=== PATIENT | female | born 1950 | race Caucasian/White ===

== ENCOUNTER 2022-01-04 17:03 | Inpatient (IN) | payer MEDICARE ==
[2022-01-04] MEDS ORDERED: solu-MEDROL 125 MG, Sterile H2O 10 ml 2 ML IV ONE ×2 (17:09)
--- NOTE | 2022-01-04 17:33 | ERPHSYRPT ---
- History of Present Illness Time Seen by Provider: 01/04/22 17:29 Source: patient Exam Limitations: no limitations Physician History: Patient is a 71-year-old white female who presents with a complaint of shortness of breath cough sinus infection worsening COPD and back pain for 2 days. EMS initially found her O2 sat to be 91% and put her on 100% nonrebreather she was given a DuoNeb by the attendant child activity unit raising her O2 sats to 99 to 100% she was then placed on 3 L O2 nasal cannula. She is on home O2 at 2-1/2 L/min. Blood sugar by EMS was 171 she does have a history of COPD. Timing/Duration: day(s) (2), worse Cough Quality/Degree: productive cough Possible Cause: frequent episodes Modifying Factors: Improves With: albuterol nebulizer, coughing, oxygen Associated Symptoms: cough, lightheadedness, nasal congestion, nasal drainage, shortness of breath, sinus infection, wheezing Allergies/Adverse Reactions: rofecoxib [From Vioxx] Adverse Reaction (Verified 01/04/22 17:22) - Review of Systems Constitutional: No Fever, No Chills Eyes: No Symptoms Ears, Nose, & Throat: Nose Discharge, Sinus Drainage Respiratory: Cough, Dyspnea, Wheezing Cardiac: No Chest Pain, No Edema, No Syncope Abdominal/Gastrointestinal: No Abdominal Pain, No Nausea, No Vomiting, No Diarrhea Genitourinary Symptoms: No Dysuria Musculoskeletal: No Back Pain, No Neck Pain Skin: No Rash Neurological: No Dizziness, No Focal Weakness, No Sensory Changes Psychological: No Symptoms Endocrine: No Symptoms All Other Systems: Reviewed and Negative - Nursing Vital Signs Nursing Vital Signs: Initial Vital Signs Temperature 101.5 F 01/04/22 17:23 Pulse Rate 107 H 01/04/22 17:23 Respiratory Rate 24 01/04/22 17:23 Blood Pressure 123/58 01/04/22 17:23 O2 Sat by Pulse Oximetry 95 01/04/22 17:23 Pain Scale Pain Intensity 5 - Physical Exam General Appearance: moderate distress (Can speak in short sentences), alert Eye Exam: PERRL/EOMI, eyes nml inspection Ears, Nose, Throat Exam: normal ENT inspection, TMs normal, pharynx normal, moist mucous membranes Neck Exam: normal inspection, non-tender, supple, full range of motion Respiratory Exam: respiratory distress, diminished breath sounds, crackles/rales, rhonchi, wheezing Cardiovascular Exam: regular rate/rhythm, normal heart sounds Gastrointestinal/Abdomen Exam: soft, No tenderness Back Exam: normal inspection, No CVA tenderness, No vertebral tenderness Extremity Exam: normal inspection, normal range of motion Neurologic Exam: alert, oriented x 3, cooperative, normal mood/affect, sensation nml, No motor deficits Skin Exam: normal color, warm, dry, No rash Lymphatic Exam: No adenopathy - Course Nursing assessment & vital signs reviewed: Yes EKG Interpreted by Me: RATE (106), Sinus Tach, NORMAL AXIS, NORMAL INTERVALS, Non-specific ST Changes - Radiology Exams Chest X-ray Interpretation: Interpreted by me (Left lower lobe pneumonia prominent right hilar area) Ordered Tests: Active Orders 24 hr Category Date Time Status IV Insertion STAT Care 01/04/22 17:09 Active CHEST 1 VIEW (PORTABLE) Stat Exams 01/04/22 17:42 Taken CHEST WITH CONTRAST [CT] Stat Exams 01/04/22 18:52 Ordered BLOOD CULTURE Stat Lab 01/04/22 Ordered CBC W DIFF Stat Lab 01/04/22 17:50 Completed CMP Stat Lab 01/04/22 17:50 Completed D-DIMER QUANTITATIVE Stat Lab 01/04/22 17:50 Completed Lactic Acid Stat Lab 01/04/22 17:25 Completed MAGNESIUM Stat Lab 01/04/22 17:50 Completed NT PRO BNP Stat Lab 01/04/22 17:50 Completed PROCALCITONIN Stat Lab 01/04/22 17:50 Completed PROTIME WITH INR Stat Lab 01/04/22 17:50 Completed PTT Stat Lab 01/04/22 17:50 Completed TROPONIN Q4H Lab 01/04/22 17:50 Completed TROPONIN Q4H Lab 01/04/22 21:15 Ordered TROPONIN Q4H Lab 01/05/22 01:15 Ordered UA W/RFX CULTURE Stat Lab 01/04/22 19:07 Ordered BiPap/CPAP STAT RT 01/04/22 17:09 Active Medication Summary Generic Name Dose Route Start Last Admin Trade Name Freq PRN Reason Stop Dose Admin Sodium Chloride 1,000 mls @ 100 mls/hr 01/04/22 17:15 01/04/22 18:19 Sodium Chloride 0.9% 1000 Ml IV 02/03/22 17:14 100 mls/hr .Q10H EVA Administration Discontinued Medications Generic Name Dose Route Start Last Admin Trade Name Sona PRN Reason Stop Dose Admin Methylprednisolone Sodium 0 mg 01/04/22 17:09 01/04/22 18:15 Succinate 125 mg/ Sterile IV 01/04/22 17:10 125 mg Water 2 ml STAT ONE Administration Methylprednisolone Sodium Succinate Confirm 01/04/22 18:00 Methylprednis Sod Succ 125 Mg/2 Ml Vial Administered 01/04/22 18:01 Dose 125 mg .ROUTE .STK-MED ONE Sterile Water Confirm 01/04/22 18:00 Water For Injection,Sterile 10 Ml Vial Administered 01/04/22 18:01 Dose 10 ml IJ .STK-MED ONE Lab/Rad Data: Laboratory Result Diagrams 01/04/22 17:50 01/04/22 17:50 Laboratory Results 01/04/22 01/04/22 01/04/22 Range/Units Unknown 18:05 17:50 WBC (4.0-10.5) x10^3/uL RBC (4.1-5.4) x10^6/uL Hgb (12.0-16.0) g/dL Hct (35-47) % MCV (78-100) fL MCH (26-32) pg MCHC (32-36) g/dL RDW (11.5-14.0) % Plt Count (150-450) x10^3/uL MPV (7.5-11.0) fL Gran % (36.0-66.0) % Immature Gran % (Auto) (0.00-0.4) % Nucleat RBC Rel Count (0.00-0.1) % Eos # (Auto) (0-0.5) x10^3/uL Immature Gran # (Auto) (0.00-0.03) x10^3u/L Absolute Lymphs (auto) (1.0-4.6) x10^3/uL Absolute Monos (auto) (0.0-1.3) x10^3/uL Absolute Nucleated RBC (0.00-0.01) x10^3u/L Lymphocytes % (24.0-44.0) % Monocytes % (0.0-12.0) % Eosinophils % (0.00-5.0) % Basophils % (0.0-0.4) % Absolute Granulocytes (1.4-6.9) x10^3/uL Basophils # (0-0.4) x10^3/uL PT (9.4-12.5) SECONDS INR (0.8-3.0) APTT (25.1-36.5) SECONDS D-Dimer (0.0-0.50) mg/L Sodium (137-145) mmol/L Potassium (3.5-5.1) mmol/L Chloride (98-107) mmol/L Carbon Dioxide (22-30) mmol/L Anion Gap (5-15) MEQ/L BUN (7-17) mg/dL Creatinine (0.52-1.04) mg/dL Estimated GFR ML/MIN Glucose (74-106) mg/dL Lactic Acid (0.4-2.0) Calcium (8.4-10.2) mg/dL Magnesium (1.6-2.3) mg/dL Total Bilirubin (0.2-1.3) mg/dL AST (14-36) U/L ALT (0-35) U/L Alkaline Phosphatase (38-126) U/L Troponin I (0.000-0.034) ng/mL NT-Pro-B Natriuret Pep (0-900) pg/mL Serum Total Protein (6.3-8.2) g/dL Albumin (3.5-5.0) g/dL Procalcitonin 1.260 H (0.030-0.080) ng/mL Influenza Type A Ag NEGATIVE (NEGATIVE) Influenza Type B Ag NEGATIVE (NEGATIVE) RSV (PCR) NEGATIVE (Negative) SARS-CoV-2 (PCR) POSITIVE A (NEGATIVE) Group A Strep Antibody NOT DETECTED (NEGATIVE) 01/04/22 01/04/22 01/04/22 Range/Units 17:50 17:50 17:50 WBC (4.0-10.5) x10^3/uL RBC (4.1-5.4) x10^6/uL Hgb (12.0-16.0) g/dL Hct (35-47) % MCV (78-100) fL MCH (26-32) pg MCHC (32-36) g/dL RDW (11.5-14.0) % Plt Count (150-450) x10^3/uL MPV (7.5-11.0) fL Gran % (36.0-66.0) % Immature Gran % (Auto) (0.00-0.4) % Nucleat RBC Rel Count (0.00-0.1) % Eos # (Auto) (0-0.5) x10^3/uL Immature Gran # (Auto) (0.00-0.03) x10^3u/L Absolute Lymphs (auto) (1.0-4.6) x10^3/uL Absolute Monos (auto) (0.0-1.3) x10^3/uL Absolute Nucleated RBC (0.00-0.01) x10^3u/L Lymphocytes % (24.0-44.0) % Monocytes % (0.0-12.0) % Eosinophils % (0.00-5.0) % Basophils % (0.0-0.4) % Absolute Granulocytes (1.4-6.9) x10^3/uL Basophils # (0-0.4) x10^3/uL PT 11.9 (9.4-12.5) SECONDS INR 1.14 (0.8-3.0) APTT 34.3 (25.1-36.5) SECONDS D-Dimer 1.00 H* (0.0-0.50) mg/L Sodium 137 (137-145) mmol/L Potassium 4.3 (3.5-5.1) mmol/L Chloride 105 (98-107) mmol/L Carbon Dioxide 25 (22-30) mmol/L Anion Gap 11.7 (5-15) MEQ/L BUN 10 (7-17) mg/dL Creatinine 0.77 (0.52-1.04) mg/dL Estimated GFR > 60.0 ML/MIN Glucose 128 H (74-106) mg/dL Lactic Acid (0.4-2.0) Calcium 8.7 (8.4-10.2) mg/dL Magnesium 1.7 (1.6-2.3) mg/dL Total Bilirubin 0.60 (0.2-1.3) mg/dL AST 26 (14-36) U/L ALT 26 (0-35) U/L Alkaline Phosphatase 91 (38-126) U/L Troponin I < 0.012 (0.000-0.034) ng/mL NT-Pro-B Natriuret Pep 774 (0-900) pg/mL Serum Total Protein 6.5 (6.3-8.2) g/dL Albumin 3.7 (3.5-5.0) g/dL Procalcitonin (0.030-0.080) ng/mL Influenza Type A Ag (NEGATIVE) Influenza Type B Ag (NEGATIVE) RSV (PCR) (Negative) SARS-CoV-2 (PCR) (NEGATIVE) Group A Strep Antibody (NEGATIVE) 01/04/22 01/04/22 Range/Units 17:50 17:25 WBC 12.6 H (4.0-10.5) x10^3/uL RBC 2.88 L (4.1-5.4) x10^6/uL Hgb 6.4 L* (12.0-16.0) g/dL Hct 23.2 L (35-47) % MCV 80.6 (78-100) fL MCH 22.2 L (26-32) pg MCHC 27.6 L (32-36) g/dL RDW 19.5 H (11.5-14.0) % Plt Count 105 L (150-450) x10^3/uL MPV 11.5 H (7.5-11.0) fL Gran % 87.1 H (36.0-66.0) % Immature Gran % (Auto) 0.6 H (0.00-0.4) % Nucleat RBC Rel Count 0.2 H (0.00-0.1) % Eos # (Auto) 0.01 (0-0.5) x10^3/uL Immature Gran # (Auto) 0.07 H (0.00-0.03) x10^3u/L Absolute Lymphs (auto) 0.71 L (1.0-4.6) x10^3/uL Absolute Monos (auto) 0.82 (0.0-1.3) x10^3/uL Absolute Nucleated RBC 0.02 H (0.00-0.01) x10^3u/L Lymphocytes % 5.6 L (24.0-44.0) % Monocytes % 6.5 (0.0-12.0) % Eosinophils % 0.1 (0.00-5.0) % Basophils % 0.1 (0.0-0.4) % Absolute Granulocytes 10.96 H (1.4-6.9) x10^3/uL Basophils # 0.01 (0-0.4) x10^3/uL PT (9.4-12.5) SECONDS INR (0.8-3.0) APTT (25.1-36.5) SECONDS D-Dimer (0.0-0.50) mg/L Sodium (137-145) mmol/L Potassium (3.5-5.1) mmol/L Chloride (98-107) mmol/L Carbon Dioxide (22-30) mmol/L Anion Gap (5-15) MEQ/L BUN (7-17) mg/dL Creatinine (0.52-1.04) mg/dL Estimated GFR ML/MIN Glucose (74-106) mg/dL Lactic Acid 1.6 (0.4-2.0) Calcium (8.4-10.2) mg/dL Magnesium (1.6-2.3) mg/dL Total Bilirubin (0.2-1.3) mg/dL AST (14-36) U/L ALT (0-35) U/L Alkaline Phosphatase (38-126) U/L Troponin I (0.000-0.034) ng/mL NT-Pro-B Natriuret Pep (0-900) pg/mL Serum Total Protein (6.3-8.2) g/dL Albumin (3.5-5.0) g/dL Procalcitonin (0.030-0.080) ng/mL Influenza Type A Ag (NEGATIVE) Influenza Type B Ag (NEGATIVE) RSV (PCR) (Negative) SARS-CoV-2 (PCR) (NEGATIVE) Group A Strep Antibody (NEGATIVE) - Progress Progress: unchanged Air Movement: fair Blood Culture(s) Obtained: Yes Antibiotics given: Yes Discussed with : Ja Will see patient in: hospital (observation) - Departure Departure Disposition: Observation Clinical Impression: COVID, Anemia Condition: Fair Critical Care Time: No
[2022-01-04] MEDS ORDERED: Sterile H2O 10 ml IJ ONE (18:00)
[2022-01-04] MEDS ORDERED: solu-MEDROL ONE (18:00)
[2022-01-04 18:14] LABS: Absolute Neutrophil Ct (ANC) 10.96 x10^3/uL (1.4-6.9); Basophil (Absolute #) 0.01 x10^3/uL (0-0.4); Eosinophil % 0.1 % (0.00-5.0); Eosinophil (Absolute #) 0.01 x10^3/uL (0-0.5); Hematocrit 23.2 % (35-47); Lymphocyte (Absolute #) 0.71 x10^3/uL (1.0-4.6); Lymphocytes % 5.6 % (24.0-44.0); Mean Cell Volume 80.6 fL (78-100); Mean Corpuscular Hemoglobin 22.2 pg (26-32); Mean Corpuscular Hgb Concent. 27.6 g/dL (32-36); Mean Platelet Volume 11.5 fL (7.5-11.0); Monocyte (Absolute #) 0.82 x10^3/uL (0.0-1.3); Monocytes % 6.5 % (0.0-12.0); Neutrophil % 87.1 % (36.0-66.0); Platelet Count 105 x10^3/uL (150-450); Red Blood Count 2.88 x10^6/uL (4.1-5.4); Red Cell Distribution Width 19.5 % (11.5-14.0); White Blood Count 12.6 x10^3/uL (4.0-10.5)
[2022-01-04] MEDS: Sodium Chloride 0.9% 1000 ML 1,000 ML IV SCH (18:19)
[2022-01-04 18:21] LABS: Hemoglobin 6.4 g/dL (12.0-16.0)
[2022-01-04 18:37] LABS: ALBUMIN 3.7 g/dL (3.5-5.0); ALKALINE PHOSPHATASE 91 U/L (38-126); ANION GAP 11.7 MEQ/L (5-15); BLOOD UREA NITROGEN 10 mg/dL (7-17); CHLORIDE 105 mmol/L (98-107); Calcium 8.7 mg/dL (8.4-10.2); Carbon Dioxide 25 mmol/L (22-30); Creatinine 1 0.77 mg/dL (0.52-1.04); EST GLOMERULAR FILTRATION RATE > 60.0 ML/MIN; Glucose 128 mg/dL (74-106); MAGNESIUM 1.7 mg/dL (1.6-2.3); NT PRO BNP 774 pg/mL (0-900); Potassium 4.3 mmol/L (3.5-5.1); SGOT/AST 26 U/L (14-36); SGPT/ALT 26 U/L (0-35); SODIUM 137 mmol/L (137-145); Total Protein 6.5 g/dL (6.3-8.2)
[2022-01-04 18:39] LABS: INR 1.14 (0.8-3.0); PROTIME 11.9 SECONDS (9.4-12.5); PTT 34.3 SECONDS (25.1-36.5)
[2022-01-04 18:53] LABS: INFLUENZA A NEGATIVE (NEGATIVE); INFLUENZA B NEGATIVE (NEGATIVE); RESPIRATORY SYNCTIAL VIRUS NEGATIVE (Negative)
[2022-01-04 19:00] LABS: SARS-CoV-2 Xpert Express POSITIVE (NEGATIVE)
[2022-01-04 19:50] LABS: Appearance CLEAR (CLEAR)
[2022-01-04 19:52] LABS: Bilirubin NEGATIVE (NEGATIVE); Dipstick done @ ? MAIN LAB; Glucose 500 mg/dL (NEGATIVE); Ketones SMALL-15 (NEGATIVE); Nitrite NEGATIVE (NEGATIVE); Protein,Urine Dip NEGATIVE (Negative); RBC NEGATIVE Ery/ul (0-5); Specific Gravity 1.015 (1.005-1.025); Urobilinogen 0.2 mg/dL (0-1)
[2022-01-04 19:54] LABS: Urine Cultured Indicated? NO
--- NOTE | 2022-01-04 20:19 | XRAY ---
Indication: Short of breath and right upper back pain. Positive Covid 19. Elevated d-dimer. Multiple contiguous axial images obtained through the chest using 100 cc Isovue-370 contrast and PE protocol. Comparison: None Good opacification of the pulmonary arteries to include the lobar and segmental branches. No pulmonary embolus. Heart not enlarged. Aorta mildly arteriosclerotic without aneurysm/dissection. No pathologic mediastinal/hilar lymphadenopathy. Moderate size hiatal hernia with partial intrathoracic stomach. Lungs demonstrates mild right upper lobe consolidating/nonconsolidating airspace disease. Minimal patchy airspace disease seen of the remaining lungs bilaterally. Remaining lungs demonstrates mild diffuse pulmonary emphysema. No effusion. Bony thorax intact with osteopenia and moderate/advanced degenerative changes throughout the thoracolumbar spine. Limited upper abdomen unremarkable. Impression: 1. Negative pulmonary embolus. 2. Diffuse bilateral patchy airspace disease, greatest right upper lobe. 3. Chronic findings including pulmonary emphysema, arteriosclerotic disease, hiatal hernia with partial intrathoracic stomach, and chronic bony findings.
--- NOTE | 2022-01-04 20:21 | XRAY ---
Indication: Short of breath. Positive Covid 19. Comparison: None Portable chest hyperinflated with CT proven diffuse bilateral patchy airspace disease. No consolidation/large effusion. Heart not enlarged. Bony thorax intact with degenerative changes.
[2022-01-04 21:00] LABS: ABO TYPING O
[2022-01-04 21:01] LABS: Antibody Screen NEGATIVE (NEGATIVE); RH TYPING POSITIVE
[2022-01-04 21:03] LABS: CROSS MATCH (PRBC) COMPATIBLE (COMPATIBLE)
[2022-01-04 21:28] LABS: Slide Review 1 YES
[2022-01-04] MEDS ORDERED: Hydromorphone 1 mg/ml Injection IV PRN (21:55)
[2022-01-04] MEDS ORDERED: TYLENOL EXTRA STRENGTH 500 MG PO PRN (22:59)
[2022-01-04] MEDS ORDERED: REMDESIVIR 200 MG in Sodium Chloride 0.9% 250 ML 250 ML IV ONE (23:00)
[2022-01-04] MEDS ORDERED: Decadron 4 MG INJ IV SCH (23:00)
[2022-01-04] MEDS ORDERED: FEVERALL 650 MG PR PRN (23:01)
[2022-01-04] MEDS ORDERED: Zofran 4 MG/2 ML VIAL IV PRN (23:02)
[2022-01-04] MEDS ORDERED: PATIENT OWN MEDICATION IH PRN (23:49)
[2022-01-05] MEDS ORDERED: Sodium Chloride 0.9% 250 ML 250 ML IV ONE (05:30)
[2022-01-05] MEDS ORDERED: REMDESIVIR IV ONE (05:30)
[2022-01-05] MEDS ORDERED: Sodium Chloride 0.9% 1000 ML 1,000 ML ONE (05:43)
[2022-01-05] MEDS: Sodium Chloride 0.9% 1000 ML 1,000 ML IV SCH ×2 (05:44→12:15)
[2022-01-05] MEDS: HYDROCODONE-CHLORPHEN ER SUSP PO PRN ×2 (06:07→21:04)
[2022-01-05 07:28] LABS: Hematocrit 28.4 % (35-47); Hemoglobin 8.5 g/dL (12.0-16.0); Mean Cell Volume 79.8 fL (78-100); Mean Corpuscular Hemoglobin 23.9 pg (26-32); Mean Corpuscular Hgb Concent. 29.9 g/dL (32-36); Mean Platelet Volume 10.2 fL (7.5-11.0); Platelet Count 87 x10^3/uL (150-450); Red Blood Count 3.56 x10^6/uL (4.1-5.4); Red Cell Distribution Width 18.6 % (11.5-14.0)
[2022-01-05] MEDS: Advair Hfa 115/21 Common canister IH SCH ×2 (08:28→19:35)
[2022-01-05] MEDS: Spiriva 18 Mcg/Cap Inhaler IH SCH (08:28)
[2022-01-05 08:41] LABS: Slide Review YES
[2022-01-05] MEDS ORDERED: DUONEB 0.5-3 MG/3 ml Neb IH PRN (11:23)
[2022-01-05] MEDS ORDERED: TREXALL 2.5 MG PO SCH (11:30)
[2022-01-05] MEDS: Glucophage 500 MG PO SCH (12:11)
[2022-01-05] MEDS: Klor Con PO SCH (12:12)
[2022-01-05] MEDS: ENOXAPARIN SODIUM SQ SCH (12:14)
[2022-01-05] MEDS: DECADRON 10MG INJ. IV SCH (12:14)
[2022-01-05] MEDS: Neurontin PO SCH ×2 (13:04→21:04)
[2022-01-05] MEDS: ECOTRIN 81 MG PO SCH (13:04)
[2022-01-05] MEDS: Vitamin C 500 MG PO SCH (13:04)
[2022-01-05] MEDS: Cozaar 50 MG PO SCH (13:04)
[2022-01-05] MEDS: SYNTHROID 100 MCG PO SCH (13:04)
[2022-01-05] MEDS: FOLATE 1 MG PO SCH (13:04)
[2022-01-05] MEDS: Tums EX 750 MG PO SCH (13:05)
[2022-01-05] MEDS: KENALOG 0.1% CREAM 15 GM TOP SCH (13:05)
[2022-01-05] MEDS ORDERED: MEDICATION INTERVENTION MC SCH ×2 (16:00)
[2022-01-05] MEDS ORDERED: ROCEPHIN 1 Gm-D5w 50 ml Bag** 1 G/50 ML IVPB IV ONE (17:18)
[2022-01-05] MEDS ORDERED: IMODIUM 2 MG PO ONE (17:47)
[2022-01-05] MEDS: Ativan 1 MG PO PRN (21:05)
[2022-01-05] MEDS ORDERED: Flonase NASAL NS ONE (21:08)
[2022-01-05] MEDS: Flonase NASAL NS SCH (21:11)
[2022-01-05] MEDS ORDERED: REMDESIVIR 100 MG in Sodium Chloride 100ML MINI-BAG PLUS 100 ML IV SCH (22:00)
[2022-01-05] MEDS ORDERED: Mucomyst 200 MG/ML IH SCH (22:00)
[2022-01-05] MEDS ORDERED: NON-FORMULARY ITEM (Fluticasone Propionate [Flonase Allergy Relief] 9.9 ML Spray.Susp) IH SCH (22:00)
[2022-01-06 06:58] LABS: Hematocrit 26.9 % (35-47); Mean Cell Volume 79.4 fL (78-100); Mean Corpuscular Hemoglobin 23.6 pg (26-32); Mean Corpuscular Hgb Concent. 29.7 g/dL (32-36); Mean Platelet Volume 10.8 fL (7.5-11.0); Platelet Count 136 x10^3/uL (150-450); Red Blood Count 3.39 x10^6/uL (4.1-5.4); Red Cell Distribution Width 18.9 % (11.5-14.0); White Blood Count 9.6 x10^3/uL (4.0-10.5)
[2022-01-06 07:04] LABS: ANION GAP 8.9 MEQ/L (5-15); BLOOD UREA NITROGEN 24 mg/dL (7-17); CHLORIDE 105 mmol/L (98-107); Calcium 8.2 mg/dL (8.4-10.2); Carbon Dioxide 25 mmol/L (22-30); Creatinine 1 0.72 mg/dL (0.52-1.04); EST GLOMERULAR FILTRATION RATE > 60.0 ML/MIN; Glucose 112 mg/dL (74-106); Potassium 4.2 mmol/L (3.5-5.1); SODIUM 135 mmol/L (137-145)
[2022-01-06] MEDS: Glucophage 500 MG PO SCH ×2 (07:43→15:55)
[2022-01-06] MEDS ORDERED: Fosamax 70 MG PO SCH (08:00)
[2022-01-06] MEDS: Advair Hfa 115/21 Common canister IH SCH ×2 (08:03→19:21)
[2022-01-06] MEDS: Spiriva 18 Mcg/Cap Inhaler IH SCH ×2 (08:03→10:02)
[2022-01-06] MEDS: Neurontin PO SCH ×2 (09:16→21:13)
[2022-01-06] MEDS: ECOTRIN 81 MG PO SCH (09:16)
[2022-01-06] MEDS: Vitamin C 500 MG PO SCH (09:16)
[2022-01-06] MEDS: FOLATE 1 MG PO SCH (09:16)
[2022-01-06] MEDS: SYNTHROID 100 MCG PO SCH (09:16)
[2022-01-06] MEDS: Cozaar 50 MG PO SCH (09:16)
[2022-01-06] MEDS: ENOXAPARIN SODIUM SQ SCH (09:16)
[2022-01-06] MEDS: KENALOG 0.1% CREAM 15 GM TOP SCH (09:17)
[2022-01-06] MEDS: NORVASC 5 MG PO SCH (09:17)
[2022-01-06] MEDS: Flonase NASAL NS SCH ×2 (09:17→21:13)
[2022-01-06] MEDS: Protonix 40MG Tablet PO SCH (09:17)
[2022-01-06] MEDS: ROCEPHIN 1 Gm-D5w 50 ml Bag** 1 G/50 ML IVPB IV SCH (09:18)
[2022-01-06] MEDS: Klor Con PO SCH (09:18)
[2022-01-06] MEDS: Tums EX 750 MG PO SCH (09:19)
[2022-01-06] MEDS ORDERED: NON-FORMULARY ITEM (Ascorbic Acid [C-1000] 1,000 MG Tablet) PO SCH (10:00)
[2022-01-06] MEDS ORDERED: NON-FORMULARY ITEM (Calcium Carbonate [Calcium] 600 MG Tablet) PO SCH (10:00)
[2022-01-06] MEDS ORDERED: NON-FORMULARY ITEM (Omeprazole [Omeprazole] 20 MG Capsule.Dr) PO SCH (10:00)
[2022-01-06] MEDS ORDERED: LEVOTHYROXINE SODIUM 100 MCG PO SCH (10:00)
[2022-01-06] MEDS ORDERED: NON-FORMULARY ITEM (Dapagliflozin Propanediol [Farxiga] 10 MG Tablet) PO SCH (10:00)
[2022-01-06] MEDS ORDERED: NON-FORMULARY ITEM (Potassium Chloride [Potassium Chloride] 10 MEQ Tablet.Er) PO SCH (10:00)
[2022-01-06] MEDS ORDERED: NON-FORMULARY ITEM (Losartan Potassium [Losartan Potassium] 100 MG Tablet) PO SCH (10:00)
[2022-01-06] MEDS: DECADRON 10MG INJ. IV SCH (10:02)
[2022-01-06 13:39] LABS: Iron Saturation 4.04 % (20-39)
[2022-01-06 13:55] LABS: Folate (Folic Acid) 8.33 ng/mL (2.76 - >20)
[2022-01-06 13:56] LABS: Vitamin B12 > 1000 pg/mL (239-931)
[2022-01-06] MEDS ORDERED: NORCO 7.5/325 MG TAB PO PRN (14:47)
[2022-01-06] MEDS ORDERED: Zofran 4 MG/2 ML VIAL IV PRN (14:47)
[2022-01-06] MEDS ORDERED: MORPHINE SULFATE 2 MG INJ IV PRN (14:47)
[2022-01-06] MEDS ORDERED: Dextrose 5% -0.45 NaCl 1000 ML 1,000 ML IV SCH (15:00)
[2022-01-06] MEDS: FEOSOL 325 MG PO SCH ×2 (15:35→21:13)
[2022-01-06] MEDS: Ativan 1 MG PO PRN (21:13)
[2022-01-06] MEDS: HYDROCODONE-CHLORPHEN ER SUSP PO PRN (21:13)
[2022-01-07 05:03] LABS: Hematocrit 26.8 % (35-47); Hemoglobin 8.1 g/dL (12.0-16.0); Mean Cell Volume 80.2 fL (78-100); Mean Corpuscular Hemoglobin 24.3 pg (26-32); Mean Corpuscular Hgb Concent. 30.2 g/dL (32-36); Mean Platelet Volume 9.6 fL (7.5-11.0); Platelet Count 131 x10^3/uL (150-450); Red Blood Count 3.34 x10^6/uL (4.1-5.4); Red Cell Distribution Width 19.5 % (11.5-14.0); White Blood Count 8.5 x10^3/uL (4.0-10.5)
[2022-01-07 05:24] LABS: BLOOD UREA NITROGEN 21 mg/dL (7-17); CHLORIDE 104 mmol/L (98-107); Calcium 8.2 mg/dL (8.4-10.2); Carbon Dioxide 26 mmol/L (22-30); Creatinine 1 0.74 mg/dL (0.52-1.04); EST GLOMERULAR FILTRATION RATE > 60.0 ML/MIN; Glucose 107 mg/dL (74-106); Potassium 4.1 mmol/L (3.5-5.1); SODIUM 135 mmol/L (137-145)
[2022-01-07] MEDS: Advair Hfa 115/21 Common canister IH SCH ×2 (07:55→18:55)
[2022-01-07] MEDS: Spiriva 18 Mcg/Cap Inhaler IH SCH (07:55)
[2022-01-07] MEDS ORDERED: PROTONIX 40 MG IV IV SCH (10:00)
[2022-01-07] MEDS: Glucophage 500 MG PO SCH ×2 (10:24→17:03)
[2022-01-07] MEDS: Flonase NASAL NS SCH ×2 (10:25→21:33)
[2022-01-07] MEDS: Cozaar 50 MG PO SCH (10:25)
[2022-01-07] MEDS: ECOTRIN 81 MG PO SCH (10:25)
[2022-01-07] MEDS: DECADRON 10MG INJ. IV SCH (10:25)
[2022-01-07] MEDS: ENOXAPARIN SODIUM SQ SCH (10:25)
[2022-01-07] MEDS: FEOSOL 325 MG PO SCH ×2 (10:25→21:34)
[2022-01-07] MEDS: KENALOG 0.1% CREAM 15 GM TOP SCH (10:26)
[2022-01-07] MEDS: FOLATE 1 MG PO SCH (10:26)
[2022-01-07] MEDS: Neurontin PO SCH ×2 (10:27→21:34)
[2022-01-07] MEDS: NORVASC 5 MG PO SCH (10:27)
[2022-01-07] MEDS: ROCEPHIN 1 Gm-D5w 50 ml Bag** 1 G/50 ML IVPB IV SCH (10:28)
[2022-01-07] MEDS: Protonix 40MG Tablet PO SCH (10:28)
[2022-01-07] MEDS: REMDESIVIR 100 MG in Sodium Chloride 100ML MINI-BAG PLUS 100 ML IV SCH (10:28)
[2022-01-07] MEDS: Klor Con PO SCH (10:28)
[2022-01-07] MEDS: Vitamin C 500 MG PO SCH (10:28)
[2022-01-07] MEDS: SYNTHROID 100 MCG PO SCH (10:28)
[2022-01-07] MEDS: Tessalon Perles 100 MG PO PRN ×2 (10:29→15:44)
[2022-01-07] MEDS: Tums EX 750 MG PO SCH ×2 (10:29→18:45)
--- NOTE | 2022-01-07 13:38 | PCM.NOTE ---
Date and Time: 01/07/22 0900 Subjective Assessment: Patient is up in bedside chair, finished breakfast,states feeling stronger. OBJECTIVE DATA Vital Signs: Vital Signs - 24 hr Temp Pulse Resp BP Pulse Ox 01/07/22 11:28 97.9 F 79 16 130/73 98 01/07/22 10:00 18 01/07/22 08:00 18 01/07/22 07:58 97 H 18 97 01/07/22 07:48 97.8 F 77 14 131/77 96 01/07/22 06:00 22 01/07/22 04:00 22 01/07/22 03:52 97.5 F 74 18 130/71 96 01/07/22 02:00 18 01/07/22 00:00 18 01/06/22 23:51 97.9 F 66 18 125/62 98 01/06/22 22:00 16 01/06/22 20:00 22 01/06/22 19:48 97.5 F 91 H 20 125/74 95 01/06/22 19:21 95 H 18 95 01/06/22 18:00 17 01/06/22 16:00 98.0 F 90 17 127/72 96 01/06/22 15:59 18 01/06/22 13:58 16 Pain Assessment - Last Documented Pain Intensity 5 Intake and Output: Intake & Output 01/05/22 01/06/22 01/07/22 01/08/22 11:59 11:59 11:59 11:59 Intake Total 6505 277 4914 Output Total 1500 750 Balance 105 -35 1550 Weight 83.4 kg 98 kg 98.1 kg Lab Results: Lab Results-Last 24 Hours 01/06/22 01/06/22 01/06/22 Range/Units 06:45 06:45 16:01 WBC (4.0-10.5) x10^3/uL RBC (4.1-5.4) x10^6/uL Hgb (12.0-16.0) g/dL Hct (35-47) % MCV (78-100) fL MCH (26-32) pg MCHC (32-36) g/dL RDW (11.5-14.0) % Plt Count (150-450) x10^3/uL MPV (7.5-11.0) fL Reticulocyte % (Auto) 0.6 (0.6-2.6) % Retic Hgb Content 19.7 L (28-38) pg D-Dimer (0.0-0.50) mg/L Sodium (137-145) mmol/L Potassium (3.5-5.1) mmol/L Chloride (98-107) mmol/L Carbon Dioxide (22-30) mmol/L Anion Gap (5-15) MEQ/L BUN (7-17) mg/dL Creatinine (0.52-1.04) mg/dL Estimated GFR ML/MIN Glucose (74-106) mg/dL POC Glucometer 252 H (74 to 106) mg/dL Calcium (8.4-10.2) mg/dL Iron (37-170) ug/dL TIBC (265-462) ug/dL Iron Saturation (20-39) % Vitamin B12 > 1000 H (239-931) pg/mL Folic Acid 8.33 (2.76 - >20) ng/mL 01/06/22 01/06/22 01/07/22 Range/Units 20:29 Unknown 04:52 WBC 8.5 (4.0-10.5) x10^3/uL RBC 3.34 L (4.1-5.4) x10^6/uL Hgb 8.1 L (12.0-16.0) g/dL Hct 26.8 L (35-47) % MCV 80.2 (78-100) fL MCH 24.3 L (26-32) pg MCHC 30.2 L (32-36) g/dL RDW 19.5 H (11.5-14.0) % Plt Count 131 L (150-450) x10^3/uL MPV 9.6 (7.5-11.0) fL Reticulocyte % (Auto) (0.6-2.6) % Retic Hgb Content (28-38) pg D-Dimer (0.0-0.50) mg/L Sodium (137-145) mmol/L Potassium (3.5-5.1) mmol/L Chloride (98-107) mmol/L Carbon Dioxide (22-30) mmol/L Anion Gap (5-15) MEQ/L BUN (7-17) mg/dL Creatinine (0.52-1.04) mg/dL Estimated GFR ML/MIN Glucose (74-106) mg/dL POC Glucometer 217 H (74 to 106) mg/dL Calcium (8.4-10.2) mg/dL Iron 17 L (37-170) ug/dL TIBC 421 (265-462) ug/dL Iron Saturation 4.04 L (20-39) % Vitamin B12 (239-931) pg/mL Folic Acid (2.76 - >20) ng/mL 01/07/22 01/07/22 01/07/22 Range/Units 04:52 04:52 07:41 WBC (4.0-10.5) x10^3/uL RBC (4.1-5.4) x10^6/uL Hgb (12.0-16.0) g/dL Hct (35-47) % MCV (78-100) fL MCH (26-32) pg MCHC (32-36) g/dL RDW (11.5-14.0) % Plt Count (150-450) x10^3/uL MPV (7.5-11.0) fL Reticulocyte % (Auto) (0.6-2.6) % Retic Hgb Content (28-38) pg D-Dimer 0.53 H (0.0-0.50) mg/L Sodium 135 L (137-145) mmol/L Potassium 4.1 (3.5-5.1) mmol/L Chloride 104 (98-107) mmol/L Carbon Dioxide 26 (22-30) mmol/L Anion Gap 9.0 (5-15) MEQ/L BUN 21 H (7-17) mg/dL Creatinine 0.74 (0.52-1.04) mg/dL Estimated GFR > 60.0 ML/MIN Glucose 107 H (74-106) mg/dL POC Glucometer 108 H (74 to 106) mg/dL Calcium 8.2 L (8.4-10.2) mg/dL Iron (37-170) ug/dL TIBC (265-462) ug/dL Iron Saturation (20-39) % Vitamin B12 (239-931) pg/mL Folic Acid (2.76 - >20) ng/mL 01/07/22 Range/Units 11:22 WBC (4.0-10.5) x10^3/uL RBC (4.1-5.4) x10^6/uL Hgb (12.0-16.0) g/dL Hct (35-47) % MCV (78-100) fL MCH (26-32) pg MCHC (32-36) g/dL RDW (11.5-14.0) % Plt Count (150-450) x10^3/uL MPV (7.5-11.0) fL Reticulocyte % (Auto) (0.6-2.6) % Retic Hgb Content (28-38) pg D-Dimer (0.0-0.50) mg/L Sodium (137-145) mmol/L Potassium (3.5-5.1) mmol/L Chloride (98-107) mmol/L Carbon Dioxide (22-30) mmol/L Anion Gap (5-15) MEQ/L BUN (7-17) mg/dL Creatinine (0.52-1.04) mg/dL Estimated GFR ML/MIN Glucose (74-106) mg/dL POC Glucometer 163 H (74 to 106) mg/dL Calcium (8.4-10.2) mg/dL Iron (37-170) ug/dL TIBC (265-462) ug/dL Iron Saturation (20-39) % Vitamin B12 (239-931) pg/mL Folic Acid (2.76 - >20) ng/mL Multi-Disciplinary Progress Notes: Multi-Disciplinary Progress Notes 01/07/22 10:22 Case Management Note by Nisreen Weber REFERRAL WAS FAXED TO [facility]. THEY WILL NEED NOTIFIED AT TIME OF DC AT [phone]. THEY WILL NEED FAXED THE DC INSTRUCTIONS., DC MED LIST AND DC [facility] ( IF AVAILABLE) TO [phone] Initialized on 01/07/22 10:22 - END OF NOTE 01/06/22 22:44 Nutrition Note by Emily Soria Nutrition screening complete. Receiving a house regular diet. SHANTI Arenas Initialized on 01/06/22 22:44 - END OF NOTE
[2022-01-07] MEDS: HYDROCODONE-CHLORPHEN ER SUSP PO PRN (21:33)
[2022-01-07] MEDS: Ativan 1 MG PO PRN (21:34)
[2022-01-08] MEDS: Tessalon Perles 100 MG PO PRN (04:50)
[2022-01-08 04:52] LABS: Hematocrit 26.7 % (35-47); Mean Cell Volume 80.9 fL (78-100); Mean Corpuscular Hemoglobin 24.2 pg (26-32); Mean Platelet Volume 10.2 fL (7.5-11.0); Platelet Count 126 x10^3/uL (150-450); Red Cell Distribution Width 19.5 % (11.5-14.0); White Blood Count 8.2 x10^3/uL (4.0-10.5)
[2022-01-08] MEDS: Spiriva 18 Mcg/Cap Inhaler IH SCH (07:41)
[2022-01-08] MEDS: Advair Hfa 115/21 Common canister IH SCH (07:41)
[2022-01-08 07:45] VITALS: O2SAT 98
[2022-01-08] MEDS: Glucophage 500 MG PO SCH (08:05)
[2022-01-08] MEDS: Flonase NASAL NS SCH (09:36)
[2022-01-08] MEDS: KENALOG 0.1% CREAM 15 GM TOP SCH (09:36)
[2022-01-08] MEDS: FOLATE 1 MG PO SCH (09:37)
[2022-01-08] MEDS: ENOXAPARIN SODIUM SQ SCH (09:37)
[2022-01-08] MEDS: Neurontin PO SCH (09:38)
[2022-01-08] MEDS: Cozaar 50 MG PO SCH (09:39)
[2022-01-08] MEDS: Protonix 40MG Tablet PO SCH (09:39)
[2022-01-08] MEDS: ECOTRIN 81 MG PO SCH (09:39)
[2022-01-08] MEDS: Klor Con PO SCH (09:40)
[2022-01-08] MEDS: Vitamin C 500 MG PO SCH (09:40)
[2022-01-08] MEDS: FEOSOL 325 MG PO SCH (09:40)
[2022-01-08] MEDS: NORVASC 5 MG PO SCH (09:40)
[2022-01-08] MEDS: SYNTHROID 100 MCG PO SCH (09:41)
[2022-01-08] MEDS: ROCEPHIN 1 Gm-D5w 50 ml Bag** 1 G/50 ML IVPB IV SCH (09:42)
[2022-01-08] MEDS: DECADRON 10MG INJ. IV SCH (09:44)
[2022-01-08] MEDS: REMDESIVIR 100 MG in Sodium Chloride 100ML MINI-BAG PLUS 100 ML IV SCH (09:44)
[2022-01-08 11:27] VITALS: BP 152/81; PULSE 78
--- NOTE | 2022-01-20 09:32 | PCM.HP ---
History of Present Illness - Chief Complaint Chief Complaint: COVID-19, ANEMIA Date: 01/05/22 History of Present Illness: is a 71 year old female. Pt. presented to er after increasing sob with general fatigue the past 2 days, upon evaluation the patient was found to have slightly low oxygen, she is on chronic home oxygen at 2-2.5L, requiring 3L to keep a good saturation. Pt. was found to have marked anemia at 6.4, pt. noted no blood or black stools. Pt. admitted for further evaluation and treatment of covid positive pneumonia and transfusion of blood with further evaluation into the etiology of the anemia. - Review of Systems Constitutional: Fatigue, No Fever, No Chills Eyes: No Symptoms Ears, Nose, & Throat: No Symptoms Respiratory: Cough, Short Of Breath Cardiac: No Chest Pain, No Edema, No Syncope Abdominal/Gastrointestinal: No Abdominal Pain, No Nausea, No Vomiting, No Diarr hea Genitourinary Symptoms: No Dysuria Musculoskeletal: No Back Pain, No Neck Pain Skin: No Rash Neurological: No Dizziness, No Focal Weakness, No Sensory Changes Psychological: No Symptoms Endocrine: No Symptoms Hematologic/Lymphatic: No Symptoms Immunological/Allergic: No Symptoms Medications & Allergies Home Medications: Home Medication List Acetylcysteine 200 mg/ml [Mucomyst 200 MG/ML] 4 ml IH BID 01/04/22 [History Confirmed 01/04/22] Albuterol 8 gm Mdi Hfa [Ventolin Hfa MDI] 2 puffs IH Q4HPRN PRN 01/04/22 [History Confirmed 01/04/22] Alendronate Sodium 70 mg PO WEEKLY 01/04/22 [History Confirmed 01/04/22] Amlodipine Besylate 5 mg [Norvasc 5 mg] 10 mg PO DAILY 01/04/22 [History Confirmed 01/04/22] Ascorbic Acid [C-1000] 1,000 mg PO DAILY 01/04/22 [History Confirmed 01/04/22] Aspirin [Aspirin EC] 81 mg PO DAILY 01/04/22 [History Confirmed 01/04/22] Calcium Carbonate [Calcium] 600 mg PO DAILY 01/04/22 [History Confirmed ] Dapagliflozin Propanediol [Farxiga] 10 mg PO DAILY 01/04/22 [History Confirmed 01/04/22] Fluticasone Propionate [Flonase Allergy Relief] 1 spray IH BID 01/04/22 [History Confirmed 01/04/22] Fluticasone/Vilanterol [Breo Ellipta 100-25 Mcg INH] 1 puff IH DAILY 01/04/22 [History Confirmed 01/04/22] Folic Acid 1 mg PO DAILY 01/04/22 [History Confirmed 01/04/22] Gabapentin 100 mg PO DAILY 01/04/22 [History Confirmed 01/04/22] Gabapentin 200 mg PO HS 01/04/22 [History Confirmed 01/04/22] Ipratropium/Albuterol Sulfate [Iprat-Albut 0.5-3(2.5) mg/3 ml] 3 ml IH Q4HPRN PRN 01/04/22 [History Confirmed 01/04/22] Levothyroxine Sodium [Levothyroxine] 100 mcg PO DAILY 01/04/22 [History Confirmed 01/04/22] Losartan Potassium 100 mg PO DAILY 01/04/22 [History Confirmed 01/04/22] Metformin HCl 500 mg [Glucophage 500 MG] 1,000 mg PO BID 01/04/22 [History Confirmed 01/04/22] Methotrexate Sodium 2.5 mg [Trexall 2.5 mg] 5 mg PO WEEKLY 01/04/22 [History Confirmed 01/04/22] Omeprazole 20 mg PO DAILY 01/04/22 [History Confirmed 01/04/22] Potassium Chloride 20 meq PO DAILY 01/04/22 [History Confirmed 01/04/22] Roflumilast [Daliresp] 250 mg PO DAILY 01/04/22 [History Confirmed 01/04/22] Triamcinolone 0.1% Cream [Kenalog 0.1% Cream 15 gm] 1 gm TOP DAILY 01/04/22 [History Confirmed 01/04/22] Umeclidinium [place] [Incruse Ellipta] 1 puff IH DAILY 01/04/22 [History Confirmed 01/04/22] Amox Tr/Potass Clav. 875 mg [Augmentin 875-125 Tablet] 875 mg PO BID 20 Days #20 tablet 01/08/22 [Rx] Prednisone 20 mg [Deltasone 20 mg] 20 mg PO DAILY 5 Days #5 tablet 01/08/22 [Rx] Allergies/Adverse Reactions: Allergies Allergy/AdvReac Type Severity Reaction Status Date / Time rofecoxib [From Vioxx] AdvReac Verified 01/04/22 17:22 - Past Medical History Past Medical History: Yes Neurological History: Peripheral Neuropathy ENT History: Cataracts Cardiac History: High Cholesterol, Hypertension Respiratory History: COPD, Pneumonia, Sleep Apnea Endocrine Medical History: Diabetes Type II, Hypothyroidism Musculoskelatal History: Arthritis GI Medical History: GERD History: No Pertinent History Pyscho-Social History: No Pertinent History Reproductive Disorders: No Pertinent History - Female History Are you now?: No - Past Surgical History Past Surgical History: Yes Neuro Surgical History: No Pertinent History Cardiac History: Angioplasty Respiratory Surgery: No Pertinent History GI Surgical History: No Pertinent History Genitourinary Surgical Hx: No Pertinent History Musculskeletal Surgical Hx: No Pertinent History Female Surgical History: Section Other Surgical History: angioplasty 2006 - Social History Smoking Status: Former smoker Exposure to second hand smoke: No Alcohol: None Drug Use: none - Physical Exam General Appearance: no apparent distress, alert Neurologic Exam: alert, oriented x 3, cooperative, normal mood/affect, nml cerebellar function, nml station & gait, sensation nml, No motor deficits Eye Exam: PERRL/EOMI, eyes nml inspection Ears, Nose, Throat Exam: normal ENT inspection, pharynx normal, moist mucous membranes Neck Exam: normal inspection, non-tender, supple, full range of motion Respiratory Exam: normal breath sounds, rhonchi, wheezing, No respiratory distress Cardiovascular Exam: regular rate/rhythm, normal heart sounds, normal peripheral pulses Gastrointestinal/Abdomen Exam: soft, normal bowel sounds, No tenderness, No mass Back Exam: normal inspection, normal range of motion, No CVA tenderness, No vertebral tenderness Extremity Exam: normal inspection, normal range of motion, pelvis stable Skin Exam: normal color, warm, dry, No rash Lymphatic Exam: No adenopathy Results - Labs Lab/Micro Results: Microbiology 01/04/22 17:50 Blood Culture Gram Stain - Final Blood Blood Culture - Final Coagulase Negative Staph. Possible Contaminant. Clinical judgement required. No further workup performed. 01/04/22 17:55 Blood Culture Gram Stain - Final Blood Not Reportable Blood Culture - Final NO GROWTH 01/05/22 01:30 Urine Culture - Final Catherized NO GROWTH Assessment/Plan (1) Anemia Status: Acute Assessment & Plan: transfuse and evaluate for potential causes Code(s): D64.9 - ANEMIA, UNSPECIFIED (2) COVID Status: Acute Assessment & Plan: supportive treatment and treatment with antiviral Code(s): U07.1 - COVID-19
--- NOTE | 2022-01-20 09:38 | PCM.DS ---
Discharge Summary Date of Admission: 01/05/22 12:40 Date of Discharge: 01/08/2022 Admitting Physician: RAGHAV NIEVES Primary Care Provider: MILAGRO PUGH Allergies Allergies rofecoxib [From Vioxx] Adverse Reaction (Verified 01/04/22 17:22) Hospital Summary - Hospital Course Hospital Course: Pt. was transfused, hgb remained stable, labs indicated markedly diminished iron levels, pt. reported a recent clear colonoscopy, stools negative for occult blood, it was felt the anemia was a result of the low iron levels. Pt. will start iron supplementation upon discharge and while in the hospital, clinically the patients strength improved as well as breathing, feeling strong enough for discharge. - Vitals & Intake/Output Vital Signs: Vital Signs Temperature 97.8 F 01/08/22 11:26 Pulse Rate 78 01/08/22 11:26 Respiratory Rate 17 01/08/22 12:00 Blood Pressure 152/81 01/08/22 11:26 O2 Sat by Pulse Oximetry 98 01/08/22 11:26 - Lab Result Diagrams: 01/08/22 04:48 01/07/22 04:52 Micro Results-Entire Visit: Microbiology 01/04/22 17:50 Blood Culture Gram Stain - Final Blood Blood Culture - Final Coagulase Negative Staph. Possible Contaminant. Clinical judgement required. No further workup performed. 01/04/22 17:55 Blood Culture Gram Stain - Final Blood Not Reportable Blood Culture - Final NO GROWTH 01/05/22 01:30 Urine Culture - Final Catherized NO GROWTH - Procedures and Test Procedures and Tests throughout Hospitalization: Therapy Orders & Screens 01/04/22 17:09 BiPap/CPAP STAT Comment: 01/04/22 23:00 Respiratory Therapy Consult ROUTINE Comment: Reason For Exam: Diagnosis: Covid 01/04/22 23:17 RT Screen per Nursing Assess ONCE Comment: Protocol Order Physician Instructions: Greater than 3 points order RT Admission Screen Reason For Exam: Triggered on Admission Diagnosis: Covid Diagnosis: Covid Pneumonia: Yes Home O2: Yes: 3 1/2 CHF: No Home CPAP/BIPAP: Yes Home Nebs/MDI: Yes Total Points: 18 01/04/22 23:52 Oxygen Oxymask LPM 5 lpm Comment: Diagnosis: Covid 01/04/22 23:53 BiPap/CPAP ROUTINE Comment: Diagnosis: Covid Respiratory Therapy Assessment DAILY Comment: Diagnosis: Covid 01/07/22 07:58 Oxygen NASAL CANNULA 3.5 lpm Comment: Diagnosis: Covid Discharge Exam General Appearance: no apparent distress, alert Neurologic Exam: alert, oriented x 3, cooperative, normal mood/affect, nml cerebellar function, sensation nml, No motor deficits Eye Exam: PERRL, EOMI, eyes nml inspection Ears, Nose, Throat Exam: normal ENT inspection, pharynx normal, moist mucous membranes Neck Exam: normal inspection, non-tender, supple, full range of motion Respiratory Exam: normal breath sounds, lungs clear, No respiratory distress Cardiovascular Exam: regular rate/rhythm, normal heart sounds Gastrointestinal/Abdomen Exam: soft, No tenderness, No mass Pelvic Exam: deferred Rectal Exam: deferred Back Exam: normal inspection, normal range of motion, No CVA tenderness, No vertebral tenderness Extremity Exam: normal inspection, normal range of motion Skin Exam: normal color, warm, dry Final Diagnosis/Problem List - Final Discharge Diagnosis/Problem (1) Anemia Status: Acute Assessment & Plan: iron deficiency with chronic disease, pt. will supplement iron, following upon discharge with her pcp for possible further evaluation as warranted per her pcp. Code(s): D64.9 - ANEMIA, UNSPECIFIED (2) COVID Status: Acute Assessment & Plan: clinically improved, after treatment, symptomatic treatment Code(s): U07.1 - COVID-19 - Discharge Discharge Date: 01/08/22 Disposition: Home, Self-Care Condition: Fair Prescriptions: New Amox Tr/Potass Clav. 875 mg [Augmentin 875-125 Tablet] 875 mg PO BID 20 Days #20 tablet Prednisone 20 mg [Deltasone 20 mg] 20 mg PO DAILY 5 Days #5 tablet No Action Acetylcysteine 200 mg/ml [Mucomyst 200 MG/ML] 4 ml IH BID Potassium Chloride 20 meq PO DAILY Omeprazole 20 mg PO DAILY Methotrexate Sodium 2.5 mg [Trexall 2.5 mg] 5 mg PO WEEKLY Metformin HCl 500 mg [Glucophage 500 MG] 1,000 mg PO BID Losartan Potassium 100 mg PO DAILY Levothyroxine Sodium [Levothyroxine] 100 mcg PO DAILY Ipratropium/Albuterol Sulfate [Iprat-Albut 0.5-3(2.5) mg/3 ml] 3 ml IH Q4HPRN PRN PRN Reason: Shortness Of Breath Umeclidinium Joseph [Incruse Ellipta] 1 puff IH DAILY Gabapentin 200 mg PO HS Gabapentin 100 mg PO DAILY Folic Acid 1 mg PO DAILY Fluticasone/Vilanterol [Breo Ellipta 100-25 Mcg INH] 1 puff IH DAILY Fluticasone Propionate [Flonase Allergy Relief] 1 spray IH BID Dapagliflozin Propanediol [Farxiga] 10 mg PO DAILY Roflumilast [Daliresp] 250 mg PO DAILY Calcium Carbonate [Calcium] 600 mg PO DAILY Aspirin [Aspirin EC] 81 mg PO DAILY Ascorbic Acid [C-1000] 1,000 mg PO DAILY Albuterol 8 gm Mdi Hfa [Ventolin Hfa MDI] 2 puffs IH Q4HPRN PRN PRN Reason: Shortness Of Breath Amlodipine Besylate 5 mg [Norvasc 5 mg] 10 mg PO DAILY Alendronate Sodium 70 mg PO WEEKLY Triamcinolone 0.1% Cream [Kenalog 0.1% Cream 15 gm] 1 gm TOP DAILY Outpatient Orders: BMP Time Frame: 01/15/22, Facility: [facility], Location: LABORATORY CBC W DIFF Time Frame: 01/15/22, Facility: [facility], Location: LABORATORY Instructions: Anemia Caused by Low Iron, COVID-19 (DC) Follow up with: RAGHAV NIEVES MD [ACTIVE STAFF] - 01/15/22 1:30 pm Forms: Discharge Instructions
== END 2022-01-08 13:12 | disposition home or self-care (01) | DRG 811 ==
LOC: ED 17:03 → ICU 21:59 → OBSVTOIN 01-05 12:40
PROVIDERS: ADMIT Family Medicine; ATTEND Family Medicine
DX: D64.9 Anemia, unspecified (principal); U07.1 COVID-19; Z79.899 Other long term (current) drug therapy; Z20.828 Contact with and (suspected) exposure to other viral communicable diseases; Z99.81 Dependence on supplemental oxygen
CPT/HCPCS: 0241U; 36000; 36415; 36430; 51702; 71045; 71260; 80048; 80053; 81015; 82607; 82746; 82947; 83036; 83540; 83550; 83605; 83735; 83880; 84145; 84484; 85025; 85027; 85045; 85046; 85379; 85610; 85730; 86850; 86900; 86901; 86922; 87040; 87086; 87651; 93268; 94002; 94640; 94660; 94760; 94762; 96374; 99285; G0328; G0378; P9016; 82274; J0248; J0696; J1100; J1650; J2930; A9270-GY

== ENCOUNTER 2022-01-04 17:17 | Emergency (ER) | payer MEDICARE | END 2022-01-04 17:44 | LOC: ED 17:17 | DX: Z53.9 Procedure and treatment not carried out, unspecified reason (principal) | CPT/HCPCS: 99281 ==

== ENCOUNTER 2022-03-03 07:49 | Emergency (ER) | payer MEDICARE ==
--- NOTE | 2022-03-03 07:54 | ERPHSYRPT ---
- History of Present Illness Time Seen by Provider: 03/03/22 07:54 Source: patient, family Exam Limitations: no limitations Physician History: This is a 71-year-old white female patient of Dr. Nieves who presents with 1 day history of shortness of air. In the last 24 hours, the patient states her shortness of air has increased. She is also had associated cough and some pain in the central part of her back. She has no significant chest pain per her report. Patient is an oxygen dependent COPD patient who wears 3 L of oxygen via nasal cannula. She has been taking it and just forgot to bring it with her on her way to the emergency department today. Patient has a history of hypertension, hypothyroidism, gastroesophageal reflux disease, coronary artery disease, hyperlipidemia, recurrent pneumonia, sleep apnea and peripheral neuropathy. Her symptoms, per her report, are just like the several other episodes of pneumonia. Her daughter had a cough and flulike symptoms and the patient was exposed to her recently. Patient also had low-grade fever. Patient has not had any nausea vomiting or diarrhea. Timing/Duration: yesterday Activities at Onset: none Severity of Dyspnea-Max: mild Severity of Dyspnea-Current: mild Possible Cause: occasional episodes Modifying Factors: Improves With: coughing Associated Symptoms: cough, fever Allergies/Adverse Reactions: rofecoxib [From Vioxx] Adverse Reaction (Verified 03/03/22 07:52) Home Medications: Acetylcysteine 200 mg/ml [Mucomyst 200 MG/ML] 4 ml IH BID 01/04/22 [Histor y] Albuterol 8 gm Mdi Hfa [Ventolin Hfa MDI] 2 puffs IH Q4HPRN PRN 01/04/22 [History] Alendronate Sodium 70 mg PO WEEKLY 01/04/22 [History] Amlodipine Besylate 5 mg [Norvasc 5 mg] 10 mg PO DAILY 01/04/22 [History] Ascorbic Acid [C-1000] 1,000 mg PO DAILY 01/04/22 [History] Aspirin [Aspirin EC] 81 mg PO DAILY 01/04/22 [History] Calcium Carbonate [Calcium] 600 mg PO DAILY 01/04/22 [History] Dapagliflozin Propanediol [Farxiga] 10 mg PO DAILY 01/04/22 [History] Fluticasone Propionate [Flonase Allergy Relief] 1 spray IH BID 01/04/22 [History] Fluticasone/Vilanterol [Breo Ellipta 100-25 Mcg INH] 1 puff IH DAILY 01/04/22 [History] Folic Acid 1 mg PO DAILY 01/04/22 [History] Gabapentin 100 mg PO DAILY 01/04/22 [History] Gabapentin 200 mg PO HS 01/04/22 [History] Ipratropium/Albuterol Sulfate [Iprat-Albut 0.5-3(2.5) mg/3 ml] 3 ml IH Q4HPRN PRN 01/04/22 [History] Levothyroxine Sodium [Levothyroxine] 100 mcg PO DAILY 01/04/22 [History] Losartan Potassium 100 mg PO DAILY 01/04/22 [History] Metformin HCl 500 mg [Glucophage 500 MG] 1,000 mg PO BID 01/04/22 [History] Methotrexate Sodium 2.5 mg [Trexall 2.5 mg] 5 mg PO WEEKLY 01/04/22 [History] Omeprazole 20 mg PO DAILY 01/04/22 [History] Potassium Chloride 20 meq PO DAILY 01/04/22 [History] Roflumilast [Daliresp] 250 mg PO DAILY 01/04/22 [History] Triamcinolone 0.1% Cream [Kenalog 0.1% Cream 15 gm] 1 gm TOP DAILY 01/04/22 [History] Umeclidinium [place] [Incruse Ellipta] 1 puff IH DAILY 01/04/22 [History] Travel Risk - International Travel Have you traveled outside of the country in past 3 weeks: No - Coronavirus Screening Are you exhibiting any of the following symptoms?: Yes Symptoms: Fever, Cough: New Onset, Shortness of Breath, Headaches/Body Aches/Fatigue - Vaccination Dates Date of 2cond Vaccination (if applicable): 09/13/20 - Review of Systems Constitutional: Fever Eyes: No Symptoms Ears, Nose, & Throat: No Symptoms Respiratory: Cough, Dyspnea Cardiac: No Symptoms Abdominal/Gastrointestinal: No Symptoms Genitourinary Symptoms: No Symptoms Musculoskeletal: Arthralgias, Myalgias Skin: No Symptoms Neurological: No Symptoms Psychological: No Symptoms Endocrine: No Symptoms Hematologic/Lymphatic: No Symptoms Immunological/Allergic: No Symptoms All Other Systems: Reviewed and Negative - Past Medical History Neurological History: Peripheral Neuropathy ENT History: Cataracts Cardiac History: Coronary Artery Disease, High Cholesterol, Hypertension Respiratory History: COPD, Pneumonia, Sleep Apnea Musculoskeletal History: Arthritis GI Medical History: GERD - Past Surgical History Cardiac: Angioplasty, Cardiac Catheterization - Social History Drug Use: none - Nursing Vital Signs Nursing Vital Signs: Initial Vital Signs Temperature 97.7 F 03/03/22 07:54 Pulse Rate 105 H 03/03/22 07:54 Respiratory Rate 22 03/03/22 07:54 Blood Pressure 140/80 03/03/22 07:54 O2 Sat by Pulse Oximetry 96 03/03/22 07:54 Pain Scale Pain Intensity 0 - Physical Exam General Appearance: no apparent distress, alert, anxiety Eye Exam: PERRL/EOMI, eyes nml inspection Ears, Nose, Throat Exam: hearing grossly normal, normal ENT inspection, normal pharynx Neck Exam: normal inspection, non-tender, supple, full range of motion Respiratory Exam: normal breath sounds, lungs clear, airway intact, No chest tenderness, No respiratory distress Cardiovascular/Chest Exam: normal heart sounds, regular rate/rhythm, normal p eripheral pulses, No murmur Abdominal/Gastrointestinal Exam: soft, normal bowel sounds, No tenderness Rectal Exam: not done Extremity Exam: non-tender, normal range of motion, normal inspection Neurologic Exam: alert, oriented x 3, cooperative, child welfare social worker II-XII nml as tested, nml cerebellar function, nml station & gait, sensation nml Skin Exam: normal color, warm, dry Lymphatic Exam: No adenopathy SpO2 Interpretation: normal O2 Delivery: Nasal Cannula (3 L oxygen) - Course Nursing assessment & vital signs reviewed: Yes EKG Interpreted by Me: RATE ([id number]), Sinus Tach, Right [place] Deviation, NORMAL QRS, NORMAL ST-T, Other (No acute ischemic changes on today's twelve-lead EKG) Ordered Tests: Active Orders 24 hr Category Date Time Status EKG-ER Only STAT Care 03/03/22 08:09 Active IV Insertion STAT Care 03/03/22 08:09 Active Pulse Oximetry (ED) STAT Care 03/03/22 08:09 Active CHEST 1 VIEW (PORTABLE) Stat Exams 03/03/22 08:30 Completed CHEST WITH CONTRAST [CT] Stat Exams 03/03/22 09:56 Taken CBC W DIFF Stat Lab 03/03/22 08:00 Completed CMP Stat Lab 03/03/22 08:00 Completed D-DIMER QUANTITATIVE Stat Lab 03/03/22 08:00 Completed NT PRO BNP Stat Lab 03/03/22 08:00 Completed TROPONIN Q4H Lab 03/03/22 08:00 Completed TROPONIN Q4H Lab 03/03/22 12:15 Ordered TROPONIN Q4H Lab 03/03/22 16:15 Ordered Respiratory Therapy Assessment DAILY RT 03/03/22 08:25 Active Medication Summary Discontinued Medications Generic Name Dose Route Start Last Admin Trade Name Freq PRN Reason Stop Dose Admin Hydrocodone Bitart/Acetaminophen 10 ml 03/03/22 08:19 03/03/22 08:34 Hydrocodone/Acetaminophen 5 Ml Udcup PO 03/03/22 08:20 10 ml STAT STA Administration Hydrocodone Bitart/Acetaminophen Confirm 03/03/22 08:29 Hydrocodone/Acetaminophen 5 Ml Udcup Administered 03/03/22 08:30 Dose 10 ml .ROUTE .STK-MED ONE Albuterol/Ipratropium 3 ml 03/03/22 08:24 03/03/22 08:27 Ipratropium/Albuterol Sulfate 3 Ml Ampul.Neb IH 03/03/22 08:25 3 ml STAT ONE Administration Albuterol/Ipratropium Confirm 03/03/22 08:26 Ipratropium/Albuterol Sulfate 3 Ml Ampul.Neb Administered 03/03/22 08:27 Dose 3 ml IH .STK-MED ONE Methylprednisolone Sodium 0 mg 03/03/22 08:19 03/03/22 08:34 Succinate 125 mg/ Sterile IV 03/03/22 08:20 125 mg Water 2 ml STAT ONE Administration Sodium Chloride 500 mls @ 500 mls/hr 03/03/22 09:26 03/03/22 09:36 Sodium Chloride 0.9% 500 Ml IV 03/03/22 10:25 500 mls/hr .Q1H ONE Administration Ceftriaxone Sodium/Dextrose 1 g in 50 mls @ 100 mls/hr 03/03/22 09:29 03/03/22 09:36 Rocephin 1 Gm-D5w 50 Ml Bag IV 03/03/22 09:58 100 mls/hr STAT STA 100 mls/hr Administration Ceftriaxone Sodium/Dextrose Confirm 03/03/22 09:35 Rocephin 1 Gm-D5w 50 Ml Bag Administered 03/03/22 09:36 Dose 1 g in 50 mls @ ud IV .STK-MED ONE Sodium Chloride Confirm 03/03/22 09:35 Sodium Chloride 0.9% 500 Ml Administered 03/03/22 09:36 Dose 500 mls @ ud IV .STK-MED ONE Methylprednisolone Sodium Succinate Confirm 03/03/22 08:29 Methylprednis Sod Succ 125 Mg/2 Ml Vial Administered 03/03/22 08:30 Dose 125 mg .ROUTE .STK-MED ONE Sterile Water Confirm 03/03/22 08:29 Water For Injection,Sterile 10 Ml Vial Administered 03/03/22 08:30 Dose 10 ml IJ .STK-MED ONE Lab/Rad Data: Laboratory Result Diagrams 03/03/22 08:00 03/03/22 08:00 Laboratory Results 03/03/22 03/03/22 03/03/22 Range/Units 08:15 08:00 08:00 WBC (4.0-10.5) x10^3/uL RBC (4.1-5.4) x10^6/uL Hgb (12.0-16.0) g/dL Hct (35-47) % MCV (78-100) fL MCH (26-32) pg MCHC (32-36) g/dL RDW (11.5-14.0) % Plt Count (150-450) x10^3/uL MPV (7.5-11.0) fL Gran % (36.0-66.0) % Immature Gran % (Auto) (0.00-0.4) % Nucleat RBC Rel Count (0.00-0.1) % Eos # (Auto) (0-0.5) x10^3/uL Immature Gran # (Auto) (0.00-0.03) x10^3u/L Absolute Lymphs (auto) (1.0-4.6) x10^3/uL Absolute Monos (auto) (0.0-1.3) x10^3/uL Absolute Nucleated RBC (0.00-0.01) x10^3u/L Lymphocytes % (24.0-44.0) % Monocytes % (0.0-12.0) % Eosinophils % (0.00-5.0) % Basophils % (0.0-0.4) % Absolute Granulocytes (1.4-6.9) x10^3/uL Basophils # (0-0.4) x10^3/uL D-Dimer 0.59 H (0.0-0.50) mg/L Sodium (137-145) mmol/L Potassium (3.5-5.1) mmol/L Chloride (98-107) mmol/L Carbon Dioxide (22-30) mmol/L Anion Gap (5-15) MEQ/L BUN (7-17) mg/dL Creatinine (0.52-1.04) mg/dL Estimated GFR ML/MIN Glucose (74-106) mg/dL Calcium (8.4-10.2) mg/dL Total Bilirubin (0.2-1.3) mg/dL AST (14-36) U/L ALT (0-35) U/L Alkaline Phosphatase (38-126) U/L Troponin I < 0.012 (0.000-0.034) ng/mL NT-Pro-B Natriuret Pep (0-900) pg/mL Serum Total Protein (6.3-8.2) g/dL Albumin (3.5-5.0) g/dL Influenza Type A Ag NEGATIVE (NEGATIVE) Influenza Type B Ag NEGATIVE (NEGATIVE) RSV (PCR) NEGATIVE (Negative) SARS-CoV-2 (PCR) NEGATIVE (NEGATIVE) 03/03/22 03/03/22 Range/Units 08:00 08:00 WBC 8.4 (4.0-10.5) x10^3/uL RBC 3.78 L (4.1-5.4) x10^6/uL Hgb 10.1 L (12.0-16.0) g/dL Hct 33.4 L (35-47) % MCV 88.4 (78-100) fL MCH 26.7 (26-32) pg MCHC 30.2 L (32-36) g/dL RDW 20.9 H (11.5-14.0) % Plt Count 160 (150-450) x10^3/uL MPV 10.1 (7.5-11.0) fL Gran % 82.9 H (36.0-66.0) % Immature Gran % (Auto) 0.4 (0.00-0.4) % Nucleat RBC Rel Count 0.0 (0.00-0.1) % Eos # (Auto) 0.03 (0-0.5) x10^3/uL Immature Gran # (Auto) 0.03 (0.00-0.03) x10^3u/L Absolute Lymphs (auto) 0.56 L (1.0-4.6) x10^3/uL Absolute Monos (auto) 0.77 (0.0-1.3) x10^3/uL Absolute Nucleated RBC 0.00 (0.00-0.01) x10^3u/L Lymphocytes % 6.7 L (24.0-44.0) % Monocytes % 9.2 (0.0-12.0) % Eosinophils % 0.4 (0.00-5.0) % Basophils % 0.4 (0.0-0.4) % Absolute Granulocytes 6.98 H (1.4-6.9) x10^3/uL Basophils # 0.03 (0-0.4) x10^3/uL D-Dimer (0.0-0.50) mg/L Sodium 136 L (137-145) mmol/L Potassium 3.9 (3.5-5.1) mmol/L Chloride 100 (98-107) mmol/L Carbon Dioxide 29 (22-30) mmol/L Anion Gap 10.8 (5-15) MEQ/L BUN 9 (7-17) mg/dL Creatinine 0.70 (0.52-1.04) mg/dL Estimated GFR > 60.0 ML/MIN Glucose 130 H (74-106) mg/dL Calcium 9.0 (8.4-10.2) mg/dL Total Bilirubin 0.70 (0.2-1.3) mg/dL AST 33 (14-36) U/L ALT 26 (0-35) U/L Alkaline Phosphatase 97 (38-126) U/L Troponin I (0.000-0.034) ng/mL NT-Pro-B Natriuret Pep 357 (0-900) pg/mL Serum Total Protein 7.2 (6.3-8.2) g/dL Albumin 3.8 (3.5-5.0) g/dL Influenza Type A Ag (NEGATIVE) Influenza Type B Ag (NEGATIVE) RSV (PCR) (Negative) SARS-CoV-2 (PCR) (NEGATIVE) - Progress Progress: improved, re-examined Air Movement: good Progress Note: 03/03/22 10:42 Chest x-ray shows no acute cardiopulmonary process. 03/03/22 10:53 CTA of chest shows no pulmonary embolus. There is evidence of intrathoracic adenopathy. There is also evidence of left upper lobe pneumonitis. Blood Culture(s) Obtained: Yes Antibiotics given: Yes Counseled pt/family regarding: lab results, diagnosis, need for follow-up, rad results - Departure Departure Disposition: Home Clinical Impression: Upper respiratory infection, Pneumonitis Condition: Stable Critical Care Time: No Referrals: RAGHAV NIEVES MD [Primary Care Provider] - Follow up/PCP as directed Additional Instructions: Drink plenty of fluids. Take your medication as prescribed. Follow-up with your primary care provider for further evaluation management. Prescriptions: Hydrocodone/Acetaminophen [Hydrocodone-Acetamn 7.5-325/15] 10 ml PO Q8H PRN PRN #120 ml MDD 30 ml PRN Reason: Cough Prednisone 10 mg [Deltasone 10 mg] 10 mg PO TID #12 tablet Azithromycin 250 mg [Zithromax 250 MG TABLET] 250 mg PO ZPACK #6 tablet
[2022-03-03] MEDS ORDERED: HYDROCODONE-ACETAMIN 2.5-108/5 ML SOLUTION PO STA (08:19)
[2022-03-03] MEDS ORDERED: solu-MEDROL 125 MG, Sterile H2O 10 ml 2 ML IV ONE ×2 (08:19)
[2022-03-03] MEDS ORDERED: DUONEB 0.5-3 MG/3 ml Neb IH ONE ×2 (08:24→08:26)
[2022-03-03] MEDS ORDERED: Sterile H2O 10 ml IJ ONE (08:29)
[2022-03-03] MEDS ORDERED: solu-MEDROL ONE (08:29)
[2022-03-03] MEDS ORDERED: HYDROCODONE-ACETAMIN 2.5-108/5 ML SOLUTION ONE (08:29)
[2022-03-03 08:35] LABS: Absolute Neutrophil Ct (ANC) 6.98 x10^3/uL (1.4-6.9); Basophil (Absolute #) 0.03 x10^3/uL (0-0.4); Eosinophil % 0.4 % (0.00-5.0); Eosinophil (Absolute #) 0.03 x10^3/uL (0-0.5); Hematocrit 33.4 % (35-47); Hemoglobin 10.1 g/dL (12.0-16.0); Lymphocyte (Absolute #) 0.56 x10^3/uL (1.0-4.6); Lymphocytes % 6.7 % (24.0-44.0); Mean Cell Volume 88.4 fL (78-100); Mean Corpuscular Hemoglobin 26.7 pg (26-32); Mean Corpuscular Hgb Concent. 30.2 g/dL (32-36); Mean Platelet Volume 10.1 fL (7.5-11.0); Monocyte (Absolute #) 0.77 x10^3/uL (0.0-1.3); Monocytes % 9.2 % (0.0-12.0); Neutrophil % 82.9 % (36.0-66.0); Platelet Count 160 x10^3/uL (150-450); Red Blood Count 3.78 x10^6/uL (4.1-5.4); Red Cell Distribution Width 20.9 % (11.5-14.0); White Blood Count 8.4 x10^3/uL (4.0-10.5)
--- NOTE | 2022-03-03 09:07 | XRAY ---
Indication: Fever, cough, short of breath, and back pain. Comparison: January 04, 2022 Portable apical lordotic again hyperinflated and is now clear. Heart not enlarged for AP portable technique with stable small hiatal hernia. Bony thorax intact again with osteopenia and degenerative changes. Impression: Nonacute hyperinflated chest with chronic features.
[2022-03-03 09:08] LABS: ALBUMIN 3.8 g/dL (3.5-5.0); ALKALINE PHOSPHATASE 97 U/L (38-126); ANION GAP 10.8 MEQ/L (5-15); BLOOD UREA NITROGEN 9 mg/dL (7-17); CHLORIDE 100 mmol/L (98-107); Carbon Dioxide 29 mmol/L (22-30); EST GLOMERULAR FILTRATION RATE > 60.0 ML/MIN; Glucose 130 mg/dL (74-106); NT PRO BNP 357 pg/mL (0-900); Potassium 3.9 mmol/L (3.5-5.1); SGOT/AST 33 U/L (14-36); SGPT/ALT 26 U/L (0-35); SODIUM 136 mmol/L (137-145); Total Protein 7.2 g/dL (6.3-8.2)
[2022-03-03 09:09] LABS: INFLUENZA A NEGATIVE (NEGATIVE); INFLUENZA B NEGATIVE (NEGATIVE); RESPIRATORY SYNCTIAL VIRUS NEGATIVE (Negative); SARS-CoV-2 Xpert Express NEGATIVE (NEGATIVE)
[2022-03-03] MEDS ORDERED: Sodium Chloride 0.9% 500 ML 500 ML IV ONE ×2 (09:26→09:35)
[2022-03-03] MEDS ORDERED: ROCEPHIN 1 Gm-D5w 50 ml Bag** 1 G/50 ML IVPB IV STA (09:29)
[2022-03-03] MEDS ORDERED: ROCEPHIN 1 Gm-D5w 50 ml Bag** 1 G/50 ML IVPB IV ONE (09:35)
[2022-03-03 10:07] VITALS: BP 143/66; PULSE 95; O2SAT 97
[2022-03-03 15:36] LABS: Slide Review 1 YES
--- NOTE | 2022-03-03 20:31 | XRAY ---
Indication: Fever and short of breath. Elevated d-dimer. Asthma and COPD. Multiple contiguous images obtained through the chest using 80 cc Isovue 370 contrast and PE protocol. Comparison: January 04, 2022 Good opacification of the pulmonary arteries to include the lobar and segmental branches. No pulmonary embolus. Heart not enlarged. Aorta remains mildly arteriosclerotic without aneurysm/dissection. No pathologic mediastinal/hilar lymphadenopathy. Again enlarged heterogeneous substernal thyroid gland and moderate sized hiatal hernia with partial intrathoracic stomach. Lungs again demonstrates mild diffuse pulmonary emphysema and mild scattered fibrosis/scarring. No suspicious pulmonary mass, infiltrate, consolidation, or effusion. Bony thorax intact again with osteopenia and degenerative changes throughout the spine. Limited upper abdomen including adrenal glands are unremarkable. Impression: 1. Continued negative pulmonary embolus. No acute cardiopulmonary abnormalities. 2. Again pulmonary emphysema, arteriosclerotic disease, enlarged heterogeneous substernal thyroid gland, hiatal hernia with partial intrathoracic stomach, and old granulomatous disease. Comment: Preliminary interpretation made by [facility]. No critical discrepancy.
== END 2022-03-03 11:25 | disposition home or self-care (01) ==
LOC: ED 07:49
DX: J06.9 Acute upper respiratory infection, unspecified (principal); J18.9 Pneumonia, unspecified organism; R06.02 Shortness of breath; R05.1 Acute cough; M54.9 Dorsalgia, unspecified; R50.9 Fever, unspecified; J44.9 Chronic obstructive pulmonary disease, unspecified; I10 Essential (primary) hypertension; E78.5 Hyperlipidemia, unspecified; Z99.81 Dependence on supplemental oxygen; Z79.891 Long term (current) use of opiate analgesic; Z79.52 Long term (current) use of systemic steroids; Z79.899 Other long term (current) drug therapy
CPT/HCPCS: 0241U; 36000; 36415; 71045; 71260; 80053; 83880; 84484; 85025; 85379; 93005; 94640; 94760; 96365; 96374; 99284; J0696; J2930; A9270-GY

== ENCOUNTER 2022-07-19 08:16 | Emergency (ER) | payer MEDICARE ==
[2022-07-19 09:01] LABS: Absolute Neutrophil Ct (ANC) 5.16 x10^3/uL (1.4-6.9); BASOPHIL % 0.6 % (0.0-0.4); Basophil (Absolute #) 0.04 x10^3/uL (0-0.4); Eosinophil % 2.4 % (0.00-5.0); Eosinophil (Absolute #) 0.17 x10^3/uL (0-0.5); Hematocrit 38.7 % (35-47); Hemoglobin 12.2 g/dL (12.0-16.0); IMMATURE GRAN # 0.02 x10^3u/L (0.00-0.03); IMMATURE GRAN % 0.3 % (0.00-0.4); Lymphocyte (Absolute #) 1.11 x10^3/uL (1.0-4.6); Lymphocytes % 15.4 % (24.0-44.0); Mean Cell Volume 92.4 fL (78-100); Mean Corpuscular Hemoglobin 29.1 pg (26-32); Mean Corpuscular Hgb Concent. 31.5 g/dL (32-36); Mean Platelet Volume 10.1 fL (7.5-11.0); Monocyte (Absolute #) 0.71 x10^3/uL (0.0-1.3); Monocytes % 9.8 % (0.0-12.0); Neutrophil % 71.5 % (36.0-66.0); Platelet Count 133 x10^3/uL (150-450); Red Blood Count 4.19 x10^6/uL (4.1-5.4); Red Cell Distribution Width 16.2 % (11.5-14.0); White Blood Count 7.2 x10^3/uL (4.0-10.5)
[2022-07-19] MEDS ORDERED: DUONEB 0.5-3 MG/3 ml Neb IH ONE ×4 (09:02→11:52)
--- NOTE | 2022-07-19 09:03 | XRAY ---
Indication: Dyspnea. Comparison: June 17, 2022 Portable chest again hyperinflated and clear. Heart not enlarged with diminished hiatal hernia. Bony thorax intact again with osteopenia and degenerative changes. No new/acute findings.
--- NOTE | 2022-07-19 09:08 | ERPHSYRPT ---
- History of Present Illness Source: patient, family Exam Limitations: no limitations Patient Subjective Stated Complaint: SOB Triage Nursing Assessment: Patient brought into ED per w/c and transferred to bed per self. Patient A+O X 3. Patient's skin pink, warm and dry. Patient complains of increased SOB over the past few days that has gotten worse today. Patient wears home O2 at 3.5 liters per N/C. Patient complains of productive cough with thick yellow green sputum. Lungs noted to have wheezing throughout. Physician History: 71 yo WF who is 3.5L O2 dep at home presents w dyspnea since 22:00 last night. She has had a cough for 1 month which is more productive. Pt had a bronch on 06/26/[address] Lee. She also has some chest tightness which is 4/10 on scale. Pt has not smoked since 2014(1ppd). N/V/D/melena/hematochezia are all den ied. No coryza or fever reported. PMH includes COPD/DM/hyperlipidemia. CHF is denied. Timing/Duration: other (0 last night) Activities at Onset: rest Severity of Dyspnea-Max: severe Severity of Dyspnea-Current: moderate Possible Cause: frequent episodes Modifying Factors: Improves With: activity, coughing Associated Symptoms: denies symptoms, productive cough Allergies/Adverse Reactions: rofecoxib [From Vioxx] Adverse Reaction (Verified 07/19/22 08:19) Home Medications: Acetylcysteine 200 mg/ml [Mucomyst 200 MG/ML] 4 ml IH BID 01/04/22 [History] Albuterol 8 gm Mdi Hfa [Ventolin Hfa MDI] 2 puffs IH Q4HPRN PRN 01/04/22 [History] Alendronate Sodium 70 mg PO WEEKLY 01/04/22 [History] Amlodipine Besylate 5 mg [Norvasc 5 mg] 10 mg PO DAILY 01/04/22 [History] Ascorbic Acid [C-1000] 1,000 mg PO DAILY 01/04/22 [History] Aspirin [Aspirin EC] 81 mg PO DAILY 01/04/22 [History] Calcium Carbonate [Calcium] 600 mg PO DAILY 01/04/22 [History] Dapagliflozin Propanediol [Farxiga] 10 mg PO DAILY 01/04/22 [History] Fluticasone Propionate [Flonase Allergy Relief] 1 spray IH BID 01/04/22 [History] Fluticasone/Vilanterol [Breo Ellipta 100-25 Mcg INH] 1 puff IH DAILY 01/04/22 [History] Folic Acid 1 mg PO DAILY 01/04/22 [History] Gabapentin 100 mg PO DAILY 01/04/22 [History] Gabapentin 200 mg PO HS 01/04/22 [History] Ipratropium/Albuterol Sulfate [Iprat-Albut 0.5-3(2.5) mg/3 ml] 3 ml IH Q4HPRN PRN 01/04/22 [History] Levothyroxine Sodium [Levothyroxine] 100 mcg PO DAILY 01/04/22 [History] Losartan Potassium 100 mg PO DAILY 01/04/22 [History] Metformin HCl 500 mg [Glucophage 500 MG] 1,000 mg PO BID 01/04/22 [History] Methotrexate Sodium 2.5 mg [Trexall 2.5 mg] 5 mg PO WEEKLY 01/04/22 [History] Omeprazole 20 mg PO DAILY 01/04/22 [History] Potassium Chloride 20 meq PO DAILY 01/04/22 [History] Roflumilast [Daliresp] 250 mg PO DAILY 01/04/22 [History] Triamcinolone 0.1% Cream [Kenalog 0.1% Cream 15 gm] 1 gm TOP DAILY 2 [History] Umeclidinium [place] [Incruse Ellipta] 1 puff IH DAILY 01/04/22 [History] Hx Tetanus, Diphtheria Vaccination/Date Given: No Hx Influenza Vaccination/Date Given: Yes Hx Pneumococcal Vaccination/Date Given: Yes Immunizations Up to Date: Yes Travel Risk - International Travel Have you traveled outside of the country in past 3 weeks: No - Coronavirus Screening Are you exhibiting any of the following symptoms?: No Close contact with a COVID-19 positive Pt in past 14-21 Days: No - Vaccine Status Have you recieved a Covid-19 vaccination: Yes 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 - Vaccination Dates Date of 2cond Vaccination (if applicable): 09/13/20 Dates if Unknown: na - Review of Systems Constitutional: No Symptoms, Malaise Eyes: No Symptoms Ears, Nose, & Throat: No Symptoms Respiratory: No Symptoms, Cough, Dyspnea, Dyspnea on Exertion (NEUMANN) Cardiac: No Symptoms Abdominal/Gastrointestinal: No Symptoms Genitourinary Symptoms: No Symptoms Musculoskeletal: No Symptoms Skin: No Symptoms Neurological: No Symptoms Psychological: No Symptoms Endocrine: No Symptoms Hematologic/Lymphatic: No Symptoms Immunological/Allergic: No Symptoms - Past Medical History Neurological History: Peripheral Neuropathy ENT History: Cataracts Cardiac History: Coronary Artery Disease, High Cholesterol, Hypertension Respiratory History: COPD, Pneumonia, Sleep Apnea Musculoskeletal History: Arthritis GI Medical History: GERD - Past Surgical History Past Surgical History: Yes Cardiac: Angioplasty, Cardiac Catheterization Gastrointestinal: No Pertinent History Genitourinary: No Pertinent History Musculoskeletal: No Pertinent History Female Surgical History: No Pertinent History - Social History Smoking Status: Former smoker Exposure to second hand smoke: No Drug Use: none Patient Lives Alone: No - Nursing Vital Signs Nursing Vital Signs: Initial Vital Signs Temperature 98.3 F 07/19/22 08:20 Pulse Rate 84 07/19/22 08:20 Respiratory Rate 30 H 07/19/22 08:20 Blood Pressure 135/78 07/19/22 08:20 O2 Sat by Pulse Oximetry 95 07/19/22 08:20 Pain Scale Pain Intensity 0 Tachypneic - Physical Exam General Appearance: no apparent distress, anxiety Eye Exam: PERRL/EOMI, eyes nml inspection Ears, Nose, Throat Exam: hearing grossly normal, normal ENT inspection Neck Exam: normal inspection, non-tender, supple, full range of motion, No Brudzinski, No Kernig's, No meningismus Respiratory Exam: airway intact, diminished breath sounds, prolonged expirations, wheezing (Occ B), No respiratory distress Cardiovascular/Chest Exam: normal heart sounds, regular rate/rhythm, normal peripheral pulses, No murmur Abdominal/Gastrointestinal Exam: soft, normal bowel sounds Extremity Exam: non-tender, normal range of motion, normal inspection, normal capillary refill Peripheral Pulses Exam: carotid (R): 2+, carotid (L): 2+ Neurologic Exam: alert, oriented x 3, cooperative, 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 as tested, normal mood/affect, nml cerebellar function, nml station & gait, sensation nml Skin Exam: normal color, warm, dry, No rash Lymphatic Exam: No adenopathy SpO2 Interpretation: normal SpO2: 95 O2 Delivery: Room Air - Course Nursing assessment & vital signs reviewed: Yes EKG Interpreted by Me: RATE (NSR/Rate 83/Normal QT-QTc/Flat T waves/No acute ST segment changes) - Radiology Exams Chest X-ray Interpretation: Reviewed by me, Discussed w/ radiologist (CXR nothing acute) - CT Exams Chest CT Interpretation: Discussed w/radiologist (CTA of chest/No PE/Nothing acute/COPD/HH) Ordered Tests: Active Orders 24 hr Category Date Time Status EKG-ER Only STAT Care 07/19/22 08:19 Completed CHEST 1 VIEW (PORTABLE) Stat Exams 07/19/22 08:20 Completed CHEST WITH CONTRAST [CT] Stat Exams 07/19/22 10:03 Completed CBC W DIFF Stat Lab 07/19/22 08:46 Completed CMP Stat Lab 07/19/22 08:46 Completed D-DIMER QUANTITATIVE Stat Lab 07/19/22 09:00 Completed Lactic Acid Stat Lab 07/19/22 09:00 Completed MAGNESIUM Stat Lab 07/19/22 08:46 Completed NT PRO BNPII Stat Lab 07/19/22 08:46 Completed PROTIME WITH INR Stat Lab 07/19/22 08:46 Completed PTT Stat Lab 07/19/22 08:46 Completed TROPONIN Q4H Lab 07/19/22 08:46 Completed TROPONIN Q4H Lab 07/19/22 11:30 Completed TROPONIN Q4H Lab 07/19/22 16:30 Ordered Respiratory Therapy Assessment DAILY RT 07/19/22 09:18 Completed Respiratory Therapy Assessment DAILY RT 07/19/22 11:55 Completed Medication Summary Discontinued Medications Generic Name Dose Route Start Last Admin Trade Name Freq PRN Reason Stop Dose Admin Albuterol/Ipratropium 3 ml 07/19/22 09:02 07/19/22 09:16 Ipratropium/Albuterol Sulfate 3 Ml Ampul.Neb IH 07/19/22 09:03 3 ml STAT ONE Administration Albuterol/Ipratropium Confirm 07/19/22 09:13 Ipratropium/Albuterol Sulfate 3 Ml Ampul.Neb Administered 07/19/22 09:14 Dose 3 ml IH .STK-MED ONE Albuterol/Ipratropium 3 ml 07/19/22 11:48 07/19/22 11:55 Ipratropium/Albuterol Sulfate 3 Ml Ampul.Neb IH 07/19/22 11:49 3 ml STAT ONE Administration Albuterol/Ipratropium Confirm 07/19/22 11:52 Ipratropium/Albuterol Sulfate 3 Ml Ampul.Neb Administered 07/19/22 11:53 Dose 3 ml IH .STK-MED ONE Methylprednisolone Sodium 0 mg 07/19/22 12:36 07/19/22 12:42 Succinate 125 mg/ Sterile IV 07/19/22 12:37 125 mg Water 2 ml STAT ONE Administration Ceftriaxone Sodium/Dextrose 1 g in 50 mls @ 100 mls/hr 07/19/22 12:37 07/19/22 13:15 Rocephin 1 Gm-D5w 50 Ml Bag IV 07/19/22 13:06 Infused STAT STA Infusion Ceftriaxone Sodium/Dextrose Confirm 07/19/22 12:40 Rocephin 1 Gm-D5w 50 Ml Bag Administered 07/19/22 12:41 Dose 1 g in 50 mls @ ud IV .STK-MED ONE Methylprednisolone Sodium Succinate Confirm 07/19/22 12:40 Methylprednis Sod Succ 125 Mg/2 Ml Vial Administered 07/19/22 12:41 Dose 125 mg .ROUTE .STK-MED ONE Sterile Water Confirm 07/19/22 12:39 Water For Injection,Sterile 10 Ml Vial Administered 07/19/22 12:40 Dose 10 ml IJ .STK-MED ONE Lab/Rad Data: Laboratory Result Diagrams 07/19/22 08:46 07/19/22 08:46 Laboratory Results 07/19/22 07/19/22 07/19/22 Range/Units 11:30 09:00 09:00 WBC (4.0-10.5) x10^3/uL RBC (4.1-5.4) x10^6/uL Hgb (12.0-16.0) g/dL Hct (35-47) % MCV (78-100) fL MCH (26-32) pg MCHC (32-36) g/dL RDW (11.5-14.0) % Plt Count (150-450) x10^3/uL MPV (7.5-11.0) fL Gran % (36.0-66.0) % Immature Gran % (Auto) (0.00-0.4) % Nucleat RBC Rel Count (0.00-0.1) % Eos # (Auto) (0-0.5) x10^3/uL Immature Gran # (Auto) (0.00-0.03) x10^3u/L Absolute Lymphs (auto) (1.0-4.6) x10^3/uL Absolute Monos (auto) (0.0-1.3) x10^3/uL Absolute Nucleated RBC (0.00-0.01) x10^3u/L Lymphocytes % (24.0-44.0) % Monocytes % (0.0-12.0) % Eosinophils % (0.00-5.0) % Basophils % (0.0-0.4) % Absolute Granulocytes (1.4-6.9) x10^3/uL Basophils # (0-0.4) x10^3/uL PT (9.4-12.5) SECONDS INR (0.8-3.0) APTT (25.1-36.5) SECONDS D-Dimer 0.66 H* (0.0-0.50) mg/L Sodium (137-145) mmol/L Potassium (3.5-5.1) mmol/L Chloride (98-107) mmol/L Carbon Dioxide (22-30) mmol/L Anion Gap (5-15) MEQ/L BUN (7-17) mg/dL Creatinine (0.52-1.04) mg/dL Estimated GFR ML/MIN Glucose (74-106) mg/dL Lactic Acid 1.6 (0.4-2.0) Calcium (8.4-10.2) mg/dL Magnesium (1.6-2.3) mg/dL Total Bilirubin (0.2-1.3) mg/dL AST (14-36) U/L ALT (0-35) U/L Alkaline Phosphatase (38-126) U/L Troponin I < 0.012 (0.000-0.034) ng/mL NT-Pro-B Natriuret Pep (<300) pg/mL Serum Total Protein (6.3-8.2) g/dL Albumin (3.5-5.0) g/dL Influenza Type A Ag (NEGATIVE) Influenza Type B Ag (NEGATIVE) RSV (PCR) (NEGATIVE) SARS-CoV-2 (PCR) (NEGATIVE) 07/19/22 07/19/22 07/19/22 Range/Units 08:50 08:46 08:46 WBC (4.0-10.5) x10^3/uL RBC (4.1-5.4) x10^6/uL Hgb (12.0-16.0) g/dL Hct (35-47) % MCV (78-100) fL MCH (26-32) pg MCHC (32-36) g/dL RDW (11.5-14.0) % Plt Count (150-450) x10^3/uL MPV (7.5-11.0) fL Gran % (36.0-66.0) % Immature Gran % (Auto) (0.00-0.4) % Nucleat RBC Rel Count (0.00-0.1) % Eos # (Auto) (0-0.5) x10^3/uL Immature Gran # (Auto) (0.00-0.03) x10^3u/L Absolute Lymphs (auto) (1.0-4.6) x10^3/uL Absolute Monos (auto) (0.0-1.3) x10^3/uL Absolute Nucleated RBC (0.00-0.01) x10^3u/L Lymphocytes % (24.0-44.0) % Monocytes % (0.0-12.0) % Eosinophils % (0.00-5.0) % Basophils % (0.0-0.4) % Absolute Granulocytes (1.4-6.9) x10^3/uL Basophils # (0-0.4) x10^3/uL PT 11.1 (9.4-12.5) SECONDS INR 1.02 (0.8-3.0) APTT 26.7 (25.1-36.5) SECONDS D-Dimer (0.0-0.50) mg/L Sodium (137-145) mmol/L Potassium (3.5-5.1) mmol/L Chloride (98-107) mmol/L Carbon Dioxide (22-30) mmol/L Anion Gap (5-15) MEQ/L BUN (7-17) mg/dL Creatinine (0.52-1.04) mg/dL Estimated GFR ML/MIN Glucose (74-106) mg/dL Lactic Acid (0.4-2.0) Calcium (8.4-10.2) mg/dL Magnesium (1.6-2.3) mg/dL Total Bilirubin (0.2-1.3) mg/dL AST (14-36) U/L ALT (0-35) U/L Alkaline Phosphatase (38-126) U/L Troponin I < 0.012 (0.000-0.034) ng/mL NT-Pro-B Natriuret Pep 167 (<300) pg/mL Serum Total Protein (6.3-8.2) g/dL Albumin (3.5-5.0) g/dL Influenza Type A Ag NEGATIVE (NEGATIVE) Influenza Type B Ag NEGATIVE (NEGATIVE) RSV (PCR) NEGATIVE (NEGATIVE) SARS-CoV-2 (PCR) NEGATIVE (NEGATIVE) 07/19/22 07/19/22 Range/Units 08:46 08:46 WBC 7.2 (4.0-10.5) x10^3/uL RBC 4.19 (4.1-5.4) x10^6/uL Hgb 12.2 (12.0-16.0) g/dL Hct 38.7 (35-47) % MCV 92.4 (78-100) fL MCH 29.1 (26-32) pg MCHC 31.5 L (32-36) g/dL RDW 16.2 H (11.5-14.0) % Plt Count 133 L (150-450) x10^3/uL MPV 10.1 (7.5-11.0) fL Gran % 71.5 H (36.0-66.0) % Immature Gran % (Auto) 0.3 (0.00-0.4) % Nucleat RBC Rel Count 0.0 (0.00-0.1) % Eos # (Auto) 0.17 (0-0.5) x10^3/uL Immature Gran # (Auto) 0.02 (0.00-0.03) x10^3u/L Absolute Lymphs (auto) 1.11 (1.0-4.6) x10^3/uL Absolute Monos (auto) 0.71 (0.0-1.3) x10^3/uL Absolute Nucleated RBC 0.00 (0.00-0.01) x10^3u/L Lymphocytes % 15.4 L (24.0-44.0) % Monocytes % 9.8 (0.0-12.0) % Eosinophils % 2.4 (0.00-5.0) % Basophils % 0.6 (0.0-0.4) % Absolute Granulocytes 5.16 (1.4-6.9) x10^3/uL Basophils # 0.04 (0-0.4) x10^3/uL PT (9.4-12.5) SECONDS INR (0.8-3.0) APTT (25.1-36.5) SECONDS D-Dimer (0.0-0.50) mg/L Sodium 141 (137-145) mmol/L Potassium 4.0 (3.5-5.1) mmol/L Chloride 100 (98-107) mmol/L Carbon Dioxide 35 H (22-30) mmol/L Anion Gap 9.3 (5-15) MEQ/L BUN 14 (7-17) mg/dL Creatinine 0.63 (0.52-1.04) mg/dL Estimated GFR > 60.0 ML/MIN Glucose 116 H (74-106) mg/dL Lactic Acid (0.4-2.0) Calcium 8.8 (8.4-10.2) mg/dL Magnesium 1.6 (1.6-2.3) mg/dL Total Bilirubin 0.50 (0.2-1.3) mg/dL AST 71 H (14-36) U/L ALT 91 H (0-35) U/L Alkaline Phosphatase 100 (38-126) U/L Troponin I (0.000-0.034) ng/mL NT-Pro-B Natriuret Pep (<300) pg/mL Serum Total Protein 6.3 (6.3-8.2) g/dL Albumin 3.7 (3.5-5.0) g/dL Influenza Type A Ag (NEGATIVE) Influenza Type B Ag (NEGATIVE) RSV (PCR) (NEGATIVE) SARS-CoV-2 (PCR) (NEGATIVE) - Progress Air Movement: good Progress Note: 07/19/22 12:49 Nursing note and vital signs reviewed No food or housing insecurities noted Additional history per daughter Dugautam x2 w improvement All lab results/CXR result/CTA chest result reviewed and shared w Pt EKG wo acute changes and Troponin neg x2 Pt w sats on 3.5L O2 in mid 90's during entire stay wo any respiratory distress 1gm IV Rocephin/125mg Iv Solumedrol Lungs overall clear on serial exams and pt in NAD Discussed observational admit w pt, and since she was at her baseline, she elected to be discharged. Added Levaquin 500mg BID for 5 days and Prednisone 10mg BID for 5 days Pt to finish Amoxicillin Pt will return to ER if condition worsens 07/19/22 13:46 Counseled pt/family regarding: lab results, diagnosis, rad results Medical Desision Making - Independent Historian Additional History obtained from: Child - Diagnostic Testing Diagnostic test were ordered, analyzed, and reviewed by me: Yes Radiological Interpretation: Reviewed by me, Discussed w/ radiologist - Risk of complications The pt has a mod risk of morbidity or mortality based on: Need for prescription drug management - Departure Departure Disposition: Home Clinical Impression: COPD exacerbation Condition: Stable Critical Care Time: No Referrals: RAGHAV NIEVES MD [Primary Care Provider] - Follow up/PCP as directed Instructions: Chronic Obstructive Pulmonary Disease, Shortness of Breath (Dyspnea) (DC), Exacerbation of COPD (DC) Additional Instructions: Finish Amoxil Start Levaquin twice a day for 5 days Prednisone twice a day for 5 days Follow up with Dr. Lee or Dr. Nieves Return to ER for worsening shortness of breath, chest pain, or temperarture greater than 100.5 Prescriptions: Prednisone 10 mg [Deltasone 10 mg] 10 mg PO BID #10 tablet Levofloxacin [Levofloxacin 500 MG Tablet] 500 mg PO BID 5 Days #10 tablet
[2022-07-19 09:13] LABS: INR 1.02 (0.8-3.0); PROTIME 11.1 SECONDS (9.4-12.5); PTT 26.7 SECONDS (25.1-36.5)
[2022-07-19 09:14] LABS: ALBUMIN 3.7 g/dL (3.5-5.0); ALKALINE PHOSPHATASE 100 U/L (38-126); ANION GAP 9.3 MEQ/L (5-15); BLOOD UREA NITROGEN 14 mg/dL (7-17); CHLORIDE 100 mmol/L (98-107); Calcium 8.8 mg/dL (8.4-10.2); Carbon Dioxide 35 mmol/L (22-30); Creatinine 1 0.63 mg/dL (0.52-1.04); EST GLOMERULAR FILTRATION RATE > 60.0 ML/MIN; Glucose 116 mg/dL (74-106); MAGNESIUM 1.6 mg/dL (1.6-2.3); SGOT/AST 71 U/L (14-36); SGPT/ALT 91 U/L (0-35); SODIUM 141 mmol/L (137-145); Total Protein 6.3 g/dL (6.3-8.2)
[2022-07-19 09:25] LABS: NT PRO BNPII 167 pg/mL (<300); TROPONIN < 0.012 ng/mL (0.000-0.034)
[2022-07-19 09:35] LABS: INFLUENZA A NEGATIVE (NEGATIVE); INFLUENZA B NEGATIVE (NEGATIVE); RESPIRATORY SYNCTIAL VIRUS NEGATIVE (NEGATIVE); SARS-CoV-2 Xpert Express NEGATIVE (NEGATIVE)
--- NOTE | 2022-07-19 11:03 | XRAY ---
Indication: Short of breath. COPD. Multiple contiguous axial images obtained through the chest using 80 cc Isovue 370 contrast and PE protocol. Comparison: March 03, 2022 Good opacification of the pulmonary arteries to include the lobar and segmental branches. No pulmonary embolus. Heart is not enlarged. Aorta again mildly atherosclerotic without aneurysm/dissection. No pathologic mediastinal/hilar lymphadenopathy. Again heterogeneous substernal thyroid gland and moderate sized hiatal hernia with partial intrathoracic stomach. Lungs again demonstrates diffuse pulmonary emphysema with mild scattered fibrosis/scarring. No new pulmonary mass/nodule, infiltrate, effusion, or pneumothorax. Bony thorax intact again with osteopenia and degenerative changes throughout the spine. Limited upper abdomen unremarkable. Impression: 1. Continued negative pulmonary embolus. No new/acute cardiopulmonary abnormalities. 2. Again chronic findings including pulmonary emphysema, arteriosclerotic disease, enlarged heterogeneous substernal thyroid gland, hiatal hernia with partial intrathoracic stomach, and chronic bony findings
[2022-07-19] MEDS ORDERED: solu-MEDROL 125 MG, Sterile H2O 10 ml 2 ML IV ONE ×2 (12:36)
[2022-07-19] MEDS ORDERED: ROCEPHIN 1 Gm-D5w 50 ml Bag** 1 G/50 ML IVPB IV STA (12:37)
[2022-07-19] MEDS ORDERED: Sterile H2O 10 ml IJ ONE (12:39)
[2022-07-19] MEDS ORDERED: ROCEPHIN 1 Gm-D5w 50 ml Bag** 1 G/50 ML IVPB IV ONE (12:40)
[2022-07-19] MEDS ORDERED: solu-MEDROL ONE (12:40)
[2022-07-19 13:13] VITALS: BP 137/78; PULSE 77
[2022-07-19 13:47] VITALS: O2SAT 95
== END 2022-07-19 13:30 | disposition home or self-care (01) ==
LOC: ED 08:16
DX: J44.1 Chronic obstructive pulmonary disease with (acute) exacerbation (principal); R06.00 Dyspnea, unspecified; R05.9 Cough, unspecified; E11.42 Type 2 diabetes mellitus with diabetic polyneuropathy; I25.10 Atherosclerotic heart disease of native coronary artery without angina pectoris; E78.5 Hyperlipidemia, unspecified; I10 Essential (primary) hypertension; Z99.81 Dependence on supplemental oxygen; Z79.84 Long term (current) use of oral hypoglycemic drugs; Z79.899 Other long term (current) drug therapy; Z20.828 Contact with and (suspected) exposure to other viral communicable diseases
CPT/HCPCS: 0241U; 36000; 36415; 71045; 71260; 80053; 83605; 83735; 83880; 84484; 85025; 85379; 85610; 85730; 93005; 94640; 96374; 99284; 96365; J0696; J2930; A9270-GY

== ENCOUNTER 2023-01-03 06:05 | Day surgery (SDC) | payer MEDICARE ==
[2023-01-03] MEDS ORDERED: Lactated Ringers 1,000 ML IV SCH (06:30)
[2023-01-03] MEDS ORDERED: DIPRIVAN 200 MG/20 ML IV ONE ×3 (08:02→08:43)
[2023-01-03] MEDS ORDERED: Xylocaine-Mpf 2% 5 Ml Vial ONE (08:02)
--- NOTE | 2023-01-03 09:19 | OP ---
SURGERY DATE/TIME: 01/03/2023 0810 PREOPERATIVE DIAGNOSIS: Anemia. POSTOPERATIVE DIAGNOSES: 1) Esophageal varies. 2) Large hiatal hernia. 3) Moderate gastritis. 4) Colon polyps in the transverse and ascending colon. 5) Diverticulosis. PROCEDURES: 1) Esophagogastroduodenoscopy. 2) Colonoscopy with polypectomy using hot snare technique. SURGEON: Dr. Dc. ANESTHESIA: Medications were given by the anesthesia department. HISTORY: The patient is a 72-year-old white female presenting now for endoscopic evaluation. The patient reports she was anemic and had received 2 units of blood. She reports that she is on iron currently three times as day. The patient was felt the need to have endoscopic evaluation. She was appraised of the risks of the procedure including the risk of perforation, phlebitis, untoward reaction to medication, bleeding and missed lesions. The patient verbalized her understanding and desired to have the procedure performed. DESCRIPTION OF PROCEDURE: The patient was given the medications by the anesthesia department. She had continuous pulse oximetry, ECG monitoring and intermittent blood pressure monitoring during the examination. She was placed in the left lateral decubitus position. A bite block was placed and the flexible Olympus gastroscope was used to intubate the oropharynx. A view of the larynx was normal. The scope was easily introduced in the esophagus where the distal third had appearance of esophageal varices. There was also noted to be a large hiatal hernia. The scope was passed in the stomach where normal gastric rugal folds were seen and these distended nicely with insufflation of air. There was noted to be moderate erythema but no erosions or ulcerations were encountered. The pylorus encountered and intubated. The duodenum inspected and found to be normal. The scope is withdrawn towards the stomach. A retroflex view was obtained of the lesser curvature, fundus and cardia regions of the stomach and there again appeared to be the appearance of hiatal hernia. No mucosal lesions otherwise being noted the scope was removed from the patient. Next, a digital rectal examination was performed and revealed normal anal sphincter tone and no masses. The flexible Olympus pediatric colonoscope was used to intubate the rectum. A view of the colon was developed sequentially to the cecum. There was noted to be polyps in the ascending colon this is removed using hot polypectomy snare technique and retrieved for pathologic evaluation. There was also noted to be a second one in the transverse colon this was likewise removed using hot polypectomy snare. No other mucosal lesions being noted other than sigmoid diverticula, the scope was removed from the patient who tolerated the procedure well and was sent to OP recovery in good condition. The prep was noted to be fair.
[2023-01-03 09:23] VITALS: RESP 16
[2023-01-03 09:40] VITALS: BP 116/67; PULSE 58; TEMP 97.3; O2SAT 96
== END 2023-01-03 10:00 | disposition home or self-care (01) ==
LOC: SDC 06:05
PROVIDERS: ATTEND Family Medicine
DX: D12.2 Benign neoplasm of ascending colon (principal); D12.3 Benign neoplasm of transverse colon; D64.9 Anemia, unspecified; I85.00 Esophageal varices without bleeding; K44.9 Diaphragmatic hernia without obstruction or gangrene; K29.70 Gastritis, unspecified, without bleeding; K57.30 Diverticulosis of large intestine without perforation or abscess without bleeding; E11.9 Type 2 diabetes mellitus without complications
CPT/HCPCS: 82947; 93005; J2704

== ENCOUNTER 2023-03-02 07:49 | Observation (INO) | payer MEDICARE ==
[2023-03-02] MEDS ORDERED: MORPHINE SULFATE 2 MG INJ IV PRN (08:15)
--- NOTE | 2023-03-02 08:17 | ERPHSYRPT ---
- History of Present Illness Time Seen by Provider: 03/02/23 08:02 Source: patient, EMS Physician History: 72 years old female with past medical history of coronary disease, hypertension, type 2 diabetes, COPD who is on oxygen 3 L nasal cannula and CPAP at night. The patient is brought by EMS to the emergency room because her daughter found her on the floor. The patient is currently complaining of back pain mostly on the left side. She states that she tried to get out of bed at around 4 AM but she slid, she could not get up because of the pain and weakness. Her back pain does not radiate she has not taken any pain medications. She has history of shortness of breath, degenerative joint disease, chronic back pain. At present she is denying any headache, no head trauma, no neck pain, no pain to her upper or lower extremities. She denies any chest pain, her breathing is at her baseline. While interviewing the patient she has this deep productive coughing, she does have chronic cough but it is worse. She has history of pneumonias in the past. Allergies/Adverse Reactions: rofecoxib [From Vioxx] Adverse Reaction (Verified 03/02/23 08:14) Stomach Cramps Home Medications: Albuterol 8 gm Mdi Hfa [Ventolin Hfa MDI] 2 puffs IH Q4HPRN PRN 01/04/22 [History] Alendronate Sodium 70 mg PO WEEKLY 01/04/22 [History] Amlodipine Besylate 5 mg [Norvasc 5 mg] 10 mg PO DAILY 01/04/22 [History] Ascorbic Acid [C-1000] 1,000 mg PO DAILY 01/04/22 [History] Calcium Carbonate [Calcium] 600 mg PO DAILY 01/04/22 [History] Folic Acid 1 mg PO DAILY 01/04/22 [History] Gabapentin 100 mg PO TID 01/04/22 [History] Ipratropium/Albuterol Sulfate [Iprat-Albut 0.5-3(2.5) mg/3 ml] 3 ml IH Q4HPRN PRN 01/04/22 [History] Levothyroxine Sodium 88 mcg PO DAILY 01/04/22 [History] Losartan Potassium 100 mg PO DAILY 01/04/22 [History] Metformin HCl 500 mg [Glucophage 500 MG] 1,000 mg PO BID 01/04/22 [History] Methotrexate Sodium 2.5 mg [Trexall 2.5 mg] 5 mg PO WEEKLY 01/04/22 [History] Omeprazole 20 mg PO DAILY 01/04/22 [History] Roflumilast [Daliresp] 250 mg PO DAILY 01/04/22 [History] Umeclidinium [place] [Incruse Ellipta] 1 puff IH DAILY 01/04/22 [History] Atorvastatin Calcium [Lipitor 20MG Tablet] 20 mg PO DAILY 12/31/22 [History] Cholecalciferol (Vitamin D3) [Vitamin D3] 1 cap PO UD 12/31/22 [History] Dapagliflozin Propanediol [Farxiga] 10 mg PO DAILY 12/31/22 [History] Ferrous Sulfate 325 mg [Feosol 325 mg] 325 mg PO BID 12/31/22 [History] Fluticasone/Vilanterol [Breo Ellipta 100-25 Mcg Inhalr] 1 puff IH DAILY 12/31/22 [History] Furosemide 20 mg [Lasix 20 mg] 20 mg PO DAILY 12/31/22 [History] Metoprolol Succinate 50 mg [Toprol Xl 50 MG] 50 mg PO HS 12/31/22 [History] [place]-3 Fatty Acids/Fish Oil [Fish Oil 1,000 mg Capsule] 1,000 mg PO DAILY 12/31/22 [History] Potassium Chloride 20 meq PO DAILY 12/31/22 [History] Sildenafil Citrate 20 mg PO UD 12/31/22 [History] Triamcinolone 0.1% Cream [Kenalog 0.1% Cream 15 gm] 1 applic TOP BID 12/31/22 [History] Hx Tetanus, Diphtheria Vaccination/Date Given: No Hx Influenza Vaccination/Date Given: Yes Hx Pneumococcal Vaccination/Date Given: Yes Travel Risk - Vaccine Status Have you recieved a Covid-19 vaccination: Yes Arc Cutter Plasma Arc: Unknown - Vaccination Dates Date of 2cond Vaccination (if applicable): 09/13/20 Dates if Unknown: na - Review of Systems Constitutional: Weakness Eyes: No Symptoms Ears, Nose, & Throat: No Symptoms Respiratory: Cough, No Dyspnea Cardiac: Chest Pain (Left lower posterior chest pain that is pleuritic), No Edema, No Syncope Abdominal/Gastrointestinal: No Abdominal Pain, No Nausea, No Vomiting, No Diarrhea Genitourinary Symptoms: No Dysuria Musculoskeletal: Back Pain, No Neck Pain Skin: No Rash Neurological: Focal Weakness, No Dizziness, No Sensory Changes Psychological: No Symptoms Endocrine: No Symptoms Hematologic/Lymphatic: No Symptoms All Other Systems: Reviewed and Negative - Past Medical History Pertinent Past Medical History: Yes Neurological History: Peripheral Neuropathy, Other ENT History: Cataracts Cardiac History: Coronary Artery Disease, High Cholesterol, Hypertension Respiratory History: Asthma, COPD, Emphysema, Pneumonia, Sleep Apnea Endocrine Medical History: Diabetes Type II Musculoskeletal History: Arthritis GI Medical History: GERD, Hernia History: No Pertinent History Psycho-Social History: No Pertinent History Female Reproductive Disorders: No Pertinent History Other Medical History: bells palsy in 2008, - Past Surgical History Past Surgical History: Yes Neuro Surgical History: No Pertinent History Cardiac: Angioplasty, Cardiac Catheterization Respiratory: No Pertinent History Gastrointestinal: No Pertinent History Genitourinary: No Pertinent History Musculoskeletal: No Pertinent History Female Surgical History: Section Other Surgical History: large toenail removed florian. bronchoscopy 2022, - Social History Smoking Status: Former smoker Exposure to second hand smoke: No Drug Use: none Patient Lives Alone: No - Nursing Vital Signs Nursing Vital Signs: Initial Vital Signs Temperature 98.7 F 03/02/23 07:56 Pulse Rate 99 H 03/02/23 07:56 Respiratory Rate 21 03/02/23 07:56 Blood Pressure 103/59 03/02/23 07:56 O2 Sat by Pulse Oximetry 96 03/02/23 07:56 Pain Scale Pain Intensity 4 - Physical Exam General Appearance: no apparent distress, alert, other (Left lower paralumbar tenderness, leg raising test is negative.) Eye Exam: PERRL/EOMI Neck Exam: normal inspection, supple Respiratory Exam: other (Decreased breath sound the bases. Left lower lateral posterior chest wall tenderness) Cardiovascular/Chest Exam: normal heart sounds, regular rate/rhythm Abdominal/Gastrointestinal Exam: soft, No tenderness, No distention, No mass Extremity Exam: non-tender, normal range of motion, normal inspection, normal capillary refill, no calf tenderness, no pedal edema, pelvis stable Neurologic Exam: alert, oriented x 3, cooperative, exercise rider II-XII nml as tested, sensation nml, No motor deficits Skin Exam: normal color, warm, No dry - Course Nursing assessment & vital signs reviewed: Yes EKG Interpreted by Me: RATE (100/min), Sinus Rhythm, Other (Poor R wave progression V1 through V4) - Radiology Exams Chest X-ray Interpretation: Interpreted by me, No Pneumothorax, Pneumonia L-Spine X-ray Interpretation: Interpreted by me, Reviewed by me, Other (Degenerative joint disease of the spine, scoliosis of the lumbar spine, old compression fractures of L2-L3) Ordered Tests: Active Orders 24 hr Category Date Time Status Oxygen-ED Only Nasal Cannula 3 lpm Care 03/02/23 08:05 Active LUMBAR LIMITED (2 OR 3 VIEWS) Stat Exams 03/02/23 08:56 Taken Portable Chest [CHEST 1 VIEW (PORTABLE)] Stat Exams 03/02/23 08:56 Taken BLOOD CULTURE Stat Lab 03/02/23 09:20 Received CBC W DIFF Stat Lab 03/02/23 08:20 Results CMP Stat Lab 03/02/23 08:20 Completed CULTURE,URINE Stat Lab 03/02/23 09:07 Received Lactic Acid Stat Lab 03/02/23 08:20 Completed Lactic Acid Stat Lab 03/02/23 10:28 Received MAGNESIUM Stat Lab 03/02/23 08:20 Completed Manual Differential NC Stat Lab 03/02/23 08:20 Results NT PRO BNPII Stat Lab 03/02/23 08:20 Completed Pathologist Review Stat Lab 03/02/23 08:20 Results TROPONIN Q4H Lab 03/02/23 08:20 Completed TROPONIN Q4H Lab 03/02/23 12:15 Ordered TROPONIN Q4H Lab 03/02/23 16:15 Ordered UA W/RFX UR CULTURE Stat Lab 03/02/23 09:07 Completed Medication Summary Generic Name Dose Route Start Last Admin Trade Name Freq PRN Reason Stop Dose Admin Sodium Chloride 1,000 mls @ 500 mls/hr 03/02/23 09:03 03/02/23 09:25 Sodium Chloride 0.9% 1000 Ml IV 03/02/23 11:02 500 mls/hr .Q2H STA Administration Morphine Sulfate 2 mg 03/02/23 08:15 03/02/23 09:59 Morphine Sulfate 2 Mg/Ml Inj IV 03/07/23 08:14 2 mg Q2H PRN PRN Administration PAIN Discontinued Medications Generic Name Dose Route Start Last Admin Trade Name Sona PRN Reason Stop Dose Admin Piperacillin Sod/Tazobactam 100 mls @ 200 mls/hr 03/02/23 09:00 03/02/23 09:24 Sod 3.375 gm/ Sodium Chloride IV 03/02/23 09:29 200 mls/hr STAT ONE Administration Sodium Chloride Confirm 03/02/23 09:11 Sodium Chloride 0.9% 500 Ml Administered 03/02/23 09:12 Dose 500 mls @ ud IV .STK-MED ONE Sodium Chloride Confirm 03/02/23 09:32 Sodium Chloride 0.9% 1000 Ml Administered 03/02/23 09:33 Dose 1,000 mls @ ud .ROUTE .STK-MED ONE Piperacillin Sod/Tazobactam Sod Confirm 03/02/23 09:11 Piperacillin/Tazobactam Sodium 3.375 Gm Vial Administered 03/02/23 09:12 Dose 3.375 gm IV .STK-MED ONE Lab/Rad Data: Laboratory Result Diagrams 03/02/23 08:20 03/02/23 08:20 Laboratory Results 03/02/23 03/02/23 03/02/23 Range/Units 09:07 08:20 08:20 WBC (4.0-10.5) x10^3/uL RBC (4.1-5.4) x10^6/uL Hgb (12.0-16.0) g/dL Hct (35-47) % MCV (78-100) fL MCH (26-32) pg MCHC (32-36) g/dL RDW (11.5-14.0) % Plt Count (150-450) x10^3/uL MPV (7.5-11.0) fL Segmented Neutrophils (36.0-66.0) % Band Neutrophils (0.0-2.0) % Lymphocytes (Manual) (24-44) % Monocytes (Manual) (0.0-12.0) % Platelet Estimate (NORMAL) RBC Morphology Smear Path Review Sodium 134 L (137-145) mmol/L Potassium 3.2 L (3.5-5.1) mmol/L Chloride 98 (98-107) mmol/L Carbon Dioxide 28 (22-30) mmol/L Anion Gap 10.6 (5-15) MEQ/L BUN 13 (7-17) mg/dL Creatinine 0.62 (0.52-1.04) mg/dL Estimated GFR 95.7 ML/MIN Glucose 155 H (74-106) mg/dL Lactic Acid (0.4-2.0) Calcium 9.3 (8.4-10.2) mg/dL Magnesium 1.2 L (1.6-2.3) mg/dL Total Bilirubin 1.00 (0.2-1.3) mg/dL AST 30 (14-36) U/L ALT 26 (0-35) U/L Alkaline Phosphatase 105 (38-126) U/L Troponin I < 0.012 (0.000-0.034) ng/mL NT-Pro-B Natriuret Pep 865 (<300) pg/mL Serum Total Protein 6.2 L (6.3-8.2) g/dL Albumin 3.6 (3.5-5.0) g/dL Urine Color Yellow (Yellow) Urine Appearance Clear (Clear) Urine pH 5.5 (4.6-8.0) Ur Specific [place] >=1.030 A (1.005-1.030) Urine Protein Negative (Negative) Urine Glucose (UA) >=1000 A (Negative) mg/dL Urine Ketones Trace A (Negative) Urine Blood Negative (Negative) Urine Nitrite Negative (Negative) Urine Bilirubin Negative (Negative) Urine Urobilinogen 0.2 (0.2) mg/dL Ur Leukocyte Esterase Negative (Negative) U Hyaline Cast (Auto) NONE SEEN (0-2) /LPF Urine Microscopic RBC 0-2 (0-5) /HPF Urine Microscopic WBC 0-2 (0-5) /HPF Ur Epithelial Cells None Seen (None Seen) /HPF Urine Bacteria None Seen (None Seen) /HPF Urine Culture Reflexed YES (NO) 03/02/23 03/02/23 Range/Units 08:20 08:20 WBC 32.3 H* (4.0-10.5) x10^3/uL RBC 4.10 (4.1-5.4) x10^6/uL Hgb 12.1 (12.0-16.0) g/dL Hct 36.9 (35-47) % MCV 90.0 (78-100) fL MCH 29.5 (26-32) pg MCHC 32.8 (32-36) g/dL RDW 16.3 H (11.5-14.0) % Plt Count 119 L (150-450) x10^3/uL MPV 10.5 (7.5-11.0) fL Segmented Neutrophils 93 H (36.0-66.0) % Band Neutrophils 3 H (0.0-2.0) % Lymphocytes (Manual) 2 L (24-44) % Monocytes (Manual) 2 (0.0-12.0) % Platelet Estimate DECREASED (NORMAL) RBC Morphology NORMAL Smear Path Review Pending Sodium (137-145) mmol/L Potassium (3.5-5.1) mmol/L Chloride (98-107) mmol/L Carbon Dioxide (22-30) mmol/L Anion Gap (5-15) MEQ/L BUN (7-17) mg/dL Creatinine (0.52-1.04) mg/dL Estimated GFR ML/MIN Glucose (74-106) mg/dL Lactic Acid 2.2 H (0.4-2.0) Calcium (8.4-10.2) mg/dL Magnesium (1.6-2.3) mg/dL Total Bilirubin (0.2-1.3) mg/dL AST (14-36) U/L ALT (0-35) U/L Alkaline Phosphatase (38-126) U/L Troponin I (0.000-0.034) ng/mL NT-Pro-B Natriuret Pep (<300) pg/mL Serum Total Protein (6.3-8.2) g/dL Albumin (3.5-5.0) g/dL Urine Color (Yellow) Urine Appearance (Clear) Urine pH (4.6-8.0) Ur Specific [place] (1.005-1.030) Urine Protein (Negative) Urine Glucose (UA) (Negative) mg/dL Urine Ketones (Negative) Urine Blood (Negative) Urine Nitrite (Negative) Urine Bilirubin (Negative) Urine Urobilinogen (0.2) mg/dL Ur Leukocyte Esterase (Negative) U Hyaline Cast (Auto) (0-2) /LPF Urine Microscopic RBC (0-5) /HPF Urine Microscopic WBC (0-5) /HPF Ur Epithelial Cells (None Seen) /HPF Urine Bacteria (None Seen) /HPF Urine Culture Reflexed (NO) - Progress Progress: unchanged Air Movement: good Progress Note: 03/02/23 08:21 72 years old female with past medical history of COPD on home oxygen, chronic back pain, degenerative joint disease. The patient brought by EMS to the emergency room because her daughter found her on the floor. The patient states that she tried to get out of bed at around 4 AM and she slid out of bed she could not get up because, she felt weak all over. Differential diagnosis; Lumbar fracture UTI COPD exacerbation Pneumonia Sepsis Coronary artery disease Emergency room course and medical decision making. On arrival the patient had an EKG done which revealed sinus rhythm 100 bpm poor R wave progression V1 through V4. For the back pain she will be given morphine sulfate 2 mg IV. Check CBC, CMP, troponin, BMP, UA, lactic acid, portable chest x-ray and x-ray of the lumbar spine. 03/02/23 09:04 The patient white blood cell count is elevated at 32,000, differential still pending. Lactic acid mildly elevated 2.2. I checked portable chest x-ray with questionable left lower lobe infiltrate. Will order blood cultures x 2, start Zosyn 3.375 g IV empirically. 03/02/23 10:01 Patient's magnesium is low at 1.2, potassium low 3.2. The patient will be given magnesium sulfate 2 g IV rider. She is still having that pain in her left lower chest which is pleuritic worse with movements and or breathing. She will be given morphine sulfate 2 mg IV. Plan to admit the patient to the hospital as a case of Left lower lobe pneumonia Sepsis Generalized weakness Hypomagnesemia 03/02/23 10:33 Blood Culture(s) Obtained: Yes Antibiotics given: Yes Counseled pt/family regarding: lab results, diagnosis - Departure Departure Disposition: In-patient Admission Clinical Impression: Sepsis, Left lower lobe pneumonia, Generalized weakness, Hypomagnesemia Condition: Stable Referrals: RAGHAV NIEVES MD [Primary Care Provider] - Follow up/PCP as directed
[2023-03-02 08:44] LABS: Hematocrit 36.9 % (35-47); Hemoglobin 12.1 g/dL (12.0-16.0); Mean Corpuscular Hemoglobin 29.5 pg (26-32); Mean Corpuscular Hgb Concent. 32.8 g/dL (32-36); Mean Platelet Volume 10.5 fL (7.5-11.0); Platelet Count 119 x10^3/uL (150-450); Red Cell Distribution Width 16.3 % (11.5-14.0)
[2023-03-02 08:47] LABS: White Blood Count 32.3 x10^3/uL (4.0-10.5)
[2023-03-02 08:48] LABS: ALBUMIN 3.6 g/dL (3.5-5.0); ANION GAP 10.6 MEQ/L (5-15); Calcium 9.3 mg/dL (8.4-10.2); Creatinine 1 0.62 mg/dL (0.52-1.04); EST GLOMERULAR FILTRATION RATE 95.7 ML/MIN; MAGNESIUM 1.2 mg/dL (1.6-2.3); Potassium 3.2 mmol/L (3.5-5.1); Total Protein 6.2 g/dL (6.3-8.2)
[2023-03-02] MEDS ORDERED: PIPERACILLIN/TAZOBACTAM 3.375 GM in Sodium Chloride 100ML MINI-BAG PLUS 100 ML IV ONE (09:00)
[2023-03-02] MEDS ORDERED: Sodium Chloride 0.9% 1000 ML 1,000 ML IV STA (09:03)
[2023-03-02 09:06] LABS: BAND 3 % (0.0-2.0); Lymphocytes 2 % (24-44); Monocyte 2 % (0.0-12.0); Neutrophils 93 % (36.0-66.0); Total Cells Counted 100
[2023-03-02 09:07] LABS: Platelet Estimate DECREASED (NORMAL)
[2023-03-02] MEDS ORDERED: Sodium Chloride 0.9% 500 ML 0 ML IV ONE (09:11)
[2023-03-02] MEDS ORDERED: PIPERACILLIN/TAZOBACTAM IV ONE (09:11)
[2023-03-02] MEDS ORDERED: Sodium Chloride 0.9% 1000 ML 1,000 ML ONE (09:32)
[2023-03-02 09:35] LABS: Appearance Clear (Clear); Bacteria None Seen /HPF (None Seen); Bilirubin Negative (Negative); Blood Negative (Negative); Epithelial Cells None Seen /HPF (None Seen); Glucose, Urine >=1000 mg/dL (Negative); Hyaline Casts NONE SEEN /LPF (0-2); Ketones Trace (Negative); Leukocyte Esterase Negative (Negative); Nitrite Negative (Negative); Ph 5.5 (4.6-8.0); Protein,Urine Dip Negative (Negative); RBC 0-2 /HPF (0-5); Specific Gravity >=1.030 (1.005-1.030); Urobilinogen 0.2 mg/dL (0.2); WBC 0-2 /HPF (0-5)
[2023-03-02 09:36] LABS: ADD URINE CULTURE? YES (NO)
[2023-03-02] MEDS ORDERED: Klor Con PO ONE (13:30)
--- NOTE | 2023-03-02 13:38 | PCM.HP ---
History of Present Illness - Chief Complaint Chief Complaint: Left Lower Lobe Pneumonia Date: 03/02/23 (1300) History of Present Illness: is a 72 year old female who is admitted with complaints of back pain. Pain starts in left posterior thoracic area and left CVA area. She describes dull, aching pain without radiation. Pain is worse with moving and breathing. Pain relieved with morphine. She says she slid out of bed in the night and could not get up but did not have any injuries. She has a chronic cough. She denies fever or chills. No dyspnea. No chest pain. No abdominal pain. No nausea or vomiting. No diarrhea or constipation. No urinary complaints. PMH includes DM type 2, HTN, HLD, COPD, Hypothyroid, neuropathy and obstructive sleep apnea. She denies history of CAD although it is listed in her PMH. She has history of PVD and had angioplasty in left leg. - Review of Systems Constitutional: No Symptoms, No Fever, No Chills, No Fatigue Eyes: No Symptoms Ears, Nose, & Throat: No Symptoms Respiratory: Cough, No Short Of Breath, No Wheezing Cardiac: No Symptoms, No Chest Pain, No Edema, No Palpitations, No Syncope Abdominal/Gastrointestinal: No Symptoms, No Abdominal Pain, No Nausea, No Vomiting, No Diarrhea Genitourinary Symptoms: No Symptoms, No Dysuria, No Frequency Musculoskeletal: Back Pain Skin: No Symptoms Neurological: No Symptoms Psychological: No Symptoms Endocrine: No Symptoms Hematologic/Lymphatic: No Symptoms Immunological/Allergic: No Symptoms All Other Systems: Reviewed and Negative Medications & Allergies Home Medications: Home Medication List Albuterol 8 gm Mdi Hfa [Ventolin Hfa MDI] 2 puffs IH Q4HPRN PRN 01/04/22 [History Confirmed 03/02/23] Alendronate Sodium 70 mg PO WEEKLY 01/04/22 [History Confirmed 03/02/23] Amlodipine Besylate 5 mg [Norvasc 5 mg] 10 mg PO DAILY 01/04/22 [History Confirmed 03/02/23] Ascorbic Acid [C-1000] 1,000 mg PO DAILY 01/04/22 [History Confirmed 03/02/23] Calcium Carbonate [Calcium] 600 mg PO DAILY 01/04/22 [History Confirmed 03/02/23] Folic Acid 1 mg PO DAILY 01/04/22 [History Confirmed 03/02/23] Gabapentin 100 mg PO TID 01/04/22 [History Confirmed 03/02/23] Ipratropium/Albuterol Sulfate [Iprat-Albut 0.5-3(2.5) mg/3 ml] 3 ml IH Q4HPRN PRN 01/04/22 [History Confirmed 03/02/23] Levothyroxine Sodium 88 mcg PO DAILY 01/04/22 [History Confirmed 03/02/23] Losartan Potassium 100 mg PO DAILY 01/04/22 [History Confirmed 03/02/23] Metformin HCl 500 mg [Glucophage 500 MG] 1,000 mg PO BID 01/04/22 [History Confirmed 03/02/23] Methotrexate Sodium 2.5 mg [Trexall 2.5 mg] 5 mg PO WEEKLY 01/04/22 [History Confirmed 03/02/23] Omeprazole 20 mg PO DAILY 01/04/22 [History Confirmed 03/02/23] Roflumilast [Daliresp] 250 mg PO DAILY 01/04/22 [History Confirmed 03/02/23] Umeclidinium Wheeler [Incruse Ellipta] 1 puff IH DAILY 01/04/22 [History Confirmed 03/02/23] Atorvastatin Calcium [Lipitor 20MG Tablet] 20 mg PO DAILY 12/31/22 [History Confirmed 03/02/23] Cholecalciferol (Vitamin D3) [Vitamin D3] 1 cap PO UD 12/31/22 [History Confirmed 03/02/23] Dapagliflozin Propanediol [Farxiga] 10 mg PO DAILY 12/31/22 [History Confirmed 03/02/23] Ferrous Sulfate 325 mg [Feosol 325 mg] 325 mg PO BID 12/31/22 [History Confirmed 03/02/23] Fluticasone/Vilanterol [Breo Ellipta 100-25 Mcg Inhalr] 1 puff IH DAILY 12/31/22 [History Confirmed 03/02/23] Furosemide 20 mg [Lasix 20 mg] 20 mg PO DAILY 12/31/22 [History Confirmed 03/02/23] Metoprolol Succinate 50 mg [Toprol Xl 50 MG] 50 mg PO HS 12/31/22 [History Confirmed 03/02/23] [place]-3 Fatty Acids/Fish Oil [Fish Oil 1,000 mg Capsule] 1,000 mg PO DAILY 12/31/22 [History Confirmed 03/02/23] Potassium Chloride 20 meq PO DAILY 12/31/22 [History Confirmed 03/02/23] Sildenafil Citrate 20 mg PO UD 12/31/22 [History Confirmed 03/02/23] Triamcinolone 0.1% Cream [Kenalog 0.1% Cream 15 gm] 1 applic TOP BID 12/31/22 [History Confirmed 03/02/23] Allergies/Adverse Reactions: Allergies Allergy/AdvReac Type Severity Reaction Status Date / Time rofecoxib [From Vioxx] AdvReac Stomach Verified 03/02/23 08:14 Cramps - Past Medical History Past Medical History: Yes Neurological History: No Pertinent History ENT History: Cataracts Cardiac History: High Cholesterol, Hypertension, Peripheral Vascular Disease Respiratory History: Asthma, COPD, Emphysema, Pneumonia Endocrine Medical History: Diabetes Type II, Hypothyroidism Musculoskelatal History: Arthritis, Osteoarthritis GI Medical History: GERD, Hernia History: No Pertinent History Pyscho-Social History: No Pertinent History Reproductive Disorders: No Pertinent History Comment: bells palsy in 2008, - Female History Are you now?: No - Past Surgical History Past Surgical History: Yes Neuro Surgical History: No Pertinent History Cardiac History: Angioplasty, Other (Angioplasty left leg) Respiratory Surgery: No Pertinent History GI Surgical History: No Pertinent History Genitourinary Surgical Hx: No Pertinent History Musculskeletal Surgical Hx: Orthopedic Surgery Female Surgical History: Section Other Surgical History: large toenail removed florian. bronchoscopy 2022, - Social History Smoking Status: Former smoker Exposure to second hand smoke: No Alcohol: None Drug Use: none - Physical Exam Vital Signs: Vital Signs - 24 hr Temp Pulse Resp BP BP Pulse Ox 03/02/23 12:17 97.1 F 99 H 20 111/59 92 L 03/02/23 11:45 86 18 104/58 95 03/02/23 11:31 86 27 H 109/65 94 L 03/02/23 11:30 90 16 90/62 96 03/02/23 11:00 88 20 100/66 95 03/02/23 10:30 86 24 108/66 95 03/02/23 10:29 90 22 94 L 03/02/23 10:20 88 22 94 L 03/02/23 10:10 89 20 95 03/02/23 10:00 90 18 95 03/02/23 09:50 88 25 H 96 03/02/23 09:40 87 23 97 03/02/23 09:32 90 20 96 03/02/23 09:01 90 18 114/69 95 03/02/23 07:56 98.7 F 99 H 19 103/59 96 General Appearance: no apparent distress Neurologic Exam: alert, oriented x 3, cooperative, biometrics head II-XII nml as tested Eye Exam: PERRL/EOMI, eyes nml inspection Ears, Nose, Throat Exam: normal ENT inspection Neck Exam: normal inspection, non-tender, supple, full range of motion Respiratory Exam: chest tenderness, crackles/rales, rhonchi Cardiovascular Exam: regular rate/rhythm, normal heart sounds, normal peripheral pulses Gastrointestinal/Abdomen Exam: soft, normal bowel sounds, No tenderness, No mass Pelvic Exam: not done Rectal Exam: deferred Back Exam: normal inspection Extremity Exam: normal inspection Skin Exam: normal color, warm, dry Lymphatic Exam: No adenopathy Results - Labs Lab/Micro Results: Lab Results-Last 24 Hours 03/02/23 03/02/23 03/02/23 Range/Units 08:20 08:20 08:20 WBC 32.3 H* (4.0-10.5) x10^3/uL RBC 4.10 (4.1-5.4) x10^6/uL Hgb 12.1 (12.0-16.0) g/dL Hct 36.9 (35-47) % MCV 90.0 (78-100) fL MCH 29.5 (26-32) pg MCHC 32.8 (32-36) g/dL RDW 16.3 H (11.5-14.0) % Plt Count 119 L (150-450) x10^3/uL MPV 10.5 (7.5-11.0) fL Segmented Neutrophils 93 H (36.0-66.0) % Band Neutrophils 3 H (0.0-2.0) % Lymphocytes (Manual) 2 L (24-44) % Monocytes (Manual) 2 (0.0-12.0) % Platelet Estimate DECREASED (NORMAL) RBC Morphology NORMAL Smear Path Review Pending Sodium (137-145) mmol/L Potassium (3.5-5.1) mmol/L Chloride (98-107) mmol/L Carbon Dioxide (22-30) mmol/L Anion Gap (5-15) MEQ/L BUN (7-17) mg/dL Creatinine (0.52-1.04) mg/dL Estimated GFR ML/MIN Glucose (74-106) mg/dL Lactic Acid 2.2 H (0.4-2.0) Calcium (8.4-10.2) mg/dL Magnesium (1.6-2.3) mg/dL Total Bilirubin (0.2-1.3) mg/dL AST (14-36) U/L ALT (0-35) U/L Alkaline Phosphatase (38-126) U/L Troponin I < 0.012 (0.000-0.034) ng/mL NT-Pro-B Natriuret Pep (<300) pg/mL Serum Total Protein (6.3-8.2) g/dL Albumin (3.5-5.0) g/dL Urine Color (Yellow) Urine Appearance (Clear) Urine pH (4.6-8.0) Ur Specific [place] (1.005-1.030) Urine Protein (Negative) Urine Glucose (UA) (Negative) mg/dL Urine Ketones (Negative) Urine Blood (Negative) Urine Nitrite (Negative) Urine Bilirubin (Negative) Urine Urobilinogen (0.2) mg/dL Ur Leukocyte Esterase (Negative) U Hyaline Cast (Auto) (0-2) /LPF Urine Microscopic RBC (0-5) /HPF Urine Microscopic WBC (0-5) /HPF Ur Epithelial Cells (None Seen) /HPF Urine Bacteria (None Seen) /HPF Urine Culture Reflexed (NO) 03/02/23 03/02/23 03/02/23 Range/Units 08:20 09:07 10:28 WBC (4.0-10.5) x10^3/uL RBC (4.1-5.4) x10^6/uL Hgb (12.0-16.0) g/dL Hct (35-47) % MCV (78-100) fL MCH (26-32) pg MCHC (32-36) g/dL RDW (11.5-14.0) % Plt Count (150-450) x10^3/uL MPV (7.5-11.0) fL Segmented Neutrophils (36.0-66.0) % Band Neutrophils (0.0-2.0) % Lymphocytes (Manual) (24-44) % Monocytes (Manual) (0.0-12.0) % Platelet Estimate (NORMAL) RBC Morphology Smear Path Review Sodium 134 L (137-145) mmol/L Potassium 3.2 L (3.5-5.1) mmol/L Chloride 98 (98-107) mmol/L Carbon Dioxide 28 (22-30) mmol/L Anion Gap 10.6 (5-15) MEQ/L BUN 13 (7-17) mg/dL Creatinine 0.62 (0.52-1.04) mg/dL Estimated GFR 95.7 ML/MIN Glucose 155 H (74-106) mg/dL Lactic Acid 1.8 (0.4-2.0) Calcium 9.3 (8.4-10.2) mg/dL Magnesium 1.2 L (1.6-2.3) mg/dL Total Bilirubin 1.00 (0.2-1.3) mg/dL AST 30 (14-36) U/L ALT 26 (0-35) U/L Alkaline Phosphatase 105 (38-126) U/L Troponin I (0.000-0.034) ng/mL NT-Pro-B Natriuret Pep 865 (<300) pg/mL Serum Total Protein 6.2 L (6.3-8.2) g/dL Albumin 3.6 (3.5-5.0) g/dL Urine Color Yellow (Yellow) Urine Appearance Clear (Clear) Urine pH 5.5 (4.6-8.0) Ur Specific [place] >=1.030 A (1.005-1.030) Urine Protein Negative (Negative) Urine Glucose (UA) >=1000 A (Negative) mg/dL Urine Ketones Trace A (Negative) Urine Blood Negative (Negative) Urine Nitrite Negative (Negative) Urine Bilirubin Negative (Negative) Urine Urobilinogen 0.2 (0.2) mg/dL Ur Leukocyte Esterase Negative (Negative) U Hyaline Cast (Auto) NONE SEEN (0-2) /LPF Urine Microscopic RBC 0-2 (0-5) /HPF Urine Microscopic WBC 0-2 (0-5) /HPF Ur Epithelial Cells None Seen (None Seen) /HPF Urine Bacteria None Seen (None Seen) /HPF Urine Culture Reflexed YES (NO) 03/02/23 Range/Units 12:15 WBC (4.0-10.5) x10^3/uL RBC (4.1-5.4) x10^6/uL Hgb (12.0-16.0) g/dL Hct (35-47) % MCV (78-100) fL MCH (26-32) pg MCHC (32-36) g/dL RDW (11.5-14.0) % Plt Count (150-450) x10^3/uL MPV (7.5-11.0) fL Segmented Neutrophils (36.0-66.0) % Band Neutrophils (0.0-2.0) % Lymphocytes (Manual) (24-44) % Monocytes (Manual) (0.0-12.0) % Platelet Estimate (NORMAL) RBC Morphology Smear Path Review Sodium (137-145) mmol/L Potassium (3.5-5.1) mmol/L Chloride (98-107) mmol/L Carbon Dioxide (22-30) mmol/L Anion Gap (5-15) MEQ/L BUN (7-17) mg/dL Creatinine (0.52-1.04) mg/dL Estimated GFR ML/MIN Glucose (74-106) mg/dL Lactic Acid (0.4-2.0) Calcium (8.4-10.2) mg/dL Magnesium (1.6-2.3) mg/dL Total Bilirubin (0.2-1.3) mg/dL AST (14-36) U/L ALT (0-35) U/L Alkaline Phosphatase (38-126) U/L Troponin I < 0.012 (0.000-0.034) ng/mL NT-Pro-B Natriuret Pep (<300) pg/mL Serum Total Protein (6.3-8.2) g/dL Albumin (3.5-5.0) g/dL Urine Color (Yellow) Urine Appearance (Clear) Urine pH (4.6-8.0) Ur Specific [place] (1.005-1.030) Urine Protein (Negative) Urine Glucose (UA) (Negative) mg/dL Urine Ketones (Negative) Urine Blood (Negative) Urine Nitrite (Negative) Urine Bilirubin (Negative) Urine Urobilinogen (0.2) mg/dL Ur Leukocyte Esterase (Negative) U Hyaline Cast (Auto) (0-2) /LPF Urine Microscopic RBC (0-5) /HPF Urine Microscopic WBC (0-5) /HPF Ur Epithelial Cells (None Seen) /HPF Urine Bacteria (None Seen) /HPF Urine Culture Reflexed (NO) - Radiology Impressions Radiology Exams & Impressions: Radiology Procedures Category Date Time Status LUMBAR LIMITED (2 OR 3 VIEWS) Stat Exams 03/02/23 08:56 Taken Portable Chest [CHEST 1 VIEW (PORTABLE)] Stat Exams 03/02/23 08:56 Taken Assessment/Plan (1) Left lower lobe pneumonia Current Visit: Yes Status: Acute Assessment & Plan: Patient presents with pleuritic chest wall pain. No increased cough or dyspnea. No fever. Cxray shows LLL infiltrate WBC=32,300. LA=2.2 Check Procal. Zosyn given in ER but this is community acquired pneumonia. Will change to Rocephin and Zithromax She has COPD. Continue bronchodilators Does not need steroids. Code(s): J18.9 - PNEUMONIA, UNSPECIFIED ORGANISM (2) Diabetes type 2, controlled Current Visit: Yes Status: Chronic Assessment & Plan: Monitor BS. SS insulin Hold oral meds for now Code(s): E11.9 - TYPE 2 DIABETES MELLITUS WITHOUT COMPLICATIONS (3) HTN (hypertension) Current Visit: Yes Status: Chronic Assessment & Plan: Continue home meds Code(s): I10 - ESSENTIAL (PRIMARY) HYPERTENSION (4) HLD (hyperlipidemia) Current Visit: Yes Status: Chronic Assessment & Plan: Continue home meds Code(s): E78.5 - HYPERLIPIDEMIA, UNSPECIFIED (5) Hypothyroid Current Visit: Yes Status: Chronic Assessment & Plan: Continue home meds Code(s): E03.9 - HYPOTHYROIDISM, UNSPECIFIED (6) Neuropathy Current Visit: Yes Status: Chronic Assessment & Plan: Continue home meds Code(s): G62.9 - POLYNEUROPATHY, UNSPECIFIED (7) Obstructive sleep apnea Current Visit: Yes Status: Chronic Assessment & Plan: CPAP Code(s): G47.33 - OBSTRUCTIVE SLEEP APNEA (ADULT) (PEDIATRIC) (8) Generalized weakness Current Visit: Yes Status: Acute Assessment & Plan: Will have PT assess Check CPK since she was on the floor a while Code(s): R53.1 - WEAKNESS (9) Hypomagnesemia Current Visit: Yes Status: Acute Assessment & Plan: Magnesium and potassium are low and will be replaced. Code(s): E83.42 - HYPOMAGNESEMIA (10) COPD exacerbation Current Visit: No Status: Chronic Assessment & Plan: Bronchodilators prn Oxygen as needed Code(s): J44.1 - CHRONIC OBSTRUCTIVE PULMONARY DISEASE W (ACUTE) EXACERBATION (11) Leukemoid reaction Current Visit: Yes Status: Acute Assessment & Plan: WBC=32,300. Antibiotics started Recheck in am Code(s): D72.823 - LEUKEMOID REACTION Telemedicine Encounter - Telemedicine Encounter Telemedicine Encounter: The entirety of this encounter was performed via Telemedicine after consent obtained. Labs and xrays reviewed Discussed with ER provider 70 minutes spent on care of this patient Jose Eduardo Huddleston MD [facility]
[2023-03-02] MEDS ORDERED: FEVERALL 650 MG PR PRN (13:50)
[2023-03-02] MEDS ORDERED: Docusate Sodium 100 MG PO PRN (13:50)
[2023-03-02] MEDS ORDERED: Ventolin Hfa MDI IH PRN (13:55)
[2023-03-02] MEDS ORDERED: DUONEB 0.5-3 MG/3 ml Neb IH PRN (13:55)
[2023-03-02] MEDS ORDERED: NON-FORMULARY ITEM (Cholecalciferol (Vitamin D3) [Vitamin D3] 1,250 MCG Capsule) PO SCH (14:00)
[2023-03-02] MEDS ORDERED: NON-FORMULARY ITEM (Sildenafil Citrate [Sildenafil Citrate] 20 MG Tablet) PO SCH (14:00)
[2023-03-02] MEDS ORDERED: VENTOLIN COMMON CANISTER IH PRN (14:38)
[2023-03-02] MEDS ORDERED: MEDICATION INTERVENTION MC SCH ×2 (15:00)
[2023-03-02] MEDS ORDERED: SYNTHROID 88 MCG PO SCH (15:00)
[2023-03-02] MEDS: Protonix 40MG Tablet PO SCH (15:01)
[2023-03-02] MEDS: VITAMIN D PO SCH (15:01)
[2023-03-02] MEDS: NORVASC 5 MG PO SCH (15:01)
[2023-03-02] MEDS: FOLATE 1 MG PO SCH (15:01)
[2023-03-02] MEDS: ECOTRIN 81 MG PO SCH (15:01)
[2023-03-02] MEDS: Neurontin PO SCH ×2 (15:02→21:19)
[2023-03-02] MEDS: LASIX 20 MG PO SCH (15:03)
[2023-03-02] MEDS: Cozaar 50 MG PO SCH (15:03)
[2023-03-02] MEDS: DALIRESP PO SCH (15:04)
--- NOTE | 2023-03-02 15:22 | XRAY ---
CLINICAL HISTORY:Dyspnea COMPARISON:None. TECHNIQUE:X-ray of the chest showing 1 view: AP view. FINDINGS: The left lung base and middle zone show a consolidation opacity with air bronchogram within obscuring the left cardiac border. The left costophrenic angle is obscured likely representing pleural effusion/reaction. Bilateral enlarged lyssa suggestive of bilateral hilar lymph nodes. Faint linear opacities along the right basal lung region. Blurred right costophrenic angle. Rounded retrocardiac opacity noted in the midline just above the diaphragm likely hiatus hernia. Normal configuration of the mediastinum. Bony thorax is unremarkable. Mild degenerative changes in the left acromioclavicular joint. IMPRESSION: 1. Left Lung base and middle zone consolidative opacity with air bronchogram obscuring the left cardiac border consistent with an inflammtory process likely pneumonic consolidative changes. Suggested CT for further evaluation. 2. Left costophrenic angle is obscured likely representing left pleural effusion/reaction. 3. Prominent lyssa suggestive of bilateral hilar lymph nodes. 4. Faint retriculonodular pattern along the right basal lung region likely bronchovascular congestion. 5. Blurred right costophrenic angle. 6. Rounded retrocardiac opacity noted in the midline just above the diaphragm likely hiatus hernia. Electronically Signed by: Dariel Luque MD. (03/02/2023 15:17:41 EST)
[2023-03-02 16:47] LABS: INFLUENZA A NEGATIVE (NEGATIVE); INFLUENZA B NEGATIVE (NEGATIVE); RESPIRATORY SYNCTIAL VIRUS NEGATIVE (NEGATIVE); SARS-CoV-2 Xpert Express NEGATIVE (NEGATIVE)
[2023-03-02] MEDS: HUMALOG SQ PRN ×2 (17:04→21:19)
[2023-03-02] MEDS: DUONEB 0.5-3 MG/3 ml Neb IH SCH (19:07)
--- NOTE | 2023-03-02 21:07 | XRAY ---
Indication: Low back pain. Arthritis. Comparison: None 3 view lumbar spine demonstrates 5 lumbar segments with osteopenia, mild dextroscoliosis centered at L1, L1 gibbous deformity, moderate/advanced multilevel thoracolumbar degenerative spondylosis greatest at L1-L3 levels, mild degenerative changes both hips, and moderate scattered vascular calcifications. No other bony, articular, or soft tissue abnormalities. Impression: Nonacute lumbar spine with chronic features.
[2023-03-02] MEDS: FEOSOL 325 MG PO SCH (21:19)
[2023-03-02] MEDS: Pepcid 20 MG PO SCH (21:19)
[2023-03-02] MEDS: Toprol Xl 50 MG PO SCH (21:19)
[2023-03-02] MEDS: Calcium 500MG W/Vit D Tablet PO SCH (21:19)
[2023-03-02] MEDS: MAG-OX 400 PO SCH (21:19)
[2023-03-02] MEDS: FISH OIL 1,000 MG CAPSULE PO SCH (21:19)
[2023-03-02] MEDS ORDERED: KENALOG 0.1% CREAM 15 GM TOP SCH (22:00)
[2023-03-02] MEDS ORDERED: NON-FORMULARY ITEM (Calcium Carbonate [Calcium] 600 MG Tablet) PO SCH (22:00)
[2023-03-03] MEDS: DUONEB 0.5-3 MG/3 ml Neb IH SCH ×4 (00:09→21:32)
[2023-03-03 04:42] LABS: Absolute Neutrophil Ct (ANC) 23.07 x10^3/uL (1.4-6.9); BASOPHIL % 0.1 % (0.0-0.4); Basophil (Absolute #) 0.03 x10^3/uL (0-0.4); Eosinophil (Absolute #) 0 x10^3/uL (0-0.5); Hematocrit 34.5 % (35-47); Hemoglobin 11.1 g/dL (12.0-16.0); IMMATURE GRAN # 0.28 x10^3u/L (0.00-0.03); IMMATURE GRAN % 1.1 % (0.00-0.4); Lymphocytes % 4.7 % (24.0-44.0); Mean Cell Volume 91.3 fL (78-100); Mean Corpuscular Hemoglobin 29.4 pg (26-32); Mean Corpuscular Hgb Concent. 32.2 g/dL (32-36); Mean Platelet Volume 10.6 fL (7.5-11.0); Monocyte (Absolute #) 0.79 x10^3/uL (0.0-1.3); Monocytes % 3.1 % (0.0-12.0); Platelet Count 111 x10^3/uL (150-450); Red Blood Count 3.78 x10^6/uL (4.1-5.4); Red Cell Distribution Width 16.1 % (11.5-14.0)
[2023-03-03 04:48] LABS: White Blood Count 25.4 x10^3/uL (4.0-10.5)
[2023-03-03 05:06] LABS: ALBUMIN 3.2 g/dL (3.5-5.0); ANION GAP 8.5 MEQ/L (5-15); BILIRUBIN,TOTAL 0.6 mg/dL (0.2-1.3); Calcium 8.6 mg/dL (8.4-10.2); Creatinine 1 0.58 mg/dL (0.52-1.04); EST GLOMERULAR FILTRATION RATE 97.3 ML/MIN; Potassium 3.3 mmol/L (3.5-5.1); Total Protein 5.9 g/dL (6.3-8.2)
--- NOTE | 2023-03-03 05:18 | PCM.NOTE ---
Date and Time: 03/03/23 0517 Subjective Assessment: 72 year old female with pmhx of neuropathy,DEVYN,PVD (angioplasty to left leg) DJD, Chronic back pain, HTN, DMII, COPD (3L baseline with CPAP at night) who presented to ED 03/02/23 after a fall at home for which her daughter found her on the floor approximately 3-4 hours later. Patient reports that she tried to get out of bed that morning around 4 am and slid down, unable to get up due to the pain. Endorses left-sided back pain. Patient also with deep productive cough noted by ER physician. EKG done which revealed sinus rhythm 100 bpm poor R wave progression V1 through V4.Lab findings significant for WBC at 32, potassium at 3.2,Lactic acid mildly elevated 2.2 initially but trended down to normal limits 1.8, procal elevated at 6.470 MG at 1.2 (2g giving). CXR questionable for LLL infiltrate. Patient started on Zosyn empirically initially but changed to rocephin/zithromax for CAP coverage. Morphine given for back pain. Blood and urine cultures pending. 03/03/23: Met with patient and family at bedside. States she is feeling much better today. Cough is more productive with rust-colored sputum. On 4L oxygen which is her baseline. Does have some wheezing noted on auscultation. Discussed lab findings, TSH level is low, patient currently on 88mcg, will decrease dose to 75mcg, advised patient follow up for recheck with her PCP. Potassium level is also mildly low, will replenish. Denies fever, cp, abdominal pain, FLOWERS, dizziness, N/V/D. - Review of Systems Constitutional: No Symptoms Eyes: No Symptoms Ears, Nose, & Throat: No Symptoms Respiratory: Cough, Short Of Breath, Wheezing Cardiac: No Symptoms Abdominal/Gastrointestinal: No Symptoms Genitourinary Symptoms: No Symptoms Musculoskeletal: No Symptoms Skin: No Symptoms Neurological: No Symptoms Psychological: No Symptoms Endocrine: No Symptoms Hematologic/Lymphatic: No Symptoms Immunological/Allergic: No Symptoms Objective Exam General Appearance: no apparent distress Neurologic Exam: alert, oriented x 3, cooperative Skin Exam: pale Eye Exam: PERRL Ears, Nose, Throat Exam: moist mucous membranes Neck Exam: normal inspection Respiratory Exam: wheezing Cardiovascular Exam: regular rate/rhythm, normal heart sounds Gastrointestinal/Abdomen Exam: soft, normal bowel sounds Extremity Exam: normal inspection Back Exam: normal inspection Pelvic Exam: deferred Rectal Exam: deferred OBJECTIVE DATA Vital Signs: Vital Signs - 24 hr Temp Pulse Resp BP BP Pulse Ox 03/03/23 04:00 97.8 F 73 17 94/54 95 03/03/23 00:11 80 18 96 03/03/23 00:00 96.9 F 77 17 108/58 94 L 03/02/23 20:00 96.8 F 82 22 91/54 95 03/02/23 19:05 87 20 94 L 03/02/23 15:36 97.6 F 93 H 15 134/68 92 L 03/02/23 14:45 80 18 94 L 03/02/23 12:17 97.1 F 99 H 20 111/59 92 L 03/02/23 11:45 86 18 104/58 95 03/02/23 11:31 86 27 H 109/65 94 L 03/02/23 11:30 90 16 90/62 96 03/02/23 11:00 88 20 100/66 95 03/02/23 10:30 86 24 108/66 95 03/02/23 10:29 90 22 94 L 03/02/23 10:20 88 22 94 L 03/02/23 10:10 89 20 95 03/02/23 10:00 90 18 95 03/02/23 09:50 88 25 H 96 03/02/23 09:40 87 23 97 03/02/23 09:32 90 20 96 03/02/23 09:01 90 18 114/69 95 03/02/23 07:56 98.7 F 99 H 19 103/59 96 Pain Assessment - Last Documented Pain Intensity 0 Pain Scale Used 0-10 Pain Scale Intake and Output: Intake & Output 02/28/23 03/01/23 03/02/23 03/03/23 11:59 11:59 11:59 11:59 Intake Total 1180 Output Total 550 Balance 630 Weight 78.018 kg 80.5 kg Lab Results: Lab Results-Last 24 Hours 03/02/23 03/02/23 03/02/23 Range/Units 08:20 08:20 08:20 WBC 32.3 H* (4.0-10.5) x10^3/uL RBC 4.10 (4.1-5.4) x10^6/uL Hgb 12.1 (12.0-16.0) g/dL Hct 36.9 (35-47) % MCV 90.0 (78-100) fL MCH 29.5 (26-32) pg MCHC 32.8 (32-36) g/dL RDW 16.3 H (11.5-14.0) % Plt Count 119 L (150-450) x10^3/uL MPV 10.5 (7.5-11.0) fL Gran % (36.0-66.0) % Immature Gran % (Auto) (0.00-0.4) % Nucleat RBC Rel Count (0.00-0.1) % Eos # (Auto) (0-0.5) x10^3/uL Immature Gran # (Auto) (0.00-0.03) x10^3u/L Absolute Lymphs (auto) (1.0-4.6) x10^3/uL Absolute Monos (auto) (0.0-1.3) x10^3/uL Absolute Nucleated RBC (0.00-0.01) x10^3u/L Lymphocytes % (24.0-44.0) % Monocytes % (0.0-12.0) % Eosinophils % (0.00-5.0) % Basophils % (0.0-0.4) % Absolute Granulocytes (1.4-6.9) x10^3/uL Segmented Neutrophils 93 H (36.0-66.0) % Band Neutrophils 3 H (0.0-2.0) % Lymphocytes (Manual) 2 L (24-44) % Monocytes (Manual) 2 (0.0-12.0) % Basophils # (0-0.4) x10^3/uL Platelet Estimate DECREASED (NORMAL) RBC Morphology NORMAL Smear Path Review Pending Sodium (137-145) mmol/L Potassium (3.5-5.1) mmol/L Chloride (98-107) mmol/L Carbon Dioxide (22-30) mmol/L Anion Gap (5-15) MEQ/L BUN (7-17) mg/dL Creatinine (0.52-1.04) mg/dL Estimated GFR ML/MIN Glucose (74-106) mg/dL POC Glucometer Lactic Acid 2.2 H (0.4-2.0) Calcium (8.4-10.2) mg/dL Magnesium (1.6-2.3) mg/dL Total Bilirubin (0.2-1.3) mg/dL AST (14-36) U/L ALT (0-35) U/L Alkaline Phosphatase (38-126) U/L Creatine Kinase (30-135) U/L Troponin I < 0.012 (0.000-0.034) ng/mL NT-Pro-B Natriuret Pep (<300) pg/mL Serum Total Protein (6.3-8.2) g/dL Albumin (3.5-5.0) g/dL Procalcitonin (0.030-0.080) ng/mL Urine Color (Yellow) Urine Appearance (Clear) Urine pH (4.6-8.0) Ur Specific [place] (1.005-1.030) Urine Protein (Negative) Urine Glucose (UA) (Negative) mg/dL Urine Ketones (Negative) Urine Blood (Negative) Urine Nitrite (Negative) Urine Bilirubin (Negative) Urine Urobilinogen (0.2) mg/dL Ur Leukocyte Esterase (Negative) U Hyaline Cast (Auto) (0-2) /LPF Urine Microscopic RBC (0-5) /HPF Urine Microscopic WBC (0-5) /HPF Ur Epithelial Cells (None Seen) /HPF Urine Bacteria (None Seen) /HPF Urine Culture Reflexed (NO) Influenza Type A Ag (NEGATIVE) Influenza Type B Ag (NEGATIVE) RSV (PCR) (NEGATIVE) SARS-CoV-2 (PCR) (NEGATIVE) 03/02/23 03/02/23 03/02/23 Range/Units 08:20 09:07 10:28 WBC (4.0-10.5) x10^3/uL RBC (4.1-5.4) x10^6/uL Hgb (12.0-16.0) g/dL Hct (35-47) % MCV (78-100) fL MCH (26-32) pg MCHC (32-36) g/dL RDW (11.5-14.0) % Plt Count (150-450) x10^3/uL MPV (7.5-11.0) fL Gran % (36.0-66.0) % Immature Gran % (Auto) (0.00-0.4) % Nucleat RBC Rel Count (0.00-0.1) % Eos # (Auto) (0-0.5) x10^3/uL Immature Gran # (Auto) (0.00-0.03) x10^3u/L Absolute Lymphs (auto) (1.0-4.6) x10^3/uL Absolute Monos (auto) (0.0-1.3) x10^3/uL Absolute Nucleated RBC (0.00-0.01) x10^3u/L Lymphocytes % (24.0-44.0) % Monocytes % (0.0-12.0) % Eosinophils % (0.00-5.0) % Basophils % (0.0-0.4) % Absolute Granulocytes (1.4-6.9) x10^3/uL Segmented Neutrophils (36.0-66.0) % Band Neutrophils (0.0-2.0) % Lymphocytes (Manual) (24-44) % Monocytes (Manual) (0.0-12.0) % Basophils # (0-0.4) x10^3/uL Platelet Estimate (NORMAL) RBC Morphology Smear Path Review Sodium 134 L (137-145) mmol/L Potassium 3.2 L (3.5-5.1) mmol/L Chloride 98 (98-107) mmol/L Carbon Dioxide 28 (22-30) mmol/L Anion Gap 10.6 (5-15) MEQ/L BUN 13 (7-17) mg/dL Creatinine 0.62 (0.52-1.04) mg/dL Estimated GFR 95.7 ML/MIN Glucose 155 H (74-106) mg/dL POC Glucometer Lactic Acid 1.8 (0.4-2.0) Calcium 9.3 (8.4-10.2) mg/dL Magnesium 1.2 L (1.6-2.3) mg/dL Total Bilirubin 1.00 (0.2-1.3) mg/dL AST 30 (14-36) U/L ALT 26 (0-35) U/L Alkaline Phosphatase 105 (38-126) U/L Creatine Kinase (30-135) U/L Troponin I (0.000-0.034) ng/mL NT-Pro-B Natriuret Pep 865 (<300) pg/mL Serum Total Protein 6.2 L (6.3-8.2) g/dL Albumin 3.6 (3.5-5.0) g/dL Procalcitonin (0.030-0.080) ng/mL Urine Color Yellow (Yellow) Urine Appearance Clear (Clear) Urine pH 5.5 (4.6-8.0) Ur Specific [place] >=1.030 A (1.005-1.030) Urine Protein Negative (Negative) Urine Glucose (UA) >=1000 A (Negative) mg/dL Urine Ketones Trace A (Negative) Urine Blood Negative (Negative) Urine Nitrite Negative (Negative) Urine Bilirubin Negative (Negative) Urine Urobilinogen 0.2 (0.2) mg/dL Ur Leukocyte Esterase Negative (Negative) U Hyaline Cast (Auto) NONE SEEN (0-2) /LPF Urine Microscopic RBC 0-2 (0-5) /HPF Urine Microscopic WBC 0-2 (0-5) /HPF Ur Epithelial Cells None Seen (None Seen) /HPF Urine Bacteria None Seen (None Seen) /HPF Urine Culture Reflexed YES (NO) Influenza Type A Ag (NEGATIVE) Influenza Type B Ag (NEGATIVE) RSV (PCR) (NEGATIVE) SARS-CoV-2 (PCR) (NEGATIVE) 03/02/23 03/02/23 03/02/23 Range/Units 12:15 13:00 16:00 WBC (4.0-10.5) x10^3/uL RBC (4.1-5.4) x10^6/uL Hgb (12.0-16.0) g/dL Hct (35-47) % MCV (78-100) fL MCH (26-32) pg MCHC (32-36) g/dL RDW (11.5-14.0) % Plt Count (150-450) x10^3/uL MPV (7.5-11.0) fL Gran % (36.0-66.0) % Immature Gran % (Auto) (0.00-0.4) % Nucleat RBC Rel Count (0.00-0.1) % Eos # (Auto) (0-0.5) x10^3/uL Immature Gran # (Auto) (0.00-0.03) x10^3u/L Absolute Lymphs (auto) (1.0-4.6) x10^3/uL Absolute Monos (auto) (0.0-1.3) x10^3/uL Absolute Nucleated RBC (0.00-0.01) x10^3u/L Lymphocytes % (24.0-44.0) % Monocytes % (0.0-12.0) % Eosinophils % (0.00-5.0) % Basophils % (0.0-0.4) % Absolute Granulocytes (1.4-6.9) x10^3/uL Segmented Neutrophils (36.0-66.0) % Band Neutrophils (0.0-2.0) % Lymphocytes (Manual) (24-44) % Monocytes (Manual) (0.0-12.0) % Basophils # (0-0.4) x10^3/uL Platelet Estimate (NORMAL) RBC Morphology Smear Path Review Sodium (137-145) mmol/L Potassium (3.5-5.1) mmol/L Chloride (98-107) mmol/L Carbon Dioxide (22-30) mmol/L Anion Gap (5-15) MEQ/L BUN (7-17) mg/dL Creatinine (0.52-1.04) mg/dL Estimated GFR ML/MIN Glucose (74-106) mg/dL POC Glucometer Lactic Acid (0.4-2.0) Calcium (8.4-10.2) mg/dL Magnesium (1.6-2.3) mg/dL Total Bilirubin (0.2-1.3) mg/dL AST (14-36) U/L ALT (0-35) U/L Alkaline Phosphatase (38-126) U/L Creatine Kinase 37 (30-135) U/L Troponin I < 0.012 < 0.012 (0.000-0.034) ng/mL NT-Pro-B Natriuret Pep (<300) pg/mL Serum Total Protein (6.3-8.2) g/dL Albumin (3.5-5.0) g/dL Procalcitonin (0.030-0.080) ng/mL Urine Color (Yellow) Urine Appearance (Clear) Urine pH (4.6-8.0) Ur Specific [place] (1.005-1.030) Urine Protein (Negative) Urine Glucose (UA) (Negative) mg/dL Urine Ketones (Negative) Urine Blood (Negative) Urine Nitrite (Negative) Urine Bilirubin (Negative) Urine Urobilinogen (0.2) mg/dL Ur Leukocyte Esterase (Negative) U Hyaline Cast (Auto) (0-2) /LPF Urine Microscopic RBC (0-5) /HPF Urine Microscopic WBC (0-5) /HPF Ur Epithelial Cells (None Seen) /HPF Urine Bacteria (None Seen) /HPF Urine Culture Reflexed (NO) Influenza Type A Ag (NEGATIVE) Influenza Type B Ag (NEGATIVE) RSV (PCR) (NEGATIVE) SARS-CoV-2 (PCR) (NEGATIVE) 03/02/23 03/02/23 03/02/23 Range/Units 16:00 16:16 20:47 WBC (4.0-10.5) x10^3/uL RBC (4.1-5.4) x10^6/uL Hgb (12.0-16.0) g/dL Hct (35-47) % MCV (78-100) fL MCH (26-32) pg MCHC (32-36) g/dL RDW (11.5-14.0) % Plt Count (150-450) x10^3/uL MPV (7.5-11.0) fL Gran % (36.0-66.0) % Immature Gran % (Auto) (0.00-0.4) % Nucleat RBC Rel Count (0.00-0.1) % Eos # (Auto) (0-0.5) x10^3/uL Immature Gran # (Auto) (0.00-0.03) x10^3u/L Absolute Lymphs (auto) (1.0-4.6) x10^3/uL Absolute Monos (auto) (0.0-1.3) x10^3/uL Absolute Nucleated RBC (0.00-0.01) x10^3u/L Lymphocytes % (24.0-44.0) % Monocytes % (0.0-12.0) % Eosinophils % (0.00-5.0) % Basophils % (0.0-0.4) % Absolute Granulocytes (1.4-6.9) x10^3/uL Segmented Neutrophils (36.0-66.0) % Band Neutrophils (0.0-2.0) % Lymphocytes (Manual) (24-44) % Monocytes (Manual) (0.0-12.0) % Basophils # (0-0.4) x10^3/uL Platelet Estimate (NORMAL) RBC Morphology Smear Path Review Sodium (137-145) mmol/L Potassium (3.5-5.1) mmol/L Chloride (98-107) mmol/L Carbon Dioxide (22-30) mmol/L Anion Gap (5-15) MEQ/L BUN (7-17) mg/dL Creatinine (0.52-1.04) mg/dL Estimated GFR ML/MIN Glucose (74-106) mg/dL POC Glucometer TNP 309 H Lactic Acid (0.4-2.0) Calcium (8.4-10.2) mg/dL Magnesium (1.6-2.3) mg/dL Total Bilirubin (0.2-1.3) mg/dL AST (14-36) U/L ALT (0-35) U/L Alkaline Phosphatase (38-126) U/L Creatine Kinase (30-135) U/L Troponin I (0.000-0.034) ng/mL NT-Pro-B Natriuret Pep (<300) pg/mL Serum Total Protein (6.3-8.2) g/dL Albumin (3.5-5.0) g/dL Procalcitonin (0.030-0.080) ng/mL Urine Color (Yellow) Urine Appearance (Clear) Urine pH (4.6-8.0) Ur Specific [place] (1.005-1.030) Urine Protein (Negative) Urine Glucose (UA) (Negative) mg/dL Urine Ketones (Negative) Urine Blood (Negative) Urine Nitrite (Negative) Urine Bilirubin (Negative) Urine Urobilinogen (0.2) mg/dL Ur Leukocyte Esterase (Negative) U Hyaline Cast (Auto) (0-2) /LPF Urine Microscopic RBC (0-5) /HPF Urine Microscopic WBC (0-5) /HPF Ur Epithelial Cells (None Seen) /HPF Urine Bacteria (None Seen) /HPF Urine Culture Reflexed (NO) Influenza Type A Ag NEGATIVE (NEGATIVE) Influenza Type B Ag NEGATIVE (NEGATIVE) RSV (PCR) NEGATIVE (NEGATIVE) SARS-CoV-2 (PCR) NEGATIVE (NEGATIVE) 03/02/23 03/03/23 Range/Units Unknown 04:16 WBC 25.4 H* (4.0-10.5) x10^3/uL RBC 3.78 L (4.1-5.4) x10^6/uL Hgb 11.1 L (12.0-16.0) g/dL Hct 34.5 L (35-47) % MCV 91.3 (78-100) fL MCH 29.4 (26-32) pg MCHC 32.2 (32-36) g/dL RDW 16.1 H (11.5-14.0) % Plt Count 111 L (150-450) x10^3/uL MPV 10.6 (7.5-11.0) fL Gran % 91.0 H (36.0-66.0) % Immature Gran % (Auto) 1.1 H (0.00-0.4) % Nucleat RBC Rel Count 0.0 (0.00-0.1) % Eos # (Auto) 0 (0-0.5) x10^3/uL Immature Gran # (Auto) 0.28 H (0.00-0.03) x10^3u/L Absolute Lymphs (auto) 1.20 (1.0-4.6) x10^3/uL Absolute Monos (auto) 0.79 (0.0-1.3) x10^3/uL Absolute Nucleated RBC 0.00 (0.00-0.01) x10^3u/L Lymphocytes % 4.7 L (24.0-44.0) % Monocytes % 3.1 (0.0-12.0) % Eosinophils % 0.0 (0.00-5.0) % Basophils % 0.1 (0.0-0.4) % Absolute Granulocytes 23.07 H (1.4-6.9) x10^3/uL Segmented Neutrophils (36.0-66.0) % Band Neutrophils (0.0-2.0) % Lymphocytes (Manual) (24-44) % Monocytes (Manual) (0.0-12.0) % Basophils # 0.03 (0-0.4) x10^3/uL Platelet Estimate (NORMAL) RBC Morphology Smear Path Review Sodium (137-145) mmol/L Potassium (3.5-5.1) mmol/L Chloride (98-107) mmol/L Carbon Dioxide (22-30) mmol/L Anion Gap (5-15) MEQ/L BUN (7-17) mg/dL Creatinine (0.52-1.04) mg/dL Estimated GFR ML/MIN Glucose (74-106) mg/dL POC Glucometer Lactic Acid (0.4-2.0) Calcium (8.4-10.2) mg/dL Magnesium (1.6-2.3) mg/dL Total Bilirubin (0.2-1.3) mg/dL AST (14-36) U/L ALT (0-35) U/L Alkaline Phosphatase (38-126) U/L Creatine Kinase (30-135) U/L Troponin I (0.000-0.034) ng/mL NT-Pro-B Natriuret Pep (<300) pg/mL Serum Total Protein (6.3-8.2) g/dL Albumin (3.5-5.0) g/dL Procalcitonin 6.470 H* (0.030-0.080) ng/mL Urine Color (Yellow) Urine Appearance (Clear) Urine pH (4.6-8.0) Ur Specific [place] (1.005-1.030) Urine Protein (Negative) Urine Glucose (UA) (Negative) mg/dL Urine Ketones (Negative) Urine Blood (Negative) Urine Nitrite (Negative) Urine Bilirubin (Negative) Urine Urobilinogen (0.2) mg/dL Ur Leukocyte Esterase (Negative) U Hyaline Cast (Auto) (0-2) /LPF Urine Microscopic RBC (0-5) /HPF Urine Microscopic WBC (0-5) /HPF Ur Epithelial Cells (None Seen) /HPF Urine Bacteria (None Seen) /HPF Urine Culture Reflexed (NO) Influenza Type A Ag (NEGATIVE) Influenza Type B Ag (NEGATIVE) RSV (PCR) (NEGATIVE) SARS-CoV-2 (PCR) (NEGATIVE) Radiology Exams: Radiology Procedures Category Date Time Status LUMBAR LIMITED (2 OR 3 VIEWS) Stat Exams 03/02/23 08:56 Completed Portable Chest [CHEST 1 VIEW (PORTABLE)] Stat Exams 03/02/23 08:56 Completed Assessment/Plan (1) Left lower lobe pneumonia Current Visit: Yes Status: Acute Assessment & Plan: Patient presents with pleuritic chest wall pain. No increased cough or dyspnea. No fever. Cxray shows LLL infiltrate WBC=32,300. LA=2.2 Check Procal. Zosyn given in ER but this is community acquired pneumonia. Will change to Rocephin and Zithromax She has COPD. Continue bronchodilators Does not need steroids. 03/03: -Procal elevated -Continue Rocephin/zithromax/nebs -Supplemental oxygen titrated for goal of >92%, on 3L now which is her baseline -LA now WNL -Bcult pending -Resp viral panel negative -WBC downtrending 25.4<32.3 Code(s): J18.9 - PNEUMONIA, UNSPECIFIED ORGANISM (2) Diabetes type 2, controlled Current Visit: Yes Status: Chronic Assessment & Plan: Monitor BS. SS insulin Hold oral meds for now Code(s): E11.9 - TYPE 2 DIABETES MELLITUS WITHOUT COMPLICATIONS (3) HTN (hypertension) Current Visit: Yes Status: Chronic Assessment & Plan: Continue home meds Code(s): I10 - ESSENTIAL (PRIMARY) HYPERTENSION (4) HLD (hyperlipidemia) Current Visit: Yes Status: Chronic Assessment & Plan: Continue home meds Code(s): E78.5 - HYPERLIPIDEMIA, UNSPECIFIED (5) Hypothyroid Current Visit: Yes Status: Chronic Assessment & Plan: Continue home meds 03/03: -TSH level low, will decrease synthroid from 88mcg to 75 mcg, patient advised follow up with PCP for recheck Code(s): E03.9 - HYPOTHYROIDISM, UNSPECIFIED (6) Neuropathy Current Visit: Yes Status: Chronic Assessment & Plan: Continue home meds Code(s): G62.9 - POLYNEUROPATHY, UNSPECIFIED (7) Obstructive sleep apnea Current Visit: Yes Status: Chronic Assessment & Plan: CPAP Code(s): G47.33 - OBSTRUCTIVE SLEEP APNEA (ADULT) (PEDIATRIC) (8) Generalized weakness Current Visit: Yes Status: Acute Assessment & Plan: Will have PT assess Check CPK since she was on the floor a while 03/03: -CK normal Code(s): R53.1 - WEAKNESS (9) Hypomagnesemia Current Visit: Yes Status: Acute Assessment & Plan: Magnesium and potassium are low and will be replaced. 03/03: -MG now wnl Code(s): E83.42 - HYPOMAGNESEMIA (10) COPD exacerbation Current Visit: No Status: Chronic Assessment & Plan: Bronchodilators prn Oxygen as needed Code(s): J44.1 - CHRONIC OBSTRUCTIVE PULMONARY DISEASE W (ACUTE) EXACERBATION (11) Leukemoid reaction Current Visit: Yes Status: Acute Assessment & Plan: WBC=32,300. Antibiotics started Recheck in am 03/03: -Improved 25.4<32.3 Code(s): D72.823 - LEUKEMOID REACTION #Hypokalemia -Potassium level low at 3.3, will replenish, continue to monitor daily Code(s): J18.9 - PNEUMONIA, UNSPECIFIED ORGANISM (2) Generalized weakness Current Visit: Yes Status: Acute Code(s): R53.1 - WEAKNESS (3) Hypomagnesemia Current Visit: Yes Status: Acute Code(s): E83.42 - HYPOMAGNESEMIA (4) Leukemoid reaction Current Visit: Yes Status: Acute Code(s): D72.823 - LEUKEMOID REACTION (5) Diabetes type 2, controlled Current Visit: Yes Status: Chronic Code(s): E11.9 - TYPE 2 DIABETES MELLITUS WITHOUT COMPLICATIONS (6) HLD (hyperlipidemia) Current Visit: Yes Status: Chronic Code(s): E78.5 - HYPERLIPIDEMIA, UNSPECIFIED (7) HTN (hypertension) Current Visit: Yes Status: Chronic Code(s): I10 - ESSENTIAL (PRIMARY) HYPERTENSION (8) Hypothyroid Current Visit: Yes Status: Chronic Code(s): E03.9 - HYPOTHYROIDISM, UNSPECIFIED (9) Neuropathy Current Visit: Yes Status: Chronic Code(s): G62.9 - POLYNEUROPATHY, UNSPECIFIED (10) Obstructive sleep apnea Current Visit: Yes Status: Chronic Code(s): G47.33 - OBSTRUCTIVE SLEEP APNEA (ADULT) (PEDIATRIC) (11) COPD exacerbation Current Visit: No Status: Chronic Code(s): J44.1 - CHRONIC OBSTRUCTIVE PULMONARY DISEASE W (ACUTE) EXACERBATION (12) Hypokalemia Current Visit: Yes Status: Acute Code(s): E87.6 - HYPOKALEMIA
[2023-03-03 05:36] LABS: Cholesterol 91 mg/dL (50-200); HDL CHOLESTEROL 63 mg/dL (40-60); LDL, DIRECT < 36 mg/dL (30-100); Risk Ratio 1.4; TRIGLYCERIDE 46 mg/dL (30-150); TSH, 3RD Generation 0.274 mIU/L (0.47-4.68)
[2023-03-03 07:08] LABS: Slide Review 1 YES
[2023-03-03] MEDS ORDERED: Klor Con PO ONE ×2 (08:00→13:28)
[2023-03-03] MEDS: LASIX 20 MG PO SCH (09:59)
[2023-03-03] MEDS ORDERED: NON-FORMULARY ITEM (Fluticasone/Vilanterol [Breo Ellipta 100-25 Mcg Inhalr] 1 EACH Blst.W. IH SCH (10:00)
[2023-03-03] MEDS ORDERED: ROFLUMILAST 250 MCG PO SCH (10:00)
[2023-03-03] MEDS ORDERED: NON-FORMULARY ITEM (Atorvastatin Calcium 20 MG Tab) PO SCH (10:00)
[2023-03-03] MEDS: ZOCOR 20MG PO SCH (10:00)
[2023-03-03] MEDS ORDERED: LEVOTHYROXINE SODIUM 100 MCG PO SCH (10:00)
[2023-03-03] MEDS ORDERED: NON-FORMULARY ITEM (Losartan Potassium [Losartan Potassium] 100 MG Tablet) PO SCH (10:00)
[2023-03-03] MEDS: FISH OIL 1,000 MG CAPSULE PO SCH ×2 (10:00→21:16)
[2023-03-03] MEDS: VITAMIN D PO SCH (10:00)
[2023-03-03] MEDS ORDERED: NON-FORMULARY ITEM (Dapagliflozin Propanediol [Farxiga] 10 MG Tablet) PO SCH (10:00)
[2023-03-03] MEDS ORDERED: NON-FORMULARY ITEM (Omeprazole [Omeprazole] 20 MG Capsule.Dr) PO SCH (10:00)
[2023-03-03] MEDS: FOLATE 1 MG PO SCH (10:01)
[2023-03-03] MEDS: ENOXAPARIN SODIUM SQ SCH (10:38)
[2023-03-03] MEDS: Cozaar 50 MG PO SCH (10:38)
[2023-03-03] MEDS: Protonix 40MG Tablet PO SCH (10:39)
[2023-03-03] MEDS: Calcium 500MG W/Vit D Tablet PO SCH ×2 (10:39→21:15)
[2023-03-03] MEDS: MAG-OX 400 PO SCH ×2 (10:39→21:16)
[2023-03-03] MEDS: SYNTHROID 75 MCG PO SCH (10:39)
[2023-03-03] MEDS: Pepcid 20 MG PO SCH ×2 (10:40→21:15)
[2023-03-03] MEDS: NORVASC 5 MG PO SCH (10:40)
[2023-03-03] MEDS: FEOSOL 325 MG PO SCH ×2 (10:40→21:15)
[2023-03-03] MEDS: Neurontin PO SCH ×3 (10:40→21:15)
[2023-03-03] MEDS: DALIRESP PO SCH (10:41)
[2023-03-03] MEDS: ECOTRIN 81 MG PO SCH (10:48)
[2023-03-03] MEDS: PATIENT OWN MEDICATION PO SCH ×4 (10:50→21:15)
[2023-03-03] MEDS: ROCEPHIN 1 Gm-D5w 50 ml Bag** 1 G/50 ML IVPB IV SCH (14:04)
[2023-03-03] MEDS ORDERED: Zithromax 500 MG/ 250 ML NaCl Premix 500 MG/250 ML IVPB IV SCH (18:00)
[2023-03-03] MEDS: HUMALOG SQ PRN (18:18)
[2023-03-03] MEDS ORDERED: PATIENT OWN MEDICATION IH SCH (19:00)
[2023-03-03] MEDS: Toprol Xl 50 MG PO SCH (21:15)
[2023-03-04] MEDS: DUONEB 0.5-3 MG/3 ml Neb IH SCH ×2 (01:50→07:02)
[2023-03-04 04:59] LABS: Absolute Neutrophil Ct (ANC) 8.33 x10^3/uL (1.4-6.9); BASOPHIL % 0.3 % (0.0-0.4); Basophil (Absolute #) 0.03 x10^3/uL (0-0.4); Eosinophil % 0.8 % (0.00-5.0); Eosinophil (Absolute #) 0.08 x10^3/uL (0-0.5); Hematocrit 33.4 % (35-47); Hemoglobin 10.5 g/dL (12.0-16.0); IMMATURE GRAN # 0.04 x10^3u/L (0.00-0.03); IMMATURE GRAN % 0.4 % (0.00-0.4); Lymphocytes % 10.4 % (24.0-44.0); Mean Cell Volume 91.8 fL (78-100); Mean Corpuscular Hemoglobin 28.8 pg (26-32); Mean Corpuscular Hgb Concent. 31.4 g/dL (32-36); Mean Platelet Volume 10.8 fL (7.5-11.0); Monocyte (Absolute #) 0.18 x10^3/uL (0.0-1.3); Monocytes % 1.9 % (0.0-12.0); Neutrophil % 86.2 % (36.0-66.0); Platelet Count 113 x10^3/uL (150-450); Red Blood Count 3.64 x10^6/uL (4.1-5.4); White Blood Count 9.7 x10^3/uL (4.0-10.5)
--- NOTE | 2023-03-04 05:19 | PCM.NOTE ---
Date and Time: 03/04/23517 Subjective Assessment: 72 year old female with pmhx of neuropathy,DEVYN,PVD (angioplasty to left leg) DJD, Chronic back pain, HTN, DMII, COPD (3L baseline with CPAP at night) who presented to ED 03/02/23 after a fall at home for which her daughter found her on the floor approximately 3-4 hours later. Patient reports that she tried to get out of bed that morning around 4 am and slid down, unable to get up due to the pain. Endorses left-sided back pain. Patient also with deep productive cough noted by ER physician. EKG done which revealed sinus rhythm 100 bpm poor R wave progression V1 through V4.Lab findings significant for WBC at 32, potassium at 3.2,Lactic acid mildly elevated 2.2 initially but trended down to normal limits 1.8, procal elevated at 6.470 MG at 1.2 (2g giving). CXR questionable for LLL infiltrate. Patient started on Zosyn empirically initially but changed to rocephin/zithromax for CAP coverage. Morphine given for back pain. Blood and urine cultures pending. 03/03/23: Met with patient and family at bedside. States she is feeling much better today. Cough is more productive with rust-colored sputum. On 4L oxygen which is her baseline. Does have some wheezing noted on auscultation. Discussed lab findings, TSH level is low, patient currently on 88mcg, will decrease dose to 75mcg, advised patient follow up for recheck with her PCP. Potassium level is also mildly low, will replenish. Denies fever, cp, abdominal pain, FLOWERS, dizziness, N/V/D. 03/04: OBJECTIVE DATA Vital Signs: Vital Signs - 24 hr Temp Pulse Resp BP Pulse Ox 03/04/23 04:00 98.0 F 71 17 90/50 94 L 03/04/23 00:00 97.7 F 72 13 97/50 96 03/03/23 21:33 90 18 95 03/03/23 20:00 97.9 F 88 22 101/55 93 L 03/03/23 16:26 81 16 95 03/03/23 16:00 97.6 F 88 18 102/72 95 03/03/23 11: 97.0 F 78 18 110/58 95 03/03/23 10:46 79 16 98 03/03/23 08:00 97.3 F 68 18 115/61 97 03/03/23 07:24 77 16 95 Pain Assessment - Last Documented Pain Intensity 0 Pain Scale Used 0-10 Pain Scale Intake and Output: Intake & Output 03/01/23 03/02/23 03/03/23 03/04/23 11:59 11:59 11:59 11:59 Intake Total 1540 1200 Output Total 550 Balance 990 1200 Weight 78.018 kg 80.5 kg Lab Results: Lab Results-Last 24 Hours 03/03/23 03/03/23 03/03/23 Range/Units 04:16 04:16 04:16 Sodium 132 L (137-145) mmol/L Potassium 3.3 L (3.5-5.1) mmol/L Chloride 98 (98-107) mmol/L Carbon Dioxide 29 (22-30) mmol/L Anion Gap 8.5 (5-15) MEQ/L BUN 19 H (7-17) mg/dL Creatinine 0.58 (0.52-1.04) mg/dL Estimated GFR 97.3 ML/MIN Glucose 141 H (74-106) mg/dL POC Glucometer (74 to 106) mg/dL Calcium 8.6 (8.4-10.2) mg/dL Magnesium (1.6-2.3) mg/dL Total Bilirubin 0.60 (0.2-1.3) mg/dL AST 28 (14-36) U/L ALT 25 (0-35) U/L Alkaline Phosphatase 78 (38-126) U/L Serum Total Protein 5.9 L (6.3-8.2) g/dL Albumin 3.2 L (3.5-5.0) g/dL Triglycerides 46 (30-150) mg/dL Cholesterol 91 (50-200) mg/dL LDL Cholesterol < 36 (30-100) mg/dL HDL Cholesterol 63 H (40-60) mg/dL Heart Disease Risk Ratio 1.4 TSH 3rd Generation 0.274 L (0.47-4.68) mIU/L Slides for Path Review YES 03/03/23 03/03/23 03/03/23 Range/Units 05:30 07:49 11:15 Sodium (137-145) mmol/L Potassium (3.5-5.1) mmol/L Chloride (98-107) mmol/L Carbon Dioxide (22-30) mmol/L Anion Gap (5-15) MEQ/L BUN (7-17) mg/dL Creatinine (0.52-1.04) mg/dL Estimated GFR ML/MIN Glucose (74-106) mg/dL POC Glucometer 110 H 184 H (74 to 106) mg/dL Calcium (8.4-10.2) mg/dL Magnesium 1.8 (1.6-2.3) mg/dL Total Bilirubin (0.2-1.3) mg/dL AST (14-36) U/L ALT (0-35) U/L Alkaline Phosphatase (38-126) U/L Serum Total Protein (6.3-8.2) g/dL Albumin (3.5-5.0) g/dL Triglycerides (30-150) mg/dL Cholesterol (50-200) mg/dL LDL Cholesterol (30-100) mg/dL HDL Cholesterol (40-60) mg/dL Heart Disease Risk Ratio TSH 3rd Generation (0.47-4.68) mIU/L Slides for Path Review 03/03/23 03/03/23 03/03/23 Range/Units 12:42 16:33 17:50 Sodium (137-145) mmol/L Potassium 3.4 L 3.6 (3.5-5.1) mmol/L Chloride (98-107) mmol/L Carbon Dioxide (22-30) mmol/L Anion Gap (5-15) MEQ/L BUN (7-17) mg/dL Creatinine (0.52-1.04) mg/dL Estimated GFR ML/MIN Glucose (74-106) mg/dL POC Glucometer 164 H (74 to 106) mg/dL Calcium (8.4-10.2) mg/dL Magnesium (1.6-2.3) mg/dL Total Bilirubin (0.2-1.3) mg/dL AST (14-36) U/L ALT (0-35) U/L Alkaline Phosphatase (38-126) U/L Serum Total Protein (6.3-8.2) g/dL Albumin (3.5-5.0) g/dL Triglycerides (30-150) mg/dL Cholesterol (50-200) mg/dL LDL Cholesterol (30-100) mg/dL HDL Cholesterol (40-60) mg/dL Heart Disease Risk Ratio TSH 3rd Generation (0.47-4.68) mIU/L Slides for Path Review 03/03/23 Range/Units 21:07 Sodium (137-145) mmol/L Potassium (3.5-5.1) mmol/L Chloride (98-107) mmol/L Carbon Dioxide (22-30) mmol/L Anion Gap (5-15) MEQ/L BUN (7-17) mg/dL Creatinine (0.52-1.04) mg/dL Estimated GFR ML/MIN Glucose (74-106) mg/dL POC Glucometer 112 H (74 to 106) mg/dL Calcium (8.4-10.2) mg/dL Magnesium (1.6-2.3) mg/dL Total Bilirubin (0.2-1.3) mg/dL AST (14-36) U/L ALT (0-35) U/L Alkaline Phosphatase (38-126) U/L Serum Total Protein (6.3-8.2) g/dL Albumin (3.5-5.0) g/dL Triglycerides (30-150) mg/dL Cholesterol (50-200) mg/dL LDL Cholesterol (30-100) mg/dL HDL Cholesterol (40-60) mg/dL Heart Disease Risk Ratio TSH 3rd Generation (0.47-4.68) mIU/L Slides for Path Review Radiology Exams: Radiology Procedures Category Date Time Status LUMBAR LIMITED (2 OR 3 VIEWS) Stat Exams 03/02/23 08:56 Completed Portable Chest [CHEST 1 VIEW (PORTABLE)] Stat Exams 03/02/23 08:56 Completed Multi-Disciplinary Progress Notes: Multi-Disciplinary Progress Notes 03/03/23 21:35 Respiratory Note by Calista Jama Pt was given Duoneb and Incruse off schedule at 2130 at patient request. She is also requesting to not be woken up during the night for scheduled 0100 neb tx. Advised pt to call RT if she becomes SOB or would like her neb tx. Initialized on 03/03/23 21:35 - END OF NOTE 03/03/23 08:05 Respiratory Note by Cinthia Abarca 02/2723 RT note was placed on the wrong chart therapist Diya Lester called me this morning and stated she typed it on wrong person will put the not on the correct chart. Ignore this note. Addendum entered by Cinthia Abarca 03/03/23 08:09: this patient did not have a critical value. Initialized on 03/03/23 08:05 - END OF NOTE 03/03/23 05:32 Respiratory Note by Diya Lester DR CALLED FOR CRITICAL VALUE ON AM ABG, PCO2 85. ORDER TO TITRATE BIPAP SETTINGS TO REACH VT BETWEEN 400-500. SWITCHED TO BIPAP S/T MODE IPAP-18, EPAP-7, RR 16, FIO2 REMAINED AT 40%. TOLERATING WELL AT THIS TIME. PHYSICIAN ORDER FOR REPEAT ABG @0620. Addendum entered by Cinthia Abarca 03/03/23 08:06: Note on wrong person Initialized on 03/03/23 05:32 - END OF NOTE Assessment/Plan (1) Left lower lobe pneumonia Current Visit: Yes Status: Acute Assessment & Plan: Patient presents with pleuritic chest wall pain. No increased cough or dyspnea. No fever. Cxray shows LLL infiltrate WBC=32,300. LA=2.2 Check Procal. Zosyn given in ER but this is community acquired pneumonia. Will change to Rocephin and Zithromax She has COPD. Continue bronchodilators Does not need steroids. 03/03: -Procal elevated -Continue Rocephin/zithromax/nebs -Supplemental oxygen titrated for goal of >92%, on 3L now which is her baseline -LA now WNL -Bcult pending -Resp viral panel negative -WBC downtrending 25.4<32.3 Code(s): J18.9 - PNEUMONIA, UNSPECIFIED ORGANISM (2) Diabetes type 2, controlled Current Visit: Yes Status: Chronic Assessment & Plan: Monitor BS. SS insulin Hold oral meds for now Code(s): E11.9 - TYPE 2 DIABETES MELLITUS WITHOUT COMPLICATIONS (3) HTN (hypertension) Current Visit: Yes Status: Chronic Assessment & Plan: Continue home meds Code(s): I10 - ESSENTIAL (PRIMARY) HYPERTENSION (4) HLD (hyperlipidemia) Current Visit: Yes Status: Chronic Assessment & Plan: Continue home meds Code(s): E78.5 - HYPERLIPIDEMIA, UNSPECIFIED (5) Hypothyroid Current Visit: Yes Status: Chronic Assessment & Plan: Continue home meds 03/03: -TSH level low, will decrease synthroid from 88mcg to 75 mcg, patient advised follow up with PCP for recheck Code(s): E03.9 - HYPOTHYROIDISM, UNSPECIFIED (6) Neuropathy Current Visit: Yes Status: Chronic Assessment & Plan: Continue home meds Code(s): G62.9 - POLYNEUROPATHY, UNSPECIFIED (7) Obstructive sleep apnea Current Visit: Yes Status: Chronic Assessment & Plan: CPAP Code(s): G47.33 - OBSTRUCTIVE SLEEP APNEA (ADULT) (PEDIATRIC) (8) Generalized weakness Current Visit: Yes Status: Acute Assessment & Plan: Will have PT assess Check CPK since she was on the floor a while 03/03: -CK normal Code(s): R53.1 - WEAKNESS (9) Hypomagnesemia Current Visit: Yes Status: Acute Assessment & Plan: Magnesium and potassium are low and will be replaced. 03/03: -MG now wnl Code(s): E83.42 - HYPOMAGNESEMIA (10) COPD exacerbation Current Visit: No Status: Chronic Assessment & Plan: Bronchodilators prn Oxygen as needed Code(s): J44.1 - CHRONIC OBSTRUCTIVE PULMONARY DISEASE W (ACUTE) EXACERBATION (11) Leukemoid reaction Current Visit: Yes Status: Acute Assessment & Plan: WBC=32,300. Antibiotics started Recheck in am 03/03: -Improved 25.4<32.3 Code(s): D72.823 - LEUKEMOID REACTION #Hypokalemia -Potassium level low at 3.3, will replenish, continue to monitor daily Code(s): J18.9 - PNEUMONIA, UNSPECIFIED ORGANISM (2) Generalized weakness Current Visit: Yes Status: Acute Code(s): R53.1 - WEAKNESS (3) Hypomagnesemia Current Visit: Yes Status: Acute Code(s): E83.42 - HYPOMAGNESEMIA (4) Leukemoid reaction Current Visit: Yes Status: Acute Code(s): D72.823 - LEUKEMOID REACTION (5) Diabetes type 2, controlled Current Visit: Yes Status: Chronic Code(s): E11.9 - TYPE 2 DIABETES MELLITUS WITHOUT COMPLICATIONS (6) HLD (hyperlipidemia) Current Visit: Yes Status: Chronic Code(s): E78.5 - HYPERLIPIDEMIA, UNSPECIFIED (7) HTN (hypertension) Current Visit: Yes Status: Chronic Code(s): I10 - ESSENTIAL (PRIMARY) HYPERTENSION (8) Hypothyroid Current Visit: Yes Status: Chronic Code(s): E03.9 - HYPOTHYROIDISM, UNSPECIFIED (9) Neuropathy Current Visit: Yes Status: Chronic Code(s): G62.9 - POLYNEUROPATHY, UNSPECIFIED (10) Obstructive sleep apnea Current Visit: Yes Status: Chronic Code(s): G47.33 - OBSTRUCTIVE SLEEP APNEA (ADULT) (PEDIATRIC) (11) COPD exacerbation Current Visit: No Status: Chronic Code(s): J44.1 - CHRONIC OBSTRUCTIVE PULMONARY DISEASE W (ACUTE) EXACERBATION (12) Hypokalemia Current Visit: Yes Status: Acute Code(s): E87.6 - HYPOKALEMIA
[2023-03-04 05:28] LABS: ANION GAP 7.2 MEQ/L (5-15); BILIRUBIN,TOTAL 0.4 mg/dL (0.2-1.3); Calcium 8.5 mg/dL (8.4-10.2); Creatinine 1 0.68 mg/dL (0.52-1.04); EST GLOMERULAR FILTRATION RATE 93.6 ML/MIN; MAGNESIUM 1.9 mg/dL (1.6-2.3); Potassium 3.9 mmol/L (3.5-5.1); Total Protein 5.7 g/dL (6.3-8.2)
[2023-03-04] MEDS ORDERED: PATIENT OWN MEDICATION IH SCH (07:00)
[2023-03-04] MEDS: Cozaar 50 MG PO SCH (09:08)
[2023-03-04] MEDS: Calcium 500MG W/Vit D Tablet PO SCH (09:08)
[2023-03-04] MEDS: DALIRESP PO SCH (09:09)
[2023-03-04] MEDS: MAG-OX 400 PO SCH (09:10)
[2023-03-04] MEDS: FISH OIL 1,000 MG CAPSULE PO SCH (09:10)
[2023-03-04] MEDS: ZOCOR 20MG PO SCH (09:10)
[2023-03-04] MEDS: Neurontin PO SCH (09:10)
[2023-03-04] MEDS: SYNTHROID 75 MCG PO SCH (09:10)
[2023-03-04] MEDS: NORVASC 5 MG PO SCH (09:10)
[2023-03-04] MEDS: FEOSOL 325 MG PO SCH (09:11)
[2023-03-04] MEDS: FOLATE 1 MG PO SCH (09:11)
[2023-03-04] MEDS: Pepcid 20 MG PO SCH (09:11)
[2023-03-04] MEDS: VITAMIN D PO SCH (09:11)
[2023-03-04] MEDS: ENOXAPARIN SODIUM SQ SCH (09:11)
[2023-03-04] MEDS: LASIX 20 MG PO SCH (09:11)
[2023-03-04] MEDS: Protonix 40MG Tablet PO SCH (09:11)
[2023-03-04] MEDS: PATIENT OWN MEDICATION PO SCH ×2 (09:11)
[2023-03-04] MEDS: ECOTRIN 81 MG PO SCH (09:12)
[2023-03-04] MEDS: ROCEPHIN 1 Gm-D5w 50 ml Bag** 1 G/50 ML IVPB IV SCH (09:26)
--- NOTE | 2023-03-04 10:57 | PCM.DS ---
Discharge Summary Date of Admission: 03/02/23 12:11 Date of Discharge: 03/04/23 Admitting Physician: RUY CABALLERO MD Primary Care Provider: RAGHAV NIEVES Allergies Allergies rofecoxib [From Vioxx] Adverse Reaction (Verified 03/02/23 08:14) Stomach Cramps Hospital Summary - Hospital Course Hospital Course: 72 year old female with pmhx of neuropathy,DEVYN,PVD (angioplasty to left leg) DJD, Chronic back pain, HTN, DMII, COPD (3L baseline with CPAP at night) who presented to ED 03/02/23 after a fall at home for which her daughter found her on the floor approximately 3-4 hours later. Patient reports that she tried to get out of bed that morning around 4 am and slid down, unable to get up due to the pain. Endorses left-sided back pain. Patient also with deep productive cough noted by ER physician. EKG done which revealed sinus rhythm 100 bpm poor R wave progression V1 through V4.Lab findings significant for WBC at 32, potassium at 3.2,Lactic acid mildly elevated 2.2 initially but trended down to normal limits 1.8, procal elevated at 6.470 MG at 1.2 (2g giving). CXR questionable for LLL infiltrate. Patient started on Zosyn empirically initially but changed to rocephin/zithromax for CAP coverage. WBC/electrolytes now wnl, blood and urine cultures NGTD, patient at baseline oxygen of 4L. Patient did have low TSH level during stay for which Synthroid was reduced to 75mcg, patient advised follow up with pcp for recheck. She is stable and ready for discharge. She states she has a nebulizer and inhalers at home. Will discharge on Vantin orally, advised close follow up with PCP. New Diagnosis: pneumonia New Medications: Vantin - Synthroid changed to 75mcg (advised OP follow up) Follow Up: PCP Latest Assessment & Plan 1) Left lower lobe pneumonia Current Visit: Yes Status: Acute Assessment & Plan: Patient presents with pleuritic chest wall pain. No increased cough or dyspnea. No fever. Cxray shows LLL infiltrate WBC=32,300. LA=2.2 Check Procal. Zosyn given in ER but this is community acquired pneumonia. Will change to Rocephin and Zithromax She has COPD. Continue bronchodilators Does not need steroids. 03/03: -Procal elevated -Continue Rocephin/zithromax/nebs -Supplemental oxygen titrated for goal of >92%, on 3L now which is her baseline -LA now WNL -Bcult pending -Resp viral panel negative -WBC downtrending 25.4<32.3 Code(s): J18.9 - PNEUMONIA, UNSPECIFIED ORGANISM (2) Diabetes type 2, controlled Current Visit: Yes Status: Chronic Assessment & Plan: Monitor BS. SS insulin Hold oral meds for now Code(s): E11.9 - TYPE 2 DIABETES MELLITUS WITHOUT COMPLICATIONS (3) HTN (hypertension) Current Visit: Yes Status: Chronic Assessment & Plan: Continue home meds Code(s): I10 - ESSENTIAL (PRIMARY) HYPERTENSION (4) HLD (hyperlipidemia) Current Visit: Yes Status: Chronic Assessment & Plan: Continue home meds Code(s): E78.5 - HYPERLIPIDEMIA, UNSPECIFIED (5) Hypothyroid Current Visit: Yes Status: Chronic Assessment & Plan: Continue home meds 03/03: -TSH level low, will decrease synthroid from 88mcg to 75 mcg, patient advised follow up with PCP for recheck Code(s): E03.9 - HYPOTHYROIDISM, UNSPECIFIED (6) Neuropathy Current Visit: Yes Status: Chronic Assessment & Plan: Continue home meds Code(s): G62.9 - POLYNEUROPATHY, UNSPECIFIED (7) Obstructive sleep apnea Current Visit: Yes Status: Chronic Assessment & Plan: CPAP Code(s): G47.33 - OBSTRUCTIVE SLEEP APNEA (ADULT) (PEDIATRIC) (8) Generalized weakness Current Visit: Yes Status: Acute Assessment & Plan: Will have PT assess Check CPK since she was on the floor a while 03/03: -CK normal Code(s): R53.1 - WEAKNESS (9) Hypomagnesemia Current Visit: Yes Status: Acute Assessment & Plan: Magnesium and potassium are low and will be replaced. 03/03: -MG now wnl Code(s): E83.42 - HYPOMAGNESEMIA (10) COPD exacerbation Current Visit: No Status: Chronic Assessment & Plan: Bronchodilators prn Oxygen as needed Code(s): J44.1 - CHRONIC OBSTRUCTIVE PULMONARY DISEASE W (ACUTE) EXACERBATION (11) Leukemoid reaction Current Visit: Yes Status: Acute Assessment & Plan: WBC=32,300. Antibiotics started Recheck in am 03/03: -Improved 25.4<32.3 Code(s): D72.823 - LEUKEMOID REACTION #Hypokalemia -Potassium level low at 3.3, will replenish, continue to monitor daily Code(s): J18.9 - PNEUMONIA, UNSPECIFIED ORGANISM I spent 35 minutes [id number] with the patient on the day of discharge performing discharge exam, discussing hospital stay and discharge instructions with patient and caregivers, preparation of discharge records, prescriptions & referral forms and addressing any questions/concerns the patient had as documented above. - Vitals & Intake/Output Vital Signs: Vital Signs Temperature 97.5 F 03/04/23 07:28 Pulse Rate 86 03/04/23 09:06 Respiratory Rate 16 03/04/23 07:28 Blood Pressure 114/63 03/04/23 09:06 O2 Sat by Pulse Oximetry 96 03/04/23 07:28 Intake & Output: Intake & Output 03/01/23 03/02/23 03/03/23 03/04/23 11:59 11:59 11:59 11:59 Intake Total 1540 1780 Output Total 550 Balance 990 1780 Weight 78.018 kg 80.5 kg - Lab Result Diagrams: 03/04/23 04:55 03/04/23 04:55 Lab Results-Last 24 Hrs: Lab Results-Last 24 Hours 03/03/23 03/03/23 03/03/23 Range/Units 11:15 12:42 16:33 WBC (4.0-10.5) x10^3/uL RBC (4.1-5.4) x10^6/uL Hgb (12.0-16.0) g/dL Hct (35-47) % MCV (78-100) fL MCH (26-32) pg MCHC (32-36) g/dL RDW (11.5-14.0) % Plt Count (150-450) x10^3/uL MPV (7.5-11.0) fL Gran % (36.0-66.0) % Immature Gran % (Auto) (0.00-0.4) % Nucleat RBC Rel Count (0.00-0.1) % Eos # (Auto) (0-0.5) x10^3/uL Immature Gran # (Auto) (0.00-0.03) x10^3u/L Absolute Lymphs (auto) (1.0-4.6) x10^3/uL Absolute Monos (auto) (0.0-1.3) x10^3/uL Absolute Nucleated RBC (0.00-0.01) x10^3u/L Lymphocytes % (24.0-44.0) % Monocytes % (0.0-12.0) % Eosinophils % (0.00-5.0) % Basophils % (0.0-0.4) % Absolute Granulocytes (1.4-6.9) x10^3/uL Basophils # (0-0.4) x10^3/uL Sodium (137-145) mmol/L Potassium 3.4 L (3.5-5.1) mmol/L Chloride (98-107) mmol/L Carbon Dioxide (22-30) mmol/L Anion Gap (5-15) MEQ/L BUN (7-17) mg/dL Creatinine (0.52-1.04) mg/dL Estimated GFR ML/MIN Glucose (74-106) mg/dL POC Glucometer 184 H 164 H (74 to 106) mg/dL Calcium (8.4-10.2) mg/dL Magnesium (1.6-2.3) mg/dL Total Bilirubin (0.2-1.3) mg/dL AST (14-36) U/L ALT (0-35) U/L Alkaline Phosphatase (38-126) U/L Serum Total Protein (6.3-8.2) g/dL Albumin (3.5-5.0) g/dL 03/03/23 03/03/23 03/04/23 Range/Units 17:50 21:07 04:55 WBC 9.7 (4.0-10.5) x10^3/uL RBC 3.64 L (4.1-5.4) x10^6/uL Hgb 10.5 L (12.0-16.0) g/dL Hct 33.4 L (35-47) % MCV 91.8 (78-100) fL MCH 28.8 (26-32) pg MCHC 31.4 L (32-36) g/dL RDW 16.0 H (11.5-14.0) % Plt Count 113 L (150-450) x10^3/uL MPV 10.8 (7.5-11.0) fL Gran % 86.2 H (36.0-66.0) % Immature Gran % (Auto) 0.4 (0.00-0.4) % Nucleat RBC Rel Count 0.0 (0.00-0.1) % Eos # (Auto) 0.08 (0-0.5) x10^3/uL Immature Gran # (Auto) 0.04 H (0.00-0.03) x10^3u/L Absolute Lymphs (auto) 1.00 (1.0-4.6) x10^3/uL Absolute Monos (auto) 0.18 (0.0-1.3) x10^3/uL Absolute Nucleated RBC 0.00 (0.00-0.01) x10^3u/L Lymphocytes % 10.4 L (24.0-44.0) % Monocytes % 1.9 (0.0-12.0) % Eosinophils % 0.8 (0.00-5.0) % Basophils % 0.3 (0.0-0.4) % Absolute Granulocytes 8.33 H (1.4-6.9) x10^3/uL Basophils # 0.03 (0-0.4) x10^3/uL Sodium (137-145) mmol/L Potassium 3.6 (3.5-5.1) mmol/L Chloride (98-107) mmol/L Carbon Dioxide (22-30) mmol/L Anion Gap (5-15) MEQ/L BUN (7-17) mg/dL Creatinine (0.52-1.04) mg/dL Estimated GFR ML/MIN Glucose (74-106) mg/dL POC Glucometer 112 H (74 to 106) mg/dL Calcium (8.4-10.2) mg/dL Magnesium (1.6-2.3) mg/dL Total Bilirubin (0.2-1.3) mg/dL AST (14-36) U/L ALT (0-35) U/L Alkaline Phosphatase (38-126) U/L Serum Total Protein (6.3-8.2) g/dL Albumin (3.5-5.0) g/dL 03/04/23 03/04/23 Range/Units 04:55 07:13 WBC (4.0-10.5) x10^3/uL RBC (4.1-5.4) x10^6/uL Hgb (12.0-16.0) g/dL Hct (35-47) % MCV (78-100) fL MCH (26-32) pg MCHC (32-36) g/dL RDW (11.5-14.0) % Plt Count (150-450) x10^3/uL MPV (7.5-11.0) fL Gran % (36.0-66.0) % Immature Gran % (Auto) (0.00-0.4) % Nucleat RBC Rel Count (0.00-0.1) % Eos # (Auto) (0-0.5) x10^3/uL Immature Gran # (Auto) (0.00-0.03) x10^3u/L Absolute Lymphs (auto) (1.0-4.6) x10^3/uL Absolute Monos (auto) (0.0-1.3) x10^3/uL Absolute Nucleated RBC (0.00-0.01) x10^3u/L Lymphocytes % (24.0-44.0) % Monocytes % (0.0-12.0) % Eosinophils % (0.00-5.0) % Basophils % (0.0-0.4) % Absolute Granulocytes (1.4-6.9) x10^3/uL Basophils # (0-0.4) x10^3/uL Sodium 134 L (137-145) mmol/L Potassium 3.9 (3.5-5.1) mmol/L Chloride 102 (98-107) mmol/L Carbon Dioxide 30 (22-30) mmol/L Anion Gap 7.2 (5-15) MEQ/L BUN 20 H (7-17) mg/dL Creatinine 0.68 (0.52-1.04) mg/dL Estimated GFR 93.6 ML/MIN Glucose 116 H (74-106) mg/dL POC Glucometer 113 H (74 to 106) mg/dL Calcium 8.5 (8.4-10.2) mg/dL Magnesium 1.9 (1.6-2.3) mg/dL Total Bilirubin 0.40 (0.2-1.3) mg/dL AST 32 (14-36) U/L ALT 26 (0-35) U/L Alkaline Phosphatase 82 (38-126) U/L Serum Total Protein 5.7 L (6.3-8.2) g/dL Albumin 3.0 L (3.5-5.0) g/dL Micro Results-Entire Visit: Microbiology 03/02/23 09:07 Urine Culture - Final Catherized NO GROWTH 03/02/23 09:20 Blood Culture - Preliminary Blood 03/02/23 09:15 Blood Culture - Preliminary Blood Accuchecks Date 03/04/23 Date 03/03/23 Date 03/03/23 Time 07:30 Time 16:44 Time 11:27 - Procedures and Test Procedures and Tests throughout Hospitalization: Therapy Orders & Screens 03/02/23 13:50 PT Eval & Treat ( Order) 0700 Reason for Eval:: Weakness Diagnosis: Left Lower Lobe Pneumonia Oxygen Nasal Cannula 2 lpm Comment: Diagnosis: Left Lower Lobe Pneumonia 03/02/23 14:45 Respiratory Therapy Assessment DAILY Comment: Diagnosis: Left Lower Lobe Pneumonia 03/02/23 17:19 BiPap/CPAP ROUTINE Comment: Diagnosis: Left Lower Lobe Pneumonia Discharge Exam General Appearance: no apparent distress Neurologic Exam: alert, oriented x 3, cooperative Eye Exam: PERRL Ears, Nose, Throat Exam: moist mucous membranes Neck Exam: normal inspection Respiratory Exam: crackles/rales Cardiovascular Exam: regular rate/rhythm, normal heart sounds Gastrointestinal/Abdomen Exam: soft, normal bowel sounds Pelvic Exam: deferred Rectal Exam: deferred Back Exam: normal inspection Extremity Exam: normal inspection Skin Exam: normal color Final Diagnosis/Problem List - Final Discharge Diagnosis/Problem (1) Left lower lobe pneumonia Current Visit: Yes Status: Acute Code(s): J18.9 - PNEUMONIA, UNSPECIFIED ORGANISM (2) Generalized weakness Current Visit: Yes Status: Acute Code(s): R53.1 - WEAKNESS (3) Hypomagnesemia Current Visit: Yes Status: Acute Code(s): E83.42 - HYPOMAGNESEMIA (4) Leukemoid reaction Current Visit: Yes Status: Acute Code(s): D72.823 - LEUKEMOID REACTION (5) Diabetes type 2, controlled Current Visit: Yes Status: Chronic Code(s): E11.9 - TYPE 2 DIABETES MELLITUS WITHOUT COMPLICATIONS (6) HLD (hyperlipidemia) Current Visit: Yes Status: Chronic Code(s): E78.5 - HYPERLIPIDEMIA, UNSPE CIFIED (7) HTN (hypertension) Current Visit: Yes Status: Chronic Code(s): I10 - ESSENTIAL (PRIMARY) HYPE RTENSION (8) Hypothyroid Current Visit: Yes Status: Chronic Code(s): E03.9 - HYPOTHYROIDISM, UNSPECIFIED (9) Neuropathy Current Visit: Yes Status: Chronic Code(s): G62.9 - POLYNEUROPATHY, UNSPECIFIED (10) Obstructive sleep apnea Current Visit: Yes Status: Chronic Code(s): G47.33 - OBSTRUCTIVE SLEEP APNEA (ADULT) (PEDIATRIC) (11) COPD exacerbation Current Visit: No Status: Chronic Code(s): J44.1 - CHRONIC OBSTRUCTIVE PULMONARY DISEASE W (ACUTE) EXACERBATION (12) Hypokalemia Current Visit: Yes Status: Acute Code(s): E87.6 - HYPOKALEMIA - Discharge Disposition: Home, Self-Care Condition: Stable Prescriptions: New Magnesium Oxide 400 mg [Mag-Ox 400] 400 mg PO BID 14 Days #28 tablet Levothyroxine Sodium 75 Mcg [Synthroid 75 Mcg] 75 mcg PO DAILY 30 Days #30 tablet Cefpodoxime Proxetil 200 mg [Vantin 200 mg] 200 mg PO BID 5 Days #10 tablet Continue Omeprazole 20 mg PO DAILY Methotrexate Sodium 2.5 mg [Trexall 2.5 mg] 10 mg PO WEEKLY Metformin HCl 500 mg [Glucophage 500 MG] 1,000 mg PO BID Losartan Potassium 100 mg PO DAILY Ipratropium/Albuterol Sulfate [Iprat-Albut 0.5-3(2.5) mg/3 ml] 3 ml IH Q6H PRN PRN PRN Reason: Shortness Of Breath Umeclidinium [place] [Incruse Ellipta] 1 puff IH DAILY Gabapentin 100 mg PO TID Folic Acid 1 mg PO DAILY Roflumilast [Daliresp] 250 mcg PO DAILY Calcium Carbonate [Calcium] 600 mg PO BID Ascorbic Acid [C-1000] 1,000 mg PO DAILY Albuterol 8 gm Mdi Hfa [Ventolin Hfa MDI] 2 puffs IH Q4HPRN PRN PRN Reason: Shortness Of Breath Amlodipine Besylate 5 mg [Norvasc 5 mg] 10 mg PO DAILY Alendronate Sodium 70 mg PO WEEKLY Belt-3 Fatty Acids/Fish Oil [Fish Oil 1,000 mg Capsule] 1,000 mg PO BID Ferrous Sulfate 325 mg [Feosol 325 mg] 325 mg PO BID Dapagliflozin Propanediol [Farxiga] 10 mg PO DAILY Cholecalciferol (Vitamin D3) [Vitamin D3] 1 cap PO UD Fluticasone/Vilanterol [Breo Ellipta 100-25 Mcg Inhalr] 1 puff IH DAILY Atorvastatin Calcium [Lipitor 20MG Tablet] 20 mg PO DAILY Triamcinolone 0.1% Cream [Kenalog 0.1% Cream 15 gm] 1 applic TOP BID Sildenafil Citrate 20 mg PO TID Potassium Chloride 20 meq PO DAILY Furosemide 20 mg [Lasix 20 mg] 20 mg PO DAILY Metoprolol Succinate 50 mg PO HS Aspirin EC 81 mg [Ecotrin 81 mg] 81 mg PO DAILY Discontinued Levothyroxine Sodium 88 mcg PO DAILY Follow up with: RAGHAV NIEVES MD [Primary Care Provider] -
[2023-03-04 11:42] VITALS: BP 97/53; PULSE 80; RESP 18; TEMP 97.8; O2SAT 94
== END 2023-03-04 12:00 | disposition home or self-care (01) ==
LOC: ED 07:49 → MED SURG 12:11
PROVIDERS: ADMIT Internal Medicine; ATTEND Internal Medicine
DX: J18.9 Pneumonia, unspecified organism (principal); E11.9 Type 2 diabetes mellitus without complications; I10 Essential (primary) hypertension; E78.5 Hyperlipidemia, unspecified; E03.9 Hypothyroidism, unspecified; G62.9 Polyneuropathy, unspecified; G47.33 Obstructive sleep apnea (adult) (pediatric); R53.1 Weakness; E83.42 Hypomagnesemia; J44.1 Chronic obstructive pulmonary disease with (acute) exacerbation; D72.823 Leukemoid reaction; E87.6 Hypokalemia; M54.9 Dorsalgia, unspecified; W19.XXXA Unspecified fall, initial encounter; Z79.899 Other long term (current) drug therapy; Z20.828 Contact with and (suspected) exposure to other viral communicable diseases; Z86.79 Personal history of other diseases of the circulatory system; Z99.81 Dependence on supplemental oxygen
CPT/HCPCS: 0241U; 36415; 71045; 72100; 80053; 80061; 81001; 82550; 82947; 83605; 83721; 83735; 83880; 84132; 84145; 84443; 84484; 85025; 87040; 87086; 94640; 94660; 94762; 96360; 96365; 96374; 97161; 99284; P9612; 93268; J0456; J0696; J1650; J1817; J2270; Q3014; A9270-GY; G0378

== ENCOUNTER 2023-07-16 21:32 | Observation (INO) | payer MEDICARE ==
--- NOTE | 2023-07-16 21:41 | ERPHSYRPT ---
- History of Present Illness Time Seen by Provider: 07/16/23 21:45 Source: patient Exam Limitations: no limitations Physician History: Patient is a 72-year-old female history of COPD uses 4 L nasal oxygen 24 hours/day presents to our ED for evaluation of shortness of breath refractory to treatment with steroids and doxycycline. Patient was treated by her decal cutter for bronchitis. Patient transiently improved and now states her shortness of breath has reoccurred. Patient symptoms are mild to moderate in intensity. No specific worsening or improving factors. No associated chest pain. No nausea vomiting or diaphoresis. No history of PE DVT. No calf pain. Daughter at bedside. They voiced no other complaints or concerns at this time. Portions of this note were created with voice recognition technology. There may be grammatical, spelling, punctuation or sound alike errors Timing/Duration: today Activities at Onset: none Severity of Dyspnea-Max: moderate Severity of Dyspnea-Current: mild Modifying Factors: Improves With: activity Associated Symptoms: denies symptoms Allergies/Adverse Reactions: enoxaparin [From Lovenox] Allergy (Verified 07/16/23 21:35) Rash magnesium Allergy (Verified 07/16/23 21:35) Rash rofecoxib [From Vioxx] Adverse Reaction (Verified 03/02/23 08:14) Stomach Cramps Home Medications: Albuterol 8 gm Mdi Hfa [Ventolin Hfa MDI] 2 puffs IH Q4HPRN PRN 01/04/22 [History] Alendronate Sodium 70 mg PO WEEKLY 01/04/22 [History] Amlodipine Besylate 5 mg [Norvasc 5 mg] 10 mg PO DAILY 01/04/22 [History] Ascorbic Acid [C-1000] 1,000 mg PO DAILY 01/04/22 [History] Calcium Carbonate [Calcium] 600 mg PO BID 01/04/22 [History] Folic Acid 1 mg PO DAILY 01/04/22 [History] Gabapentin 100 mg PO TID 01/04/22 [History] Ipratropium/Albuterol Sulfate [Iprat-Albut 0.5-3(2.5) mg/3 ml] 3 ml IH Q6H PRN PRN 01/04/22 [History] Losartan Potassium 100 mg PO DAILY 01/04/22 [History] Metformin HCl 500 mg [Glucophage 500 MG] 1,000 mg PO BID 01/04/22 [History] Methotrexate Sodium 2.5 mg [Trexall 2.5 mg] 10 mg PO WEEKLY 01/04/22 [History] Omeprazole 20 mg PO DAILY 01/04/22 [History] Roflumilast [Daliresp] 250 mcg PO DAILY 01/04/22 [History] Umeclidinium [place] [Incruse Ellipta] 1 puff IH DAILY 01/04/22 [History] Atorvastatin Calcium [Lipitor 20MG Tablet] 20 mg PO DAILY 12/31/22 [History] Cholecalciferol (Vitamin D3) [Vitamin D3] 1 cap PO UD 12/31/22 [History] Dapagliflozin Propanediol [Farxiga] 10 mg PO DAILY 12/31/22 [History] Ferrous Sulfate 325 mg [Feosol 325 mg] 325 mg PO BID 12/31/22 [History] Fluticasone/Vilanterol [Breo Ellipta 100-25 Mcg Inhalr] 1 puff IH DAILY 12/31/22 [History] Furosemide 20 mg [Lasix 20 mg] 20 mg PO DAILY 12/31/22 [History] [place]-3 Fatty Acids/Fish Oil [Fish Oil 1,000 mg Capsule] 1,000 mg PO BID 12/31/22 [History] Potassium Chloride 20 meq PO DAILY 12/31/22 [History] Sildenafil Citrate 20 mg PO TID 12/31/22 [History] Triamcinolone 0.1% Cream [Kenalog 0.1% Cream 15 gm] 1 applic TOP BID 12/31/22 [History] Aspirin EC 81 mg [Ecotrin 81 mg] 81 mg PO DAILY 03/02/23 [History] Metoprolol Succinate 50 mg PO HS 03/02/23 [History] Hx Tetanus, Diphtheria Vaccination/Date Given: No Hx Influenza Vaccination/Date Given: Yes Hx Pneumococcal Vaccination/Date Given: Yes - Review of Systems Constitutional: No Symptoms, No Fever, No Chills Eyes: No Symptoms Ears, Nose, & Throat: No Symptoms Respiratory: No Symptoms, No Cough, No Dyspnea Cardiac: No Symptoms, No Chest Pain, No Edema, No Syncope Abdominal/Gastrointestinal: No Symptoms, No Abdominal Pain, No Nausea, No Vomiting, No Diarrhea Genitourinary Symptoms: No Symptoms, No Dysuria Musculoskeletal: No Symptoms, No Back Pain, No Neck Pain Skin: No Symptoms, No Rash Neurological: No Symptoms, No Dizziness, No Focal Weakness, No Sensory Changes Psychological: No Symptoms Endocrine: No Symptoms Hematologic/Lymphatic: No Symptoms Immunological/Allergic: No Symptoms All Other Systems: Reviewed and Negative - Past Medical History Pertinent Past Medical History: Yes Neurological History: No Pertinent History ENT History: Cataracts Cardiac History: High Cholesterol, Hypertension, Peripheral Vascular Disease Respiratory History: Asthma, COPD, Emphysema, Pneumonia Endocrine Medical History: Diabetes Type II, Hypothyroidism Musculoskeletal History: Arthritis, Osteoarthritis GI Medical History: GERD, Hernia History: No Pertinent History Psycho-Social History: No Pertinent History Female Reproductive Disorders: No Pertinent History Other Medical History: bells palsy in 2008, - Past Surgical History Past Surgical History: Yes Neuro Surgical History: No Pertinent History Cardiac: Angioplasty, Other Respiratory: No Pertinent History Gastrointestinal: No Pertinent History Genitourinary: No Pertinent History Musculoskeletal: Orthopedic Surgery Female Surgical History: Section Other Surgical History: large toenail removed florian. bronchoscopy 2022, - Social History Smoking Status: Former smoker Exposure to second hand smoke: No Drug Use: none Patient Lives Alone: No - Nursing Vital Signs Nursing Vital Signs: Initial Vital Signs O2 Sat by Pulse Oximetry 97 07/16/23 21:41 Pain Scale Pain Intensity 7 - Physical Exam General Appearance: no apparent distress, alert Eye Exam: PERRL/EOMI Ears, Nose, Throat Exam: hearing grossly normal, normal ENT inspection, normal pharynx Neck Exam: normal inspection, supple, full range of motion Respiratory Exam: lungs clear, diminished breath sounds Cardiovascular/Chest Exam: normal heart sounds, regular rate/rhythm Abdominal/Gastrointestinal Exam: soft, No tenderness, No distention, No mass Extremity Exam: non-tender, normal range of motion, normal inspection, no calf tenderness, no pedal edema Neurologic Exam: alert, oriented x 3, cooperative, correspondence transcriber II-XII nml as tested, sensation nml, No motor deficits Skin Exam: normal color, warm, No dry Lymphatic Exam: No adenopathy SpO2 Interpretation: normal SpO2: 97 O2 Delivery: Nasal Cannula (4 L nasal cannula) - Course Nursing assessment & vital signs reviewed: Yes EKG Interpreted by Me: RATE (93), Sinus Rhythm, NORMAL AXIS, NORMAL INTERVALS - Radiology Exams Chest X-ray Interpretation: Teleradiologist Report (Nonacute chest with chronic fe atures) Ordered Tests: Active Orders 24 hr Category Date Time Status Graphic Design Professor STAT Care 07/16/23 21:42 Active IV Insertion STAT Care 07/16/23 21:41 Active Pulse Oximetry (ED) STAT Care 07/16/23 21:41 Active CHEST 1 VIEW (PORTABLE) Stat Exams 07/16/23 21:44 Taken BLOOD CULTURE Stat Lab 07/16/23 22:03 Received CBC W DIFF Stat Lab 07/16/23 21:54 Completed CMP Stat Lab 07/16/23 21:54 Completed NT PRO BNPII Stat Lab 07/16/23 21:54 Completed TROPONIN Q4H Lab 07/16/23 21:54 Completed TROPONIN Q4H Lab 07/17/23 01:45 Ordered TROPONIN Q4H Lab 07/17/23 05:45 Ordered Respiratory Therapy Assessment ONCE RT 07/16/23 22:08 Active Transfer Order Routine Transfer 07/16/23 Ordered Medication Summary Discontinued Medications Generic Name Dose Route Start Last Admin Trade Name Freq PRN Reason Stop Dose Admin Albuterol Sulfate 2.5 mg 07/16/23 21:41 07/16/23 21:56 Albuterol Sulfate 2.5 Mg/3 Ml Neb IH 07/16/23 21:42 2.5 mg STAT ONE Administration Albuterol Sulfate Confirm 07/16/23 21:52 Albuterol Sulfate 2.5 Mg/3 Ml Neb Administered 07/16/23 21:53 Dose 2.5 mg IH .STK-MED ONE Albuterol/Ipratropium Confirm 07/16/23 21:50 Ipratropium/Albuterol Sulfate 3 Ml Ampul.Neb Administered 07/16/23 21:51 Dose 3 ml IH .STK-MED ONE Methylprednisolone Sodium 0 mg 07/16/23 21:41 07/16/23 22:50 Succinate 125 mg/ Sterile IV 07/16/23 21:42 125 mg Water 2 ml STAT ONE Administration Ceftriaxone Sodium 2 gm in 100 mls @ 200 mls/hr 07/16/23 21:41 07/16/23 23:20 Rocephin 2 Gm/100 Ml Nacl IV 07/16/23 22:10 Infused STAT ONE Infusion Azithromycin 500 mg in 250 mls @ 250 mls/hr 07/16/23 21:41 07/16/23 23:13 Zithromax 500 Mg/ 250 Ml Nacl Premix IV 07/16/23 22:40 250 mls/hr STAT STA 250 mls/hr Administration Ceftriaxone Sodium Confirm 07/16/23 22:49 Rocephin 2 Gm/100 Ml Nacl Administered 07/16/23 22:50 Dose 2 gm in 100 mls @ ud IV .STK-MED ONE Azithromycin Confirm 07/16/23 23:13 Zithromax 500 Mg/ 250 Ml Nacl Premix Administered 07/16/23 23:14 Dose 500 mg in 250 mls @ ud IV .STK-MED ONE Methylprednisolone Sodium Succinate Confirm 07/16/23 22:49 Methylprednis Sod Succ 125 Mg/2 Ml Vial Administered 07/16/23 22:50 Dose 125 mg .ROUTE .STK-MED ONE Potassium Chloride 40 meq 07/16/23 22:57 07/16/23 23:14 Potassium Chloride Tab 10 Meq Tab PO 07/16/23 22:58 40 meq STAT ONE Administration Potassium Chloride Confirm 07/16/23 23:14 Potassium Chloride Tab 10 Meq Tab Administered 07/16/23 23:15 Dose 40 meq .ROUTE .STK-MED ONE Sterile Water Confirm 07/16/23 22:49 Water For Injection,Sterile 10 Ml Vial Administered 07/16/23 22:50 Dose 10 ml IJ .STK-MED ONE Lab/Rad Data: Laboratory Result Diagrams 07/16/23 21:54 07/16/23 21:54 Laboratory Results 07/16/23 07/16/23 07/16/23 Range/Units 21:54 21:54 21:54 WBC 13.1 H (4.0-10.5) x10^3/uL RBC 3.89 L (4.1-5.4) x10^6/uL Hgb 11.5 L (12.0-16.0) g/dL Hct 35.6 (35-47) % MCV 91.5 (78-100) fL MCH 29.6 (26-32) pg MCHC 32.3 (32-36) g/dL RDW 18.8 H (11.5-14.0) % Plt Count 101 L (150-450) x10^3/uL MPV 11.1 H (7.5-11.0) fL Gran % 86.3 H (36.0-66.0) % Immature Gran % (Auto) 0.5 H (0.00-0.4) % Nucleat RBC Rel Count 0.0 (0.00-0.1) % Eos # (Auto) 0.10 (0-0.5) x10^3/uL Immature Gran # (Auto) 0.06 H (0.00-0.03) x10^3u/L Absolute Lymphs (auto) 0.93 L (1.0-4.6) x10^3/uL Absolute Monos (auto) 0.67 (0.0-1.3) x10^3/uL Absolute Nucleated RBC 0.00 (0.00-0.01) x10^3u/L Lymphocytes % 7.1 L (24.0-44.0) % Monocytes % 5.1 (0.0-12.0) % Eosinophils % 0.8 (0.00-5.0) % Basophils % 0.2 (0.0-0.4) % Absolute Granulocytes 11.27 H (1.4-6.9) x10^3/uL Basophils # 0.02 (0-0.4) x10^3/uL Sodium 137 (135-145) mmol/L Potassium 3.3 L (3.5-5.1) mmol/L Chloride 101 (98-107) mmol/L Carbon Dioxide 31 H (22-30) mmol/L Anion Gap 8.9 (5-15) MEQ/L BUN 15 (7-17) mg/dL Creatinine 0.69 (0.52-1.04) mg/dL Estimated GFR 93.3 ML/MIN Glucose 111 H (74-106) mg/dL Calcium 8.8 (8.4-10.2) mg/dL Total Bilirubin 0.50 (0.2-1.3) mg/dL AST 33 (14-36) U/L ALT 45 H (0-35) U/L Alkaline Phosphatase 91 (38-126) U/L Troponin I < 0.012 (0.000-0.033) ng/mL NT-Pro-B Natriuret Pep 342 (<300) pg/mL Serum Total Protein 6.2 L (6.3-8.2) g/dL Albumin 3.7 (3.5-5.0) g/dL - Progress Progress: improved Air Movement: good Progress Note: Dr. Gilmore accepts admission at 11:21 PM. 07/16/23 23:22 72-year-old female history of COPD on 4 L 24 hours/day. Presents to our ED for evaluation of shortness of breath. Patient recently diagnosed with bronchitis. Patient treated with prednisone and doxycycline. Symptoms improved. However symptoms recurred after completion of her medications. Physical exam reveals diminished breath sounds. Patient received Solu-Medrol albuterol and breathing treatment. Symptoms significantly improved. Diminished lung sounds improved as well. Patient resting comfortably. EKG reveals a sinus rhythm at 93. No tachycardia. No ischemic changes. No right heart strain. Patient received azithromycin and Rocephin. Patient will require hospitalization for further evaluation and treatment. Patient agrees to admission to [facility] for further evaluation and treatment. Portions of this note were created with voice recognition technology. There may be grammatical, spelling, punctuation or sound alike errors Complexity problem addressed is moderate acute complicated No critical care time Complex of data reviewed and analyzed is extensive. Test ordered test reviewed results analyzed and correlated clinically with history and physical exam. Risk of complication and or risk of morbidity/mortality patient management is high. Patient requires hospitalization/higher level care for further evaluation and treatment. Vital stable. Time spent admit patient is approximately 20 minutes. Plan of care established for shared decision making. No social determinants of health present impede follow-up. Portions of this note were created with voice recognition technology. There may be grammatical, spelling, punctuation or sound alike errors 07/16/23 23:38 Blood Culture(s) Obtained: Yes Antibiotics given: Yes Counseled pt/family regarding: lab results, diagnosis, rad results - Departure Departure Disposition: Observation Clinical Impression: COPD exacerbation, Leukocytosis, Hypokalemia Condition: Stable Critical Care Time: No Referrals: RAGHAV NIEVES MD [Primary Care Provider] - Follow up/PCP as directed Instructions: Chronic Obstructive Pulmonary Disease
[2023-07-16] MEDS ORDERED: DUONEB 0.5-3 MG/3 ml Neb IH ONE (21:50)
[2023-07-16] MEDS ORDERED: PROVENTIL 2.5 MG/3 ML NEB IH ONE (21:52)
[2023-07-16] MEDS: PROVENTIL 2.5 MG/3 ML NEB IH ONE (21:56)
[2023-07-16 22:17] LABS: Absolute Neutrophil Ct (ANC) 11.27 x10^3/uL (1.4-6.9); BASOPHIL % 0.2 % (0.0-0.4); Basophil (Absolute #) 0.02 x10^3/uL (0-0.4); Eosinophil % 0.8 % (0.00-5.0); Hematocrit 35.6 % (35-47); Hemoglobin 11.5 g/dL (12.0-16.0); IMMATURE GRAN # 0.06 x10^3u/L (0.00-0.03); IMMATURE GRAN % 0.5 % (0.00-0.4); Lymphocyte (Absolute #) 0.93 x10^3/uL (1.0-4.6); Lymphocytes % 7.1 % (24.0-44.0); Mean Cell Volume 91.5 fL (78-100); Mean Corpuscular Hemoglobin 29.6 pg (26-32); Mean Corpuscular Hgb Concent. 32.3 g/dL (32-36); Mean Platelet Volume 11.1 fL (7.5-11.0); Monocyte (Absolute #) 0.67 x10^3/uL (0.0-1.3); Monocytes % 5.1 % (0.0-12.0); Neutrophil % 86.3 % (36.0-66.0); Platelet Count 101 x10^3/uL (150-450); Red Blood Count 3.89 x10^6/uL (4.1-5.4); Red Cell Distribution Width 18.8 % (11.5-14.0); White Blood Count 13.1 x10^3/uL (4.0-10.5)
[2023-07-16 22:39] LABS: ALBUMIN 3.7 g/dL (3.5-5.0); ANION GAP 8.9 MEQ/L (5-15); BILIRUBIN,TOTAL 0.5 mg/dL (0.2-1.3); Calcium 8.8 mg/dL (8.4-10.2); Creatinine 1 0.69 mg/dL (0.52-1.04); EST GLOMERULAR FILTRATION RATE 93.3 ML/MIN; Potassium 3.3 mmol/L (3.5-5.1); Total Protein 6.2 g/dL (6.3-8.2)
[2023-07-16] MEDS ORDERED: solu-MEDROL ONE (22:49)
[2023-07-16] MEDS ORDERED: Sterile H2O 10 ml IJ ONE (22:49)
[2023-07-16] MEDS ORDERED: ROCEPHIN 2 GM/100 ML NACL 2 GM/100 ML IVPB IV ONE (22:49)
[2023-07-16] MEDS: solu-MEDROL 125 MG, Sterile H2O 10 ml 2 ML IV ONE (22:50)
[2023-07-16] MEDS: ROCEPHIN 2 GM/100 ML NACL 2 GM/100 ML IVPB IV ONE (22:50)
[2023-07-16] MEDS ORDERED: Zithromax 500 MG/ 250 ML NaCl Premix 500 MG/250 ML IVPB IV ONE (23:13)
[2023-07-16] MEDS: Zithromax 500 MG/ 250 ML NaCl Premix 500 MG/250 ML IVPB IV STA (23:13)
[2023-07-16] MEDS ORDERED: Klor Con ONE (23:14)
[2023-07-16] MEDS: Klor Con PO ONE (23:14)
[2023-07-17] MEDS ORDERED: TYLENOL 325 MG ONE (00:20)
[2023-07-17] MEDS: TYLENOL 325 MG PO STA (00:21)
[2023-07-17] MEDS ORDERED: DUONEB 0.5-3 MG/3 ml Neb IH PRN (02:07)
[2023-07-17] MEDS ORDERED: Docusate Sodium 100 MG PO PRN (02:11)
[2023-07-17] MEDS ORDERED: Zofran 4 MG/2 ML VIAL IV PRN (02:11)
[2023-07-17] MEDS ORDERED: Fosamax 70 MG PO PRN (02:15)
--- NOTE | 2023-07-17 02:23 | PCM.HP ---
History of Present Illness - Chief Complaint Chief Complaint: COPD exacerbation Date: 07/16/23 History of Present Illness: is a 72 year old female with a history of COPD (uses 4 L nasal oxygen 24 hours/day and follows with Dr. Red) who presented to the ED for evaluation of shortness of breath refractory to bronchitis treatment with steroids and doxycycline by her strategic insights lead. The patient transiently improved and now states her shortness of breath has become worse. She denies fever. No chest pain is reported. Since initiation of treatment in the ED, he symptoms have only mildly improved. - Review of Systems Constitutional: No Symptoms Eyes: No Symptoms Ears, Nose, & Throat: No Symptoms Respiratory: Short Of Breath, Wheezing Cardiac: No Symptoms Abdominal/Gastrointestinal: No Symptoms Genitourinary Symptoms: No Symptoms Musculoskeletal: No Symptoms Skin: No Symptoms Neurological: No Symptoms Psychological: No Symptoms Endocrine: No Symptoms Hematologic/Lymphatic: No Symptoms Immunological/Allergic: No Symptoms All Other Systems: Reviewed and Negative Medications & Allergies Home Medications: Home Medication List Alendronate Sodium 70 mg PO WEEKLY 01/04/22 [History Confirmed 07/16/23] Amlodipine Besylate 5 mg [Norvasc 5 mg] 10 mg PO DAILY 01/04/22 [History Confirmed 07/16/23] Ascorbic Acid [C-1000] 1,000 mg PO DAILY 01/04/22 [History Confirmed 07/16/23] Calcium Carbonate [Calcium] 600 mg PO BID 01/04/22 [History Confirmed 07/16/23] Folic Acid 1 mg PO DAILY 01/04/22 [History Confirmed 07/16/23] Gabapentin 100 mg PO TID 01/04/22 [History Confirmed 07/16/23] Ipratropium/Albuterol Sulfate [Iprat-Albut 0.5-3(2.5) mg/3 ml] 3 ml IH Q6H PRN PRN 01/04/22 [History Confirmed 07/16/23] Losartan Potassium 100 mg PO DAILY 01/04/22 [History Confirmed 07/16/23] Metformin HCl 500 mg [Glucophage 500 MG] 1,000 mg PO BID 01/04/22 [History Confirmed 07/16/23] Methotrexate Sodium 2.5 mg [Trexall 2.5 mg] 10 mg PO WEEKLY 01/04/22 [History Confirmed 07/16/23] Omeprazole 20 mg PO DAILY 01/04/22 [History Confirmed 07/16/23] Roflumilast [Daliresp] 250 mcg PO DAILY 01/04/22 [History Confirmed 07/16/23] Umeclidinium [place] [Incruse Ellipta] 1 puff IH DAILY 01/04/22 [History Confirmed 07/16/23] Atorvastatin [place] [Lipitor 20MG Tablet] 20 mg PO DAILY 12/31/22 [History Confirmed 07/16/23] Dapagliflozin Propanediol [Farxiga] 10 mg PO DAILY 12/31/22 [History Confirmed 07/16/23] Ferrous Sulfate 325 mg [Feosol 325 mg] 325 mg PO BID 12/31/22 [History Confirmed 07/16/23] Fluticasone/Vilanterol [Breo Ellipta 100-25 Mcg Inhalr] 1 puff IH DAILY 12/31/22 [History Confirmed 07/16/23] Furosemide 20 mg [Lasix 20 mg] 20 mg PO DAILY 12/31/22 [History Confirmed 07/16/23] [place]-3 Fatty Acids/Fish Oil [Fish Oil 1,000 mg Capsule] 1,000 mg PO BID 12/31/22 [History Confirmed 07/16/23] Sildenafil Citrate 20 mg PO Q7H 12/31/22 [History Confirmed 07/16/23] Triamcinolone 0.1% Cream [Kenalog 0.1% Cream 15 gm] 1 applic TOP BID 12/31/22 [History Confirmed 07/16/23] Aspirin EC 81 mg [Ecotrin 81 mg] 81 mg PO DAILY 03/02/23 [History Confirmed 07/16/23] Metoprolol Succinate 50 mg PO HS 03/02/23 [History Confirmed 07/16/23] Albuterol 2.5 mg/3 ml Neb [Proventil 2.5 mg/3 ml Neb] 2.5 mg IH Q6H PRN PRN 07/16/23 [History Confirmed 07/16/23] Albuterol Sulfate Mdi [ALBUTEROL/Proair Hfa MDI] 2 puff IH Q6H PRN PRN 07/16/23 [History Confirmed 07/16/23] Cholecalciferol (Vitamin D3) [Vitamin D] 1,000 mg PO DAILY 07/16/23 [History Confirmed 07/16/23] Levothyroxine Sodium 88 Mcg [Synthroid 88 Mcg] 88 mcg PO DAILY 07/16/23 [History Confirmed 07/16/23] Potassium Chloride [Klor-Con 10] 20 meq PO DAILY 07/16/23 [History Confirmed 07/16/23] hydroCHLOROthiazide [Hydrochlorothiazide] 12.5 mg PO DAILY 07/16/23 [History Confirmed 07/16/23] Allergies/Adverse Reactions: Allergies Allergy/AdvReac Type Severity Reaction Status Date / Time enoxaparin [From Lovenox] Allergy Rash Verified 07/16/23 21:35 magnesium Allergy Rash Verified 07/16/23 21:35 rofecoxib [From Vioxx] AdvReac Stomach Verified 03/02/23 08:14 Cramps - Past Medical History Past Medical History: Yes Neurological History: No Pertinent History ENT History: Cataracts Cardiac History: High Cholesterol, Hypertension, Peripheral Vascular Disease Respiratory History: Asthma, Bronchitis, COPD, Emphysema, Pneumonia, Sleep Apnea Endocrine Medical History: Diabetes Type II, Hypothyroidism Musculoskelatal History: Arthritis, Osteoarthritis GI Medical History: GERD, Hernia History: No Pertinent History Pyscho-Social History: No Pertinent History Reproductive Disorders: No Pertinent History Comment: bells palsy in 2008, - Female History Are you now?: No - Past Surgical History Past Surgical History: Yes Neuro Surgical History: No Pertinent History Cardiac History: Angioplasty, Other Respiratory Surgery: No Pertinent History GI Surgical History: No Pertinent History Genitourinary Surgical Hx: No Pertinent History Musculskeletal Surgical Hx: Orthopedic Surgery Female Surgical History: Section Other Surgical History: large toenail removed florian. bronchoscopy 2022, - Social History Smoking Status: Former smoker How long have you smoked: 47 years Exposure to second hand smoke: No Alcohol: None Drug Use: none - Social Determinants of Health Will the patient participate in the screening: Yes Do you worry about a steady place to live?: No Do you have any problems with any of the following?: No known problems In the past 12 months,have you had to go without utilities?: No Have you or anyone in your house had to go without enough: No Transportation Issues: No Has anyone in your support network made you feel unsafe?: No Does the patient want assistance with any of the above?: No - Physical Exam Vital Signs: Vital Signs - 24 hr Temp Pulse Resp BP BP Pulse Ox 07/17/23 00:46 97.7 F 87 24 127/61 96 07/17/23 00:00 87 19 114/62 95 07/16/23 23:40 97 07/16/23 23:30 89 15 131/73 94 L 07/16/23 23:00 91 H 14 114/67 97 07/16/23 22:30 95 H 21 123/62 95 07/16/23 22:09 101 H 18 97 07/16/23 22:00 97 H 20 133/82 96 07/16/23 21:51 98.6 F 102 H 22 134/75 97 07/16/23 21:41 97 General Appearance: no apparent distress, alert Neurologic Exam: alert, oriented x 3, cooperative, security attendant II-XII nml as tested, normal mood/affect, nml cerebellar function Eye Exam: PERRL/EOMI, eyes nml inspection Ears, Nose, Throat Exam: normal ENT inspection Neck Exam: normal inspection, non-tender, supple, full range of motion Respiratory Exam: diminished breath sounds, wheezing Cardiovascular Exam: regular rate/rhythm, normal heart sounds Gastrointestinal/Abdomen Exam: soft, normal bowel sounds Back Exam: normal range of motion Extremity Exam: normal inspection, normal range of motion Skin Exam: normal color Results - Labs Lab/Micro Results: Lab Results-Last 24 Hours 07/16/23 07/16/23 07/16/23 Range/Units 21:54 21:54 21:54 WBC 13.1 H (4.0-10.5) x10^3/uL RBC 3.89 L (4.1-5.4) x10^6/uL Hgb 11.5 L (12.0-16.0) g/dL Hct 35.6 (35-47) % MCV 91.5 (78-100) fL MCH 29.6 (26-32) pg MCHC 32.3 (32-36) g/dL RDW 18.8 H (11.5-14.0) % Plt Count 101 L (150-450) x10^3/uL MPV 11.1 H (7.5-11.0) fL Gran % 86.3 H (36.0-66.0) % Immature Gran % (Auto) 0.5 H (0.00-0.4) % Nucleat RBC Rel Count 0.0 (0.00-0.1) % Eos # (Auto) 0.10 (0-0.5) x10^3/uL Immature Gran # (Auto) 0.06 H (0.00-0.03) x10^3u/L Absolute Lymphs (auto) 0.93 L (1.0-4.6) x10^3/uL Absolute Monos (auto) 0.67 (0.0-1.3) x10^3/uL Absolute Nucleated RBC 0.00 (0.00-0.01) x10^3u/L Lymphocytes % 7.1 L (24.0-44.0) % Monocytes % 5.1 (0.0-12.0) % Eosinophils % 0.8 (0.00-5.0) % Basophils % 0.2 (0.0-0.4) % Absolute Granulocytes 11.27 H (1.4-6.9) x10^3/uL Basophils # 0.02 (0-0.4) x10^3/uL Sodium 137 (135-145) mmol/L Potassium 3.3 L (3.5-5.1) mmol/L Chloride 101 (98-107) mmol/L Carbon Dioxide 31 H (22-30) mmol/L Anion Gap 8.9 (5-15) MEQ/L BUN 15 (7-17) mg/dL Creatinine 0.69 (0.52-1.04) mg/dL Estimated GFR 93.3 ML/MIN Glucose 111 H (74-106) mg/dL Calcium 8.8 (8.4-10.2) mg/dL Total Bilirubin 0.50 (0.2-1.3) mg/dL AST 33 (14-36) U/L ALT 45 H (0-35) U/L Alkaline Phosphatase 91 (38-126) U/L Troponin I < 0.012 (0.000-0.033) ng/mL NT-Pro-B Natriuret Pep 342 (<300) pg/mL Serum Total Protein 6.2 L (6.3-8.2) g/dL Albumin 3.7 (3.5-5.0) g/dL - Radiology Impressions Radiology Exams & Impressions: Radiology Procedures Category Date Time Status CHEST 1 VIEW (PORTABLE) Stat Exams 07/16/23 21:44 Taken - Other Procedures and Tests Respiratory Therapy 07/17/23 01:04 RT Screen per Nursing Assess ONCE Assessment/Plan (1) COPD exacerbation Current Visit: Yes Status: Chronic Assessment & Plan: Nebs, steroids, antibiotics. On 4LPM at baseline which is unchanged. Mobilize with PT. Code(s): J44.1 - CHRONIC OBSTRUCTIVE PULMONARY DISEASE W (ACUTE) EXACERBATION (2) Acute bronchitis Current Visit: Yes Status: Acute Assessment & Plan: Failed outpatient doxycycline. CXR negative for infiltrate. Will modify regimen to treat with Rocephin + Azithromycin. Code(s): J20.9 - ACUTE BRONCHITIS, UNSPECIFIED (3) Leukocytosis Current Visit: Yes Status: Acute Assessment & Plan: Probable component of steroid induced leukocytosis. On antibiotics. Code(s): D72.829 - ELEVATED WHITE BLOOD CELL COUNT, UNSPECIFIED (4) Hypokalemia Current Visit: Yes Status: Acute Assessment & Plan: Repleted in ED. Will check Mag. Monitor on telemetry. Code(s): E87.6 - HYPOKALEMIA Telemedicine Encounter - Telemedicine Encounter Telemedicine Encounter: The entirety of this encounter was performed via Telemedicine"
[2023-07-17] MEDS: NON-FORMULARY ITEM (Sildenafil Citrate [Sildenafil Citrate] 20 MG Tablet) PO SCH (03:10)
[2023-07-17] MEDS: ROCEPHIN 1 GM / 100 ML NaCl 1 GM/100 ML IVPB IV SCH ×2 (03:13→21:11)
[2023-07-17 05:05] LABS: Hematocrit 34.6 % (35-47); Hemoglobin 10.8 g/dL (12.0-16.0); Mean Corpuscular Hgb Concent. 31.2 g/dL (32-36); Mean Platelet Volume 11.5 fL (7.5-11.0); Platelet Count 78 x10^3/uL (150-450); Red Blood Count 3.72 x10^6/uL (4.1-5.4); Red Cell Distribution Width 18.8 % (11.5-14.0); White Blood Count 10.8 x10^3/uL (4.0-10.5)
[2023-07-17 05:18] LABS: ANION GAP 9.5 MEQ/L (5-15); Calcium 8.4 mg/dL (8.4-10.2); Creatinine 1 0.67 mg/dL (0.52-1.04); Potassium 3.9 mmol/L (3.5-5.1)
[2023-07-17] MEDS ORDERED: Sterile H2O 10 ml IJ ONE (05:55)
[2023-07-17] MEDS ORDERED: solu-MEDROL ONE (05:55)
[2023-07-17] MEDS: solu-MEDROL 40 MG, Sterile H2O 10 ml 1 ML IV SCH (05:57)
[2023-07-17 05:58] LABS: Slide Review YES
[2023-07-17 06:38] LABS: TROPONIN < 0.012 ng/mL (0.000-0.033)
[2023-07-17 06:39] LABS: MAGNESIUM 1.1 mg/dL (1.6-2.3)
[2023-07-17] MEDS ORDERED: BENADRYL 50 MG/ML IV PRN (06:45)
[2023-07-17] MEDS ORDERED: DUONEB 0.5-3 MG/3 ml Neb IH ONE (06:54)
[2023-07-17] MEDS: MAGNESIUM SULF 2 G/50 ML BAG 2 GM/50 ML PIGGYBACK IV ONE (06:58)
[2023-07-17] MEDS: DUONEB 0.5-3 MG/3 ml Neb IH SCH (06:59)
[2023-07-17] MEDS ORDERED: MEDICATION INTERVENTION MC SCH ×3 (08:00)
[2023-07-17] MEDS: Glucophage 500 MG PO SCH (08:12)
[2023-07-17] MEDS: SILDENAFIL CITRATE PO SCH (08:12)
[2023-07-17] MEDS: MAG-OX 400 PO ONE (08:37)
--- NOTE | 2023-07-17 08:49 | XRAY ---
Indication: Short of breath. Comparison: March 15, 2023 Portable apical lordotic chest again hyperinflated and clear. Heart not enlarged. Smaller hiatal hernia. Bony thorax intact again with osteopenia and mild degenerative changes. Impression: Continued nonacute chest with chronic features.
[2023-07-17] MEDS ORDERED: NON-FORMULARY ITEM (Dapagliflozin Propanediol [Farxiga] 10 MG Tablet) PO SCH (10:00)
[2023-07-17] MEDS ORDERED: ENOXAPARIN SODIUM SQ SCH (10:00)
[2023-07-17] MEDS ORDERED: NON-FORMULARY ITEM (Umeclidinium Bromide [Incruse Ellipta] 62.5 MCG Blst.W.Dev) IH SCH (10:00)
[2023-07-17] MEDS ORDERED: HEPARIN 5000 UNITS/0.5 ML (HIGH RISK MED) SQ SCH (10:00)
[2023-07-17] MEDS ORDERED: NON-FORMULARY ITEM (Fluticasone/Vilanterol [Breo Ellipta 100-25 Mcg Inhalr] 1 EACH Blst.W. IH SCH (10:00)
[2023-07-17] MEDS: Klor Con PO SCH (10:24)
[2023-07-17] MEDS: FEOSOL 325 MG PO SCH (10:26)
[2023-07-17] MEDS: FISH OIL 1,000 MG CAPSULE PO SCH (10:26)
[2023-07-17] MEDS: ZOCOR 20MG PO SCH (10:27)
[2023-07-17] MEDS: ECOTRIN 81 MG PO SCH (10:28)
[2023-07-17] MEDS: VITAMIN D PO SCH (10:28)
[2023-07-17] MEDS: LASIX 20 MG PO SCH (10:29)
[2023-07-17] MEDS: Cozaar 50 MG PO SCH (10:29)
[2023-07-17] MEDS: Protonix 40MG Tablet PO SCH (10:30)
[2023-07-17] MEDS: Vitamin C 500 MG PO SCH (10:30)
[2023-07-17] MEDS: Calcium 500MG W/Vit D Tablet PO SCH (10:32)
[2023-07-17] MEDS: TYLENOL 325 MG PO PRN (10:32)
[2023-07-17] MEDS: NORVASC 5 MG PO SCH (10:33)
[2023-07-17] MEDS: hydroDIURIL 25 MG PO SCH (10:33)
[2023-07-17] MEDS: Neurontin PO SCH (10:34)
[2023-07-17] MEDS: Acidophilus TABLET PO SCH (10:34)
[2023-07-17] MEDS: FOLATE 1 MG PO SCH (10:34)
[2023-07-17] MEDS: DALIRESP PO SCH (10:35)
[2023-07-17] MEDS: KENALOG 0.1% CREAM 15 GM TOP SCH (10:36)
[2023-07-17] MEDS: SYNTHROID 88 MCG PO SCH (10:37)
[2023-07-17] MEDS: PATIENT OWN MEDICATION PO SCH (10:44)
[2023-07-17] MEDS: HUMALOG SQ PRN ×2 (11:52→17:25)
[2023-07-17] MEDS: PATIENT OWN MEDICATION IH SCH ×2 (11:57→18:49)
--- NOTE | 2023-07-17 12:14 | PCM.NOTE ---
Date and Time: 07/17/23 1208 Subjective Assessment: 07/16 is a 72 year old female with a history of COPD (uses 4 L nasal oxygen 24 hours/day and follows with Dr. Red), hyperlipidemia, HTN, PVD, asthma, bronchitis, emphysema, sleep apnea, type II DM, hypothyroidism, OA, GERD, hernia, and angioplasty. She presented to the ED on 07/15 for evaluation of shortness of breath refractory to bronchitis treatment with steroids and doxycycline by her avionics mechanic. The patient transiently worsened and explained her shortness of breath had become worse. She denies fever. After treatment in ER sxs middy improved. Today she feels her sxs have improved but she has chest tightness and she is coughing up green sputum. She is on her baseline O2 of 4LNC. CXR did not show any acute concerns. She would benefit from another day of IV antibiotics and most likely d/c tomorrow. She is awaiting her daughter to bring in her home inhalers fro COPD as we do not carry the meds. She denies CP, Abd. pain, N/V/D. - Review of Systems Constitutional: No Fever, No Chills Eyes: No Symptoms Ears, Nose, & Throat: No Symptoms Respiratory: Cough, Short Of Breath Cardiac: No Chest Pain, No Edema, No Syncope Abdominal/Gastrointestinal: No Abdominal Pain, No Nausea, No Vomiting, No Diarrhea Genitourinary Symptoms: No Dysuria Musculoskeletal: No Back Pain, No Neck Pain Skin: No Rash Neurological: No Dizziness, No Focal Weakness, No Sensory Changes Psychological: No Symptoms Endocrine: No Symptoms Hematologic/Lymphatic: No Symptoms Immunological/Allergic: No Symptoms Objective Exam General Appearance: no apparent distress, alert Neurologic Exam: alert, oriented x 3, cooperative, normal mood/affect, nml cerebellar function, sensation nml, No motor deficits Skin Exam: normal color, warm, dry Eye Exam: PERRL, EOMI, eyes nml inspection Ears, Nose, Throat Exam: normal ENT inspection, pharynx normal, moist mucous membranes Neck Exam: normal inspection, non-tender, supple, full range of motion Respiratory Exam: normal breath sounds, lungs clear, No respiratory distress Cardiovascular Exam: regular rate/rhythm, normal heart sounds Gastrointestinal/Abdomen Exam: soft, No tenderness, No mass Extremity Exam: normal inspection, normal range of motion Back Exam: normal inspection, normal range of motion, No CVA tenderness, No vertebral tenderness Pelvic Exam: deferred Rectal Exam: deferred Objective Data Vital Signs: Vital Signs - 24 hr Temp Pulse Resp BP BP BP Pulse Ox 07/17/23 11:35 97.4 F 89 19 112/59 103/52 98 07/17/23 07:31 97.2 F 70 18 103/52 97 07/17/23 07:02 97 07/17/23 07:01 77 18 97 07/17/23 04:00 97.9 F 67 18 94/50 99 07/17/23 01:00 96 07/17/23 00:46 97.7 F 87 24 127/61 96 07/17/23 00:00 87 19 114/62 95 07/16/23 23:40 97 07/16/23 23:30 89 15 131/73 94 L 07/16/23 23:00 91 H 14 114/67 97 07/16/23 22:30 95 H 21 123/62 95 07/16/23 22:09 101 H 18 97 07/16/23 22:00 97 H 20 133/82 96 07/16/23 21:51 98.6 F 102 H 22 134/75 97 07/16/23 21:41 97 Pain Assessment - Last Documented Pain Intensity 6 Pain Scale Used 0-10 Pain Scale Intake and Output: Intake & Output 07/15/23 07/16/23 07/17/23 07/18/23 11:59 11:59 11:59 11:59 Intake Total 960 Output Total 450 Balance 510 Weight 79.6 kg Lab Results: Lab Results-Last 24 Hours 07/16/23 07/16/23 07/16/23 Range/Units 21:54 21:54 21:54 WBC 13.1 H (4.0-10.5) x10^3/uL RBC 3.89 L (4.1-5.4) x10^6/uL Hgb 11.5 L (12.0-16.0) g/dL Hct 35.6 (35-47) % MCV 91.5 (78-100) fL MCH 29.6 (26-32) pg MCHC 32.3 (32-36) g/dL RDW 18.8 H (11.5-14.0) % Plt Count 101 L (150-450) x10^3/uL MPV 11.1 H (7.5-11.0) fL Gran % 86.3 H (36.0-66.0) % Immature Gran % (Auto) 0.5 H (0.00-0.4) % Nucleat RBC Rel Count 0.0 (0.00-0.1) % Eos # (Auto) 0.10 (0-0.5) x10^3/uL Immature Gran # (Auto) 0.06 H (0.00-0.03) x10^3u/L Absolute Lymphs (auto) 0.93 L (1.0-4.6) x10^3/uL Absolute Monos (auto) 0.67 (0.0-1.3) x10^3/uL Absolute Nucleated RBC 0.00 (0.00-0.01) x10^3u/L Lymphocytes % 7.1 L (24.0-44.0) % Monocytes % 5.1 (0.0-12.0) % Eosinophils % 0.8 (0.00-5.0) % Basophils % 0.2 (0.0-0.4) % Absolute Granulocytes 11.27 H (1.4-6.9) x10^3/uL Basophils # 0.02 (0-0.4) x10^3/uL APTT (25.1-36.5) SECONDS Sodium 137 (135-145) mmol/L Potassium 3.3 L (3.5-5.1) mmol/L Chloride 101 (98-107) mmol/L Carbon Dioxide 31 H (22-30) mmol/L Anion Gap 8.9 (5-15) MEQ/L BUN 15 (7-17) mg/dL Creatinine 0.69 (0.52-1.04) mg/dL Estimated GFR 93.3 ML/MIN Glucose 111 H (74-106) mg/dL POC Glucometer (74 to 106) mg/dL Hemoglobin A1c (4.5-6.0) % Calcium 8.8 (8.4-10.2) mg/dL Magnesium (1.6-2.3) mg/dL Total Bilirubin 0.50 (0.2-1.3) mg/dL AST 33 (14-36) U/L ALT 45 H (0-35) U/L Alkaline Phosphatase 91 (38-126) U/L Troponin I < 0.012 (0.000-0.033) ng/mL NT-Pro-B Natriuret Pep 342 (<300) pg/mL Serum Total Protein 6.2 L (6.3-8.2) g/dL Albumin 3.7 (3.5-5.0) g/dL Slides for Path Review 07/17/23 07/17/23 07/17/23 Range/Units 02:20 04:43 04:50 WBC (4.0-10.5) x10^3/uL RBC (4.1-5.4) x10^6/uL Hgb (12.0-16.0) g/dL Hct (35-47) % MCV (78-100) fL MCH (26-32) pg MCHC (32-36) g/dL RDW (11.5-14.0) % Plt Count (150-450) x10^3/uL MPV (7.5-11.0) fL Gran % (36.0-66.0) % Immature Gran % (Auto) (0.00-0.4) % Nucleat RBC Rel Count (0.00-0.1) % Eos # (Auto) (0-0.5) x10^3/uL Immature Gran # (Auto) (0.00-0.03) x10^3u/L Absolute Lymphs (auto) (1.0-4.6) x10^3/uL Absolute Monos (auto) (0.0-1.3) x10^3/uL Absolute Nucleated RBC (0.00-0.01) x10^3u/L Lymphocytes % (24.0-44.0) % Monocytes % (0.0-12.0) % Eosinophils % (0.00-5.0) % Basophils % (0.0-0.4) % Absolute Granulocytes (1.4-6.9) x10^3/uL Basophils # (0-0.4) x10^3/uL APTT 30.4 (25.1-36.5) SECONDS Sodium (135-145) mmol/L Potassium (3.5-5.1) mmol/L Chloride (98-107) mmol/L Carbon Dioxide (22-30) mmol/L Anion Gap (5-15) MEQ/L BUN (7-17) mg/dL Creatinine (0.52-1.04) mg/dL Estimated GFR ML/MIN Glucose (74-106) mg/dL POC Glucometer (74 to 106) mg/dL Hemoglobin A1c 5.40 (4.5-6.0) % Calcium (8.4-10.2) mg/dL Magnesium (1.6-2.3) mg/dL Total Bilirubin (0.2-1.3) mg/dL AST (14-36) U/L ALT (0-35) U/L Alkaline Phosphatase (38-126) U/L Troponin I < 0.012 (0.000-0.033) ng/mL NT-Pro-B Natriuret Pep (<300) pg/mL Serum Total Protein (6.3-8.2) g/dL Albumin (3.5-5.0) g/dL Slides for Path Review 07/17/23 07/17/23 07/17/23 Range/Units 05:00 05:00 05:00 WBC 10.8 H (4.0-10.5) x10^3/uL RBC 3.72 L (4.1-5.4) x10^6/uL Hgb 10.8 L (12.0-16.0) g/dL Hct 34.6 L (35-47) % MCV 93.0 (78-100) fL MCH 29.0 (26-32) pg MCHC 31.2 L (32-36) g/dL RDW 18.8 H (11.5-14.0) % Plt Count 78 L (150-450) x10^3/uL MPV 11.5 H (7.5-11.0) fL Gran % (36.0-66.0) % Immature Gran % (Auto) (0.00-0.4) % Nucleat RBC Rel Count (0.00-0.1) % Eos # (Auto) (0-0.5) x10^3/uL Immature Gran # (Auto) (0.00-0.03) x10^3u/L Absolute Lymphs (auto) (1.0-4.6) x10^3/uL Absolute Monos (auto) (0.0-1.3) x10^3/uL Absolute Nucleated RBC (0.00-0.01) x10^3u/L Lymphocytes % (24.0-44.0) % Monocytes % (0.0-12.0) % Eosinophils % (0.00-5.0) % Basophils % (0.0-0.4) % Absolute Granulocytes (1.4-6.9) x10^3/uL Basophils # (0-0.4) x10^3/uL APTT (25.1-36.5) SECONDS Sodium 136 (135-145) mmol/L Potassium 3.9 (3.5-5.1) mmol/L Chloride 101 (98-107) mmol/L Carbon Dioxide 29 (22-30) mmol/L Anion Gap 9.5 (5-15) MEQ/L BUN 15 (7-17) mg/dL Creatinine 0.67 (0.52-1.04) mg/dL Estimated GFR 94.0 ML/MIN Glucose 183 H (74-106) mg/dL POC Glucometer (74 to 106) mg/dL Hemoglobin A1c (4.5-6.0) % Calcium 8.4 (8.4-10.2) mg/dL Magnesium 1.1 L (1.6-2.3) mg/dL Total Bilirubin (0.2-1.3) mg/dL AST (14-36) U/L ALT (0-35) U/L Alkaline Phosphatase (38-126) U/L Troponin I < 0.012 (0.000-0.033) ng/mL NT-Pro-B Natriuret Pep (<300) pg/mL Serum Total Protein (6.3-8.2) g/dL Albumin (3.5-5.0) g/dL Slides for Path Review YES 07/17/23 07/17/23 07/17/23 Range/Units 07:05 10:05 11:11 WBC (4.0-10.5) x10^3/uL RBC (4.1-5.4) x10^6/uL Hgb (12.0-16.0) g/dL Hct (35-47) % MCV (78-100) fL MCH (26-32) pg MCHC (32-36) g/dL RDW (11.5-14.0) % Plt Count (150-450) x10^3/uL MPV (7.5-11.0) fL Gran % (36.0-66.0) % Immature Gran % (Auto) (0.00-0.4) % Nucleat RBC Rel Count (0.00-0.1) % Eos # (Auto) (0-0.5) x10^3/uL Immature Gran # (Auto) (0.00-0.03) x10^3u/L Absolute Lymphs (auto) (1.0-4.6) x10^3/uL Absolute Monos (auto) (0.0-1.3) x10^3/uL Absolute Nucleated RBC (0.00-0.01) x10^3u/L Lymphocytes % (24.0-44.0) % Monocytes % (0.0-12.0) % Eosinophils % (0.00-5.0) % Basophils % (0.0-0.4) % Absolute Granulocytes (1.4-6.9) x10^3/uL Basophils # (0-0.4) x10^3/uL APTT (25.1-36.5) SECONDS Sodium (135-145) mmol/L Potassium (3.5-5.1) mmol/L Chloride (98-107) mmol/L Carbon Dioxide (22-30) mmol/L Anion Gap (5-15) MEQ/L BUN (7-17) mg/dL Creatinine (0.52-1.04) mg/dL Estimated GFR ML/MIN Glucose (74-106) mg/dL POC Glucometer 183 H 252 H (74 to 106) mg/dL Hemoglobin A1c (4.5-6.0) % Calcium (8.4-10.2) mg/dL Magnesium 1.7 (1.6-2.3) mg/dL Total Bilirubin (0.2-1.3) mg/dL AST (14-36) U/L ALT (0-35) U/L Alkaline Phosphatase (38-126) U/L Troponin I (0.000-0.033) ng/mL NT-Pro-B Natriuret Pep (<300) pg/mL Serum Total Protein (6.3-8.2) g/dL Albumin (3.5-5.0) g/dL Slides for Path Review Radiology Exams: Radiology Procedures Category Date Time Status CHEST 1 VIEW (PORTABLE) Stat Exams 07/16/23 21:44 Completed Assessment/Plan (1) COPD exacerbation Current Visit: Yes Status: Acute Assessment & Plan: - IV antibiotics, steroids, breathing txs, resume home inhalers for COPD - failed OP treatment - on baseline home o2 of 4lNC- 97% - coughing up green sputum - IS - refer to pulm rehab OP - Flu/ COVID/ RSV pending Code(s): J44.1 - CHRONIC OBSTRUCTIVE PULMONARY DISEASE W (ACUTE) EXACERBATION (2) Hypomagnesemia Current Visit: Yes Status: Acute Assessment & Plan: - Mg+ 1.1- replaced- repeat lab 1.7 Code(s): E83.42 - HYPOMAGNESEMIA (3) Acute bronchitis Current Visit: Yes Status: Acute Assessment & Plan: - Failed outpatient doxycycline. - CXR negative for infiltrate. - Will modify regimen to treat with Rocephin + Azithromycin. Code(s): J20.9 - ACUTE BRONCHITIS, UNSPECIFIED (4) Hypokalemia Current Visit: Yes Status: Resolved Assessment & Plan: - K+ 3.9 resolved Code(s): E87.6 - HYPOKALEMIA (5) Leukocytosis Current Visit: Yes Status: Acute Assessment & Plan: - 2:2 COPD exacerbation - WBC 10.8 improved - CXR negative for acute concern - BC x2 Code(s): D72.829 - ELEVATED WHITE BLOOD CELL COUNT, UNSPECIFIED (6) Diabetes type 2, controlled Current Visit: No Status: Chronic Assessment & Plan: - A1C 5.40 - controlled with oral meds OP - accuchecks ac/hs - low dose s/s - Hyperglycemia 2:2 steroids. - Carb consistent diet Code(s): E11.9 - TYPE 2 DIABETES MELLITUS WITHOUT COMPLICATIONS (7) HLD (hyperlipidemia) Current Visit: No Status: Chronic Assessment & Plan: - continue statin - Lipid panel reviewed from 03/03/23 Code(s): E78.5 - HYPERLIPIDEMIA, UNSPECIFIED (8) HTN (hypertension) Current Visit: No Status: Chronic Assessment & Plan: - BP controlled - Continue home meds Code(s): I10 - ESSENTIAL (PRIMARY) HYPERTENSION (9) Thrombocytopenia Current Visit: Yes Status: Chronic Assessment & Plan: - Platelets 78 - Will need OP f/u - Chronic after reviewing old labs - does take lasix daily (10) Hypothyroid Current Visit: No Status: Chronic Assessment & Plan: - continue synthroid - TSH in AM- last lab was over 4 months ago VTE: SCD's PPI: pantoprazole Next of Kin: thierry, Bailey Eid- [phone] D/c plan: tomorrow Code status: Full Code(s): E03.9 - HYPOTHYROIDISM, UNSPECIFIED
[2023-07-17 13:29] LABS: INFLUENZA A NEGATIVE (NEGATIVE); INFLUENZA B NEGATIVE (NEGATIVE); RESPIRATORY SYNCTIAL VIRUS NEGATIVE (NEGATIVE); SARS-CoV-2 Xpert Express NEGATIVE (NEGATIVE)
[2023-07-17] MEDS: Toprol Xl 50 MG PO SCH (21:11)
[2023-07-17] MEDS: Zithromax 500 MG/ 250 ML NaCl Premix 500 MG/250 ML IVPB IV SCH (21:56)
[2023-07-18 04:58] LABS: Hematocrit 33.2 % (35-47); Hemoglobin 10.8 g/dL (12.0-16.0); Mean Cell Volume 91.2 fL (78-100); Mean Corpuscular Hemoglobin 29.7 pg (26-32); Mean Corpuscular Hgb Concent. 32.5 g/dL (32-36); Mean Platelet Volume 11.7 fL (7.5-11.0); Platelet Count 117 x10^3/uL (150-450); Red Blood Count 3.64 x10^6/uL (4.1-5.4); White Blood Count 14.7 x10^3/uL (4.0-10.5)
[2023-07-18 05:46] LABS: ALBUMIN 3.4 g/dL (3.5-5.0); ALKALINE PHOSPHATASE 115 U/L (38-126); ANION GAP 8.8 MEQ/L (5-15); BLOOD UREA NITROGEN 21 mg/dL (7-17); CHLORIDE 102 mmol/L (98-107); Calcium 9.5 mg/dL (8.4-10.2); Carbon Dioxide 30 mmol/L (22-30); Creatinine 1 0.74 mg/dL (0.52-1.04); Glucose 164 mg/dL (74-106); MAGNESIUM 1.8 mg/dL (1.6-2.3); Potassium 4.3 mmol/L (3.5-5.1); SGOT/AST 26 U/L (14-36); SGPT/ALT 37 U/L (0-35); SODIUM 136 mmol/L (135-145); TSH, 3RD Generation < 0.015 mIU/L (0.470-4.680); Total Protein 5.8 g/dL (6.3-8.2)
--- NOTE | 2023-07-18 13:15 | PCM.NOTE ---
Date and Time: 07/18/23 2766 Subjective Assessment: 07/16 is a 72 year old female with a history of COPD (uses 4 L nasal oxygen 24 hours/day and follows with Dr. Red), hyperlipidemia, HTN, PVD, asthma, bronchitis, emphysema, sleep apnea, type II DM, hypothyroidism, OA, GERD, hernia, and angioplasty. She presented to the ED on 07/15 for evaluation of shortness of breath refractory to bronchitis treatment with steroids and doxycycline by her interior design faculty member. The patient transiently worsened and explained her shortness of breath had become worse. She denies fever. After treatment in ER sxs middy improved. Today she feels her sxs have improved but she has chest tightness and she is coughing up green sputum. She is on her baseline O2 of 4LNC. CXR did not show any acute concerns. She would benefit from another day of IV antibiotics and most likely d/c tomorrow. She is awaiting her daughter to bring in her home inhalers fro COPD as we do not carry the meds. She denies CP, Abd. pain, N/V/D. 07/17 Pt sitting up in bed. She explains she is feeling better but would like to stay 1 more day. She continues to have some thick yellow sputum production. She leaving too early at last admission and then had to be seen again. She is on baseline O2 of 4lNC. She denies CP, Abd.pain, N/V/D. - Review of Systems Constitutional: No Fever, No Chills Eyes: No Symptoms Ears, Nose, & Throat: No Symptoms Respiratory: Cough, Short Of Breath Cardiac: No Chest Pain, No Edema, No Syncope Abdominal/Gastrointestinal: No Abdominal Pain, No Nausea, No Vomiting, No Diarrhea Genitourinary Symptoms: No Dysuria Musculoskeletal: No Back Pain, No Neck Pain Skin: No Rash Neurological: No Dizziness, No Focal Weakness, No Sensory Changes Psychological: No Symptoms Endocrine: No Symptoms Hematologic/Lymphatic: No Symptoms Immunological/Allergic: No Symptoms Objective Exam General Appearance: no apparent distress, alert Neurologic Exam: alert, oriented x 3, cooperative, normal mood/affect, nml cerebellar function, sensation nml, No motor deficits Skin Exam: normal color, warm, dry Eye Exam: PERRL, EOMI, eyes nml inspection Ears, Nose, Throat Exam: normal ENT inspection, pharynx normal, moist mucous membranes Neck Exam: normal inspection, non-tender, supple, full range of motion Respiratory Exam: normal breath sounds, lungs clear, diminished breath sounds (left lower lobe), No respiratory distress Cardiovascular Exam: regular rate/rhythm, normal heart sounds Gastrointestinal/Abdomen Exam: soft, No tenderness, No mass Extremity Exam: normal inspection, normal range of motion Back Exam: normal inspection, normal range of motion, No CVA tenderness, No vertebral tenderness Pelvic Exam: deferred Rectal Exam: deferred Objective Data Vital Signs: Vital Signs - 24 hr Temp Pulse Resp BP Pulse Ox 07/18/23 12:00 97.8 F 82 20 137/62 95 07/18/23 08:00 97.5 F 62 20 137/62 98 07/18/23 04:00 97.6 F 67 17 100/57 99 07/17/23 23:18 97.8 F 87 16 90/52 97 07/17/23 20:00 97.9 F 98 H 19 104/52 100 07/17/23 19:51 98 H 16 97 07/17/23 16:00 97.7 F 75 18 100/57 96 07/17/23 13:45 85 18 96 Pain Assessment - Last Documented Pain Intensity 3 Pain Scale Used 0-10 Pain Scale Intake and Output: Intake & Output 07/16/23 07/17/23 07/18/23 07/19/23 11:59 11:59 11:59 11:59 Intake Total 960 760 Output Total 450 Balance 510 760 Weight 79.6 kg Lab Results: Lab Results-Last 24 Hours 07/17/23 07/17/23 07/17/23 Range/Units 12:50 16:17 21:06 WBC (4.0-10.5) x10^3/uL RBC (4.1-5.4) x10^6/uL Hgb (12.0-16.0) g/dL Hct (35-47) % MCV (78-100) fL MCH (26-32) pg MCHC (32-36) g/dL RDW (11.5-14.0) % Plt Count (150-450) x10^3/uL MPV (7.5-11.0) fL Sodium (135-145) mmol/L Potassium (3.5-5.1) mmol/L Chloride (98-107) mmol/L Carbon Dioxide (22-30) mmol/L Anion Gap (5-15) MEQ/L BUN (7-17) mg/dL Creatinine (0.52-1.04) mg/dL Estimated GFR ML/MIN Glucose (74-106) mg/dL POC Glucometer 254 H 269 H (74 to 106) mg/dL Calcium (8.4-10.2) mg/dL Magnesium (1.6-2.3) mg/dL Total Bilirubin (0.2-1.3) mg/dL AST (14-36) U/L ALT (0-35) U/L Alkaline Phosphatase (38-126) U/L Serum Total Protein (6.3-8.2) g/dL Albumin (3.5-5.0) g/dL TSH 3rd Generation (0.470-4.680) mIU/L Influenza Type A Ag NEGATIVE (NEGATIVE) Influenza Type B Ag NEGATIVE (NEGATIVE) RSV (PCR) NEGATIVE (NEGATIVE) SARS-CoV-2 (PCR) NEGATIVE (NEGATIVE) 07/18/23 07/18/23 07/18/23 Range/Units 04:40 04:40 07:52 WBC 14.7 H (4.0-10.5) x10^3/uL RBC 3.64 L (4.1-5.4) x10^6/uL Hgb 10.8 L (12.0-16.0) g/dL Hct 33.2 L (35-47) % MCV 91.2 (78-100) fL MCH 29.7 (26-32) pg MCHC 32.5 (32-36) g/dL RDW 19.0 H (11.5-14.0) % Plt Count 117 L D (150-450) x10^3/uL MPV 11.7 H (7.5-11.0) fL Sodium 136 (135-145) mmol/L Potassium 4.3 (3.5-5.1) mmol/L Chloride 102 (98-107) mmol/L Carbon Dioxide 30 (22-30) mmol/L Anion Gap 8.8 (5-15) MEQ/L BUN 21 H (7-17) mg/dL Creatinine 0.74 (0.52-1.04) mg/dL Estimated GFR 87.0 ML/MIN Glucose 164 H (74-106) mg/dL POC Glucometer 188 H (74 to 106) mg/dL Calcium 9.5 (8.4-10.2) mg/dL Magnesium 1.8 (1.6-2.3) mg/dL Total Bilirubin 0.20 (0.2-1.3) mg/dL AST 26 (14-36) U/L ALT 37 H (0-35) U/L Alkaline Phosphatase 115 (38-126) U/L Serum Total Protein 5.8 L (6.3-8.2) g/dL Albumin 3.4 L (3.5-5.0) g/dL TSH 3rd Generation < 0.015 L (0.470-4.680) mIU/L Influenza Type A Ag (NEGATIVE) Influenza Type B Ag (NEGATIVE) RSV (PCR) (NEGATIVE) SARS-CoV-2 (PCR) (NEGATIVE) 07/18/23 Range/Units 11:44 WBC (4.0-10.5) x10^3/uL RBC (4.1-5.4) x10^6/uL Hgb (12.0-16.0) g/dL Hct (35-47) % MCV (78-100) fL MCH (26-32) pg MCHC (32-36) g/dL RDW (11.5-14.0) % Plt Count (150-450) x10^3/uL MPV (7.5-11.0) fL Sodium (135-145) mmol/L Potassium (3.5-5.1) mmol/L Chloride (98-107) mmol/L Carbon Dioxide (22-30) mmol/L Anion Gap (5-15) MEQ/L BUN (7-17) mg/dL Creatinine (0.52-1.04) mg/dL Estimated GFR ML/MIN Glucose (74-106) mg/dL POC Glucometer 186 H (74 to 106) mg/dL Calcium (8.4-10.2) mg/dL Magnesium (1.6-2.3) mg/dL Total Bilirubin (0.2-1.3) mg/dL AST (14-36) U/L ALT (0-35) U/L Alkaline Phosphatase (38-126) U/L Serum Total Protein (6.3-8.2) g/dL Albumin (3.5-5.0) g/dL TSH 3rd Generation (0.470-4.680) mIU/L Influenza Type A Ag (NEGATIVE) Influenza Type B Ag (NEGATIVE) RSV (PCR) (NEGATIVE) SARS-CoV-2 (PCR) (NEGATIVE) Radiology Exams: Radiology Procedures Category Date Time Status CHEST 1 VIEW (PORTABLE) Stat Exams 07/16/23 21:44 Completed Multi-Disciplinary Progress Notes: Multi-Disciplinary Progress Notes 07/18/23 10:03 Case Management Note by Nisreen Weber S/W PATIENT- SHE CONTINUES TO DENY ANY NEW NEEDS AT TIME OF DC. SHE AMBULATED WELL WITH PHYSICAL THERAPY. SHE DECLINES HHC. SHE ALREADY HAS HOME OXYGEN AND ALL THE EQUIPMENT SHE NEEDS AT HOME. SHE PLANS TO RETURN HOME TO HER PLF AT TIME OF DC Initialized on 07/18/23 10:03 - END OF NOTE 07/18/23 08:04 Case Management Note by Nisreen Weber REFERRAL FOR PULMONARY REHAB TAKEN TO [facility] Initialized on 07/18/23 08:04 - END OF NOTE Assessment/Plan (1) COPD exacerbation Current Visit: Yes Status: Acute Code(s): J44.1 - CHRONIC OBSTRUCTIVE PULMONARY DISEASE W (ACUTE) EXACERBATION (2) Hypomagnesemia Current Visit: Yes Status: Acute Code(s): E83.42 - HYPOMAGNESEMIA (3) Acute bronchitis Current Visit: Yes Status: Acute Code(s): J20.9 - ACUTE BRONCHITIS, UNSPECIFIED (4) Hypokalemia Current Visit: Yes Status: Resolved Code(s): E87.6 - HYPOKALEMIA (5) Leukocytosis Current Visit: Yes Status: Acute Code(s): D72.829 - ELEVATED WHITE BLOOD CELL COUNT, UNSPECIFIED (6) Diabetes type 2, controlled Current Visit: No Status: Chronic Code(s): E11.9 - TYPE 2 DIABETES MELLITUS WITHOUT COMPLICATIONS (7) HLD (hyperlipidemia) Current Visit: No Status: Chronic Code(s): E78.5 - HYPERLIPIDEMIA, UNSPECIFIED (8) HTN (hypertension) Current Visit: No Status: Chronic Code(s): I10 - ESSENTIAL (PRIMARY) HYPERTENSION (9) Thrombocytopenia Current Visit: Yes Status: Chronic (10) Hypothyroid Current Visit: No Status: Chronic Assessment & Plan: (1) COPD exacerbation Current Visit: Yes Status: Acute Assessment & Plan: - IV antibiotics, steroids, breathing txs, resume home inhalers for COPD - failed OP treatment - on baseline home o2 of 4lNC- 97% - coughing up green sputum - IS - refer to pulm rehab OP - Flu/ COVID/ RSV pending 07/17 - sxs improving - on BL O2 - cough with thick yellow sputum production Code(s): J44.1 - CHRONIC OBSTRUCTIVE PULMONARY DISEASE W (ACUTE) EXACERBATION (2) Hypomagnesemia Current Visit: Yes Status: Acute Assessment & Plan: - Mg+ 1.1- replaced- repeat lab 1.7 07/17 - resolved Code(s): E83.42 - HYPOMAGNESEMIA (3) Acute bronchitis Current Visit: Yes Status: Acute Assessment & Plan: - Failed outpatient doxycycline. - CXR negative for infiltrate. - Will modify regimen to treat with Rocephin + Azithromycin. Code(s): J20.9 - ACUTE BRONCHITIS, UNSPECIFIED (4) Hypokalemia Current Visit: Yes Status: Resolved Assessment & Plan: - K+ 3.9 resolved Code(s): E87.6 - HYPOKALEMIA (5) Leukocytosis Current Visit: Yes Status: Acute Assessment & Plan: - 2:2 COPD exacerbation - WBC 10.8 improved - CXR negative for acute concern - BC x2 07/17 - WBC 14.7 likely 2:2 steroids Code(s): D72.829 - ELEVATED WHITE BLOOD CELL COUNT, UNSPECIFIED (6) Diabetes type 2, controlled Current Visit: No Status: Chronic Assessment & Plan: - A1C 5.40 - controlled with oral meds OP - accuchecks ac/hs - low dose s/s - Hyperglycemia 2:2 steroids. - Carb consistent diet Code(s): E11.9 - TYPE 2 DIABETES MELLITUS WITHOUT COMPLICATIONS (7) HLD (hyperlipidemia) Current Visit: No Status: Chronic Assessment & Plan: - continue statin - Lipid panel reviewed from 03/03/23 Code(s): E78.5 - HYPERLIPIDEMIA, UNSPECIFIED (8) HTN (hypertension) Current Visit: No Status: Chronic Assessment & Plan: - BP controlled - Continue home meds Code(s): I10 - ESSENTIAL (PRIMARY) HYPERTENSION (9) Thrombocytopenia Current Visit: Yes Status: Chronic Assessment & Plan: - Platelets 78 - Will need OP f/u - Chronic after reviewing old labs - does take lasix daily 07/17 - platelets 117 - does follow oncology OP- Dr. Donohue (10) Hypothyroid Current Visit: No Status: Chronic Assessment & Plan: - continue synthroid - TSH in AM- last lab was over 4 months ago 07/17 - TSH 0.015 - hold Synthroid for now - Will need to f/u Op with PCP VTE: SCD's PPI: pantoprazole Next of Kin: Ragini Avalos [phone] D/C plan: tomorrow Code status: Full Code(s): E03.9 - HYPOTHYROIDISM, UNSPECIFIED
[2023-07-18] MEDS: PATIENT OWN MEDICATION IH SCH (19:17)
[2023-07-19 04:25] VITALS: TEMP 97.6
[2023-07-19 06:24] LABS: Hematocrit 35.8 % (35-47); Hemoglobin 11.4 g/dL (12.0-16.0); Mean Cell Volume 93.5 fL (78-100); Mean Corpuscular Hemoglobin 29.8 pg (26-32); Mean Corpuscular Hgb Concent. 31.8 g/dL (32-36); Mean Platelet Volume 11.8 fL (7.5-11.0); Platelet Count 116 x10^3/uL (150-450); Red Blood Count 3.83 x10^6/uL (4.1-5.4); Red Cell Distribution Width 19.3 % (11.5-14.0); White Blood Count 17.3 x10^3/uL (4.0-10.5)
[2023-07-19 06:39] LABS: ALBUMIN 3.5 g/dL (3.5-5.0); ANION GAP 11.5 MEQ/L (5-15); BILIRUBIN,TOTAL 0.3 mg/dL (0.2-1.3); Calcium 9.7 mg/dL (8.4-10.2); Creatinine 1 0.75 mg/dL (0.52-1.04); EST GLOMERULAR FILTRATION RATE 85.6 ML/MIN; Potassium 3.9 mmol/L (3.5-5.1); Total Protein 5.9 g/dL (6.3-8.2)
[2023-07-19 08:09] VITALS: BP 117/72; PULSE 79; RESP 16; O2SAT 95
--- NOTE | 2023-07-19 09:29 | PCM.DS ---
Discharge Summary Date of Admission: 07/17/23 00:35 Date of Discharge: 07/19/23 Admitting Physician: JOSE WILLIAMSON MD Primary Care Provider: RAGHAV NIEVES Allergies Allergies enoxaparin [From Lovenox] Allergy (Verified 07/16/23 21:35) Rash magnesium Allergy (Verified 07/16/23 21:35) Rash rofecoxib [From Vioxx] Adverse Reaction (Verified 03/02/23 08:14) Stomach Cramps Hospital Summary - Hospital Course Hospital Course: 07/17/23 is a 72 year old female with a history of COPD (uses 4 L nasal oxygen 24 hours/day and follows with Dr. Red), hyperlipidemia, HTN, PVD, asthma, bronchitis, emphysema, sleep apnea, type II DM, hypothyroidism, OA, GERD, hernia, and angioplasty. She presented to the ED on 07/15 for evaluation of shortness of breath refractory to bronchitis treatment with steroids and doxycycline by her student life advisor. The patient transiently worsened and explained her shortness of breath had become worse. She denies fever. After treatment in ER sxs middy improved. Today she feels her sxs have improved but she has chest tightness and she is coughing up green sputum. She is on her baseline O2 of 4LNC. CXR did not show any acute concerns. She would benefit from another day of IV antibiotics and most likely d/c tomorrow. She is awaiting her daughter to bring in her home inhalers fro COPD as we do not carry the meds. She denies CP, Abd. pain, N/V/D. 07/18/23 Pt sitting up in bed. She explains she is feeling better but would like to stay 1 more day. She continues to have some thick yellow sputum production. She leaving too early at last admission and then had to be seen again. She is on baseline O2 of 4lNC. She denies CP, Abd.pain, N/V/D. 07/19/23 Pt siting up in bed eating breakfast. She is feeling better. She reports she is not coughing as much and when she does she has some light yellow thin secretions. Her IV went bad last night and she is refusing any further IV antibiotics or meds. She continues to be on her baseline oxygen of 4lNC. Lung sounds are clear. She is appears to be clinically improving. However her WBC is elevated at 17.3. Will continue Levaquin OP. She has an appointment made with Dr. Vasquez and will call Friday for an Op appointment with Dr. Red- student life advisor. Other than some left forearm pain from IV infiltration she denies any other complaints. - Vitals & Intake/Output Vital Signs: Vital Signs Temperature 97.6 F 07/19/23 08:00 Pulse Rate 79 07/19/23 08:00 Respiratory Rate 16 07/19/23 08:00 Blood Pressure 117/72 07/19/23 08:00 O2 Sat by Pulse Oximetry 95 07/19/23 08:00 Intake & Output: Intake & Output 07/16/23 07/17/23 07/18/23 07/19/23 11:59 11:59 11:59 11:59 Intake Total 479 986 1412 Output Total 450 Balance 708 125 8197 Weight 79.6 kg - Lab Result Diagrams: 07/19/23 04:00 07/19/23 06:00 Lab Results-Last 24 Hrs: Lab Results-Last 24 Hours 07/18/23 07/18/23 07/18/23 Range/Units 11:44 16:27 21:49 WBC (4.0-10.5) x10^3/uL RBC (4.1-5.4) x10^6/uL Hgb (12.0-16.0) g/dL Hct (35-47) % MCV (78-100) fL MCH (26-32) pg MCHC (32-36) g/dL RDW (11.5-14.0) % Plt Count (150-450) x10^3/uL MPV (7.5-11.0) fL Sodium (135-145) mmol/L Potassium (3.5-5.1) mmol/L Chloride (98-107) mmol/L Carbon Dioxide (22-30) mmol/L Anion Gap (5-15) MEQ/L BUN (7-17) mg/dL Creatinine (0.52-1.04) mg/dL Estimated GFR ML/MIN Glucose (74-106) mg/dL POC Glucometer 186 H 184 H 219 H (74 to 106) mg/dL Calcium (8.4-10.2) mg/dL Total Bilirubin (0.2-1.3) mg/dL AST (14-36) U/L ALT (0-35) U/L Alkaline Phosphatase (38-126) U/L Serum Total Protein (6.3-8.2) g/dL Albumin (3.5-5.0) g/dL 07/19/23 07/19/23 07/19/23 Range/Units 04:00 06:00 07:51 WBC 17.3 H (4.0-10.5) x10^3/uL RBC 3.83 L (4.1-5.4) x10^6/uL Hgb 11.4 L (12.0-16.0) g/dL Hct 35.8 (35-47) % MCV 93.5 (78-100) fL MCH 29.8 (26-32) pg MCHC 31.8 L (32-36) g/dL RDW 19.3 H (11.5-14.0) % Plt Count 116 L (150-450) x10^3/uL MPV 11.8 H (7.5-11.0) fL Sodium 133 L (135-145) mmol/L Potassium 3.9 (3.5-5.1) mmol/L Chloride 101 (98-107) mmol/L Carbon Dioxide 24 (22-30) mmol/L Anion Gap 11.5 (5-15) MEQ/L BUN 25 H (7-17) mg/dL Creatinine 0.75 (0.52-1.04) mg/dL Estimated GFR 85.6 ML/MIN Glucose 153 H (74-106) mg/dL POC Glucometer 129 H (74 to 106) mg/dL Calcium 9.7 (8.4-10.2) mg/dL Total Bilirubin 0.30 (0.2-1.3) mg/dL AST 25 (14-36) U/L ALT 35 (0-35) U/L Alkaline Phosphatase 106 (38-126) U/L Serum Total Protein 5.9 L (6.3-8.2) g/dL Albumin 3.5 (3.5-5.0) g/dL Micro Results-Entire Visit: Microbiology 07/16/23 22:03 Blood Culture - Preliminary Blood 07/16/23 21:56 Blood Culture - Preliminary Blood Accuchecks Date 07/19/23 Date 07/18/23 Date 07/18/23 Time 08:18 Time 17:34 Time 12:30 - Procedures and Test Procedures and Tests throughout Hospitalization: Therapy Orders & Screens 07/16/23 22:08 Respiratory Therapy Assessment ONCE Comment: 07/17/23 01:04 RT Screen per Nursing Assess ONCE Comment: Protocol Order Physician Instructions: Greater than 3 points order RT Admission Screen Reason For Exam: Triggered on Admission Diagnosis: COPD exacerbation Diagnosis: COPD exacerbation Pneumonia: No Home O2: Yes Asthma: Yes CHF: No Home CPAP/BIPAP: Yes Home Nebs/MDI: Yes Total Points: 19 07/17/23 02:11 PT Eval & Treat (MD Order) ONCE Reason for Eval:: COPD exacerbation Diagnosis: COPD exacerbation 07/17/23 02:31 BiPap/CPAP ROUTINE Comment: Diagnosis: COPD exacerbation 07/17/23 07:01 Oxygen Nasal Cannula 4 lpm Comment: Diagnosis: COPD exacerbation 07/17/23 11:55 Respiratory MDI UD Comment: Diagnosis: COPD exacerbation 07/17/23 12:21 Incentive Spirometry Q1H Comment: Diagnosis: COPD exacerbation 07/17/23 14:04 Incentive Spirometry TID Comment: Diagnosis: COPD exacerbation 07/17/23 19:00 Respiratory MDI UD Comment: Diagnosis: COPD exacerbation Discharge Exam General Appearance: no apparent distress, alert Neurologic Exam: alert, oriented x 3, cooperative, normal mood/affect, nml cerebellar function, sensation nml, No motor deficits Eye Exam: PERRL, EOMI, eyes nml inspection Ears, Nose, Throat Exam: normal ENT inspection, pharynx normal, moist mucous membranes Neck Exam: normal inspection, non-tender, supple, full range of motion Respiratory Exam: normal breath sounds, lungs clear, No respiratory distress Cardiovascular Exam: regular rate/rhythm, normal heart sounds Gastrointestinal/Abdomen Exam: soft, No tenderness, No mass Pelvic Exam: deferred Rectal Exam: deferred Back Exam: normal inspection, normal range of motion, No CVA tenderness, No vertebral tenderness Extremity Exam: normal inspection, normal range of motion Skin Exam: normal color, warm, dry Final Diagnosis/Problem List - Final Discharge Diagnosis/Problem (1) COPD exacerbation Current Visit: Yes Status: Acute Code(s): J44.1 - CHRONIC OBSTRUCTIVE PULMONARY DISEASE W (ACUTE) EXACERBATION (2) Hypomagnesemia Current Visit: Yes Status: Acute Code(s): E83.42 - HYPOMAGNESEMIA (3) Acute bronchitis Current Visit: Yes Status: Acute Code(s): J20.9 - ACUTE BRONCHITIS, UNSPECIFIED (4) Hypokalemia Current Visit: Yes Status: Resolved Code(s): E87.6 - HYPOKALEMIA (5) Leukocytosis Current Visit: Yes Status: Acute Code(s): D72.829 - ELEVATED WHITE BLOOD CELL COUNT, UNSPECIFIED (6) Diabetes type 2, controlled Current Visit: No Status: Chronic Code(s): E11.9 - TYPE 2 DIABETES MELLITUS WITHOUT COMPLICATIONS (7) HLD (hyperlipidemia) Current Visit: No Status: Chronic Code(s): E78.5 - HYPERLIPIDEMIA, UNSPECIFIED (8) HTN (hypertension) Current Visit: No Status: Chronic Code(s): I10 - ESSENTIAL (PRIMARY) HYPERTENSION (9) Thrombocytopenia Current Visit: Yes Status: Chronic (10) Hypothyroid Current Visit: No Status: Chronic Assessment & Plan: (1) COPD exacerbation Current Visit: Yes Status: Acute Assessment & Plan: - IV antibiotics, steroids, breathing txs, resume home inhalers for COPD - failed OP treatment - on baseline home o2 of 4lNC- 97% - coughing up green sputum - IS - refer to pulm rehab OP - Flu/ COVID/ RSV pending 07/17 - sxs improving - on BL O2 - cough with thick yellow sputum production 07/16 - Cough improved with thin yellow secretions - On baseline 4LNC O2 - Continue OP antibiotics - refusing IV antibiotics as IV last night infiltrated Code(s): J44.1 - CHRONIC OBSTRUCTIVE PULMONARY DISEASE W (ACUTE) EXACERBATION (2) Hypomagnesemia Current Visit: Yes Status: Acute Assessment & Plan: - Mg+ 1.1- replaced- repeat lab 1.7 07/17 - resolved Code(s): E83.42 - HYPOMAGNESEMIA (3) Acute bronchitis Current Visit: Yes Status: Acute Assessment & Plan: - Failed outpatient doxycycline. - CXR negative for infiltrate. - Will modify regimen to treat with Rocephin + Azithromycin. Code(s): J20.9 - ACUTE BRONCHITIS, UNSPECIFIED (4) Hypokalemia Current Visit: Yes Status: Resolved Assessment & Plan: - K+ 3.9 resolved Code(s): E87.6 - HYPOKALEMIA (5) Leukocytosis Current Visit: Yes Status: Acute Assessment & Plan: - 2:2 COPD exacerbation - WBC 10.8 improved - CXR negative for acute concern - BC x2 07/17 - WBC 14.7 likely 2:2 steroids on admission 07/18 - WBC 17.3- clinically sxs have improved Code(s): D72.829 - ELEVATED WHITE BLOOD CELL COUNT, UNSPECIFIED (6) Diabetes type 2, controlled Current Visit: No Status: Chronic Assessment & Plan: - A1C 5.40 - controlled with oral meds OP - accuchecks ac/hs - low dose s/s - Hyperglycemia 2:2 steroids. - Carb consistent diet Code(s): E11.9 - TYPE 2 DIABETES MELLITUS WITHOUT COMPLICATIONS (7) HLD (hyperlipidemia) Current Visit: No Status: Chronic Assessment & Plan: - continue statin - Lipid panel reviewed from 03/03/23 Code(s): E78.5 - HYPERLIPIDEMIA, UNSPECIFIED (8) HTN (hypertension) Current Visit: No Status: Chronic Assessment & Plan: - BP controlled - Continue home meds Code(s): I10 - ESSENTIAL (PRIMARY) HYPERTENSION (9) Thrombocytopenia Current Visit: Yes Status: Chronic Assessment & Plan: - Platelets 78 - Will need OP f/u - Chronic after reviewing old labs - does take lasix daily 07/17 - platelets 117 - does follow oncology OP- Dr. Donohue 07/18 - Platelets 116 - F/U op with oncology as scheduled (10) Hypothyroid Current Visit: No Status: Chronic Assessment & Plan: - continue synthroid - TSH in AM- last lab was over 4 months ago 07/17 - TSH 0.015 - hold Synthroid for now - Will need to f/u Op with PCP Code(s): E03.9 - HYPOTHYROIDISM, UNSPECIFIED - Discharge Discharge Date: 07/19/23 Disposition: Home, Self-Care Condition: Stable Prescriptions: Continue Omeprazole 20 mg PO DAILY Methotrexate Sodium 2.5 mg [Trexall 2.5 mg] 10 mg PO WEEKLY Metformin HCl 500 mg [Glucophage 500 MG] 1,000 mg PO BID Losartan Potassium 100 mg PO DAILY Ipratropium/Albuterol Sulfate [Iprat-Albut 0.5-3(2.5) mg/3 ml] 3 ml IH Q6H PRN PRN PRN Reason: Shortness Of Breath Umeclidinium [place] [Incruse Ellipta] 1 puff IH DAILY Gabapentin 100 mg PO TID Folic Acid 1 mg PO DAILY Roflumilast [Daliresp] 250 mcg PO DAILY Calcium Carbonate [Calcium] 600 mg PO BID Ascorbic Acid [C-1000] 1,000 mg PO DAILY Amlodipine Besylate 5 mg [Norvasc 5 mg] 10 mg PO DAILY Alendronate Sodium 70 mg PO WEEKLY [place]-3 Fatty Acids/Fish Oil [Fish Oil 1,000 mg Capsule] 1,000 mg PO BID Dapagliflozin Propanediol [Farxiga] 10 mg PO DAILY Fluticasone/Vilanterol [Breo Ellipta 100-25 Mcg Inhalr] 1 puff IH DAILY Atorvastatin Calcium [Lipitor 20MG Tablet] 20 mg PO DAILY Triamcinolone 0.1% Cream [Kenalog 0.1% Cream 15 gm] 1 applic TOP BID Sildenafil Citrate 20 mg PO Q7H Furosemide 20 mg [Lasix 20 mg] 20 mg PO DAILY Metoprolol Succinate 50 mg PO HS Aspirin EC 81 mg [Ecotrin 81 mg] 81 mg PO DAILY hydroCHLOROthiazide [Hydrochlorothiazide] 12.5 mg PO DAILY Cholecalciferol (Vitamin D3) [Vitamin D] 1,000 mg PO DAILY Albuterol Sulfate Mdi [ALBUTEROL/Proair Hfa MDI] 2 puff IH Q6H PRN PRN PRN Reason: Shortness Of Breath Albuterol 2.5 mg/3 ml Neb [Proventil 2.5 mg/3 ml Neb] 2.5 mg IH Q6H PRN PRN PRN Reason: Shortness Of Breath Potassium Chloride [Klor-Con 10] 20 meq PO DAILY Discontinued Levothyroxine Sodium 88 Mcg [Synthroid 88 Mcg] 88 mcg PO DAILY Additional Instructions: Please make an appointment with Dr. Cervantes to follow up. Follow up with: RAGHAV NIEVES MD [Primary Care Provider] - 07/24/23 11:00 am
[2023-07-19] MEDS: Zithromax 500 MG/ 250 ML NaCl Premix 500 MG/250 ML IVPB IV SCH (09:49)
[2023-07-19] MEDS: TREXALL 2.5 MG PO SCH (09:52)
[2023-07-20] MEDS ORDERED: Fosamax 70 MG PO SCH (06:00)
== END 2023-07-19 10:50 | disposition home or self-care (01) ==
LOC: ED 21:32 → MED SURG 07-17 00:35
PROVIDERS: ADMIT Internal Medicine; ATTEND Internal Medicine
DX: J44.1 Chronic obstructive pulmonary disease with (acute) exacerbation (principal); E83.42 Hypomagnesemia; J20.9 Acute bronchitis, unspecified; E87.6 Hypokalemia; D72.829 Elevated white blood cell count, unspecified; E11.9 Type 2 diabetes mellitus without complications; E78.5 Hyperlipidemia, unspecified; I10 Essential (primary) hypertension; D69.6 Thrombocytopenia, unspecified; E03.9 Hypothyroidism, unspecified; Z99.81 Dependence on supplemental oxygen; Z79.899 Other long term (current) drug therapy; Z87.891 Personal history of nicotine dependence; Z20.828 Contact with and (suspected) exposure to other viral communicable diseases
CPT/HCPCS: 0241U; 36000; 36415; 71045; 80048; 80053; 82947; 83036; 83735; 83880; 84443; 84484; 85025; 85027; 85730; 87040; 93005; 93041; 93268; 94640; 94660; 94760; 94762; 96374; 97161; 99285; G0378; Q3014; J0456; J0696; J1817; J2920; J2930; J7609; J8610; A9270-GY; J3475

== ENCOUNTER 2024-06-10 06:48 | Emergency (ER) | payer MEDICARE ==
[2024-06-10 07:06] VITALS: TEMP 98.5
--- NOTE | 2024-06-10 07:48 | ERPHSYRPT ---
- History of Present Illness Time Seen by Provider: 06/10/24 07:42 Source: patient, family Exam Limitations: no limitations Patient Subjective Stated Complaint: c/o of shortness of breath and weakness Triage Nursing Assessment: patient brought to ED by daughter with c/o shortness of breath and weakness. patient states that she started to feel short of breath yesterday after her name. lung sounds clear but diminished, patient vomitted once this morning, bowel sounds heart in all 4 quads, daughter states that she slid out of bed twice since yesterday, skin w/n/d, afebrile, patient states 4 liters of oxygen as needed at home. patient has a O2 sat of 91% on RA upon arrival, placed patient on 4L nasal cannula and is now at 98%. brought in by w heelchair, patient doesn't appear to be in any distress at this time. Physician History: 73-year-old female with history of chronic respiratory failure secondary to COPD on 4 L oxygen presented in the ER with complaints of increased generalized weakness, sinus/nasal congestion, minimal productive cough with some difficulty breathing where she has to use oxygen all the time since yesterday. Patient reports she is weak fatigued tired and slid out of bed twice since yesterday. Did not hit her head. 1 time she did hurt her right hip but this was yesterday morning and she was able to ambulate afterwards. She has minimal discomfort now. Denies any chest pain or palpitations. Reports having nausea without abdominal pain or vomiting. Subjective feeling of fever and chills. No known sick contact. Allergies/Adverse Reactions: enoxaparin [From Lovenox] Allergy (Verified 06/10/24 06:51) Rash magnesium Allergy (Verified 06/10/24 06:51) Rash rofecoxib [From Vioxx] Adverse Reaction (Verified 06/10/24 06:51) Stomach Cramps Home Medications: Alendronate Sodium 70 mg PO WEEKLY 01/04/22 [History] Amlodipine Besylate 5 mg [Norvasc 5 mg] 10 mg PO DAILY 01/04/22 [History] Ascorbic Acid [C-1000] 1,000 mg PO DAILY 01/04/22 [History] Calcium Carbonate [Calcium] 600 mg PO BID 01/04/22 [History] Folic Acid 1 mg PO DAILY 01/04/22 [History] Gabapentin 100 mg PO TID 01/04/22 [History] Ipratropium/Albuterol Sulfate [Iprat-Albut 0.5-3(2.5) mg/3 ml] 3 ml IH Q6H PRN PRN 01/04/22 [History] Losartan Potassium 100 mg PO DAILY 01/04/22 [History] Metformin HCl 500 mg [Glucophage 500 MG] 1,000 mg PO BID 01/04/22 [History] Methotrexate Sodium 2.5 mg [Trexall 2.5 mg] 10 mg PO WEEKLY 01/04/22 [History] Omeprazole 20 mg PO DAILY 01/04/22 [History] Roflumilast [Daliresp] 250 mcg PO DAILY 01/04/22 [History] Umeclidinium [place] [Incruse Ellipta] 1 puff IH DAILY 01/04/22 [History] Atorvastatin Calcium [Lipitor 20MG Tablet] 20 mg PO DAILY 12/31/22 [History] Dapagliflozin Propanediol [Farxiga] 10 mg PO DAILY 12/31/22 [History] Fluticasone/Vilanterol [Breo Ellipta 100-25 Mcg Inhalr] 1 puff IH DAILY 12/31/22 [History] Furosemide 20 mg [Lasix 20 mg] 20 mg PO DAILY 12/31/22 [History] [place]-3 Fatty Acids/Fish Oil [Fish Oil 1,000 mg Capsule] 1,000 mg PO BID 12/31/22 [History] Sildenafil Citrate 20 mg PO Q7H 12/31/22 [History] Triamcinolone 0.1% Cream [Kenalog 0.1% Cream 15 gm] 1 applic TOP BID 12/31/22 [History] Aspirin EC 81 mg [Ecotrin 81 mg] 81 mg PO DAILY 03/02/23 [History] Metoprolol Succinate 50 mg PO HS 03/02/23 [History] Albuterol 2.5 mg/3 ml Neb [Proventil 2.5 mg/3 ml Neb] 2.5 mg IH Q6H PRN PRN 07/16/23 [History] Albuterol Sulfate Mdi [ALBUTEROL/Proair Hfa MDI] 2 puff IH Q6H PRN PRN 07/16/23 [History] Cholecalciferol (Vitamin D3) [Vitamin D] 1,000 mg PO DAILY 07/16/23 [History] Potassium Chloride [Klor-Con 10] 20 meq PO DAILY 07/16/23 [History] hydroCHLOROthiazide [Hydrochlorothiazide] 12.5 mg PO DAILY 07/16/23 [History] Hx Tetanus, Diphtheria Vaccination/Date Given: No Hx Influenza Vaccination/Date Given: Yes Hx Pneumococcal Vaccination/Date Given: Yes Travel Risk - International Travel Have you traveled outside of the country in past 3 weeks: No - Emerging Infectious Disease Are you exhibiting symptoms associated with any current EIDs: Yes Symptoms: Shortness of Breath - Review of Systems Constitutional: Fever, Chills, Fatigue, Weakness Eyes: No Symptoms Ears, Nose, & Throat: Nose Congestion, Nose Discharge, Sinus Drainage Respiratory: Cough, Dyspnea, Dyspnea on Exertion (NEUMANN) Cardiac: No Symptoms Abdominal/Gastrointestinal: Nausea Genitourinary Symptoms: No Symptoms Musculoskeletal: Myalgias Neurological: No Symptoms Endocrine: No Symptoms Hematologic/Lymphatic: No Symptoms - Past Medical History Pertinent Past Medical History: Yes Neurological History: No Pertinent History ENT History: Cataracts Cardiac History: High Cholesterol, Hypertension, Peripheral Vascular Disease Respiratory History: Asthma, Bronchitis, COPD, Emphysema, Pneumonia, Sleep Apnea Endocrine Medical History: Diabetes Type II, Hypothyroidism Musculoskeletal History: Arthritis, Osteoarthritis GI Medical History: GERD, Hernia History: No Pertinent History Psycho-Social History: No Pertinent History Female Reproductive Disorders: No Pertinent History Other Medical History: bells palsy in 2008, - Past Surgical History Past Surgical History: Yes Neuro Surgical History: No Pertinent History Cardiac: Angioplasty, Other Respiratory: No Pertinent History Gastrointestinal: No Pertinent History Genitourinary: No Pertinent History Musculoskeletal: Orthopedic Surgery Female Surgical History: Section Other Surgical History: large toenail removed florian. bronchoscopy 2022, - Social History Smoking Status: Former smoker How long have you smoked: 47 years Exposure to second hand smoke: No Drug Use: none - Social Determinants of Health Will the patient participate in the screening: Yes Do you worry about a steady place to live?: No Do you have any problems with any of the following?: No known problems In the past 12 months,have you had to go without utilities?: No Transportation Issues: No Has anyone in your support network made you feel unsafe?: No Have you or anyone in your house had to go w/o enough food: No - Nursing Vital Signs Nursing Vital Signs: Initial Vital Signs Temperature 98.5 F 06/10/24 06:52 Pulse Rate 95 H 06/10/24 06:52 Respiratory Rate 10 L 06/10/24 06:52 Blood Pressure 118/76 06/10/24 06:52 O2 Sat by Pulse Oximetry 93 L 06/10/24 06:52 Pain Scale Pain Intensity 0 - Physical Exam General Appearance: no apparent distress, alert Eye Exam: PERRL/EOMI Ears, Nose, Throat Exam: moist mucous membranes, pharyngeal erythema Neck Exam: normal inspection, non-tender, supple, full range of motion Respiratory Exam: rhonchi, No respiratory distress Cardiovascular Exam: regular rate/rhythm, normal heart sounds Gastrointestinal/Abdomen Exam: soft, normal bowel sounds, No tenderness Back Exam: normal inspection, normal range of motion Extremity Exam: normal inspection, normal range of motion Neurologic Exam: alert, oriented x 3, cooperative, 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 Skin Exam: normal color SpO2 Interpretation: O2 applied SpO2: 97 O2 Delivery: Nasal Cannula (4 L) - Course EKG Interpreted by Me: RATE (91), Sinus Rhythm, NORMAL AXIS, prolonged QT interval (Borderline), Non-specific ST Changes Ordered Tests: Active Orders 24 hr Category Date Time Status EKG-ER Only STAT Care 06/10/24 07:06 Active IV Insertion STAT Care 06/10/24 07:06 Active Oxygen-ED Only Nasal Cannula 4 lpm Care 06/10/24 07:43 Active CHEST 1 VIEW (PORTABLE) Stat Exams 06/10/24 07:43 Completed CBC W DIFF Stat Lab 06/10/24 07:11 Completed CMP Stat Lab 06/10/24 07:11 Completed LIPASE Stat Lab 06/10/24 07:11 Completed Lactic Acid Stat Lab 06/10/24 07:43 Completed MAGNESIUM Stat Lab 06/10/24 07:11 Completed NT PRO BNPII Stat Lab 06/10/24 07:11 Completed TROPONIN Q4H Lab 06/10/24 07:11 Completed TROPONIN Q4H Lab 06/10/24 11:45 Ordered TROPONIN Q4H Lab 06/10/24 15:45 Ordered Respiratory Therapy Assessment DAILY RT 06/10/24 07:56 Active Medication Summary Discontinued Medications Generic Name Dose Route Start Last Admin Trade Name Sona PRN Reason Stop Dose Admin Albuterol/Ipratropium 3 ml 06/10/24 07:43 06/10/24 07:54 Ipratropium/Albuterol Sulfate 3 Ml Ampul.Neb IH 06/10/24 07:44 3 ml STAT ONE Administration Albuterol/Ipratropium Confirm 06/10/24 07:49 Ipratropium/Albuterol Sulfate 3 Ml Ampul.Neb Administered 06/10/24 07:50 Dose 3 ml IH .STK-MED ONE Magnesium Sulfate/Dextrose Confirm 06/10/24 09:08 Magnesium 1 Gm / 100 Ml D5w Administered 06/10/24 09:09 Dose 100 mls @ ud IV .STK-MED ONE Ondansetron HCl 4 mg 06/10/24 07:44 06/10/24 07:56 Ondansetron Hcl 4 Mg/2 Ml Vial IV 06/10/24 07:45 4 mg STAT ONE Administration Ondansetron HCl Confirm 06/10/24 07:53 Ondansetron Hcl 4 Mg/2 Ml Vial Administered 06/10/24 07:54 Dose 4 mg .ROUTE .STK-MED ONE Lab/Rad Data: Laboratory Result Diagrams 06/10/24 07:11 06/10/24 07:11 Laboratory Results 06/10/24 06/10/24 06/10/24 Range/Units 07:43 07:35 07:11 WBC (3.98-10.04) x10^3/uL RBC (3.93-5.22) x10^6/uL Hgb (11.2-15.7) g/dL Hct (34.1-44.9) % MCV (79.4-94.8) fL MCH (25.6-32.2) pg MCHC (32.2-35.5) g/dL RDW (11.7-14.4) % Plt Count (182-369) x10^3/uL MPV (9.4-12.3) fL Gran % (34.0-71.1) % Immature Gran % (Auto) (0.001-0.429) % Nucleat RBC Rel Count (0.00-0.2) % Eos # (Auto) (0.04-0.36) x10^3/uL Immature Gran # (Auto) (0.001-0.031) x10^3u/L Absolute Lymphs (auto) (1.18-3.74) x10^3/uL Absolute Monos (auto) (0.24-0.86) x10^3/uL Absolute Nucleated RBC (0.00-0.012) x10^3u/L Lymphocytes % (19.3-51.7) % Monocytes % (4.7-12.5) % Eosinophils % (0.7-5.8) % Basophils % (0.1-1.2) % Absolute Granulocytes (1.56-6.13) x10^3/uL Basophils # (0.01-0.08) x10^3/uL Sodium 136 (135-145) mmol/L Potassium 3.9 (3.5-5.1) mmol/L Chloride 100 (98-107) mmol/L Carbon Dioxide 27 (22-30) mmol/L Anion Gap 13.5 (5-15) MEQ/L BUN 18 H (7-17) mg/dL Creatinine 0.70 (0.52-1.04) mg/dL Estimated GFR 92.4 ML/MIN Glucose 145 H (74-106) mg/dL Lactic Acid 1.2 (0.4-2.0) Calcium 8.5 (8.4-10.2) mg/dL Magnesium 1.5 L (1.6-2.3) mg/dL Total Bilirubin 1.00 (0.2-1.3) mg/dL AST 58 H (14-36) U/L ALT 48 H (0-35) U/L Alkaline Phosphatase 74 (38-126) U/L Troponin I (0.000-0.033) ng/mL NT-Pro-B Natriuret Pep 944 (<300) pg/mL Serum Total Protein 5.7 L (6.3-8.2) g/dL Albumin 3.6 (3.5-5.0) g/dL Lipase 288 (23-300) U/L Influenza Type A Ag NEGATIVE (NEGATIVE) Influenza Type B Ag NEGATIVE (NEGATIVE) RSV (PCR) NEGATIVE (NEGATIVE) SARS-CoV-2 (PCR) NEGATIVE (NEGATIVE) 06/10/24 06/10/24 Range/Units 07:11 07:11 WBC 6.8 (3.98-10.04) x10^3/uL RBC 3.93 (3.93-5.22) x10^6/uL Hgb 11.4 (11.2-15.7) g/dL Hct 35.4 (34.1-44.9) % MCV 90.1 (79.4-94.8) fL MCH 29.0 (25.6-32.2) pg MCHC 32.2 (32.2-35.5) g/dL RDW 17.1 H (11.7-14.4) % Plt Count 91 L (182-369) x10^3/uL MPV 11.1 (9.4-12.3) fL Gran % 88.6 H (34.0-71.1) % Immature Gran % (Auto) 0.4 (0.001-0.429) % Nucleat RBC Rel Count 0.0 (0.00-0.2) % Eos # (Auto) 0.07 (0.04-0.36) x10^3/uL Immature Gran # (Auto) 0.03 (0.001-0.031) x10^3u/L Absolute Lymphs (auto) 0.28 L (1.18-3.74) x10^3/uL Absolute Monos (auto) 0.38 (0.24-0.86) x10^3/uL Absolute Nucleated RBC 0.00 (0.00-0.012) x10^3u/L Lymphocytes % 4.1 L (19.3-51.7) % Monocytes % 5.6 (4.7-12.5) % Eosinophils % 1.0 (0.7-5.8) % Basophils % 0.3 (0.1-1.2) % Absolute Granulocytes 6.06 (1.56-6.13) x10^3/uL Basophils # 0.02 (0.01-0.08) x10^3/uL Sodium (135-145) mmol/L Potassium (3.5-5.1) mmol/L Chloride (98-107) mmol/L Carbon Dioxide (22-30) mmol/L Anion Gap (5-15) MEQ/L BUN (7-17) mg/dL Creatinine (0.52-1.04) mg/dL Estimated GFR ML/MIN Glucose (74-106) mg/dL Lactic Acid (0.4-2.0) Calcium (8.4-10.2) mg/dL Magnesium (1.6-2.3) mg/dL Total Bilirubin (0.2-1.3) mg/dL AST (14-36) U/L ALT (0-35) U/L Alkaline Phosphatase (38-126) U/L Troponin I < 0.012 (0.000-0.033) ng/mL NT-Pro-B Natriuret Pep (<300) pg/mL Serum Total Protein (6.3-8.2) g/dL Albumin (3.5-5.0) g/dL Lipase (23-300) U/L Influenza Type A Ag (NEGATIVE) Influenza Type B Ag (NEGATIVE) RSV (PCR) (NEGATIVE) SARS-CoV-2 (PCR) (NEGATIVE) - Progress Progress: re-examined Air Movement: good Progress Note: 06/10/24 09:09 73-year-old is evaluated in the ER for generalized weakness fatigue tiredness with some increased shortness of breath. EKG is sinus rhythm with no ST elevations, borderline QT prolongation. Chest x-ray is negative for any acute cardiopulmonary findings reviewed by me followed by official read. Workup showed normal white count, chemistries fairly unremarkable and negative troponins. She has negative COVID flu and RSV. Patient has minimally low magnesium of 1.5 which is close to normal but she is allergic to magnesium replace it. Counseled on dietary sources. Patient is not in any distress, her symptoms seems to be viral etiology with some element of acute worsening of COPD although patient is maintaining oxygen saturation in upper 90s at 4 L with minimal to no wheezing on reevaluation after breathing treatment. Recommended continue with breathing treatments and take Tylenol as needed, also to increase hydration. Discussed signs symptoms of worsening needing return to ER which she seems understanding. Stable for discharge. Complexity of problems addressed: Acute moderate Complexity of data reviewed/analyzed: Moderate Risk of complications/morbidity/mortality: Low risk Blood Culture(s) Obtained: No Antibiotics given: No Counseled pt/family regarding: lab results, diagnosis, need for follow-up, rad results Medical Desision Making - Diagnostic Testing Diagnostic test were ordered, analyzed, and reviewed by me: Yes Radiological Interpretation: Interpreted by me, Reviewed by me - Risk of complications The pt has a mod risk of morbidity or mortality based on: Need for prescription drug management - Departure Departure Disposition: Home Clinical Impression: General weakness, URI with cough and congestion, Nausea Condition: Stable Critical Care Time: No Referrals: RAGHAV NIEVES MD [Primary Care Provider] - Follow up/PCP as directed Instructions: Weakness - ED discharge instructions Additional Instructions: Drink plenty of fluids. Take Tylenol/Zofran as needed. Follow-up with primary care for reevaluation. Continue with your neb treatments and keep using oxygen all the time. Return for worsening of symptoms like increased difficulty inez athing, chest pain palpitations, intractable vomiting etc. Prescriptions: Ondansetron ODT 4 MG [Zofran Odt 4 mg] 1 ea PO QIDPRN PRN #7 tablet PRN Reason: n/v
[2024-06-10] MEDS ORDERED: DUONEB 0.5-3 MG/3 ml Neb IH ONE (07:49)
[2024-06-10] MEDS ORDERED: Zofran 4 MG/2 ML VIAL ONE (07:53)
[2024-06-10] MEDS: DUONEB 0.5-3 MG/3 ml Neb IH ONE (07:54)
[2024-06-10] MEDS: Zofran 4 MG/2 ML VIAL IV ONE (07:56)
[2024-06-10 07:57] LABS: Absolute Neutrophil Ct (ANC) 6.06 x10^3/uL (1.56-6.13); BASOPHIL % 0.3 % (0.1-1.2); Basophil (Absolute #) 0.02 x10^3/uL (0.01-0.08); Eosinophil (Absolute #) 0.07 x10^3/uL (0.04-0.36); Hematocrit 35.4 % (34.1-44.9); Hemoglobin 11.4 g/dL (11.2-15.7); IMMATURE GRAN # 0.03 x10^3u/L (0.001-0.031); IMMATURE GRAN % 0.4 % (0.001-0.429); Lymphocyte (Absolute #) 0.28 x10^3/uL (1.18-3.74); Lymphocytes % 4.1 % (19.3-51.7); Mean Cell Volume 90.1 fL (79.4-94.8); Mean Corpuscular Hgb Concent. 32.2 g/dL (32.2-35.5); Mean Platelet Volume 11.1 fL (9.4-12.3); Monocyte (Absolute #) 0.38 x10^3/uL (0.24-0.86); Monocytes % 5.6 % (4.7-12.5); Neutrophil % 88.6 % (34.0-71.1); Platelet Count 91 x10^3/uL (182-369); Red Blood Count 3.93 x10^6/uL (3.93-5.22); Red Cell Distribution Width 17.1 % (11.7-14.4); White Blood Count 6.8 x10^3/uL (3.98-10.04)
[2024-06-10 08:09] LABS: ALBUMIN 3.6 g/dL (3.5-5.0); ANION GAP 13.5 MEQ/L (5-15); Calcium 8.5 mg/dL (8.4-10.2); Creatinine 1 0.7 mg/dL (0.52-1.04); EST GLOMERULAR FILTRATION RATE 92.4 ML/MIN; MAGNESIUM 1.5 mg/dL (1.6-2.3); Potassium 3.9 mmol/L (3.5-5.1); Total Protein 5.7 g/dL (6.3-8.2)
[2024-06-10 08:28] LABS: INFLUENZA A NEGATIVE (NEGATIVE); INFLUENZA B NEGATIVE (NEGATIVE); RESPIRATORY SYNCTIAL VIRUS NEGATIVE (NEGATIVE); SARS-CoV-2 Xpert Express NEGATIVE (NEGATIVE)
--- NOTE | 2024-06-10 08:45 | XRAY ---
Indication: Short of breath. Cough. Comparison: July 16, 2023 Portable apical lordotic chest remains hyperinflated and clear. Heart not enlarged with enlarging moderate size hiatal hernia. Bony thorax intact again with osteopenia and degenerative changes. No new/acute findings.
[2024-06-10] MEDS ORDERED: Magnesium 1 Gm / 100 Ml D5W*** 0 ML IV ONE (09:08)
[2024-06-10 09:11] VITALS: BP 105/69
[2024-06-10 09:13] VITALS: PULSE 90; RESP 18
[2024-06-10 10:02] VITALS: O2SAT 97
[2024-06-10 14:20] LABS: Slide Review 1 YES
== END 2024-06-10 09:15 | disposition home or self-care (01) ==
LOC: ED 06:48
DX: J06.9 Acute upper respiratory infection, unspecified (principal); R05.9 Cough, unspecified; R53.1 Weakness; R11.0 Nausea; E78.5 Hyperlipidemia, unspecified; I10 Essential (primary) hypertension; E11.9 Type 2 diabetes mellitus without complications; Z79.84 Long term (current) use of oral hypoglycemic drugs; Z79.899 Other long term (current) drug therapy; Z99.81 Dependence on supplemental oxygen
CPT/HCPCS: 0241U; 36415; 71045; 80053; 83605; 83690; 83735; 83880; 84484; 85025; 93005; 94640; 96374; 99285; 99284; J2405; J3475; A9270-GY

== ENCOUNTER 2025-01-24 09:54 | Observation (INO) | payer MEDICARE, SELFPAY ==
--- NOTE | 2025-01-24 10:20 | ERPHSYRPT ---
- History of Present Illness Patient Subjective Stated Complaint: Pt. states, "I wear oxygen all the time at home at 4L per [place]. I saw Dr. Lauren Red on the and he put me on steroids and antibiotics. I finished those. Then Friday I got very short of breath. I walked to the kitchen without oxygen and my sat dropped to 78% and I couldn't get it back up past 92% with my o2 on. I'm coughing up thick green sputum. My back hurts in the upper part it feels tight." Triage Nursing Assessment: Pt. arrives via w/c, wearing home O2 at 3L per [place], removed oxygen sats immediatly dropped to 90%. Sats recovered to 99% with O2 back on at 4L. Skin P/W/D, resp labored, short of breath at rest. Using accessory muscles. A&Ox3, no edema noted. Deep cough noted. Lungs DM in bases, with ext. wheeze on rt. anteriorlyl. 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 and was treated with antibiotics and prednisone, she had 1 day where she had improvement, since then she has had a downhill decline, she states that her oxygen has not been above 92%, she continues using her regular 4 L nasal cannula, she states she was walking around without her oxygen on and her oxygen saturation was around 72%, Since Friday she has had a productive cough of green-yellow phlegm Timing/Duration: day(s) (3) Severity of Dyspnea-Max: moderate Severity of Dyspnea-Current: moderate Associated Symptoms: cough Allergies/Adverse Reactions: metronidazole [From Flagyl] Allergy (Unknown, Verified 10/07/24 07:11) Rash enoxaparin [From Lovenox] Allergy (Verified 09/29/24 13:04) Rash rofecoxib [From Vioxx] Adverse Reaction (Verified 09/29/24 13:04) Stomach Cramps Home Medications: Alendronate Sodium 70 mg PO WEEKLY 01/04/22 [History] Calcium Carbonate [Calcium] 600 mg PO BID 01/04/22 [History] Folic Acid 1 mg PO DAILY 01/04/22 [History] Gabapentin 400 mg PO TID 01/04/22 [History] Methotrexate Sodium 2.5 mg [Trexall 2.5 mg] 10 mg PO WEEKLY 01/04/22 [History] Umeclidinium [place] [Incruse Ellipta] 1 puff IH DAILY 01/04/22 [History] Atorvastatin Calcium [Lipitor 20MG Tablet] 20 mg PO DAILY 12/31/22 [History] Sildenafil Citrate 20 mg PO TID 12/31/22 [History] Aspirin EC 81 mg [Ecotrin 81 mg] 81 mg PO DAILY 03/02/23 [History] Metoprolol Succinate 50 mg PO HS 03/02/23 [History] Albuterol 2.5 mg/3 ml Neb [Proventil 2.5 mg/3 ml Neb] 2.5 mg IH Q6H PRN PRN 07/16/23 [History] Albuterol Sulfate Mdi [ALBUTEROL/Proair Hfa MDI] 2 puff IH Q6H PRN PRN 07/16/23 [History] Cholecalciferol (Vitamin D3) [Vitamin D] 1,000 mg PO DAILY 07/16/23 [History] Potassium Chloride [Klor-Con 10] 10 meq PO QID 07/16/23 [History] Ascorbic Acid [Vitamin C] 1,000 mg PO DAILY 09/12/24 [History] Clobetasol Propionate/Emoll [Clobetasol Emollient 0.05% Crm] 60 gm TP DAILY 09/12/24 [History] Cyanocobalamin 500 Mcg [Vitamin B-12 500 MCG] 500 mcg PO DAILY 09/12/24 [History] Ferrous Sulfate 325 mg PO BID 09/12/24 [History] Magnesium Oxide 400 mg [Mag-Ox 400] 400 mg PO DAILY 09/12/24 [History] [place]-3/Dha/Epa/Fish Oil [Fish Oil 1,000 mg Softgel] 1 ea PO BID 09/12/24 [History] Pantoprazole 20 mg [Protonix 20MG Tablet] 20 mg PO BID 09/12/24 [History] Ropinirole HCl 0.25 mg PO DAILY 09/12/24 [History] Levothyroxine Sodium 50 Mcg [Synthroid 50 Mcg] 50 mcg PO DAILY 09/28/24 [History] Dapagliflozin Propanediol [Farxiga] 10 mg PO DAILY 09/29/24 [History] Fluticasone/[place]ter[place] [Breo Ellipta 100-25 Mcg Inhalr] 1 inh PO DAILY 09/29/24 [History] Furosemide 20 mg [Lasix 20 mg] 40 mg PO DAILY 09/29/24 [History] Metformin HCl [Metformin HCl ER] 1,000 mg PO BID 09/29/24 [History] Roflumilast [Daliresp] 250 mcg PO DAILY 09/29/24 [History] Losartan/Hydrochlorothiazide [Losartan-Hctz 50-12.5 mg Tab] 1 each PO DAILY 01/24/25 [History] Hx Tetanus, Diphtheria Vaccination/Date Given: No Hx Influenza Vaccination/Date Given: Yes Hx Pneumococcal Vaccination/Date Given: Yes Travel Risk - International Travel Have you traveled outside of the country in past 3 weeks: No - Emerging Infectious Disease Are you exhibiting symptoms associated with any current EIDs: No Symptoms: Abdominal Pain - Past Medical History Pertinent Past Medical History: Yes Neurological History: No Pertinent History ENT History: Cataracts Cardiac History: High Cholesterol, Hypertension, Peripheral Vascular Disease Respiratory History: Asthma, Bronchitis, COPD, Emphysema, Pneumonia, Sleep Apnea Endocrine Medical History: Diabetes Type II, Hypothyroidism Musculoskeletal History: Arthritis, Osteoarthritis GI Medical History: GERD, Hernia History: No Pertinent History Psycho-Social History: No Pertinent History Female Reproductive Disorders: No Pertinent History Other Medical History: bells palsy in 2009,. anemia - Past Surgical History Past Surgical History: Yes Neuro Surgical History: No Pertinent History Cardiac: Angioplasty, Other Respiratory: No Pertinent History Gastrointestinal: No Pertinent History Genitourinary: No Pertinent History Musculoskeletal: Orthopedic Surgery Female Surgical History: Section Other Surgical History: large toenail removed florian. bronchoscopy 2022, - Social History Smoking Status: Former smoker How long have you smoked: 47 years Exposure to second hand smoke: No Drug Use: none - Social Determinants of Health Will the patient participate in the screening: Declined to provide - Nursing Vital Signs Nursing Vital Signs: Initial Vital Signs Pulse Rate 77 01/24/25 09:50 Respiratory Rate 20 01/24/25 09:50 Blood Pressure 149/71 01/24/25 09:50 O2 Sat by Pulse Oximetry 99 01/24/25 09:50 Pain Scale Pain Intensity 9 - Physical Exam General Appearance: no apparent distress, alert, obese Eye Exam: PERRL/EOMI, eyes nml inspection Ears, Nose, Throat Exam: hearing grossly normal, normal ENT inspection Neck Exam: normal inspection, supple Respiratory Exam: diminished breath sounds, wheezing Cardiovascular/Chest Exam: normal heart sounds, regular rate/rhythm Abdominal/Gastrointestinal Exam: soft, No tenderness, No distention, No mass Extremity Exam: non-tender, normal range of motion, normal inspection, no calf tenderness, no pedal edema Neurologic Exam: alert, oriented x 3, 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, 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, sensation nml, No motor deficits Skin Exam: normal color, warm, No dry SpO2 Interpretation: hypoxic SpO2: 90 O2 Delivery: Nasal Cannula (4 L/nc) - Course EKG Interpreted by Me: RATE (80), Sinus Rhythm, NORMAL AXIS, NORMAL INTERVALS, NORMAL QRS Ordered Tests: Active Orders 24 hr Category Date Time Status Ambulate Patient ROUTINE Care 01/24/25 11:23 Active EKG-ER Only STAT Care 01/24/25 10:14 Active IV Insertion STAT Care 01/24/25 10:14 Active CHEST 1 VIEW (PORTABLE) Stat Exams 01/24/25 10:14 Completed CBC W DIFF Stat Lab 01/24/25 10:20 Completed Lactic Acid Stat Lab 01/24/25 10:33 Completed MAGNESIUM Stat Lab 01/24/25 10:20 Completed Respiratory Therapy Assessment DAILY RT 01/24/25 10:26 Active Medication Summary Discontinued Medications Generic Name Dose Route Start Last Admin Trade Name Wliburq PRN Reason Stop Dose Admin Albuterol Sulfate 5 mg 01/24/25 10:14 01/24/25 10:24 Albuterol Sulfate 2.5 Mg/3 Ml Neb IH 01/24/25 10:15 5 mg STAT ONE Administration Albuterol Sulfate Confirm 01/24/25 10:21 Albuterol Sulfate 2.5 Mg/3 Ml Neb Administered 01/24/25 10:22 Dose 2.5 mg IH .STK-MED ONE Albuterol Sulfate Confirm 01/24/25 10:25 Albuterol Sulfate 2.5 Mg/3 Ml Neb Administered 01/24/25 10:26 Dose 2.5 mg IH .STK-MED ONE Methylprednisolone Sodium 0 mg 01/24/25 11:29 Succinate 125 mg/ Sterile IV 01/24/25 11:30 Water 2 ml STAT ONE Lab/Rad Data: Laboratory Result Diagrams 01/24/25 10:20 01/24/25 10:20 Laboratory Results 01/24/25 01/24/25 01/24/25 Range/Units 10:33 10:20 10:20 WBC 8.7 (3.98-10.04) x10^3/uL RBC 3.95 (3.93-5.22) x10^6/uL Hgb 11.1 L (11.2-15.7) g/dL Hct 36.3 (34.1-44.9) % MCV 91.9 (79.4-94.8) fL MCH 28.1 (25.6-32.2) pg MCHC 30.6 L (32.2-35.5) g/dL RDW 18.3 H (11.7-14.4) % Plt Count 111 L (182-369) x10^3/uL MPV 10.6 (9.4-12.3) fL Gran % 84.0 H (34.0-71.1) % Immature Gran % (Auto) 0.3 (0.001-0.429) % Nucleat RBC Rel Count 0.0 (0.00-0.2) % Eos # (Auto) 0.11 (0.04-0.36) x10^3/uL Immature Gran # (Auto) 0.03 (0.001-0.031) x10^3u/L Absolute Lymphs (auto) 0.74 L (1.18-3.74) x10^3/uL Absolute Monos (auto) 0.50 (0.24-0.86) x10^3/uL Absolute Nucleated RBC 0.00 (0.00-0.012) x10^3u/L Lymphocytes % 8.5 L (19.3-51.7) % Monocytes % 5.7 (4.7-12.5) % Eosinophils % 1.3 (0.7-5.8) % Basophils % 0.2 (0.1-1.2) % Absolute Granulocytes 7.32 H (1.56-6.13) x10^3/uL Basophils # 0.02 (0.01-0.08) x10^3/uL Sodium Direct 136 L (138-146) mmol/L Potassium 4.0 (3.5-4.9) mmol/L Chloride 100 (98-109) mmol/L Carbon Dioxide 27 (24-29) mmol/L Venous BUN 15 (8-26) mg/dL Creatinine 0.8 (0.6-1.3) mg/dL Glucose 110 H (70-105) mg/dL Lactic Acid 2.4 H (0.4-2.0) Ionized Calcium 1.17 (1.12-1.32) mmol/L Magnesium 1.7 (1.6-2.3) mg/dL - Progress Progress: re-examined Air Movement: fair Progress Note: 01/24/25 11:33 Oxygen saturation at rest 97%, patient was ambulated and her oxygenation dropped to 88%, she will be given Solu-Medrol 125 mg IV push, consultation with hospitalist - Departure Departure Disposition: Observation Clinical Impression: COPD exacerbation Condition: Fair Critical Care Time: No Referrals: RAGHAV NIEVES MD [Primary Care Provider, [facility]] - Follow up/PCP as directed
[2025-01-24] MEDS ORDERED: PROVENTIL 2.5 MG/3 ML NEB IH ONE ×2 (10:21→10:25)
[2025-01-24] MEDS: PROVENTIL 2.5 MG/3 ML NEB IH ONE (10:24)
[2025-01-24 10:26] LABS: BASOPHIL % 0.2 % (0.1-1.2); Basophil (Absolute #) 0.02 x10^3/uL (0.01-0.08); Eosinophil (Absolute #) 0.11 x10^3/uL (0.04-0.36); Hematocrit 36.3 % (34.1-44.9); Hemoglobin 11.1 g/dL (11.2-15.7); IMMATURE GRAN # 0.03 x10^3u/L (0.001-0.031); IMMATURE GRAN % 0.3 % (0.001-0.429); Lymphocyte (Absolute #) 0.74 x10^3/uL (1.18-3.74); Mean Corpuscular Hemoglobin 28.1 pg (25.6-32.2); Mean Corpuscular Hgb Concent. 30.6 g/dL (32.2-35.5); Monocyte (Absolute #) 0.50 x10^3/uL (0.24-0.86); NUCLEATED RBC # 0.00 x10^3u/L (0.00-0.012); NUCLEATED RBC % 0.0 % (0.00-0.2); Platelet Count 111 x10^3/uL (182-369); Red Blood Count 3.95 x10^6/uL (3.93-5.22); White Blood Count 8.7 x10^3/uL (3.98-10.04)
[2025-01-24 10:40] LABS: ISTAT BUN 15 mg/dL (8-26); ISTAT CL 100 mmol/L (98-109); ISTAT CO2 27 mmol/L (24-29); ISTAT CREA 0.8 mg/dL (0.6-1.3); ISTAT GLUC 110 mg/dL (70-105); ISTAT K 4.0 mmol/L (3.5-4.9); ISTAT NA 136 mmol/L (138-146); ISTAT iCA 1.17 mmol/L (1.12-1.32)
--- NOTE | 2025-01-24 10:41 | XRAY ---
Indication: Short of breath. Comparison: June 10, 2024 Portable chest remains hyperinflated and clear. Heart not enlarged for AP portable technique. Again hiatal hernia with partial intrathoracic stomach. Bony thorax intact again with osteopenia and mild degenerative changes. Impression: Continued nonacute hyperinflated chest with chronic features.
[2025-01-24] MEDS ORDERED: Sterile H2O 10 ml IJ ONE (11:36)
[2025-01-24] MEDS: solu-MEDROL 125 MG, Sterile H2O 10 ml 2 ML IV ONE (11:36)
--- NOTE | 2025-01-24 12:33 | PCM.HP ---
History of Present Illness - Chief Complaint Chief Complaint: EXAC COPD Date: 01/24/25 History of Present Illness: is a 74-year-old female with a significant past medical history including hypertension, hyperlipidemia, peripheral vascular disease, asthma, CO PD (on 4L home oxygen), emphysema, obstructive sleep apnea, type II diabetes mellitus, hypothyroidism, osteoarthritis, GERD, hernia, anemia, [place] palsy, and liver cirrhosis, presented to the emergency department with worsening shortness of breath and was subsequently admitted. The patient reports that her symptoms began on January 06, when she experienced increased difficulty breathing and was evaluated by her writer producer. At that time, she was prescribed antibiotics and prednisone, which led to only one day of symptomatic improvement. Since then, she reports progressive respiratory decl ine. She notes that her oxygen saturation has not risen above 92% despite using her usual 4L nasal cannula. She also states that while ambulating without oxygen, her saturation dropped to approximately 72%. Beginning on Friday, she developed a productive cough with green-yellow sputum. She denies chest pain, abdominal pain, nausea, vomiting, or diarrhea. In the ED, she was started on IV antibiotics, intravenous fluids, steroids, and Duonebs. Her home Breo inhaler was continued. She was found to be septic, with an initial lactic acid level of 2.4, which will be rechecked later today. - Review of Systems Constitutional: No Fever, No Chills Eyes: No Symptoms Ears, Nose, & Throat: No Symptoms Respiratory: Cough (with green sputum), Short Of Breath Cardiac: No Chest Pain, No Edema, No Syncope Abdominal/Gastrointestinal: No Abdominal Pain, No Nausea, No Vomiting, No Diarrhea Genitourinary Symptoms: No Dysuria Musculoskeletal: No Back Pain, No Neck Pain Skin: No Rash Neurological: No Dizziness, No Focal Weakness, No Sensory Changes Psychological: No Symptoms Endocrine: No Symptoms Hematologic/Lymphatic: No Symptoms Immunological/Allergic: No Symptoms Medications & Allergies Home Medications: Home Medication List Alendronate Sodium 70 mg PO WEEKLY 01/04/22 [History Confirmed 01/24/25] Calcium Carbonate [Calcium] 600 mg PO BID 01/04/22 [History Confirmed 01/24/25] Folic Acid 1 mg PO DAILY 01/04/22 [History Confirmed 01/24/25] Gabapentin 400 mg PO TID 01/04/22 [History Confirmed 01/24/25] Methotrexate Sodium 2.5 mg [Trexall 2.5 mg] 5 mg PO WEEKLY 01/04/22 [History Confirmed 01/24/25] Umeclidinium [place] [Incruse Ellipta] 1 puff IH DAILY 01/04/22 [History Confirmed 01/24/25] Atorvastatin Calcium [Lipitor 20MG Tablet] 20 mg PO DAILY 12/31/22 [History Confirmed 01/24/25] Sildenafil Citrate 20 mg PO TID 12/31/22 [History Confirmed 01/24/25] Aspirin EC 81 mg [Ecotrin 81 mg] 81 mg PO DAILY 03/02/23 [History Confirmed 01/24/25] Metoprolol Succinate 50 mg PO HS 03/02/23 [History Confirmed 01/24/25] Albuterol 2.5 mg/3 ml Neb [Proventil 2.5 mg/3 ml Neb] 2.5 mg IH Q6H PRN PRN 07/16/23 [History Confirmed 01/24/25] Albuterol Sulfate Mdi [ALBUTEROL/Proair Hfa MDI] 2 puff IH Q6H PRN PRN 07/16/23 [History Confirmed 01/24/25] Cholecalciferol (Vitamin D3) [Vitamin D] 1,000 mg PO DAILY 07/16/23 [History Confirmed 01/24/25] Potassium Chloride [Klor-Con 10] 10 meq PO QID 07/16/23 [History Confirmed 01/24/25] Levothyroxine Sodium 75 Mcg [Synthroid 75 Mcg] 75 mcg PO DAILY 30 Days #30 tablet 07/19/23 [Rx Confirmed 01/24/25] Ascorbic Acid [Vitamin C] 1,000 mg PO BID 09/12/24 [History Confirmed 01/24/25] Clobetasol Propionate/Emoll [Clobetasol Emollient 0.05% Crm] 60 gm TP DAILY 09/12/24 [History Confirmed 01/24/25] Cyanocobalamin 500 Mcg [Vitamin B-12 500 MCG] 500 mcg PO DAILY 09/12/24 [History Confirmed 01/24/25] Ferrous Sulfate 325 mg PO DAILY 09/12/24 [History Confirmed 01/24/25] Magnesium Oxide 400 mg [Mag-Ox 400] 400 mg PO DAILY 09/12/24 [History Confirmed 01/24/25] [place]-3/Dha/Epa/Fish Oil [Fish Oil 1,000 mg Softgel] 1,000 mg PO BID 09/12/24 [History Confirmed 01/24/25] Pantoprazole 20 mg [Protonix 20MG Tablet] 20 mg PO BID 09/12/24 [History Confirmed 01/24/25] Ropinirole HCl 0.25 mg PO HS 09/12/24 [History Confirmed 01/24/25] Levothyroxine Sodium 50 Mcg [Synthroid 50 Mcg] 50 mcg PO DAILY 09/28/24 [H istory Confirmed 01/24/25] Dapagliflozin Propanediol [Farxiga] 10 mg PO DAILY 09/29/24 [History Confirmed 01/24/25] Fluticasone/Vilanterol [Breo Ellipta 100-25 Mcg Inhalr] 1 inh PO DAILY 09/29/24 [History Confirmed 01/24/25] Furosemide 20 mg [Lasix 20 mg] 40 mg PO DAILY 09/29/24 [History Confirmed 01/24/25] Metformin HCl [Metformin HCl ER] 1,000 mg PO BID 09/29/24 [History Confirmed 01/24/25] Roflumilast [Daliresp] 250 mcg PO DAILY 09/29/24 [History Confirmed 01/24/25] Losartan/Hydrochlorothiazide [Losartan-Hctz 50-12.5 mg Tab] 1 each PO DAILY 01/24/25 [History Confirmed 01/24/25] Allergies/Adverse Reactions: Allergies Allergy/AdvReac Type Severity Reaction Status Date / Time metronidazole [From Flagyl] Allergy Unknown Rash Verified 01/24/25 11:59 enoxaparin [From Lovenox] Allergy Rash Verified 01/24/25 11:59 rofecoxib [From Vioxx] AdvReac Stomach Verified 01/24/25 11:59 Cramps - Past Medical History Past Medical History: Yes Neurological History: No Pertinent History ENT History: Cataracts Cardiac History: High Cholesterol, Hypertension, Peripheral Vascular Disease Respiratory History: Asthma, Bronchitis, COPD, Emphysema, Pneumonia, Sleep Apnea Endocrine Medical History: Diabetes Type II, Hypothyroidism Musculoskelatal History: Arthritis, Osteoarthritis GI Medical History: GERD, Hernia, Other History: No Pertinent History Pyscho-Social History: No Pertinent History Reproductive Disorders: No Pertinent History Comment: bells palsy in 2009,. anemia. Liver cirhosis. 4L [place] Oxygen dependent - Past Surgical History Past Surgical History: Yes Neuro Surgical History: No Pertinent History Cardiac History: Angioplasty, Other Respiratory Surgery: Other GI Surgical History: Other Genitourinary Surgical Hx: No Pertinent History Musculskeletal Surgical Hx: Orthopedic Surgery Female Surgical History: Section Other Surgical History: large toenail removed florian. bronchoscopy 2022,. colonoscopy Significant Family History: no pertinent family hx - Social History Smoking Status: Former smoker How long have you smoked: 47 years Exposure to second hand smoke: No Alcohol: None Drug Use: none - Social Determinants of Health Will the patient participate in the screening: Declined to provide Do you worry about a steady place to live?: No In the past 12 months,have you had to go without utilities?: No Have you or anyone in your house had to go without enough: No Transportation Issues: No Has anyone in your support network made you feel unsafe?: No Does the patient want assistance with any of the above?: No - Physical Exam Vital Signs: Vital Signs - 24 hr Temp Pulse Resp BP BP Pulse Ox 01/24/25 12:00 97.3 F 85 18 161/67 90 L 01/24/25 11:35 90 L 01/24/25 11:14 22 98 01/24/25 11:00 82 20 113/59 96 01/24/25 10:30 86 22 125/79 97 01/24/25 10:26 73 20 98 01/24/25 10:00 77 15 121/75 100 01/24/25 09:54 97.7 F 75 18 149/71 90 L 01/24/25 09:50 77 20 149/71 99 General Appearance: no apparent distress, alert Neurologic Exam: alert, oriented x 3, cooperative, normal mood/affect, nml cerebellar function, nml station & gait, sensation nml, No motor deficits Eye Exam: PERRL/EOMI, eyes nml inspection Ears, Nose, Throat Exam: normal ENT inspection, TMs normal, pharynx normal, mois t mucous membranes Neck Exam: normal inspection, non-tender, supple, full range of motion Respiratory Exam: lungs clear, diminished breath sounds (BLLL), No respiratory distress Cardiovascular Exam: regular rate/rhythm, normal heart sounds, normal peripheral pulses Gastrointestinal/Abdomen Exam: soft, normal bowel sounds, No tenderness, No mass Back Exam: normal inspection, normal range of motion, No CVA tenderness, No vertebral tenderness Extremity Exam: normal inspection, normal range of motion, pelvis stable Skin Exam: normal color, warm, dry, No rash Lymphatic Exam: No adenopathy Results - Labs Lab/Micro Results: Lab Results-Last 24 Hours 01/24/25 01/24/25 01/24/25 Range/Units 10:20 10: 10:33 WBC 8.7 (3.98-10.04) x10^3/uL RBC 3.95 (3.93-5.22) x10^6/uL Hgb 11.1 L (11.2-15.7) g/dL Hct 36.3 (34.1-44.9) % MCV 91.9 (79.4-94.8) fL MCH 28.1 (25.6-32.2) pg MCHC 30.6 L (32.2-35.5) g/dL RDW 18.3 H (11.7-14.4) % Plt Count 111 L (182-369) x10^3/uL MPV 10.6 (9.4-12.3) fL Gran % 84.0 H (34.0-71.1) % Immature Gran % (Auto) 0.3 (0.001-0.429) % Nucleat RBC Rel Count 0.0 (0.00-0.2) % Eos # (Auto) 0.11 (0.04-0.36) x10^3/uL Immature Gran # (Auto) 0.03 (0.001-0.031) x10^3u/L Absolute Lymphs (auto) 0.74 L (1.18-3.74) x10^3/uL Absolute Monos (auto) 0.50 (0.24-0.86) x10^3/uL Absolute Nucleated RBC 0.00 (0.00-0.012) x10^3u/L Lymphocytes % 8.5 L (19.3-51.7) % Monocytes % 5.7 (4.7-12.5) % Eosinophils % 1.3 (0.7-5.8) % Basophils % 0.2 (0.1-1.2) % Absolute Granulocytes 7.32 H (1.56-6.13) x10^3/uL Basophils # 0.02 (0.01-0.08) x10^3/uL Sodium Direct 136 L (138-146) mmol/L Potassium 4.0 (3.5-4.9) mmol/L Chloride 100 (98-109) mmol/L Carbon Dioxide 27 (24-29) mmol/L Venous BUN 15 (8-26) mg/dL Creatinine 0.8 (0.6-1.3) mg/dL Glucose 110 H (70-105) mg/dL Lactic Acid 2.4 H (0.4-2.0) Ionized Calcium 1.17 (1.12-1.32) mmol/L Magnesium 1.7 (1.6-2.3) mg/dL - Radiology Impressions Radiology Exams & Impressions: Radiology Procedures Category Date Time Status CHEST 1 VIEW (PORTABLE) Stat Exams 01/24/25 10:14 Completed - Other Procedures and Tests Respiratory Therapy 01/24/25 10:26 Respiratory Therapy Assessment DAILY Assessment/Plan (1) COPD exacerbation Current Visit: Yes Status: Acute Assessment & Plan: - Zosyn IV, duonebs, steroids, Breo- inhaler - Sputum culture- pending - CBC, CMP reviewed - IVF - CXR: Impression: Continued nonacute hyperinflated chest with chronic features. - On baseline O2 at 4lNC 90% - Failed OP antibiotics - Follows Dr. Lauren Red for Pulm - tele Code(s): J44.1 - CHRONIC OBSTRUCTIVE PULMONARY DISEASE W (ACUTE) EXACERBATION (2) Lactic acidosis Current Visit: Yes Status: Acute Assessment & Plan: - Lactic acid 2.4 - Does not meet sepsis or SIRS criteria - Pt takes sildenafil TID- so will hold fluid bolus for now - IVF - NS @ 50 and recheck LA later today in 8 hours - CBC, CMP reviewed - 2:2 COPD exacerbation - Resp > 20 - On baseline O2 at 4lNC Code(s): E87.20 - ACIDOSIS, UNSPECIFIED (3) Diabetes type 2, controlled Current Visit: No Status: Chronic Assessment & Plan: - A1C pending - Acckaylyn AC/HS - S/S insulin Code(s): E11.9 - TYPE 2 DIABETES MELLITUS WITHOUT COMPLICATIONS (4) HLD (hyperlipidemia) Current Visit: No Status: Chronic Assessment & Plan: - Continue Statin Code(s): E78.5 - HYPERLIPIDEMIA, UNSPECIFIED (5) HTN (hypertension) Current Visit: No Status: Chronic Assessment & Plan: - BP elevated - Continue home meds Code(s): I10 - ESSENTIAL (PRIMARY) HYPERTENSION (6) Hypothyroid Current Visit: No Status: Chronic Code(s): E03.9 - HYPOTHYROIDISM, UNSPECIFIED (7) Neuropathy Current Visit: No Status: Chronic Assessment & Plan: - Continue gabapentin Code(s): G62.9 - POLYNEUROPATHY, UNSPECIFIED (8) Obstructive sleep apnea Current Visit: No Status: Chronic Assessment & Plan: - Cpap at night VTE: SCD's PPI: Pantoprazole Next of KIN: Child- Ragini Avalos [phone] D/C plan: 1-2 days Code status: Full Plan of care time > 45 minutes Code(s): G47.33 - OBSTRUCTIVE SLEEP APNEA (ADULT) (PEDIATRIC)
[2025-01-24] MEDS ORDERED: DUONEB 0.5-3 MG/3 ml Neb IH SCH (13:00)
[2025-01-24] MEDS: Klor Con PO SCH (13:12)
[2025-01-24] MEDS ORDERED: MEDICATION INTERVENTION MC SCH ×3 (13:30)
[2025-01-24 13:48] LABS: NT PRO BNPII 385.0 pg/mL (<300)
[2025-01-24] MEDS: SILDENAFIL CITRATE PO SCH (15:00)
[2025-01-24] MEDS: DUONEB 0.5-3 MG/3 ml Neb IH SCH (15:29)
[2025-01-24] MEDS: HUMALOG SQ PRN (16:49)
[2025-01-24] MEDS: PATIENT OWN MEDICATION IH SCH (19:00)
[2025-01-24] MEDS: Calcium 500MG W/Vit D Tablet PO SCH (22:07)
[2025-01-24] MEDS: Protonix 20MG Tablet PO SCH (22:07)
[2025-01-24] MEDS: Vitamin C 500 MG PO SCH (22:07)
[2025-01-24] MEDS: FISH OIL 1,000 MG CAPSULE PO SCH (22:07)
[2025-01-24] MEDS: Requip 0.5 MG PO SCH (22:07)
[2025-01-24] MEDS: solu-MEDROL 40 MG, Sterile H2O 10 ml 1 ML IV SCH (22:08)
[2025-01-24] MEDS: Toprol Xl 50 MG PO SCH (22:08)
[2025-01-25 04:37] LABS: Hematocrit 33.9 % (34.1-44.9); Hemoglobin 10.7 g/dL (11.2-15.7); Mean Corpuscular Hemoglobin 28.5 pg (25.6-32.2); Mean Corpuscular Hgb Concent. 31.6 g/dL (32.2-35.5); Platelet Count 119 x10^3/uL (182-369); Red Blood Count 3.75 x10^6/uL (3.93-5.22); White Blood Count 7.4 x10^3/uL (3.98-10.04)
[2025-01-25 05:21] LABS: Calcium 8.8 mg/dL (8.4-10.2); Carbon Dioxide 28.0 mmol/L (22-30); Creatinine 1 0.6 mg/dL (0.52-1.04); EST GLOMERULAR FILTRATION RATE 95.3 ML/MIN; Glucose 131.0 mg/dL (74-106); Potassium 4.4 mmol/L (3.5-5.1); SGOT/AST 27.0 U/L (14-36); SGPT/ALT 29.0 U/L (0-35); Total Protein 6.0 g/dL (6.3-8.2)
[2025-01-25] MEDS: PATIENT OWN MEDICATION IH SCH (07:14)
[2025-01-25] MEDS: Vitamin B-12 500 MCG PO SCH (09:20)
[2025-01-25] MEDS: hydroDIURIL 25 MG PO SCH (09:21)
[2025-01-25] MEDS: FOLATE 1 MG PO SCH (09:21)
[2025-01-25] MEDS: Cozaar 50 MG PO SCH (09:21)
[2025-01-25] MEDS: MAG-OX 400 PO SCH (09:21)
[2025-01-25] MEDS: FEOSOL 325 MG PO SCH (09:21)
[2025-01-25] MEDS: ECOTRIN 81 MG PO SCH (09:22)
[2025-01-25] MEDS: ZOCOR 20MG PO SCH (09:22)
[2025-01-25] MEDS: VITAMIN D PO SCH (09:22)
[2025-01-25] MEDS: PATIENT OWN MEDICATION PO SCH (09:27)
[2025-01-25] MEDS: DALIRESP PO SCH (09:29)
--- NOTE | 2025-01-25 09:46 | PCM.NOTE ---
Date and Time: 01/25/25 0936 Subjective Assessment: 01/24/25 is a 74-year-old female with a significant past medical history including hypertension, hyperlipidemia, peripheral vascular disease, asthma, COPD (on 4L home oxygen), emphysema, obstructive sleep apnea, type II diabetes mellitus, hypothyroidism, osteoarthritis, GERD, hernia, anemia, [place] palsy, and liver cirrhosis, presented to the emergency department with worsening shortness of breath and was subsequently admitted. The patient reports that her symptoms began on January 06, when she experienced increased difficulty breathing and was evaluated by her dish washer. At that time, she was prescribed antibiotics and prednisone, which led to only one day of symptomatic improvement. Since then, she reports progressive respiratory decline. She notes that her oxygen saturation has not risen above 92% despite using her usual 4L nasal cannula. She also states that while ambulating without oxygen, her saturation dropped to approximately 72%. Beginning on Friday, she developed a productive cough with green-yellow sputum. She denies chest pain, abdominal pain, nausea, vomiting, or diarrhea. In the ED, she was started on IV antibiotics, intravenous fluids, steroids, and Duonebs. Her home Breo inhaler was continued. She was found to be septic, with an initial lactic acid level of 2.4, which will be rechecked later today. 01/25/25 The patient is resting in bed and reports ongoing shortness of breath, wheezing, and a sensation of tightness with breathing. She remains on her baseline 4 liters of oxygen via nasal cannula, with oxygen saturation at 97%. A sputum sample is currently pending. She is continuing treatment with Zosyn, DuoNebs, steroids, and the Breo inhaler. Physical therapy has been consulted to evaluate the patient, as she reports increased shortness of breath and weakness with ambulation. On examination today, a heart murmur was noted for the first time; an echocardiogram has been ordered for further evaluation. The patient states she does not currently follow a radiation oncology therapist and has never been informed of having a heart murmur in the past. She denies chest pain, abdominal pain, nausea, vomiting, or diarrhea. If her symptoms continue to improve, she will likely be ready for discharge tomorrow. - Review of Systems Constitutional: No Fever, No Chills Eyes: No Symptoms Ears, Nose, & Throat: No Symptoms Respiratory: Cough, Short Of Breath, Wheezing Cardiac: No Chest Pain, No Edema, No Syncope Abdominal/Gastrointestinal: No Abdominal Pain, No Nausea, No Vomiting, No Diarrhea Genitourinary Symptoms: No Dysuria Musculoskeletal: No Back Pain, No Neck Pain Skin: No Rash Neurological: No Dizziness, No Focal Weakness, No Sensory Changes Psychological: No Symptoms Endocrine: No Symptoms Hematologic/Lymphatic: No Symptoms Immunological/Allergic: No Symptoms Objective Exam General Appearance: no apparent distress, alert Neurologic Exam: alert, oriented x 3, cooperative, normal mood/affect, nml cerebellar function, sensation nml, motor weakness, No motor deficits Skin Exam: normal color, warm, dry Eye Exam: PERRL, EOMI, eyes nml inspection Ears, Nose, Throat Exam: normal ENT inspection, pharynx normal, moist mucous membranes Neck Exam: normal inspection, non-tender, supple, full range of motion Respiratory Exam: diminished breath sounds (BLLL), wheezing (RUL), No respiratory distress Cardiovascular Exam: regular rate/rhythm, murmur Gastrointestinal/Abdomen Exam: soft, No tenderness, No mass Extremity Exam: normal inspection, normal range of motion Back Exam: normal inspection, normal range of motion, No CVA tenderness, No vertebral tenderness Pelvic Exam: deferred Rectal Exam: deferred Objective Data Vital Signs: Vital Signs - 24 hr Temp Pulse Resp BP BP Pulse Ox 01/25/25 07:14 76 20 97 01/25/25 03:56 97.7 F 77 20 117/63 97 01/25/25 01:29 65 18 98 01/24/25 23:46 97.9 F 72 16 110/57 95 01/24/25 20:00 97.9 F 90 17 144/70 95 01/24/25 19:01 87 18 98 01/24/25 15:56 98 F 86 18 121/59 91 L 01/24/25 15:31 92 H 24 97 01/24/25 12:11 97.3 F 85 18 161/67 90 L 01/24/25 12:00 97.3 F 85 18 161/67 90 L 01/24/25 11:35 90 L 01/24/25 11:14 22 98 01/24/25 11:00 82 20 113/59 96 01/24/25 10:30 86 22 125/79 97 01/24/25 10:26 73 20 98 10/20/25 10:00 77 15 121/75 100 01/24/25 09:54 97.7 F 75 18 149/71 90 L 01/24/25 09:50 77 20 149/71 99 Pain Assessment - Last Documented Pain Intensity 0 Intake and Output: Intake & Output 01/22/25 01/23/25 01/24/25 01/25/25 11:59 11:59 11:59 11:59 Intake Total 1600 Balance 1600 Weight 76.2 kg 76.8 kg Lab Results: Lab Results-Last 24 Hours 01/24/25 01/24/25 01/24/25 Range/Units 10:20 10:20 10:33 WBC 8.7 (3.98-10.04) x10^3/uL RBC 3.95 (3.93-5.22) x10^6/uL Hgb 11.1 L (11.2-15.7) g/dL Hct 36.3 (34.1-44.9) % MCV 91.9 (79.4-94.8) fL MCH 28.1 (25.6-32.2) pg MCHC 30.6 L (32.2-35.5) g/dL RDW 18.3 H (11.7-14.4) % Plt Count 111 L (182-369) x10^3/uL MPV 10.6 (9.4-12.3) fL Gran % 84.0 H (34.0-71.1) % Immature Gran % (Auto) 0.3 (0.001-0.429) % Nucleat RBC Rel Count 0.0 (0.00-0.2) % Eos # (Auto) 0.11 (0.04-0.36) x10^3/uL Immature Gran # (Auto) 0.03 (0.001-0.031) x10^3u/L Absolute Lymphs (auto) 0.74 L (1.18-3.74) x10^3/uL Absolute Monos (auto) 0.50 (0.24-0.86) x10^3/uL Absolute Nucleated RBC 0.00 (0.00-0.012) x10^3u/L Lymphocytes % 8.5 L (19.3-51.7) % Monocytes % 5.7 (4.7-12.5) % Eosinophils % 1.3 (0.7-5.8) % Basophils % 0.2 (0.1-1.2) % Absolute Granulocytes 7.32 H (1.56-6.13) x10^3/uL Basophils # 0.02 (0.01-0.08) x10^3/uL Sodium (135-145) mmol/L Sodium Direct 136 L (138-146) mmol/L Potassium 4.0 (3.5-4.9) mmol/L Chloride 100 (98-109) mmol/L Carbon Dioxide 27 (24-29) mmol/L Anion Gap (5-15) MEQ/L BUN (7-17) mg/dL Venous BUN 15 (8-26) mg/dL Creatinine 0.8 (0.6-1.3) mg/dL Estimated GFR ML/MIN Glucose 110 H (70-105) mg/dL POC Glucometer (74 to 106) mg/dL Hemoglobin A1c (4.5-6.0) % Lactic Acid 2.4 H (0.4-2.0) Calcium (8.4-10.2) mg/dL Ionized Calcium 1.17 (1.12-1.32) mmol/L Magnesium 1.7 (1.6-2.3) mg/dL Total Bilirubin (0.2-1.3) mg/dL AST (14-36) U/L ALT (0-35) U/L Alkaline Phosphatase (38-126) U/L NT-Pro-B Natriuret Pep (<300) pg/mL Serum Total Protein (6.3-8.2) g/dL Albumin (3.5-5.0) g/dL 01/24/25 01/24/25 01/24/25 Range/Units 10:33 12:35 13:23 WBC (3.98-10.04) x10^3/uL RBC (3.93-5.22) x10^6/uL Hgb (11.2-15.7) g/dL Hct (34.1-44.9) % MCV (79.4-94.8) fL MCH (25.6-32.2) pg MCHC (32.2-35.5) g/dL RDW (11.7-14.4) % Plt Count (182-369) x10^3/uL MPV (9.4-12.3) fL Gran % (34.0-71.1) % Immature Gran % (Auto) (0.001-0.429) % Nucleat RBC Rel Count (0.00-0.2) % Eos # (Auto) (0.04-0.36) x10^3/uL Immature Gran # (Auto) (0.001-0.031) x10^3u/L Absolute Lymphs (auto) (1.18-3.74) x10^3/uL Absolute Monos (auto) (0.24-0.86) x10^3/uL Absolute Nucleated RBC (0.00-0.012) x10^3u/L Lymphocytes % (19.3-51.7) % Monocytes % (4.7-12.5) % Eosinophils % (0.7-5.8) % Basophils % (0.1-1.2) % Absolute Granulocytes (1.56-6.13) x10^3/uL Basophils # (0.01-0.08) x10^3/uL Sodium (135-145) mmol/L Sodium Direct (138-146) mmol/L Potassium (3.5-4.9) mmol/L Chloride (98-109) mmol/L Carbon Dioxide (24-29) mmol/L Anion Gap (5-15) MEQ/L BUN (7-17) mg/dL Venous BUN (8-26) mg/dL Creatinine (0.6-1.3) mg/dL Estimated GFR ML/MIN Glucose (70-105) mg/dL POC Glucometer (74 to 106) mg/dL Hemoglobin A1c 5.67 (4.5-6.0) % Lactic Acid 1.5 (0.4-2.0) Calcium (8.4-10.2) mg/dL Ionized Calcium (1.12-1.32) mmol/L Magnesium 1.6 (1.6-2.3) mg/dL Total Bilirubin (0.2-1.3) mg/dL AST (14-36) U/L ALT (0-35) U/L Alkaline Phosphatase (38-126) U/L NT-Pro-B Natriuret Pep 385 (<300) pg/mL Serum Total Protein (6.3-8.2) g/dL Albumin (3.5-5.0) g/dL 01/24/25 01/24/25 01/25/25 Range/Units 16:23 22:06 04:30 WBC 7.4 (3.98-10.04) x10^3/uL RBC 3.75 L (3.93-5.22) x10^6/uL Hgb 10.7 L (11.2-15.7) g/dL Hct 33.9 L (34.1-44.9) % MCV 90.4 (79.4-94.8) fL MCH 28.5 (25.6-32.2) pg MCHC 31.6 L (32.2-35.5) g/dL RDW 18.2 H (11.7-14.4) % Plt Count 119 L (182-369) x10^3/uL MPV 10.5 (9.4-12.3) fL Gran % (34.0-71.1) % Immature Gran % (Auto) (0.001-0.429) % Nucleat RBC Rel Count (0.00-0.2) % Eos # (Auto) (0.04-0.36) x10^3/uL Immature Gran # (Auto) (0.001-0.031) x10^3u/L Absolute Lymphs (auto) (1.18-3.74) x10^3/uL Absolute Monos (auto) (0.24-0.86) x10^3/uL Absolute Nucleated RBC (0.00-0.012) x10^3u/L Lymphocytes % (19.3-51.7) % Monocytes % (4.7-12.5) % Eosinophils % (0.7-5.8) % Basophils % (0.1-1.2) % Absolute Granulocytes (1.56-6.13) x10^3/uL Basophils # (0.01-0.08) x10^3/uL Sodium (135-145) mmol/L Sodium Direct (138-146) mmol/L Potassium (3.5-4.9) mmol/L Chloride (98-109) mmol/L Carbon Dioxide (24-29) mmol/L Anion Gap (5-15) MEQ/L BUN (7-17) mg/dL Venous BUN (8-26) mg/dL Creatinine (0.6-1.3) mg/dL Estimated GFR ML/MIN Glucose (70-105) mg/dL POC Glucometer 207 H 145 H (74 to 106) mg/dL Hemoglobin A1c (4.5-6.0) % Lactic Acid (0.4-2.0) Calcium (8.4-10.2) mg/dL Ionized Calcium (1.12-1.32) mmol/L Magnesium (1.6-2.3) mg/dL Total Bilirubin (0.2-1.3) mg/dL AST (14-36) U/L ALT (0-35) U/L Alkaline Phosphatase (38-126) U/L NT-Pro-B Natriuret Pep (<300) pg/mL Serum Total Protein (6.3-8.2) g/dL Albumin (3.5-5.0) g/dL 01/25/25 01/25/25 Range/Units 04:30 07:09 WBC (3.98-10.04) x10^3/uL RBC (3.93-5.22) x10^6/uL Hgb (11.2-15.7) g/dL Hct (34.1-44.9) % MCV (79.4-94.8) fL MCH (25.6-32.2) pg MCHC (32.2-35.5) g/dL RDW (11.7-14.4) % Plt Count (182-369) x10^3/uL MPV (9.4-12.3) fL Gran % (34.0-71.1) % Immature Gran % (Auto) (0.001-0.429) % Nucleat RBC Rel Count (0.00-0.2) % Eos # (Auto) (0.04-0.36) x10^3/uL Immature Gran # (Auto) (0.001-0.031) x10^3u/L Absolute Lymphs (auto) (1.18-3.74) x10^3/uL Absolute Monos (auto) (0.24-0.86) x10^3/uL Absolute Nucleated RBC (0.00-0.012) x10^3u/L Lymphocytes % (19.3-51.7) % Monocytes % (4.7-12.5) % Eosinophils % (0.7-5.8) % Basophils % (0.1-1.2) % Absolute Granulocytes (1.56-6.13) x10^3/uL Basophils # (0.01-0.08) x10^3/uL Sodium 135 (135-145) mmol/L Sodium Direct (138-146) mmol/L Potassium 4.4 (3.5-4.9) mmol/L Chloride 103 (98-109) mmol/L Carbon Dioxide 28 (24-29) mmol/L Anion Gap 8.1 (5-15) MEQ/L BUN 13 (7-17) mg/dL Venous BUN (8-26) mg/dL Creatinine 0.60 (0.6-1.3) mg/dL Estimated GFR 95.3 ML/MIN Glucose 131 H (70-105) mg/dL POC Glucometer 114 H (74 to 106) mg/dL Hemoglobin A1c (4.5-6.0) % Lactic Acid (0.4-2.0) Calcium 8.8 (8.4-10.2) mg/dL Ionized Calcium (1.12-1.32) mmol/L Magnesium (1.6-2.3) mg/dL Total Bilirubin 0.40 (0.2-1.3) mg/dL AST 27 (14-36) U/L ALT 29 (0-35) U/L Alkaline Phosphatase 89 (38-126) U/L NT-Pro-B Natriuret Pep (<300) pg/mL Serum Total Protein 6.0 L (6.3-8.2) g/dL Albumin 3.4 L (3.5-5.0) g/dL Radiology Exams: Radiology Procedures Category Date Time Status CHEST 1 VIEW (PORTABLE) Stat Exams 01/24/25 10:14 Completed ECHO W/2D AND DOPPLER [US] Routine Exams 01/25/25 08:56 Ordered Medications: Medications Generic Name Dose Route Start Last Admin Trade Name Freq PRN Reason Stop Dose Admin Albuterol Sulfate 2.5 mg 01/24/25 12:49 Albuterol Sulfate 2.5 Mg/3 Ml Neb IH 02/23/25 12:48 Q6H PRN PRN SHORTNESS OF BREATH Albuterol/Ipratropium 3 ml 01/24/25 14:00 01/25/25 07:13 Ipratropium/Albuterol Sulfate 3 Ml Ampul.Neb 02/23/25 13:59 3 ml Q6HRT EVA Administration Alendronate Sodium 70 mg 01/30/25 06:00 Alendronate Sodium 70 Mg Tablet PO 03/01/25 05:59 Q7D EVA Ascorbic Acid 1,000 mg 01/24/25 22:00 01/25/25 09:22 Ascorbic Acid 500 Mg Tablet PO 02/23/25 21:59 1,000 mg BID EVA Administration Aspirin 81 mg 01/25/25 10:00 01/25/25 09:22 Aspirin 81 Mg Tablet.Ec PO 02/24/25 09:59 81 mg DAILY EVA Administration Calcium Carbonate 1 tab 01/24/25 22:00 01/25/25 09:21 Calcium Carbonate 500 Mg/Vitamin D 1 Tab Tablet PO 02/23/25 21:59 1 tab BID EVA Administration Cholecalciferol 1,000 unit 01/25/25 10:00 01/25/25 09:22 Cholecalciferol (Vitamin D3) 1000 Unit Tablet PO 02/24/25 09:59 1,000 unit DAILY EVA Administration Methylprednisolone Sodium 0 mg 01/24/25 22:00 01/25/25 06:09 Succinate 40 mg/ Sterile Water IV 02/23/25 21:59 40 mg 1 ml Q8HT EVA Administration Cyanocobalamin 500 mcg 01/25/25 10:00 01/25/25 09:20 Cyanocobalamin 500 Mcg Tablet PO 02/24/25 09:59 500 mcg DAILY EVA Administration Ferrous Sulfate 325 mg 01/25/25 10:00 01/25/25 09:21 Ferrous Sulfate 325 Mg Tablet PO 02/24/25 09:59 325 mg DAILY EVA Administration Fish Oil 1,000 mg 01/24/25 22:00 01/25/25 09:20 [place]-3 Fatty Acids/Fish Oil 1000 Mg Capsule PO 02/23/25 21:59 1,000 mg BID EVA Administration Folic Acid 1 mg 01/25/25 10:00 01/25/25 09:21 Folic Acid 1 Mg Tablet PO 02/24/25 09:59 1 mg DAILY EVA Administration Gabapentin 400 mg 01/24/25 15:00 01/25/25 09:21 Gabapentin 400 Mg Capsule PO 02/23/25 14:59 400 mg TID EVA Administration Hydrochlorothiazide 12.5 mg 01/25/25 10:00 01/25/25 09:21 Hydrochlorothiazide 25 Mg Tablet PO 02/24/25 09:59 12.5 mg DAILY EVA Administration Sodium Chloride 1,000 mls @ 50 mls/hr 01/24/25 11:45 01/24/25 13:03 Sodium Chloride 0.9% 1000 Ml IV 02/23/25 11:44 50 mls/hr .Q20H EVA Administration Piperacillin Sod/Tazobactam 100 mls @ 200 mls/hr 01/24/25 13:00 01/25/25 06:08 Sod 4.5 gm/ Sodium Chloride IV 02/23/25 12:59 200 mls/hr Q6HT EVA Administration Insulin Human Lispro 0 unit 01/24/25 12:34 01/24/25 16:49 Insulin Lispro 1 Unit SQ 02/23/25 12:33 5 unit UD PRN Administration HYPERGLYCEMIA Levothyroxine Sodium 50 mcg 01/26/25 10:00 Levothyroxine Sodium 50 Mcg Tablet PO 02/25/25 09:59 SuMoWeFr EVA Levothyroxine Sodium 75 mcg 01/25/25 10:00 Levothyroxine Sodium 75 Mcg Tablet PO 02/24/25 09:59 TuThSa EVA Losartan Potassium 50 mg 01/25/25 10:00 01/25/25 09:21 Losartan Potassium 50 Mg Tablet PO 02/24/25 09:59 50 mg DAILY EVA Administration Magnesium Oxide 400 mg 01/25/25 10:00 01/25/25 09:21 Magnesium Oxide 400 Mg Tablet PO 02/24/25 09:59 400 mg DAILY EVA Administration Methotrexate 5 mg 01/29/25 10:00 Methotrexate Sodium 2.5 Mg Tablet PO 01/29/25 22:01 BID EVA Metoprolol Succinate 50 mg 01/24/25 22:00 01/24/25 22:08 Metoprolol Succinate 50 Mg Tablet.Sa PO 02/23/25 21:59 50 mg HS EVA Administration Pantoprazole Sodium 20 mg 01/24/25 22:00 01/25/25 09:20 Pantoprazole 20 Mg Tab PO 02/23/25 21:59 20 mg BID EVA Administration Breo Ellipta Inhaler 1 each 01/25/25 10:00 01/25/25 07:14 IH 02/24/25 09:59 1 each DAILY EVA Administration Incruse Ellipta 1 each 01/24/25 22:00 01/24/25 19:00 Inhaler IH 02/23/25 21:59 1 each QPM EVA Administration Farxiga 10mg Tablet 1 each 01/25/25 10:00 01/25/25 09:27 PO 02/24/25 09:59 1 each QAM EVA Administration Potassium Chloride 10 meq 01/24/25 13:00 01/25/25 09:22 Potassium Chloride Tab 10 Meq Tab PO 02/23/25 12:59 10 meq QID EVA Administration Roflumilast 250 mcg 01/25/25 10:00 01/25/25 09:29 Roflumilast 500 Mcg Tablet PO 02/24/25 09:59 250 mcg DAILY EVA Administration Ropinirole HCl 0.25 mg 01/24/25 22:00 01/24/25 22:07 Ropinirole Hcl 0.5 Mg Tablet PO 02/23/25 21:59 0.25 mg HS EVA Administration Sildenafil Citrate 20 mg 01/24/25 15:00 01/25/25 09:28 Sildenafil Citrate 20 Mg Tablet PO 02/23/25 14:59 20 mg TID EVA Administration Simvastatin 20 mg 01/25/25 10:00 01/25/25 09:22 Simvastatin 20 Mg Tablet PO 02/24/25 09:59 20 mg DAILY EVA Administration Triamcinolone Acetonide 0 gm 01/24/25 13:20 Triamcinolone Acetonide 0.1% 15 Gm Cream TP 02/23/25 13:19 DAILY PRN PRN REDNESS/IRRITATION Discontinued Medications Generic Name Dose Route Start Last Admin Trade Name Freq PRN Reason Stop Dose Admin Albuterol Sulfate 5 mg 01/24/25 10:14 01/24/25 10:24 Albuterol Sulfate 2.5 Mg/3 Ml Neb IH 01/24/25 10:15 5 mg STAT ONE Administration Albuterol Sulfate Confirm 01/24/25 10:21 Albuterol Sulfate 2.5 Mg/3 Ml Neb Administered 01/24/25 10:22 Dose 2.5 mg IH .STK-MED ONE Albuterol Sulfate Confirm 01/24/25 10:25 Albuterol Sulfate 2.5 Mg/3 Ml Neb Administered 01/24/25 10:26 Dose 2.5 mg IH .STK-MED ONE Albuterol/Ipratropium 3 ml 01/24/25 13:00 Ipratropium/Albuterol Sulfate 3 Ml Ampul.Neb IH 02/23/25 12:59 Q6HRT EVA Methylprednisolone Sodium 0 mg 01/24/25 11:29 01/24/25 11:36 Succinate 125 mg/ Sterile IV 01/24/25 11:30 125 mg Water 2 ml STAT ONE Administration Sodium Chloride 1,000 mls @ 999 mls/hr 01/24/25 12:31 01/24/25 12:53 Sodium Chloride 0.9% 1000 Ml IV 01/24/25 13:31 Not Given .Q1H1M STA Methylprednisolone Sodium Succinate Confirm 01/24/25 11:36 Methylprednis Sod Succ 125 Mg/2 Ml Vial Administered 01/24/25 11:37 Dose 125 mg .ROUTE .STK-MED ONE Miscellaneous Information 1 each 01/24/25 13:30 Medication Intervention 1 Each Each 02/23/25 13:29 .RN TO CHECK EVA Miscellaneous Information 1 each 01/24/25 13:30 Medication Intervention 1 Each Each MC 02/23/25 13:29 .RT TO CHECK EVA Miscellaneous Information 1 each 01/24/25 13:30 Medication Intervention 1 Each Each MC 02/23/25 13:29 .RT TO CHECK EVA Sterile Water Confirm 01/24/25 11:36 Water For Injection,Sterile 10 Ml Vial Administered 01/24/25 11:37 Dose 10 ml IJ .STK-MED ONE Assessment/Plan (1) COPD exacerbation Current Visit: Yes Status: Acute Code(s): J44.1 - CHRONIC OBSTRUCTIVE PULMONARY DISEASE W (ACUTE) EXACERBATION (2) Lactic acidosis Current Visit: Yes Status: Acute Code(s): E87.20 - ACIDOSIS, UNSPECIFIED (3) Diabetes type 2, controlled Current Visit: No Status: Chronic Code(s): E11.9 - TYPE 2 DIABETES MELLITUS WITHOUT COMPLICATIONS (4) HLD (hyperlipidemia) Current Visit: No Status: Chronic Code(s): E78.5 - HYPERLIPIDEMIA, UNSPECIFIED (5) HTN (hypertension) Current Visit: No Status: Chronic Code(s): I10 - ESSENTIAL (PRIMARY) HYPERTENSION (6) Hypothyroid Current Visit: No Status: Chronic Code(s): E03.9 - HYPOTHYROIDISM, UNSPECIFIED (7) Neuropathy Current Visit: No Status: Chronic Code(s): G62.9 - POLYNEUROPATHY, UNSPECIFIED (8) Obstructive sleep apnea Current Visit: No Status: Chronic Assessment & Plan: (1) COPD exacerbation Current Visit: Yes Status: Acute Assessment & Plan: - Zosyn IV, duonebs, steroids, Breo- inhaler - Sputum culture- pending - CBC, CMP reviewed - IVF - CXR: Impression: Continued nonacute hyperinflated chest with chronic features. - On baseline O2 at 4lNC 90% - Failed OP antibiotics - Follows Dr. Lauren Red for Pulm - tele 01/25 - On 4lNC 97%- baseline O2 - Sputum pending - CBC, CMP reviewed - PT eval Code(s): J44.1 - CHRONIC OBSTRUCTIVE PULMONARY DISEASE W (ACUTE) EXACERBATION (2) Lactic acidosis Current Visit: Yes Status: Acute Assessment & Plan: - Lactic acid 2.4- repeat 1.5 - Does not meet sepsis or SIRS criteria - Pt takes sildenafil TID- so will hold fluid bolus for now - IVF - NS @ 50 and recheck LA later today in 8 hours - CBC, CMP reviewed - 2:2 COPD exacerbation - Resp > 20 - On baseline O2 at 4lNC 01/25 - IVF stopped - resolved Code(s): E87.20 - ACIDOSIS, UNSPECIFIED (3) Diabetes type 2, controlled Current Visit: No Status: Chronic Assessment & Plan: - A1C 5.67- controlled - Accuchecks AC/HS - S/S insulin Code(s): E11.9 - TYPE 2 DIABETES MELLITUS WITHOUT COMPLICATIONS (4) HLD (hyperlipidemia) Current Visit: No Status: Chronic Assessment & Plan: - Continue Statin Code(s): E78.5 - HYPERLIPIDEMIA, UNSPECIFIED (5) HTN (hypertension) Current Visit: No Status: Chronic Assessment & Plan: - BP elevated - Continue home meds 01/25 - BP stable Code(s): I10 - ESSENTIAL (PRIMARY) HYPERTENSION (6) Hypothyroid Current Visit: No Status: Chronic Code(s): E03.9 - HYPOTHYROIDISM, UNSPECIFIED - Continue Synthroid (7) Neuropathy Current Visit: No Status: Chronic Assessment & Plan: - Continue gabapentin Code(s): G62.9 - POLYNEUROPATHY, UNSPECIFIED (8) Obstructive sleep apnea Current Visit: No Status: Chronic Assessment & Plan: - Cpap at night Code(s): G47.33 - OBSTRUCTIVE SLEEP APNEA (ADULT) (PEDIATRIC) Code(s): G47.33 - OBSTRUCTIVE SLEEP APNEA (ADULT) (PEDIATRIC) (9) Thrombocytopenia Current Visit: Yes Status: Acute Assessment & Plan: - PLT 119- appears to be chronically low per old labs reviewed - F/U OP with hematology. (10) Heart murmur Current Visit: Yes Status: Acute Assessment & Plan: - Echo for further evaluation VTE: SCD's PPI: Pantoprazole Next of KIN: Child- Ragini Avalos [phone] D/C plan: tomorrow Code status: Full Plan of care time > 40 minutes Code(s): R01.1 - CARDIAC MURMUR, UNSPECIFIED
[2025-01-25] MEDS: SYNTHROID 75 MCG PO SCH (09:48)
[2025-01-25] MEDS ORDERED: NON-FORMULARY ITEM (Dapagliflozin Propanediol [Farxiga] 10 MG Tablet) PO SCH (10:00)
[2025-01-25] MEDS ORDERED: NON-FORMULARY ITEM (Umeclidinium Bromide [Incruse Ellipta] 62.5 MCG Blst.W.Dev) IH SCH (10:00)
[2025-01-25] MEDS ORDERED: NON-FORMULARY ITEM (Fluticasone/Vilanterol [Breo Ellipta 100-25 Mcg Inhalr] 1 EACH Blst.W. PO SCH (10:00)
[2025-01-25] MEDS ORDERED: NON-FORMULARY ITEM (Losartan/Hydrochlorothiazide [Losartan-Hctz 50-12.5 Mg Tab] 1 EACH Tab PO SCH (10:00)
[2025-01-25] MEDS ORDERED: ZYLOPRIM 100 MG ONE (14:28)
[2025-01-25] MEDS ORDERED: Xopenex 1.25 MG/0.5 ML UD NEBULE IH PRN (14:48)
[2025-01-25] MEDS: PROVENTIL 2.5 MG/3 ML NEB IH PRN (22:09)
[2025-01-26 05:28] LABS: Hematocrit 33.3 % (34.1-44.9); Hemoglobin 10.3 g/dL (11.2-15.7); Mean Corpuscular Hemoglobin 28.1 pg (25.6-32.2); Mean Corpuscular Hgb Concent. 30.9 g/dL (32.2-35.5); Platelet Count 130 x10^3/uL (182-369); Red Blood Count 3.67 x10^6/uL (3.93-5.22); White Blood Count 7.8 x10^3/uL (3.98-10.04)
[2025-01-26 06:02] LABS: Calcium 8.9 mg/dL (8.4-10.2); Carbon Dioxide 30.0 mmol/L (22-30); Creatinine 1 0.67 mg/dL (0.52-1.04); EST GLOMERULAR FILTRATION RATE 92.8 ML/MIN; Glucose 115.0 mg/dL (74-106); Potassium 4.2 mmol/L (3.5-5.1); SGOT/AST 30.0 U/L (14-36); SGPT/ALT 31.0 U/L (0-35); Total Protein 5.8 g/dL (6.3-8.2)
[2025-01-26 07:50] VITALS: RESP 20
[2025-01-26] MEDS: KENALOG 0.1% CREAM 15 GM TP PRN (10:13)
[2025-01-26] MEDS: SYNTHROID 50 MCG PO SCH (10:15)
[2025-01-26] MEDS: Acidophilus TABLET PO SCH (10:31)
[2025-01-26 11:54] VITALS: BP 144/69; PULSE 85; TEMP 97.3; O2SAT 98
--- NOTE | 2025-01-26 12:30 | PCM.DS ---
Discharge Summary Date of Admission: 01/24/25 11:53 Date of Discharge: 01/26/25 Admitting Physician: JOSE WILLIAMSON MD Primary Care Provider: RAGHAV NIEVES Allergies Allergies metronidazole [From Flagyl] Allergy (Unknown, Verified 01/24/25 11:59) Rash enoxaparin [From Lovenox] Allergy (Verified 01/24/25 11:59) Rash rofecoxib [From Vioxx] Adverse Reaction (Verified 01/24/25 11:59) Stomach Cramps Hospital Summary - Hospital Course Hospital Course: This is a 74-year-old female with a complex medical history including hypertension, hyperlipidemia, peripheral vascular disease, asthma, COPD on 4L home oxygen, emphysema, obstructive sleep apnea, type II diabetes mellitus, hypothyroidism, osteoarthritis, GERD, hernia, anemia, [place] palsy, and liver cirrhosis. She presented to the emergency department on 01/24/25 with worsening shortness of breath, which began on January 06. She was initially evaluated by her web marketing intern and prescribed antibiotics and prednisone, resulting in only one day of symptomatic improvement. Since then, she experienced progressive respiratory decline. She reported that her oxygen saturation had not risen above 92% despite her usual 4L nasal cannula use, and with ambulation off oxygen, saturations dropped to the low 70s. She also developed a productive cough with green-yellow sputum the Friday prior to admission. In the ED, she was noted to have lactic acidosis with an initial lactate level of 2.4 but no clinical evidence of sepsis. She was started on IV fluids, IV antibiotics (Zosyn), steroids, DuoNebs, and continued her home Breo inhaler. She remained on her baseline 4L nasal cannula with oxygen saturation improving to 97%. Physical therapy was consulted to assess for increased shortness of breath and weakness with activity. On 01/25, a new heart murmur was detected on physical exam. The patient reported no known history of a murmur and had not been under the care of a final cleaner. An echocardiogram was ordered for further evaluation. On 01/26, the patient was alert and sitting up in bed, but reported the onset of diarrhea that morning. A stool sample was collected for Clostridioides difficile testing, and a probiotic was initiated. She remained afebrile throughout her hospital stay and her white blood cell count remained within normal limits. Echocardiogram results were discussed with cardiology and showed severe aortic sclerosis with moderate diastolic dysfunction. A thickened aortic valve was noted, and while endocarditis could not be definitively ruled out, her clinical picture was not consistent with valve infection. A referral for outpatient transesophageal echocardiogram ([facility]) was placed, along with a cardiology referral to a provider in [place], per the patients request. Sputum and blood cultures were pending at the time of discharge. She was discharged in stable condition on her baseline 4L nasal cannula with oxygen saturation at 100%, and will continue oral antibiotics and steroids for COPD exacerbation. If C. difficile testing returns negative, she may continue probiotic use or take [id number] antidiarrheals such as Imodium as needed. The patient denied any additional symptoms at discharge. - Vitals & Intake/Output Vital Signs: Vital Signs Temperature 97.3 F 01/26/25 11:54 Pulse Rate 85 01/26/25 11:54 Respiratory Rate 20 01/26/25 11:54 Blood Pressure 144/69 01/26/25 11:54 O2 Sat by Pulse Oximetry 98 01/26/25 11:54 Intake & Output: Intake & Output 01/24/25 01/25/25 01/26/25 01/27/25 11:59 11:59 11:59 11:59 Intake Total 1840 2460 Balance 1840 2460 Weight 76.2 kg 76.8 kg - Lab Result Diagrams: 01/26/25 04:40 01/26/25 04:40 Lab Results-Last 24 Hrs: Lab Results-Last 24 Hours 01/25/25 01/25/25 01/26/25 Range/Units 16:23 21:15 04:40 WBC 7.8 (3.98-10.04) x10^3/uL RBC 3.67 L (3.93-5.22) x10^6/uL Hgb 10.3 L (11.2-15.7) g/dL Hct 33.3 L (34.1-44.9) % MCV 90.7 (79.4-94.8) fL MCH 28.1 (25.6-32.2) pg MCHC 30.9 L (32.2-35.5) g/dL RDW 17.8 H (11.7-14.4) % Plt Count 130 L (182-369) x10^3/uL MPV 10.1 (9.4-12.3) fL Sodium (135-145) mmol/L Potassium (3.5-5.1) mmol/L Chloride (98-107) mmol/L Carbon Dioxide (22-30) mmol/L Anion Gap (5-15) MEQ/L BUN (7-17) mg/dL Creatinine (0.52-1.04) mg/dL Estimated GFR ML/MIN Glucose (74-106) mg/dL POC Glucometer 135 H 237 H (74 to 106) mg/dL Calcium (8.4-10.2) mg/dL Total Bilirubin (0.2-1.3) mg/dL AST (14-36) U/L ALT (0-35) U/L Alkaline Phosphatase (38-126) U/L Serum Total Protein (6.3-8.2) g/dL Albumin (3.5-5.0) g/dL 01/26/25 01/26/25 01/26/25 Range/Units 04:40 07:06 11:37 WBC (3.98-10.04) x10^3/uL RBC (3.93-5.22) x10^6/uL Hgb (11.2-15.7) g/dL Hct (34.1-44.9) % MCV (79.4-94.8) fL MCH (25.6-32.2) pg MCHC (32.2-35.5) g/dL RDW (11.7-14.4) % Plt Count (182-369) x10^3/uL MPV (9.4-12.3) fL Sodium 138 (135-145) mmol/L Potassium 4.2 (3.5-5.1) mmol/L Chloride 103 (98-107) mmol/L Carbon Dioxide 30 (22-30) mmol/L Anion Gap 8.8 (5-15) MEQ/L BUN 14 (7-17) mg/dL Creatinine 0.67 (0.52-1.04) mg/dL Estimated GFR 92.8 ML/MIN Glucose 115 H (74-106) mg/dL POC Glucometer 108 H 180 H (74 to 106) mg/dL Calcium 8.9 (8.4-10.2) mg/dL Total Bilirubin 0.30 (0.2-1.3) mg/dL AST 30 (14-36) U/L ALT 31 (0-35) U/L Alkaline Phosphatase 86 (38-126) U/L Serum Total Protein 5.8 L (6.3-8.2) g/dL Albumin 3.4 L (3.5-5.0) g/dL Micro Results-Entire Visit: Accuchecks Date 01/26/25 Date 01/26/25 Date 01/25/25 - Radiology Exams Ordered Rad Exams-Entire Visit: Radiology Procedures Category Date Time Status ECHO W/2D AND DOPPLER [US] Routine Exams 01/25/25 08:56 Taken - Procedures and Test Procedures and Tests throughout Hospitalization: Therapy Orders & Screens 01/24/25 10:26 Respiratory Therapy Assessment DAILY Comment: 01/24/25 12:37 RT Miscellaneous Order ROUTINE Comment: Physician Instructions: Reason For Exam: May use home CPAP at night Diagnosis: EXAC COPD 01/24/25 13:34 Oxygen NASAL CANNULA 4 lpm Comment: Diagnosis: EXAC COPD 01/24/25 19:00 Respiratory MDI BID Comment: Diagnosis: EXAC COPD 01/25/25 09:46 PT Eval & Treat (MD Order) ONCE Reason for Eval:: SOB and weakness with walking- eval for home needs Diagnosis: EXAC COPD Discharge Exam General Appearance: no apparent distress, alert Neurologic Exam: alert, oriented x 3, cooperative, normal mood/affect, nml cerebellar function, sensation nml, No motor deficits Eye Exam: PERRL, EOMI, eyes nml inspection Ears, Nose, Throat Exam: normal ENT inspection, pharynx normal, moist mucous membranes Neck Exam: normal inspection, non-tender, supple, full range of motion Respiratory Exam: normal breath sounds, lungs clear, No respiratory distress Cardiovascular Exam: regular rate/rhythm, normal heart sounds Gastrointestinal/Abdomen Exam: soft, No tenderness, No mass Pelvic Exam: deferred Rectal Exam: deferred Back Exam: normal inspection, normal range of motion, No CVA tenderness, No vertebral tenderness Extremity Exam: normal inspection, normal range of motion Skin Exam: normal color, warm, dry Final Diagnosis/Problem List - Final Discharge Diagnosis/Problem (1) COPD exacerbation Current Visit: Yes Status: Acute Code(s): J44.1 - CHRONIC OBSTRUCTIVE PULMONARY DISEASE W (ACUTE) EXACERBATION (2) Lactic acidosis Current Visit: Yes Status: Acute Code(s): E87.20 - ACIDOSIS, UNSPECIFIED (3) Diabetes type 2, controlled Current Visit: No Status: Chronic Code(s): E11.9 - TYPE 2 DIABETES MELLITUS WITHOUT COMPLICATIONS (4) HLD (hyperlipidemia) Current Visit: No Status: Chronic Code(s): E78.5 - HYPERLIPIDEMIA, UNSPECIFIED (5) HTN (hypertension) Current Visit: No Status: Chronic Code(s): I10 - ESSENTIAL (PRIMARY) HYPERTENSION (6) Hypothyroid Current Visit: No Status: Chronic Code(s): E03.9 - HYPOTHYROIDISM, UNSPECIFIED (7) Neuropathy Current Visit: No Status: Chronic Code(s): G62.9 - POLYNEUROPATHY, UNSPECIFIED (8) Obstructive sleep apnea Current Visit: No Status: Chronic Code(s): G47.33 - OBSTRUCTIVE SLEEP APNEA (ADULT) (PEDIATRIC) (9) Thrombocytopenia Current Visit: Yes Status: Acute (10) Heart murmur Current Visit: Yes Status: Acute Assessment & Plan: 1) COPD exacerbation Current Visit: Yes Status: Acute Assessment & Plan: - Zosyn IV, duonebs, steroids, Breo- inhaler - Sputum culture- pending - CBC, CMP reviewed - IVF - CXR: Impression: Continued nonacute hyperinflated chest with chronic features. - On baseline O2 at 4lNC 90% - Failed OP antibiotics - Follows Dr. Lauren Red for Pulm - tele 01/25 - On 4lNC 97%- baseline O2 - Sputum pending - CBC, CMP reviewed - PT eval 01/26 - 4lNC 100% - CBC, CMP reviewed - Continue antibiotic and steroid OP Code(s): J44.1 - CHRONIC OBSTRUCTIVE PULMONARY DISEASE W (ACUTE) EXACERBATION (2) Lactic acidosis Current Visit: Yes Status: Acute Assessment & Plan: - Lactic acid 2.4- repeat 1.5 - Does not meet sepsis or SIRS criteria - Pt takes sildenafil TID- so will hold fluid bolus for now - IVF - NS @ 50 and recheck LA later today in 8 hours - CBC, CMP reviewed - 2:2 COPD exacerbation - Resp > 20 - On baseline O2 at 4lNC 01/25 - IVF stopped - resolved - BC x2 pending Code(s): E87.20 - ACIDOSIS, UNSPECIFIED (3) Diabetes type 2, controlled Current Visit: No Status: Chronic Assessment & Plan: - A1C 5.67- controlled - Accuchecks AC/HS - S/S insulin Code(s): E11.9 - TYPE 2 DIABETES MELLITUS WITHOUT COMPLICATIONS (4) HLD (hyperlipidemia) Current Visit: No Status: Chronic Assessment & Plan: - Continue Statin Code(s): E78.5 - HYPERLIPIDEMIA, UNSPECIFIED (5) HTN (hypertension) Current Visit: No Status: Chronic Assessment & Plan: - BP elevated - Continue home meds 01/25 - BP stable Code(s): I10 - ESSENTIAL (PRIMARY) HYPERTENSION (6) Hypothyroid Current Visit: No Status: Chronic Code(s): E03.9 - HYPOTHYROIDISM, UNSPECIFIED - Continue Synthroid (7) Neuropathy Current Visit: No Status: Chronic Assessment & Plan: - Continue gabapentin Code(s): G62.9 - POLYNEUROPATHY, UNSPECIFIED (8) Obstructive sleep apnea Current Visit: No Status: Chronic Assessment & Plan: - Cpap at night Code(s): G47.33 - OBSTRUCTIVE SLEEP APNEA (ADULT) (PEDIATRIC) (9) Thrombocytopenia Current Visit: Yes Status: Acute Assessment & Plan: - PLT 119- appears to be chronically low per old labs reviewed - F/U OP with hematology. 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 Mildly dilated left and right atria. Normal ventricular chamber sizes. 2. Normal left ventricular systolic function without focal wall motion abnormalities. Estimated EF 60%. 3. Moderate diastolic dysfunction. 4. Normal right ventricular systolic function. 5. Severe aortic sclerosis without aortic stenosis or aortic regurgitation. Unable to exclude a vegetation, but the lack of aortic regurgitation makes this diagnosis less likely. If endocarditis is suspected, consider a transesophageal echocardiogram to better evaluate. 6. Mild mitral annular calcification. Valves are otherwise structurally normal. 7. Doppler: No significant valvular regurgitation. 8. Mild pulmonary hypertension with an estimated PA systolic pressure 40 mmHg 9. Mildly elevated right atrial pressure. 10. No pericardial effusion. - Referral to cardiology made OP - Pt will need [facility] Code(s): R01.1 - CARDIAC MURMUR, UNSPECIFIED (11) Diarrhea Current Visit: Yes Status: Acute Assessment & Plan: - C-diff pending - Probiotic - Consider imodium D/C plan of care time > 42 minutes D/C meds new: Prednisone, Doxycycline Will follow BC x2 and sputum culture OP Code(s): R19.7 - DIARRHEA, UNSPECIFIED - Discharge Discharge Date: 01/26/25 Disposition: Home, Self-Care Condition: Fair Prescriptions: New Doxycycline Hyclate 100 mg [Vibramycin 100 MG] 100 mg PO BID 7 Days #14 tab Prednisone 20 mg [Deltasone 20 mg] 20 mg PO BID 5 Days #10 tablet Continue Methotrexate Sodium 2.5 mg [Trexall 2.5 mg] 5 mg PO WEEKLY Umeclidinium [place] [Incruse Ellipta] 1 puff IH DAILY Gabapentin 400 mg PO TID Folic Acid 1 mg PO DAILY Calcium Carbonate [Calcium] 600 mg PO BID Alendronate Sodium 70 mg PO WEEKLY Atorvastatin Calcium [Lipitor 20MG Tablet] 20 mg PO DAILY Sildenafil Citrate 20 mg PO TID Metoprolol Succinate 50 mg PO HS Aspirin EC 81 mg [Ecotrin 81 mg] 81 mg PO DAILY Cholecalciferol (Vitamin D3) [Vitamin D] 1,000 mg PO DAILY Albuterol Sulfate Mdi [ALBUTEROL/Proair Hfa MDI] 2 puff IH Q6H PRN PRN PRN Reason: Shortness Of Breath Albuterol 2.5 mg/3 ml Neb [Proventil 2.5 mg/3 ml Neb] 2.5 mg IH Q6H PRN PRN PRN Reason: Shortness Of Breath Potassium Chloride [Klor-Con 10] 10 meq PO QID Levothyroxine Sodium 75 Mcg [Synthroid 75 Mcg] 75 mcg PO DAILY 30 Days #30 tablet Pantoprazole 20 mg [Protonix 20MG Tablet] 20 mg PO BID Ropinirole HCl 0.25 mg PO HS Magnesium Oxide 400 mg [Mag-Ox 400] 400 mg PO DAILY Clobetasol Propionate/Emoll [Clobetasol Emollient 0.05% Crm] 60 gm TP DAILY PRN PRN Reason: Redness/Irritation Ferrous Sulfate 325 mg PO DAILY Cyanocobalamin 500 Mcg [Vitamin B-12 500 MCG] 500 mcg PO DAILY [place]-3/Dha/Epa/Fish Oil [Fish Oil 1,000 mg Softgel] 1,000 mg PO BID Ascorbic Acid [Vitamin C] 1,000 mg PO BID Levothyroxine Sodium 50 Mcg [Synthroid 50 Mcg] 50 mcg PO DAILY Fluticasone/Vilanterol [Breo Ellipta 100-25 Mcg Inhalr] 1 inh PO DAILY Furosemide 20 mg [Lasix 20 mg] 40 mg PO DAILY Dapagliflozin Propanediol [Farxiga] 10 mg PO DAILY Metformin HCl [Metformin HCl ER] 1,000 mg PO BID Roflumilast [Daliresp] 250 mcg PO DAILY Losartan/Hydrochlorothiazide [Losartan-Hctz 50-12.5 mg Tab] 1 each PO DAILY Additional Instructions: * You can buy probiotoc and imodium OTC to help with loose stools. Please follow label directions and do not exceed daily dose. Follow up with: NAVIN RED [ACTIVE STAFF, PULMONARY MEDICINE] - 02/03/25 10:45 am RAGHAV NIEVES MD [Primary Care Provider, [facility]ILY [facility]ACTICE] - 02/01/25 11:00 am Jean-Pierre Lira MD [CONSULTING PHYSICIAN, CARDIOLOGY] - 02/08/25 1:15 pm Referral Note: [facility] Office
[2025-01-29] MEDS ORDERED: TREXALL 2.5 MG PO SCH (10:00)
[2025-01-30] MEDS ORDERED: Fosamax 70 MG PO SCH (06:00)
== END 2025-01-26 15:12 | disposition home or self-care (01) ==
LOC: ED 09:54 → MED SURG 11:53
PROVIDERS: ADMIT Internal Medicine; ATTEND Internal Medicine
DX: J44.1 Chronic obstructive pulmonary disease with (acute) exacerbation (principal); E87.20 Acidosis, unspecified; E11.9 Type 2 diabetes mellitus without complications; E78.5 Hyperlipidemia, unspecified; I10 Essential (primary) hypertension; E03.9 Hypothyroidism, unspecified; G62.9 Polyneuropathy, unspecified; G47.33 Obstructive sleep apnea (adult) (pediatric); D69.6 Thrombocytopenia, unspecified; R01.1 Cardiac murmur, unspecified; R19.7 Diarrhea, unspecified; Z79.899 Other long term (current) drug therapy; Z99.81 Dependence on supplemental oxygen